=== PATIENT | female | born 1965 | race Caucasian/White ===

== ENCOUNTER → 2019-02-06 | Outpatient (CLI) | payer OTHER, SELFPAY | PROVIDERS: Family Provider Nurse Practitioner Family; Visit Provider Internal Medicine Medical Oncology | DX: Z51.11 Encounter for antineoplastic chemotherapy (principal); C57.02 Malignant neoplasm of left fallopian tube; C78.6 Secondary malignant neoplasm of retroperitoneum and peritoneum | CPT/HCPCS: J1642; J7050; J9035 ×2 ==

== ENCOUNTER 2019-02-27 12:46 | Outpatient (CLI) | payer OTHER, SELFPAY ==
[2019-02-27 13:45] LABS: Basophils % 0.5 %; Eosinophils # 0.5 10^3/uL (0.0-0.8); Hematocrit 39.2 % (37.0-47.0); Hemoglobin 12.6 g/dL (11.5-15.3); Lymphocytes % 30.2 %; Mean Corpuscular HGB Conc 32.1 g/dL (30.0-36.0); Mean Corpuscular Hemoglobin 32.6 pg (28.0-34.0); Mean Corpuscular Volume 101.6 fL (81-99); Monocytes # 0.5 10^3/uL (0.2-0.9); Monocytes % 7.9 %; Neutrophils # 3.5 10^3/uL (1.8-7.7); Neutrophils % 53.1 %; Nucleated Red Blood Cells % 0 %; Platelet Count 170 10^3/cmm (130-400); Red Blood Count 3.86 10^6/uL (4.1-5.3); Red Cell Distribution Width 13.5 % (12.1-15.1); White Blood Count 6.5 10^3/uL (4.0-10.0)
[2019-02-27 14:06] LABS: Add Urine Microscopic? YES; Bilirubin Urine Neg (NEGATIVE); Blood Urine Neg (Negative); Glucose Urine UA Norm (Normal); Ketones Urine Negative (Negative); Leukocyte Esterase Urine Negative (Negative); Nitrate Urine Negative (Negative); Protein Urine Trace (Negative); Specific Gravity, Urine 1.025 (1.005-1.030); Urine Appearance Clear (CLEAR); Urine Color Yellow (Yellow); Urobilinogen Urine Norm (Negative)
[2019-02-27 14:29] LABS: Alanine Aminotransferase 17 U/L (0-33); Albumin Level 3.9 g/dL (3.5-5.2); Alkaline Phosphatase 70 IU/L (35-105); Anion Gap 18.1 (5-19); Aspartate Amino Transferase 20 U/L (0-32); Blood Urea Nitrogen 18 mg/dL (6-20); Calcium 9.8 mg/Dl (8.6-10.0); Carbon Dioxide 23 mmol/L (22-29); Chloride 103 mmol/L (98-107); Globulin 2.7 g/dL (1.3-4.6); Glomerular Filtration Rate 103.8 mL/min (90-130); Glucose 91 mg/dL (74-109); Potassium 4.1 mmol/L (3.5-5.1); Sodium 140 mmol/L (136-145); Total Bilirubin 0.2 mg/dL (0.15-1.2); Total Protein 6.6 g/dL (6.6-8.7)
[2019-02-27 14:39] LABS: Bacteria Urine 1+
[2019-02-27 14:40] LABS: Add Urine Culture? No; Mucus Urine 3+
[2019-02-27] MEDS: sodium chloride 0.9% 250 ML IV (15:36)
[2019-03-03 13:58] LABS: CA 125 16.3 U/mL (0-35)
--- NOTE | 2019-03-03 21:09 | ONC FU_ITS ---
Dr. Grey Patient Follow-Up Note Patient: Jagruti Jay Unit #: [id number]: [id number] Dicatated By: John Grey M.D.Date of Visit:Feb 27, 2019 Onc Med Follow-up/Prog Note Chief Complaint: Fallopian tube cancer. 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 She had a recurrence in the form of a right diaphragmatic peritoneal implant confirmed by biopsy at a cholecystectomy procedure in April 2018. She had presented in August 2015 with abdominal pain, and she was found to have a large pelvic mass. This was initially thought to be arising from the right ovary. On 09/17/2015 she underwent surgery which included total abdominal hysterectomy, bilateral salpingo-oophorectomy, and radical debulking along with pelvic lymphadenectomy and limited periaortic lymphadenectomy. I do not have those actual reports available, but she apparently was thought to have a complete or near-complete resection. She was then given postoperative adjuvant chemotherapy with 6 cycles of carboplatin/paclitaxel. On 09/28/2018 she underwent cholecystectomy, and at the time of that procedure she was noted to have a peritoneal implant on the right diaphragm. Biopsy of the implant showed high-grade carcinoma consistent with the previous high-grade serous primary. With that finding she was then given further chemotherapy with 6 cycles of carboplatin/gemcitabine, which she completed in September 2018. Restaging CT scans of the chest, abdomen, and pelvis on 10/07/2018 showed resolution of a previously noted small anterior hepatic capsular or subcapsular nodule. There are new postsurgical changes in that region. 2 very closely associated hypodense foci were again noted in the right lobe posteriorly, maximum aggregate diameter of 3 mm. That finding. Stable. There was no evidence of a new focal hepatic abnormality. There were small mesenteric, retroperitoneal, and bilateral inguinal lymph nodes. There was no pathologic lymphadenopathy. A 5 x 3 mm sclerotic focus at the right posterior aspect of the manubrium appeared stable compared to a prior study from October 2015. There were no suspicious osseous lesions noted. With those findings, she was recommended to continue further systemic therapy with 16 cycles of bevacizumab administered at 3-week intervals. She was seen here because she would like to receive that treatment closer to home. INTERIM HISTORY: She received cycle 1 of bevacizumab on 11/10/2018. She tolerated it without acute toxicity, and she then continued treatment at a 3-week dosing interval. She is seen for a follow-up visit. She has been feeling good generally. Her main complaint is that her sinuses are horrible. She says they have been getting worse and worse. She also was having stomach burning. She was given a Z-Cale and her Protonix was increased to twice a day, and since then the stomach burning has improved. She says her energy is still good. She has normal activity. She has good appetite. She has not had fever or night sweats, but she does have hot flashes. She has had some sore throat with the sinus drainage. She does not complain of shortness of breath or cough. She has had some chest pain, but she thinks that may be acid reflux. She is having some constipation. She has no complaints. She has some joint pain, especially in her hands. She also has had some neck pain. She says she has been getting up with bad headaches. She has no focal neurologic symptoms. Medications: 1Artemisia 1 Capsule Oral daily PRN, Ashwagandha 1 Capsule (of 1300 mg) Oral daily PRN, Beta Glucan 2 Capsule (of 500 mg) daily, Cetirizine HCl 1 Tablet (of 10 mg) Oral daily, Cholecalciferol 2 Capsule (of 5000 Units) Oral daily, ip-6 inositol 1 Capsule daily, Lexapro 1 Tablet (of 10 mg) Oral daily, Milk Thistle 1 Capsule Oral daily, Pantoprazole Sodium 1 Tablet (of 40 mg) Tablet, enteric coated Oral b.i.d., proline and lysine 1 Tablet daily, Quercetin 1 Tablet (of 500 mg) Oral daily, Singulair 1 Tablet (of 10 mg) Oral at bedtime, tagament 1 Capsule daily, Turmeric 1 Capsule Oral daily, Vitamin C 2 Capsule (of 1400 mg) Oral daily, Vitamin E 1 Capsule (of 500 mg) Oral daily, Vitamin K2 1 Capsule (of 100 mcg) Oral daily Allergies: Sulfa Antibiotics Review of Systems: Constitutional - Her energy is good. She has normal activity. Her appetite is good and her weight is up a few pounds. No fever or chills. She has hot flashes and sweating. ECOG score is 0, ENMT - She has sinus congestion/drainage with sore throat. No mouth sores. No difficulty swallowing, Hematologic/Lymphatic - No abnormal bruising or bleeding, Respiratory - No shortness of breath. No cough. No pleuritic pain or hemoptysis, Cardiovascular - No angina pain. No palpitations, Gastrointestinal - No nausea or vomiting. No heartburn or acid reflux. She has constipation. No blood in the stool or black stools, Genitourinary (F) - No dysuria or hematuria. No urinary frequency. No urgency or incontinence, Musculoskeletal - She has pain in her neck and hands in the mornings, Integumentary - No skin complications, Neurologic - No headache or dizziness. No numbness/paresthesias or other focal neurologic symptoms, Psychiatric - She has some anxiety. No depression. No insomnia. Vital Signs: Performed on Feb 27, 2019 14:32 Height - 64.00 in Weight - 134.4 lbs (HIGH) BSA - 1.65 sq.m BMI - 23.07 Temperature - 97.4 F (LOW) Pulse - 80 /min Respiration - 18 /min BP - 109/58 mm(hg) O2 Sat - 99 % Pain - 0 Physical Examination: Constitutional - She looks good generally, Eyes - Sclerae nonicteric. Conjunctivae clear, ENMT - No lesions noted in the oral cavity, Hematologic/Lymphatic - No cervical, clavicular, or axillary adenopathy, Respiratory - Lungs are clear with good air movement bilaterally, Cardiovascular - Heart rhythm is regular. There is no murmur, gallop, or rub noted, Abdomen - Mildly distended but soft. Liver and spleen are not enlarged. There is no abdominal mass or ascites noted and there is no inguinal adenopathy, Extremities - No edema, Neurologic - No focal neurologic deficits noted. Lab/Imaging: Test performed on Feb 27, 2019 14:49 Glucose 91 mg/dL BUN 18 mg/dL Creatinine 0.9 mg/dL Cr Clearance (Est) 64.53 mL/min Sodium 140 mmol/L Potassium 4.1 mmol/L Chloride 103 mmol/L CO2 23 mmol/L Calcium 9.8 mg/dL Protein, Total 6.6 g/dL Albumin 3.9 g/dL Globulin 2.7 g/dL Bilirubin, Total 3.9 mg/dL Alkaline Phosphatase 70 IU/L AST (SGOT) 20 IU/L ALT (SGPT) 17 IU/L Test performed on Feb 27, 2019 14:17 Ua Color Yellow Ua Appearance Clear Ua Specific [place] 1.025 Ua pH 5.0 Ua Protein Trace Ua Glucose Normal Ua Ketones Negative Ua Blood Negative Ua Leuk Esterase Negative Ua Nitrites Negative Ua Bilirubin Negative Ua Urobilinogen Normal Test performed on Feb 27, 2019 13:57 WBC 6.5 10^9/L RBC 3.86 10^12/L HGB 12.6 g/dL HCT 39.2 % MCV 101.6 fl MCH 32.6 pg MCHC 32.1 g/dL RDW 13.5 % Platelet Count 170 10^9/L MPV 11 fL Neutrophils (Gran) 3.5 10^9/L Lymphocytes 2 10^9/L Monocytes 0.5 10^9/L Eosinophils 0.5 10^9/L Basophils 0 10^9/L Manual Segs 53.1 % Manual Lymphocytes 30.2 % Manual Monocytes 7.9 % Manual Eosinophils 8 % Manual Basophils 0.5 % NRBCs 0 /100 WBC Impression: 1. 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 She had complete or near-complete debulking with her initial surgery in September 2015. 2. She was given postoperative adjuvant chemotherapy with 6 cycles of carboplatin/paclitaxel. 3. She had biopsy proven recurrence in the form of a right diaphragmatic peritoneal implant, discovered at the cholecystectomy procedure in April 2018. 4. She then had further chemotherapy with 6 cycles of carboplatin/gemcitabine, completed in September 2018. She had no evidence of residual disease on restaging CT scans on 10/07/2018. Her other medical illnesses include: 5. GERD. 6. Allergic rhinitis. 7. Anxiety/depression. She was recommended to undergo maintenance therapy with single agent bevacizumab at a 3-week interval dosing schedule for 16 cycles. She began cycle 1 of bevacizumab on 11/10/2018. She tolerated it well, and she has been able to continue her treatment every 3 weeks with no apparent adverse effects. Recently she has had some worsening of sinusitis symptoms and she also has had GERD symptoms. At least some of that has improved with a Z-Cale and with an increase in her Protonix dosage to twice daily.. Plan: She will proceed with cycle 6 of bevacizumab. The dosage remains the same. She returns for treatment in 3 weeks and for a follow-up visit in 6 weeks. Signed By: John Grey M.D. <<Signature on File>>
== END 2019-02-27 12:47 | disposition home or self-care (01) ==
LOC: ONCMED 12:48
PROVIDERS: Family Provider Nurse Practitioner Family; PCP Nurse Practitioner Family; Visit Provider Internal Medicine Medical Oncology
DX: Z51.11 Encounter for antineoplastic chemotherapy (principal); C57.02 Malignant neoplasm of left fallopian tube; C78.6 Secondary malignant neoplasm of retroperitoneum and peritoneum; Z90.710 Acquired absence of both cervix and uterus; Z90.79 Acquired absence of other genital organ(s)
CPT/HCPCS: 80053; 81003; 85025; 86304; 96413; 99214; J7050; J9035

== ENCOUNTER 2019-03-20 09:43 | Outpatient (CLI) | payer OTHER, SELFPAY ==
[2019-03-20] MEDS: sodium chloride 0.9% 250 ML 75 ML IV (10:46)
== END 2019-03-20 09:44 | disposition home or self-care (01) ==
PROVIDERS: Family Provider Nurse Practitioner Family; PCP Nurse Practitioner Family; Visit Provider Internal Medicine Medical Oncology
DX: Z51.11 Encounter for antineoplastic chemotherapy (principal); C57.02 Malignant neoplasm of left fallopian tube
CPT/HCPCS: 96413; J7050; J9035

== ENCOUNTER 2019-04-10 09:28 | Outpatient (CLI) | payer OTHER, SELFPAY ==
[2019-04-10 09:56] LABS: Add Urine Microscopic? NO
[2019-04-10 10:00] LABS: Basophils % 0.4 %; Eosinophils # 0.1 10^3/uL (0.0-0.8); Eosinophils % 1.2 %; Hematocrit 40.9 % (37.0-47.0); Hemoglobin 13.1 g/dL (11.5-15.3); Lymphocytes # 1.4 10^3/uL (0.8-4.8); Lymphocytes % 27.2 %; Mean Corpuscular Volume 99.8 fL (81-99); Mean Platelet Volume 10.6 fL (7.4-10.4); Monocytes # 0.4 10^3/uL (0.2-0.9); Monocytes % 8.5 %; Neutrophils # 3.1 10^3/uL (1.8-7.7); Neutrophils % 62.5 %; Nucleated Red Blood Cells % 0 %; Platelet Count 180 10^3/cmm (130-400); Red Cell Distribution Width 12.4 % (12.1-15.1)
[2019-04-10 10:15] LABS: Alanine Aminotransferase 16 U/L (0-33); Albumin Level 4.4 g/dL (3.5-5.2); Alkaline Phosphatase 71 IU/L (35-105); Anion Gap 13.2 (5-19); Aspartate Amino Transferase 19 U/L (0-32); Blood Urea Nitrogen 18 mg/dL (6-20); Calcium 9.9 mg/dL (8.5-10.5); Carbon Dioxide 27 mmol/L (22-29); Chloride 104 mmol/L (98-107); Globulin 2.5 g/dL (1.3-4.6); Glomerular Filtration Rate 103.8 mL/min (90-130); Glucose 90 mg/dL (65-115); Potassium 4.2 mmol/L (3.5-5.1); Sodium 140 mmol/L (136-145); Total Bilirubin 0.3 mg/dL (0.15-1.2); Total Protein 6.9 g/dL (6.6-8.7)
[2019-04-10 10:28] LABS: Bilirubin Urine Neg (NEGATIVE); Blood Urine Neg (Negative); Glucose Urine UA Norm (Normal); Ketones Urine Negative (Negative); Leukocyte Esterase Urine Negative (Negative); Nitrate Urine Negative (Negative); Protein Urine Neg (Negative); Urine Appearance Clear (CLEAR); Urine Color Straw (Yellow); Urobilinogen Urine Norm (Negative)
[2019-04-10 11:14] LABS: CA 125 22.2 U/mL (0-35)
[2019-04-10] MEDS: sodium chloride 0.9% 250 ML 75 ML IV (12:00)
--- NOTE | 2019-04-15 17:03 | ONC FU_ITS ---
[facility] Patient Note Patient: Jagruti Jay Unit #: [id number]: [id number] Dictated By: Celio WarrenDate of Visit: Apr 10, 2019 Onc MED Follow-Up/Prog Note Chief Complaint: Fallopian tube cancer. 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 She had a recurrence in the form of a right diaphragmatic peritoneal implant confirmed by biopsy at a cholecystectomy procedure in April 2018. She had presented in August 2015 with abdominal pain, and she was found to have a large pelvic mass. This was initially thought to be arising from the right ovary. On 09/17/2015 she underwent surgery which included total abdominal hysterectomy, bilateral salpingo-oophorectomy, and radical debulking along with pelvic lymphadenectomy and limited periaortic lymphadenectomy. We do not have those actual reports available, but she apparently was thought to have a complete or near-complete resection. She was then given postoperative adjuvant chemotherapy with 6 cycles of carboplatin/paclitaxel. On 09/28/2018 she underwent cholecystectomy, and at the time of that procedure she was noted to have a peritoneal implant on the right diaphragm. Biopsy of the implant showed high-grade carcinoma consistent with the previous high-grade serous primary. With that finding she was then given further chemotherapy with 6 cycles of carboplatin/gemcitabine, which she completed in September 2018. Restaging CT scans of the chest, abdomen, and pelvis on 10/07/2018 showed resolution of a previously noted small anterior hepatic capsular or subcapsular nodule. There are new postsurgical changes in that region. 2 very closely associated hypodense foci were again noted in the right lobe posteriorly, maximum aggregate diameter of 3 mm. That finding. Stable. There was no evidence of a new focal hepatic abnormality. There were small mesenteric, retroperitoneal, and bilateral inguinal lymph nodes. There was no pathologic lymphadenopathy. A 5 x 3 mm sclerotic focus at the right posterior aspect of the manubrium appeared stable compared to a prior study from October 2015. There were no suspicious osseous lesions noted. With those findings, she was recommended to continue further systemic therapy with 16 cycles of bevacizumab administered at 3-week intervals. She was seen here because she would like to receive that treatment closer to home. INTERIM HISTORY: She received cycle 1 of bevacizumab on 11/10/2018. She tolerated it without acute toxicity, and she then continued treatment at a 3-week dosing interval. Ms. Jay is here today for follow-up. She is due for cycle 8 Avastin. She states overall she is doing well. She has had some stiffness in her hands and neck but states is chronic arthritis. She does not feel is any worse than her normal. She states she has had some headaches every morning but began doing CBD bears which are to ease at night. She states she has been doing this for 2 weeks and for that time she has had no morning headaches. She is very active around the house. She is able to do all her ADLs without any assistance. She states her appetite is good. She denies any fever or chills. She has had no elevation of her blood pressure that she is aware of. She denies any chest pain or palpitations. She states her breathing is normal for her. She does have occasional constipation but is controlled with Dulcolax and MiraLAX as needed. She denies diarrhea. She denies any lower extremity edema. She denies any nausea or vomiting. She states overall she feels good. Her ECOG is 1. Past Medical History: Allergic rhinitis Anxiety/depression Fallopian tube cancer Gastroesophageal reflux disease Past Surgical History: Cholecystectomy in 2019 Placement of PowerPort in 2016 MARIBELL/BSO, omentectomy, radical debulking with pelvic and periaortic lymphadenectomy in 2016 Allergies: Sulfa Antibiotics Medications: 1Artemisia 1 Capsule Oral daily PRN Ashwagandha 1 Capsule (of 1300 mg) Oral daily PRN Beta Glucan 2 Capsule (of 500 mg) daily Cetirizine HCl 1 Tablet (of 10 mg) Oral daily Cholecalciferol 2 Capsule (of 5000 Units) Oral daily ip-6 inositol 1 Capsule daily Kelp 1 Tablet (of 150 mcg) Oral daily Lexapro 1 Tablet (of 10 mg) Oral daily Milk Thistle 1 Capsule Oral daily Pantoprazole Sodium 1 Tablet (of 40 mg) Tablet, enteric coated Oral b.i.d. proline and lysine 1 Tablet daily Quercetin 1 Tablet (of 500 mg) Oral daily Singulair 1 Tablet (of 10 mg) Oral at bedtime tagament 1 Capsule daily Turmeric 1 Capsule Oral daily Vitamin C 2 Capsule (of 1400 mg) Oral daily Vitamin E 1 Capsule (of 500 mg) Oral daily Family History: Ms. Jay's mother at age 82: congestive heart failure, and coronary artery disease, and type II diabetes. Ms. Jay's father at age 82: lung cancer. Ms. Jay has 3 brothers: 3 alive. She has 2 sisters: 2 alive. Father of lung cancer at age 82. Mother of heart disease at age 82. She also had diabetes. A brother has leukemia, which I assume is chronic leukocytic leukemia. Four other siblings are in good health. A nephew of leukemia. 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 Ms. Jay quit smoking 20 years ago but had smoked 0.5 packs/day for 20 years. She has no history of drinking. Ms. Jay reports the following support systems: lives with spouse, significant other, family, or friends, lives in own house, supportive family/friends willing to assist with needs, and adequate transportation available for expected visits. Her diet consists of regular meals. She indicates her activity level as: regular exercise. She has a history of smoking 1/2 pack of cigarettes daily for 20 years, but she quit 20 years ago. She does not drink alcohol. Review Of Symptoms: Constitutional Denies fevers, chills, night sweats, excessive fatigue or weight loss. Allergic/Immunologic No reactions. Eyes Denies significant visual changes. No diplopia. No amaurosis. ENMT Denies changes in hearing, sore throat, mouth sores, difficulty or changes in swallowing ability, and/or sinus drainage. Endocrine No diabetes, thyroid disease or hormone replacement. Denies hot flashes or night sweats. Hematologic/Lymphatic Denies easy bruising or bleeding. The patient denies any tender or palpable lymph nodes. Respiratory Denies dyspnea on exertion, chest pain, cough or hemoptysis. Denies orthopnea. Cardiovascular Denies anginal chest pain, palpitations or orthopnea. Gastrointestinal Denies nausea, vomiting, diarrhea, GI bleeding. Denies change in bowel habits and/or stool color, no heartburn or early satiety. Chronic constipation-controlled with Dulcolax daily and Miralax prn. Genitourinary (F) No hematuria, hesitancy, incontinence, vaginal bleeding, discharge or other problems with urination. Musculoskeletal Denies joint pain, swelling or redness. No decreased range of motion. Hands are stiff of the am and I have to work at getting them loosened up. This started since Avastin. Integumentary Denies chronic rashes, inflammation, ulcerations or skin changes. Neurologic Denies headache, blurred vision, and no areas of focal weakness or numbness. Normal gait. No sensory problems. Psychiatric Denies insomnia, depression, karla or mood swings. Vital Signs: Performed on Apr 10, 2019 11:00 Height - 64.00 in Weight - 136 lbs (HIGH) BSA - 1.66 sq.m BMI - 23.34 Temperature - 97.7 F (LOW) Pulse - 96 /min Respiration - 18 /min BP - 128/67 mm(hg) O2 Sat - 97 % Pain - 0,1 - No physically strenuous activity, but ambulatory and able to carry out light or sedentary work (e.g. office work, light house work). (ECOG) Physical Examination: Constitutional Alert, oriented, no acute distress. Skin pink, warm and dry. Head Normocephalic; atraumatic. Eyes Conjunctivae and sclerae are clear and without icterus. Pupils are reactive and equal. ENMT Sinuses are nontender. No oral exudates, ulcers, masses, thrush or mucositis. Oropharynx clear. Tongue normal. Neck Supple without masses or thyromegaly. No jugular venous distension. Respiratory Lungs are clear to auscultation without rhonchi or wheezing. Cardiovascular Regular rate and rhythm of heart without murmurs,clicks, gallops or rubs. Abdomen Non-tender, non-distended, no masses, ascites. Back/Spine Non-tender to palpation. Extremities No visible deformities, no cyanosis, clubbing or edema. Musculoskeletal No tenderness or swelling, normal range of motion without obvious weakness. Integumentary No rashes or lesions. Neurologic No sensory or motor deficits, normal cerebellar function, normal gait. Psychiatric Alert and oriented times three. Coherent slow speech. Verbalizes understanding of our discussions today. Laboratory:Test performed on Apr 10, 2019 12:42 Ua Color straw Ua Appearance clear Ua Specific [place] 1.010 Ua pH 5.0 Ua Protein neg Ua Glucose norm Ua Ketones negative Ua Blood neg Ua Leuk Esterase negative Ua Nitrites neg Ua Bilirubin neg Ua Urobilinogen norm Test performed on Apr 10, 2019 09:40 Sodium 140 mmol/L Potassium 4.2 mmol/L Chloride 104 mmol/L CO2 27 mmol/L Anion Gap 13.2 BUN 18 mg/dL Creatinine 0.6 mg/dL Cr Clearance (Est) 96.8000 mL/min eGFR 103.8 mL/min Glucose 90 mg/dL Calcium 9.9 mg/dL Protein, Total 6.9 g/dL Albumin 4.4 g/dL Globulin 2.5 g/dL Bilirubin, Total 0.3 mg/dL ALT (SGPT) 16 U/L AST (SGOT) 19 U/L Alkaline Phosphatase 71 IU/L WBC 5.0 10 3/uL RBC 4.10 10 6/uL HGB 13.1 g/dL HCT 40.9 % MCV 99.8 fL MCH 32.0 pg MCHC 32.0 g/dL RDW 12.4 % Platelet Count 180 10 3/cmm MPV 10.6 fL Neutrophils 3.1 10 3/uL Lymphocytes 1.4 10 3/uL Monocytes 0.4 10 3/uL Eosinophils 0.1 10 3/uL Basophils 0.0 10 3/uL Neutrophil % 62.5 % Lymphocyte % 27.2 % Monocyte % 8.5 % Eosinophil % 1.2 % Basophils % 0.4 % CA-125 22.2 U/mL Test performed on Feb 27, 2019 13:57 Manual Segs 53.1 % Manual Lymphocytes 30.2 % Manual Monocytes 7.9 % Manual Eosinophils 8 % Manual Basophils 0.5 % NRBCs 0 /100 WBC Test performed on Jan 12, 2019 12:28 Cholesterol, Total 243 mg/dL TSH 2.91 uIU/mL Triglycerides 65 mg/dL LDL Cholesterol 144 mg/dL HDL Cholesterol 86 mg/dL Cholesterol/HDL Ratio 2.83 mg/dL LDL / HDL Ratio 1.67 RATIO Impression: 1. 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 She had complete or near-complete debulking with her initial surgery in September 2015. 2. She was given postoperative adjuvant chemotherapy with 6 cycles of carboplatin/paclitaxel. 3. She had biopsy proven recurrence in the form of a right diaphragmatic peritoneal implant, discovered at the cholecystectomy procedure in April 2018. 4. She then had further chemotherapy with 6 cycles of carboplatin/gemcitabine, completed in September 2018. She had no evidence of residual disease on restaging CT scans on 10/07/2018. Her other medical illnesses include: 5. GERD. 6. Allergic rhinitis. 7. Anxiety/depression. She was recommended to undergo maintenance therapy with single agent bevacizumab at a 3-week interval dosing schedule for 16 cycles. She began cycle 1 of bevacizumab on 11/10/2018. She tolerated it well, and she has been able to continue her treatment every 3 weeks with no apparent adverse effects. Recently she has had some worsening of sinusitis symptoms and she also has had GERD symptoms. At least some of that has improved with a Z-Cale and with an increase in her Protonix dosage to twice daily. She states she is feeling much better today. Plan: 1. Proceed with cycle 7 of bevacizumab. 2. Followup with Dr Valdes scheduled for 04/21/2019 per Ms Jay. 3. Labs from April 10, 2019 were reviewed in detail and discussed with Ms. Jay and a copy was given to her. WBC is 5.0, hemoglobin 13.1, platelets 180,000, ANC is 3100. Potassium 4.2 random glucose 90 creatinine 0.6 LFTs are normal her Ca1 25 is 22.5 which is elevated from February 27, 2019 at which time was 16.3. On January 12, 2019 it was 12.4. Her recent urine was negative for protein. 4. We will plan to have Ms. Jay return in 3 weeks for Avastin only and follow-up with her again in 6 weeks to include a CBC CMP CA-125 and UA for Avastin monitoring. 5. Mrs. Jay is instructed to contact us in interim should questions or problems arise. Signed By: Celio Warren-, AOZAK Grey MD <<Signature on File>>
== END 2019-04-10 09:29 | disposition home or self-care (01) ==
LOC: ONCMED 09:28
PROVIDERS: Family Provider Nurse Practitioner Family; PCP Nurse Practitioner Family; Visit Provider Nurse Practitioner
DX: Z51.11 Encounter for antineoplastic chemotherapy (principal); C57.02 Malignant neoplasm of left fallopian tube; C78.6 Secondary malignant neoplasm of retroperitoneum and peritoneum; M19.90 Unspecified osteoarthritis, unspecified site; F41.8 Other specified anxiety disorders; K21.9 Gastro-esophageal reflux disease without esophagitis; Z98.890 Other specified postprocedural states; Z79.899 Other long term (current) drug therapy; Z90.49 Acquired absence of other specified parts of digestive tract; Z87.891 Personal history of nicotine dependence
CPT/HCPCS: 80053; 81003; 85025; 86304; 96413; 99214; J7050; J9035

== ENCOUNTER 2019-05-01 09:23 | Outpatient (CLI) | payer OTHER, SELFPAY ==
[2019-05-01] MEDS: sodium chloride 0.9% 250 ML 75 ML IV (10:20)
[2019-05-01 10:21] LABS: Basophils % 0.4 %; Eosinophils % 0.6 %; Hematocrit 40.2 % (37.0-47.0); Hemoglobin 12.8 g/dL (11.5-15.3); Lymphocytes # 1.2 10^3/uL (0.8-4.8); Lymphocytes % 23.3 %; Mean Corpuscular HGB Conc 31.8 g/dL (30.0-36.0); Mean Corpuscular Hemoglobin 32.3 pg (28.0-34.0); Mean Corpuscular Volume 101.5 fL (81-99); Mean Platelet Volume 10.6 fL (7.4-10.4); Monocytes # 0.4 10^3/uL (0.2-0.9); Neutrophils # 3.6 10^3/uL (1.8-7.7); Neutrophils % 68.5 %; Nucleated Red Blood Cells % 0 %; Platelet Count 173 10^3/cmm (130-400); Red Blood Count 3.96 10^6/uL (4.1-5.3); Red Cell Distribution Width 12.3 % (12.1-15.1); White Blood Count 5.3 10^3/uL (4.0-10.0)
[2019-05-01 10:33] LABS: Alanine Aminotransferase 14 U/L (0-33); Albumin Level 4.2 g/dL (3.5-5.2); Alkaline Phosphatase 57 IU/L (35-105); Aspartate Amino Transferase 17 U/L (0-32); Blood Urea Nitrogen 13 mg/dL (6-20); Calcium 9.5 mg/dL (8.5-10.5); Carbon Dioxide 30 mmol/L (22-29); Chloride 104 mmol/L (98-107); Globulin 2.5 g/dL (1.3-4.6); Glomerular Filtration Rate 103.8 mL/min (90-130); Glucose 96 mg/dL (65-115); Osmolality Calculated 288 mOsm/kg (285-295); Sodium 141 mmol/L (136-145); Total Bilirubin 0.3 mg/dL (0.15-1.2); Total Protein 6.7 g/dL (6.6-8.7)
[2019-05-01 11:22] LABS: CA 125 22.7 U/mL (0-35)
== END 2019-05-01 09:24 | disposition home or self-care (01) ==
LOC: ONCMED 09:23
PROVIDERS: Family Provider Nurse Practitioner Family; PCP Nurse Practitioner Family; Visit Provider Nurse Practitioner
DX: Z51.11 Encounter for antineoplastic chemotherapy (principal); C57.02 Malignant neoplasm of left fallopian tube
CPT/HCPCS: 80053; 85025; 86304; 96413; J7050; J9035

== ENCOUNTER 2019-05-22 15:02 | Outpatient (CLI) | payer OTHER, SELFPAY ==
[2019-05-22] MEDS: sodium chloride 0.9% 250 ML 75 ML IV (15:45)
[2019-05-22 15:48] LABS: Basophils % 0.4 %; Eosinophils # 0.1 10^3/uL (0.0-0.8); Eosinophils % 1.3 %; Hematocrit 40.4 % (37.0-47.0); Hemoglobin 12.9 g/dL (11.5-15.3); Lymphocytes # 1.9 10^3/uL (0.8-4.8); Lymphocytes % 35.3 %; Mean Corpuscular HGB Conc 31.9 g/dL (30.0-36.0); Mean Corpuscular Hemoglobin 32.8 pg (28.0-34.0); Mean Corpuscular Volume 102.8 fL (81-99); Mean Platelet Volume 10.3 fL (7.4-10.4); Monocytes # 0.5 10^3/uL (0.2-0.9); Monocytes % 9.6 %; Neutrophils # 2.8 10^3/uL (1.8-7.7); Neutrophils % 53.2 %; Nucleated Red Blood Cells % 0 %; Platelet Count 193 10^3/cmm (130-400); Red Blood Count 3.93 10^6/uL (4.1-5.3); Red Cell Distribution Width 12.6 % (12.1-15.1); White Blood Count 5.3 10^3/uL (4.0-10.0)
[2019-05-22 15:48] LABS: Add Urine Microscopic? NO
[2019-05-22 15:58] LABS: Bilirubin Urine Neg (NEGATIVE); Blood Urine Neg (Negative); Glucose Urine UA Norm (Normal); Ketones Urine Negative (Negative); Leukocyte Esterase Urine Negative (Negative); Nitrate Urine Negative (Negative); Protein Urine Neg (Negative); Urine Appearance Clear (CLEAR); Urine Color Yellow (Yellow); Urobilinogen Urine Norm (Negative); pH Urine 5 (5-7)
[2019-05-22 16:10] LABS: Alanine Aminotransferase 17 U/L (0-33); Albumin Level 4.2 g/dL (3.5-5.2); Alkaline Phosphatase 64 IU/L (35-105); Anion Gap 15.1 (5-19); Aspartate Amino Transferase 18 U/L (0-32); Blood Urea Nitrogen 15 mg/dL (6-20); Calcium 9.7 mg/dL (8.5-10.5); Carbon Dioxide 28 mmol/L (22-29); Chloride 99 mmol/L (98-107); Globulin 2.5 g/dL (1.3-4.6); Glomerular Filtration Rate 103.8 mL/min (90-130); Glucose 88 mg/dL (65-115); Osmolality Calculated 282 mOsm/kg (285-295); Potassium 4.1 mmol/L (3.5-5.1); Sodium 138 mmol/L (136-145); Total Bilirubin 0.2 mg/dL (0.15-1.2); Total Protein 6.7 g/dL (6.6-8.7)
[2019-05-22 16:16] LABS: CA 125 21.8 U/mL (0-35)
== END 2019-05-22 15:03 | disposition home or self-care (01) ==
PROVIDERS: Family Provider Nurse Practitioner Family; PCP Nurse Practitioner Family; Visit Provider Internal Medicine Medical Oncology
DX: Z51.11 Encounter for antineoplastic chemotherapy (principal); C57.02 Malignant neoplasm of left fallopian tube; C78.6 Secondary malignant neoplasm of retroperitoneum and peritoneum
CPT/HCPCS: 80053; 81003; 85025; 86304; 96413; J7050; J9035

== ENCOUNTER 2019-06-12 15:14 | Outpatient (CLI) | payer OTHER, SELFPAY ==
[2019-06-12] MEDS: sodium chloride 0.9% 250 ML 75 ML IV (15:55)
== END 2019-06-12 15:15 | disposition home or self-care (01) ==
LOC: ONCMED 15:14
PROVIDERS: Family Provider Nurse Practitioner Family; PCP Nurse Practitioner Family; Visit Provider Internal Medicine Medical Oncology
DX: Z51.11 Encounter for antineoplastic chemotherapy (principal); C57.02 Malignant neoplasm of left fallopian tube; C78.6 Secondary malignant neoplasm of retroperitoneum and peritoneum
CPT/HCPCS: 96413; J7050; J9035

== ENCOUNTER 2019-07-04 09:04 | Outpatient (CLI) | payer OTHER, SELFPAY ==
[2019-07-04 09:39] LABS: Add Urine Microscopic? NO
[2019-07-04 09:42] LABS: Basophils % 0.7 %; Eosinophils # 0.1 10^3/uL (0.0-0.8); Eosinophils % 1.1 %; Hematocrit 39.8 % (37.0-47.0); Hemoglobin 12.6 g/dL (11.5-15.3); Lymphocytes # 1.4 10^3/uL (0.8-4.8); Lymphocytes % 30.5 %; Mean Corpuscular HGB Conc 31.7 g/dL (30.0-36.0); Mean Platelet Volume 10.5 fL (7.4-10.4); Monocytes # 0.4 10^3/uL (0.2-0.9); Monocytes % 8.8 %; Neutrophils # 2.6 10^3/uL (1.8-7.7); Neutrophils % 58.9 %; Nucleated Red Blood Cells % 0 %; Platelet Count 182 10^3/cmm (130-400); Red Blood Count 3.94 10^6/uL (4.1-5.3); Red Cell Distribution Width 12.8 % (12.1-15.1); White Blood Count 4.4 10^3/uL (4.0-10.0)
[2019-07-04 09:43] LABS: Bilirubin Urine Neg (NEGATIVE); Blood Urine Neg (Negative); Glucose Urine UA Norm (Normal); Ketones Urine Negative (Negative); Leukocyte Esterase Urine Negative (Negative); Nitrate Urine Negative (Negative); Protein Urine Neg (Negative); Urine Appearance Clear (CLEAR); Urine Color Straw (Yellow); Urobilinogen Urine Norm (Negative)
[2019-07-04 10:08] LABS: Alanine Aminotransferase 18 U/L (0-33); Albumin Level 4.2 g/dL (3.5-5.2); Alkaline Phosphatase 64 IU/L (35-105); Aspartate Amino Transferase 21 U/L (0-32); Blood Urea Nitrogen 18 mg/dL (6-20); Calcium 9.9 mg/dL (8.5-10.5); Carbon Dioxide 26 mmol/L (22-29); Chloride 101 mmol/L (98-107); Globulin 2.5 g/dL (1.3-4.6); Glomerular Filtration Rate 103.8 mL/min (90-130); Glucose 91 mg/dL (65-115); Osmolality Calculated 278 mOsm/kg (285-295); Sodium 136 mmol/L (136-145); Total Bilirubin 0.3 mg/dL (0.15-1.2); Total Protein 6.7 g/dL (6.6-8.7)
[2019-07-04 10:32] LABS: CA 125 27.9 U/mL (0-35)
--- NOTE | 2019-07-04 11:37 | ONC FU_ITS ---
[facility] Patient Note Patient: Jagruti Jay Unit #: [id number]: [id number] Dictated By: Celio WarrenDate of Visit: July 04, 2019 Onc MED Follow-Up/Prog Note Chief Complaint: Fallopian tube cancer. 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 She had a recurrence in the form of a right diaphragmatic peritoneal implant confirmed by biopsy at a cholecystectomy procedure in April 2018. She had presented in August 2015 with abdominal pain, and she was found to have a large pelvic mass. This was initially thought to be arising from the right ovary. On 09/17/2015 she underwent surgery which included total abdominal hysterectomy, bilateral salpingo-oophorectomy, and radical debulking along with pelvic lymphadenectomy and limited periaortic lymphadenectomy. We do not have those actual reports available, but she apparently was thought to have a complete or near-complete resection. She was then given postoperative adjuvant chemotherapy with 6 cycles of carboplatin/paclitaxel. On 09/28/2018 she underwent cholecystectomy, and at the time of that procedure she was noted to have a peritoneal implant on the right diaphragm. Biopsy of the implant showed high-grade carcinoma consistent with the previous high-grade serous primary. With that finding she was then given further chemotherapy with 6 cycles of carboplatin/gemcitabine, which she completed in September 2018. Restaging CT scans of the chest, abdomen, and pelvis on 10/07/2018 showed resolution of a previously noted small anterior hepatic capsular or subcapsular nodule. There are new postsurgical changes in that region. 2 very closely associated hypodense foci were again noted in the right lobe posteriorly, maximum aggregate diameter of 3 mm. That finding. Stable. There was no evidence of a new focal hepatic abnormality. There were small mesenteric, retroperitoneal, and bilateral inguinal lymph nodes. There was no pathologic lymphadenopathy. A 5 x 3 mm sclerotic focus at the right posterior aspect of the manubrium appeared stable compared to a prior study from October 2015. There were no suspicious osseous lesions noted. With those findings, she was recommended to continue further systemic therapy with 16 cycles of bevacizumab administered at 3-week intervals. She was seen here because she would like to receive that treatment closer to home. INTERIM HISTORY: She received cycle 1 of bevacizumab on 11/10/2018. She tolerated it without acute toxicity, and she then continued treatment at a 3-week dosing interval. Ms. Jay is here today for follow-up. She is due for cycle 12 Avastin. She states overall she is doing well. She states she is been having some tenderness in the back of her head which she thinks is her sinuses. She did try a Z-Cale recently and it did improve but not relieve the symptoms completely. She states she has had no nasal drainage that is been discolored. She denies fever or chills. She has had no mouth sores, sore throat or difficulty swallowing. She continues to have chronic constipation but states she can control it with her own bowel regimen. She states she does have soreness in her lower mid quadrant area but states is been there for some time. She states really has not changed a lot. She states that she is worried about the soreness with her CA 125 climbing. 27.9 today. She remains active around the home and can do all of her ADLs without assistance. She denies any shortness of breath orthopnea. She denies any lower extremity edema. She denies chest pain or palpitations. Her ECOG is 0. Past Medical History: Allergic rhinitis Anxiety/depression Fallopian tube cancer Gastroesophageal reflux disease Past Surgical History: Cholecystectomy in 2019 Placement of PowerPort in 2016 MARIBELL/BSO, omentectomy, radical debulking with pelvic and periaortic lymphadenectomy in 2016 Allergies: Sulfa Antibiotics Medications: 1Artemisia 1 Capsule Oral daily PRN Ashwagandha 1 Capsule (of 1300 mg) Oral daily PRN Beta Glucan 2 Capsule (of 500 mg) daily Cetirizine HCl 1 Tablet (of 10 mg) Oral daily Cholecalciferol 2 Capsule (of 5000 Units) Oral daily ip-6 inositol 1 Capsule daily Kelp 1 Tablet (of 150 mcg) Oral daily Lexapro 1 Tablet (of 10 mg) Oral daily Milk Thistle 1 Capsule Oral daily Pantoprazole Sodium 1 Tablet (of 40 mg) Tablet, enteric coated Oral b.i.d. proline and lysine 1 Tablet daily Quercetin 1 Tablet (of 500 mg) Oral daily Singulair 1 Tablet (of 10 mg) Oral at bedtime tagament 1 Capsule daily Turmeric 1 Capsule Oral daily Vitamin C 2 Capsule (of 1400 mg) Oral daily Vitamin E 1 Capsule (of 500 mg) Oral daily Family History: Ms. Jay's mother at age 82: congestive heart failure, and coronary artery disease, and type II diabetes. Ms. Jay's father at age 82: lung cancer. Ms. Jay has 3 brothers: 3 alive. She has 2 sisters: 2 alive. Father of lung cancer at age 82. Mother of heart disease at age 82. She also had diabetes. A brother has leukemia, which I assume is chronic leukocytic leukemia. Four other siblings are in good health. A nephew of leukemia. 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 Ms. Jay quit smoking 20 years ago but had smoked 0.5 packs/day for 20 years. She has no history of drinking. Ms. Jay reports the following support systems: lives with spouse, significant other, family, or friends, lives in own house, supportive family/friends willing to assist with needs, and adequate transportation available for expected visits. Her diet consists of regular meals. She indicates her activity level as: regular exercise. She has a history of smoking 1/2 pack of cigarettes daily for 20 years, but she quit 20 years ago. She does not drink alcohol. Review Of Symptoms: Constitutional Denies fevers, chills, night sweats, excessive fatigue or weight loss. Allergic/Immunologic No reactions. Eyes Denies significant visual changes. No diplopia. No amaurosis. ENMT Denies changes in hearing, sore throat, mouth sores, difficulty or changes in swallowing ability, and/or sinus drainage. Endocrine No diabetes, thyroid disease or hormone replacement. Denies hot flashes or night sweats. Hematologic/Lymphatic Denies easy bruising or bleeding. The patient denies any tender or palpable lymph nodes. Respiratory Denies dyspnea on exertion, chest pain, cough or hemoptysis. Denies orthopnea. Cardiovascular Denies anginal chest pain, palpitations or orthopnea. Gastrointestinal Denies nausea, vomiting, diarrhea, GI bleeding. Denies change in bowel habits and/or stool color, no heartburn or early satiety. Chronic constipation-controlled with Dulcolax daily and Miralax prn. Genitourinary (F) No hematuria, hesitancy, incontinence, vaginal bleeding, discharge or other problems with urination. Musculoskeletal Denies joint pain, swelling or redness. No decreased range of motion. Hands are stiff/sore. Joints sore. Integumentary Denies chronic rashes, inflammation, ulcerations or skin changes. Neurologic Denies headache, blurred vision, and no areas of focal weakness or numbness. Normal gait. No sensory problems. Psychiatric Denies insomnia, depression, karla or mood swings. Vital Signs: Performed on July 04, 2019 10:55 Height - 64.00 in Weight - 138.6 lbs (HIGH) BSA - 1.67 sq.m BMI - 23.79 Temperature - 97.8 F (LOW) Pulse - 86 /min Respiration - 18 /min BP - 123/71 mm(hg) O2 Sat - 98 % Pain - 2,0 - Fully active, able to carry on all predisease activities without restrictions. (ECOG) Physical Examination: Constitutional Alert, oriented, no acute distress. Skin pink, warm and dry. Head Normocephalic; atraumatic. Eyes Conjunctivae and sclerae are clear and without icterus. Pupils are reactive and equal. Neck Supple without masses or thyromegaly. No jugular venous distension. Hematologic/Lymphatic No petechiae or purpura. No tender or palpable lymph nodes in the cervical or supraclavicular areas. Respiratory Lungs are clear to auscultation without rhonchi or wheezing. Cardiovascular Regular rate and rhythm of heart without murmurs,clicks, gallops or rubs. Chest Left chest wall venous access device unremarkable. Abdomen Non-tender, non-distended, no masses, ascites. Back/Spine Non-tender to palpation. Extremities No visible deformities, no cyanosis, clubbing or edema. Musculoskeletal No tenderness or swelling, normal range of motion without obvious weakness. Integumentary No rashes or lesions. Neurologic No sensory or motor deficits, normal cerebellar function, normal gait. Psychiatric Alert and oriented times three. Coherent slow speech. Verbalizes understanding of our discussions today. Laboratory:Test performed on July 04, 2019 10:49 Ua Color Straw Ua Appearance Clear Ua Glucose Norm Ua Bilirubin Neg Ua Ketones Negative Ua Specific [place] 1.010 Ua Blood Neg Ua pH 5.0 Ua Protein Neg Ua Nitrites Negative Ua Leukocyte Esterase Negative Test performed on July 04, 2019 09:15 Sodium 136 mmol/L Potassium 4.0 mmol/L Chloride 101 mmol/L CO2 26 mmol/L Anion Gap 13.0 BUN 18 mg/dL Creatinine 0.6 mg/dL Cr Clearance (Est) 96.8000 mL/min eGFR 103.8 mL/min Glucose 91 mg/dL Calcium 9.9 mg/dL Protein, Total 6.7 g/dL Albumin 4.2 g/dL Globulin 2.5 g/dL Bilirubin, Total 0.3 mg/dL ALT (SGPT) 18 U/L AST (SGOT) 21 U/L Alkaline Phosphatase 64 IU/L WBC 4.4 10 3/uL RBC 3.94 10 6/uL HGB 12.6 g/dL HCT 39.8 % MCV 101.0 fL MCH 32.0 pg MCHC 31.7 g/dL RDW 12.8 % Platelet Count 182 10 3/cmm MPV 10.5 fL Neutrophils 2.6 10 3/uL Lymphocytes 1.4 10 3/uL Monocytes 0.4 10 3/uL Eosinophils 0.1 10 3/uL Basophils 0.0 10 3/uL Neutrophil % 58.9 % Lymphocyte % 30.5 % Monocyte % 8.8 % Eosinophil % 1.1 % Basophils % 0.7 % CA-125 27.9 U/mL Impression: 1. 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 She had complete or near-complete debulking with her initial surgery in September 2015. 2. She was given postoperative adjuvant chemotherapy with 6 cycles of carboplatin/paclitaxel. 3. She had biopsy proven recurrence in the form of a right diaphragmatic peritoneal implant, discovered at the cholecystectomy procedure in April 2018. 4. She then had further chemotherapy with 6 cycles of carboplatin/gemcitabine, completed in September 2018. She had no evidence of residual disease on restaging CT scans on 10/07/2018. Her other medical illnesses include: 5. GERD. 6. Allergic rhinitis. 7. Anxiety/depression. She was recommended to undergo maintenance therapy with single agent bevacizumab at a 3-week interval dosing schedule for 16 cycles. She began cycle 1 of bevacizumab on 11/10/2018. She tolerated it well, and she has been able to continue her treatment every 3 weeks with no apparent adverse effects. Recently she has had some worsening of sinusitis symptoms and she also has had GERD symptoms. At least some of that has improved with a Z-Cale and with an increase in her Protonix dosage to twice daily. Continue sinusitis symptoms despite recent Z pack. Continues with Avastin and is due for restaging imaging. She has put it off due to the COVID 19 pandemic. Plan: 1. Proceed with cycle 12 of [address] 2[address] request [address] scans for [facility] for her sinuses and followup Chest/Abd/Pelvis. 3. Labs from 2019 were reviewed in detail and discussed with Ms. Jay and a copy was given to her. WBC is 4.4, hemoglobin 12.6, platelets 182,000, ANC is 2600. Potassium 4.0 random glucose 91 creatinine 0.6 LFTs are normal her Ca1 25 is 27.9 which has gradually increased from February 27, 2019 at which time was 16.3. On January 12, 2019 it was 12.4. Her recent urine was negative for protein. 4. We will plan to have Ms. Jay return in 3 weeks for Avastin and follow-up restaging imaging with labs to include a CBC CMP CA-125 and UA for Avastin monitoring. 5. doxycycline 100 mg PO BID x 7 days for acute sinusitis. 6. Mrs. Jay was instructed to contact us in interim should questions or problems arise. Signed By: Celio Warren-, AOP John Grey MD <<Signature on File>>
[2019-07-04] MEDS: sodium chloride 0.9% (100 ml) 100 ML 75 ML (11:50)
== END 2019-07-04 09:05 | disposition home or self-care (01) ==
LOC: ONCMED 09:04
PROVIDERS: PCP Nurse Practitioner Family; Visit Provider Nurse Practitioner
DX: Z51.11 Encounter for antineoplastic chemotherapy (principal); C57.02 Malignant neoplasm of left fallopian tube; C78.6 Secondary malignant neoplasm of retroperitoneum and peritoneum; J01.90 Acute sinusitis, unspecified; K21.9 Gastro-esophageal reflux disease without esophagitis; J30.9 Allergic rhinitis, unspecified; F41.8 Other specified anxiety disorders; Z79.899 Other long term (current) drug therapy; Z90.710 Acquired absence of both cervix and uterus; Z90.722 Acquired absence of ovaries, bilateral; Z87.891 Personal history of nicotine dependence
CPT/HCPCS: 80053; 81003; 85025; 86304; 96413; 99214; J9035

== ENCOUNTER 2019-07-21 08:58 | Outpatient (CLI) | payer OTHER, SELFPAY ==
--- NOTE | 2019-07-21 09:31 | CT_ITS ---
WS: [id number] CT SINUSES TECHNIQUE: Noncontrast CT of the paranasal sinuses with coronal and sagittal reformatted images. CLINICAL INFORMATION: CHRONIC SINUSITIS COMPARISON: None. DLP: 361.[address] scans at [facility] use at least one of these dose optimization techniques: automat ed exposure control; mA and/or kV adjustment per patient size (includes targeted exams where dose is matched to clinical indication); or iterative reconstruction. FINDINGS: Mild left to right nasal septal deviation. Nasal septal deviation measures 5 mm. Bilateral lokesh bul losa. Moderate narrowing of the ostiomeatal units bilaterally with mild mucosal thickening. Right Nakul ler cell contributes to narrowing. Frontal sinuses and ethmoid air cells are well aerated. Maxillary sinuses are well aerated. Frontal e thmoidal recesses are patent. Sphenoid sinuses are patent. Sphenoid ostia are patent. Mastoid air cecilia ls are well aerated. Normal parapharyngeal fat. Normal posterior nasopharynx. Partially visualized intracranial contents are normal. Chiari I malformation appears unchanged since 2012. Normal fourth ventricle. CT/CT sinus wo con* [id number] IMPRESSION: 1. Mild left to right nasal septal deviation measuring 5 mm. 2. Mild to moderate narrowing of the ostiomeatal units bilaterally. Prominent right Kristian cell contributes to stenosis. 3. Paranasal sinuses are well aerated. 4. Mastoid air cells are well aerated. 5. Chiari 1 malformation unchanged since 2012
--- NOTE | 2019-07-21 09:31 | CT_ITS ---
WS: [id number] CT CHEST, ABDOMEN, AND PELVIS TECHNIQUE: Contrast-enhanced CT of the chest, abdomen, and pelvis with coronal and sagittal reformatt ed images. CLINICAL INFORMATION: FALLOPIAN TUBE CANCE COMPARISON: None. DLP: 2002.[address] scans at [facility] use at least one of these dose optimization techniques: automat ed exposure control; mA and/or kV adjustment per patient size (includes targeted exams where dose is matched to clinical indication); or iterative reconstruction. CT CHEST: Both lungs are well aerated. No acute pulmonary infiltrates. No suspicious pulmonary parenchymal opac ities. No evidence of metastatic disease in the chest. No mediastinal or hilar lymphadenopathy. No ax illary lymphadenopathy. Normal caliber thoracic aorta. CT ABDOMEN AND PELVIS: Diffuse fatty infiltration of the liver. Cholecystectomy clips. Normal spleen. Enlargement of hepatic lobe measuring 19.0 cm craniocaudal. Normal pancreas. Normal spleen. Adrenal glands are normal. Normal renal parenchymal enhancement. Smal l left renal cyst measuring 12 mm. Normal caliber abdominal aorta. No evidence of small or large bowel obstruction. No adenopathy in the abdomen or pelvis. Prior hyster ectomy. Normal bladder. CT/CT chest abd pel w con* IMPRESSION: 1. No evidence of metastatic disease in the chest abdomen or pelvis. 2. Lungs are well aerated. No acute pulmonary infiltrates. 3. No adenopathy in the chest abdomen or pelvis. 4. Prior cholecystectomy and hysterectomy. 5. Incidental left renal cyst. No hydronephrosis. 6. No inguinal lymphadenopathy. No adenopathy in the pelvis. 7. No other significant findings.
[2019-07-21] MEDS: iohexol 300 mg/mL 100 mL Btl IV (09:57)
== END 2019-07-21 08:59 | disposition home or self-care (01) ==
LOC: RADWPI 09:01
PROVIDERS: PCP Nurse Practitioner Family; Visit Provider Nurse Practitioner
DX: C57.02 Malignant neoplasm of left fallopian tube (principal); J32.8 Other chronic sinusitis; J34.2 Deviated nasal septum; Z90.49 Acquired absence of other specified parts of digestive tract; N28.1 Cyst of kidney, acquired
CPT/HCPCS: 70486; 71260; 74177; Q9967

== ENCOUNTER 2019-07-27 08:44 | Outpatient (CLI) | payer OTHER, SELFPAY ==
[2019-07-27 09:18] LABS: Add Urine Microscopic? NO
[2019-07-27 09:20] LABS: Basophils % 0.6 %; Eosinophils % 0.7 %; Hematocrit 39.3 % (37.0-47.0); Hemoglobin 12.7 g/dL (11.5-15.3); Lymphocytes # 1.5 10^3/uL (0.8-4.8); Lymphocytes % 28.4 %; Mean Corpuscular HGB Conc 32.3 g/dL (30.0-36.0); Mean Corpuscular Hemoglobin 32.2 pg (28.0-34.0); Mean Corpuscular Volume 99.7 fL (81-99); Mean Platelet Volume 10.5 fL (7.4-10.4); Monocytes # 0.5 10^3/uL (0.2-0.9); Monocytes % 8.4 %; Neutrophils # 3.3 10^3/uL (1.8-7.7); Neutrophils % 61.7 %; Nucleated Red Blood Cells % 0 %; Platelet Count 170 10^3/cmm (130-400); Red Blood Count 3.94 10^6/uL (4.1-5.3); Red Cell Distribution Width 12.9 % (12.1-15.1); White Blood Count 5.4 10^3/uL (4.0-10.0)
[2019-07-27 09:42] LABS: Alanine Aminotransferase 17 U/L (0-33); Albumin Level 4.2 g/dL (3.5-5.2); Alkaline Phosphatase 66 IU/L (35-105); Aspartate Amino Transferase 21 U/L (0-32); Bilirubin Urine Neg (NEGATIVE); Blood Urea Nitrogen 12 mg/dL (6-20); Blood Urine Neg (Negative); Calcium 9.1 mg/dL (8.5-10.5); Carbon Dioxide 27 mmol/L (22-29); Chloride 104 mmol/L (98-107); Globulin 2.5 g/dL (1.3-4.6); Glomerular Filtration Rate 128.1 mL/min (90-130); Glucose 96 mg/dL (65-115); Glucose Urine UA Norm (Normal); Ketones Urine Negative (Negative); Leukocyte Esterase Urine Negative (Negative); Nitrate Urine Negative (Negative); Osmolality Calculated 288 mOsm/kg (285-295); Protein Urine Neg (Negative); Sodium 141 mmol/L (136-145); Total Bilirubin 0.3 mg/dL (0.15-1.2); Total Protein 6.7 g/dL (6.6-8.7); Urine Appearance Clear (CLEAR); Urine Color Yellow (Yellow); Urobilinogen Urine Norm (Negative)
[2019-07-27] MEDS: sodium chloride 0.9% (100 ml) 100 ML 275 ML (10:40)
[2019-07-27 11:43] LABS: CA 125 28.6 U/mL (0-35)
--- NOTE | 2019-07-31 06:32 | ONC FU_ITS ---
Dr. Grey Patient Follow-Up Note Patient: Jagruti Jay Unit #: [id number]: [id number] Dicatated By: John Grey M.D.Date of Visit:Jul 27, 2019 Onc Med Follow-up/Prog Note Chief Complaint: Fallopian tube cancer. 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 She had a recurrence in the form of a right diaphragmatic peritoneal implant confirmed by biopsy at a cholecystectomy procedure in April 2018. She had presented in August 2015 with abdominal pain, and she was found to have a large pelvic mass. This was initially thought to be arising from the right ovary. On 09/17/2015 she underwent surgery which included total abdominal hysterectomy, bilateral salpingo-oophorectomy, and radical debulking along with pelvic lymphadenectomy and limited periaortic lymphadenectomy. I do not have those actual reports available, but she apparently was thought to have a complete or near-complete resection. She was then given postoperative adjuvant chemotherapy with 6 cycles of carboplatin/paclitaxel. On 09/28/2018 she underwent cholecystectomy, and at the time of that procedure she was noted to have a peritoneal implant on the right diaphragm. Biopsy of the implant showed high-grade carcinoma consistent with the previous high-grade serous primary. With that finding she was then given further chemotherapy with 6 cycles of carboplatin/gemcitabine, which she completed in September 2018. Restaging CT scans of the chest, abdomen, and pelvis on 10/07/2018 showed resolution of a previously noted small anterior hepatic capsular or subcapsular nodule. There are new postsurgical changes in that region. 2 very closely associated hypodense foci were again noted in the right lobe posteriorly, maximum aggregate diameter of 3 mm. That finding. Stable. There was no evidence of a new focal hepatic abnormality. There were small mesenteric, retroperitoneal, and bilateral inguinal lymph nodes. There was no pathologic lymphadenopathy. A 5 x 3 mm sclerotic focus at the right posterior aspect of the manubrium appeared stable compared to a prior study from October 2015. There were no suspicious osseous lesions noted. With those findings, she was recommended to continue further systemic therapy with 16 cycles of bevacizumab administered at 3-week intervals. She was seen here because she would like to receive that treatment closer to home. INTERIM HISTORY: She received cycle 1 of bevacizumab on 11/10/2018. She tolerated it without acute toxicity, and she then continued treatment at a 3-week dosing interval. As of 07/04/2019 she completed her 12th cycle. Restaging CT scans on 07/21/2019 showed no evidence of metastatic disease in the chest, abdomen, or pelvis. There was evidence of diffuse fatty infiltration of the liver with an enlarged hepatic lobe measuring 19 cm. A left renal cyst measured 12 mm. There were no other abnormal findings. She is seen for a follow-up visit. She has been feeling good generally. She has good energy and activity tolerance. ECOG score is 0. Her appetite is good. She has not had fever. She has hot flashes just a little bit. She does have some sinus drainage with sore throat. She has no shortness of breath, cough, or chest pain. She has had a little nausea. She has ongoing problems with constipation. Bladder function has been okay. She has some joint pain, mainly in the hands. She also has been having pain in the back of her head and in her neck. She says she wakes up with a headache at least 3 days a week. She has a little bit of dizziness. She has no focal neurologic symptoms. Medications: 1Artemisia 1 Capsule Oral daily PRN, Ashwagandha 1 Capsule (of 1300 mg) Oral daily PRN, Beta Glucan 2 Capsule (of 500 mg) daily, Cetirizine HCl 1 Tablet (of 10 mg) Oral daily, Cholecalciferol 2 Capsule (of 5000 Units) Oral daily, ip-6 inositol 1 Capsule daily, Kelp 1 Tablet (of 150 mcg) Oral daily, Lexapro 1 Tablet (of 10 mg) Oral daily, Milk Thistle 1 Capsule Oral daily, Pantoprazole Sodium 1 Tablet (of 40 mg) Tablet, enteric coated Oral b.i.d., proline and lysine 1 Tablet daily, Quercetin 1 Tablet (of 500 mg) Oral daily, Singulair 1 Tablet (of 10 mg) Oral at bedtime, tagament 1 Capsule daily, Turmeric 1 Capsule Oral daily, Vitamin C 2 Capsule (of 1400 mg) Oral daily, Vitamin E 1 Capsule (of 500 mg) Oral daily Allergies: Sulfa Antibiotics Review of Systems: Constitutional - Her energy is good and she is feeling good. She has normal activity. Her appetite is good and weight is stable. No fever, night sweats. She has hot flashes a little. ECOG score is 0, ENMT - She is having persistent sinus drainage. She is taking Zyrtec, Singulair and she occasionally uses Flonase. No mouth sores. She has a sore throat related to drainage. No difficulty swallowing, Hematologic/Lymphatic - She bruises easily, Respiratory - No shortness of breath. No cough. No pleuritic pain or hemoptysis, Cardiovascular - No angina pain. No palpitations, Gastrointestinal - She has some nausea but she believes it is related to sinus drainage. No vomiting. No heartburn or acid reflux. No diarrhea or constipation. No blood in the stool or black stools, Genitourinary (F) - No dysuria or hematuria. No urinary frequency. No urgency or incontinence, Musculoskeletal - She is having joint pain in her hands and in the back of her head into her neck, Integumentary - No skin complications, Neurologic - She is having headaches at least 3 times a week, this occurs mainly in the mornings. She believes they are sinus headaches. No dizziness. No numbness or tingling. No other focal neurologic symptoms, Psychiatric - She is anxious today. She sleeps OK with trazodone. Vital Signs: Performed on Jul 27, 2019 09:50 Height - 64.00 in Weight - 137.6 lbs (LOW) BSA - 1.67 sq.m BMI - 23.62 Temperature - 97.6 F (LOW) Pulse - 80 /min Respiration - 18 /min BP - 127/75 mm(hg) O2 Sat - 100 % Pain - 0 Physical Examination: Constitutional - She looks good generally, Eyes - Sclerae nonicteric. Conjunctivae clear, ENMT - No lesions noted in the oral cavity, Hematologic/Lymphatic - No cervical, clavicular, or axillary adenopathy, Respiratory - Lungs are clear with good air movement bilaterally, Cardiovascular - Heart rhythm is regular. There is no murmur, gallop, or rub noted, Abdomen - Soft. Liver and spleen are not enlarged. There is no abdominal mass or ascites noted and there is no inguinal adenopathy, Extremities - No edema, Neurologic - No focal neurologic deficits noted. Lab/Imaging: Test performed on Jul 27, 2019 09:00 Sodium 141 mmol/L Potassium 4.0 mmol/L Chloride 104 mmol/L CO2 27 mmol/L Anion Gap 14.0 BUN 12 mg/dL Creatinine 0.5 mg/dL Cr Clearance (Est) 116.1600 mL/min eGFR 128.1 mL/min Glucose 96 mg/dL Calcium 9.1 mg/dL Protein, Total 6.7 g/dL Albumin 4.2 g/dL Globulin 2.5 g/dL Bilirubin, Total 0.3 mg/dL ALT (SGPT) 17 U/L AST (SGOT) 21 U/L Alkaline Phosphatase 66 IU/L WBC 5.4 10 3/uL RBC 3.94 10 6/uL HGB 12.7 g/dL HCT 39.3 % MCV 99.7 fL MCH 32.2 pg MCHC 32.3 g/dL RDW 12.9 % Platelet Count 170 10 3/cmm MPV 10.5 fL Neutrophils 3.3 10 3/uL Lymphocytes 1.5 10 3/uL Monocytes 0.5 10 3/uL Eosinophils 0.0 10 3/uL Basophils 0.0 10 3/uL Neutrophil % 61.7 % Lymphocyte % 28.4 % Monocyte % 8.4 % Eosinophil % 0.7 % Basophils % 0.6 % NRBC % 0 % CA-125 28.6 U/mL Impression: 1. 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 She had complete or near-complete debulking with her initial surgery in September 2015. 2. She was given postoperative adjuvant chemotherapy with 6 cycles of carboplatin/paclitaxel. 3. She had biopsy proven recurrence in the form of a right diaphragmatic peritoneal implant, discovered at the cholecystectomy procedure in April 2018. 4. She then had further chemotherapy with 6 cycles of carboplatin/gemcitabine, completed in September 2018. She had no evidence of residual disease on restaging CT scans on 10/07/2018. Her other medical illnesses include: 5. GERD. 6. Allergic rhinitis. 7. Anxiety/depression. She was recommended to undergo maintenance therapy with single agent bevacizumab at a 3-week interval dosing schedule for 16 cycles. She began cycle 1 of bevacizumab on 11/10/2018. She tolerated it well, and she has been able to continue her treatment every 3 weeks with no apparent adverse effects. As of 07/04/2019 she had completed her 12th cycle. Her restaging CT scans on 07/21/2019 showed no evidence of metastatic disease in the chest, abdomen, or pelvis. She has been having some headaches and she reports having pain in the back of her head/neck. Her recent sinus CT scans were also unrevealing. Overall, she appears to be doing well clinically with no evidence of disease progression. Plan: She will proceed with cycle 13 of bevacizumab. The dosage remains the same. She returns for treatment in 3 weeks and for a follow-up visit in 6 weeks. Signed By: John Grey M.D. <<Signature on File>>
== END 2019-07-27 08:45 | disposition home or self-care (01) ==
LOC: ONCMED 08:46
PROVIDERS: PCP Nurse Practitioner Family; Visit Provider Internal Medicine Medical Oncology
DX: Z51.11 Encounter for antineoplastic chemotherapy (principal); C57.02 Malignant neoplasm of left fallopian tube; C78.6 Secondary malignant neoplasm of retroperitoneum and peritoneum; K21.9 Gastro-esophageal reflux disease without esophagitis; J30.9 Allergic rhinitis, unspecified; F41.8 Other specified anxiety disorders; Z79.899 Other long term (current) drug therapy
CPT/HCPCS: 80053; 81003; 85025; 86304; 96413; 99214; J9035

== ENCOUNTER 2019-08-17 09:13 | Outpatient (CLI) | payer OTHER, SELFPAY ==
[2019-08-17] MEDS: sodium chloride 0.9% 250 ML 75 ML IV (10:09)
== END 2019-08-17 09:14 | disposition home or self-care (01) ==
LOC: ONCMED 09:15
PROVIDERS: PCP Nurse Practitioner Family; Visit Provider Internal Medicine Medical Oncology
DX: Z51.11 Encounter for antineoplastic chemotherapy (principal); C57.02 Malignant neoplasm of left fallopian tube; C78.6 Secondary malignant neoplasm of retroperitoneum and peritoneum; J30.9 Allergic rhinitis, unspecified; F41.9 Anxiety disorder, unspecified; F32.9 Major depressive disorder, single episode, unspecified; K21.9 Gastro-esophageal reflux disease without esophagitis
CPT/HCPCS: 96413; J7050; J9035

== ENCOUNTER 2019-09-11 09:29 | Outpatient (CLI) | payer OTHER, SELFPAY ==
[2019-09-11 09:54] LABS: Basophils % 0.5 %; Eosinophils # 0.1 10^3/uL (0.0-0.8); Eosinophils % 1.3 %; Hematocrit 40.4 % (37.0-47.0); Hemoglobin 12.8 g/dL (11.5-15.3); Lymphocytes # 1.7 10^3/uL (0.8-4.8); Lymphocytes % 30.3 %; Mean Corpuscular HGB Conc 31.7 g/dL (30.0-36.0); Mean Corpuscular Hemoglobin 31.3 pg (28.0-34.0); Mean Corpuscular Volume 98.8 fL (81-99); Mean Platelet Volume 10.2 fL (7.4-10.4); Monocytes # 0.5 10^3/uL (0.2-0.9); Monocytes % 9.9 %; Neutrophils # 3.16 10^3/uL (1.8-7.7); Neutrophils % 57.8 %; Nucleated Red Blood Cells % 0 %; Platelet Count 184 10^3/cmm (130-400); Red Blood Count 4.09 10^6/uL (4.1-5.3); Red Cell Distribution Width 12.7 % (12.1-15.1); White Blood Count 5.5 10^3/uL (4.0-10.0)
[2019-09-11 12:04] LABS: Alanine Aminotransferase 15 U/L (0-33); Albumin Level 4.2 g/dL (3.5-5.2); Alkaline Phosphatase 67 IU/L (35-105); Anion Gap 14.2 (5-19); Aspartate Amino Transferase 20 U/L (0-32); Blood Urea Nitrogen 15 mg/dL (6-20); CA 125 31.6 U/mL (0-35); Carbon Dioxide 27 mmol/L (22-29); Chloride 105 mmol/L (98-107); Globulin 2.3 g/dL (1.3-4.6); Glomerular Filtration Rate 103.8 mL/min (90-130); Glucose 88 mg/dL (65-115); Osmolality Calculated 290 mOsm/kg (285-295); Potassium 4.2 mmol/L (3.5-5.1); Sodium 142 mmol/L (136-145); Total Bilirubin 0.3 mg/dL (0.15-1.2); Total Protein 6.5 g/dL (6.6-8.7)
[2019-09-11] MEDS: sodium chloride 0.9% 250 ML 75 ML IV (12:30)
--- NOTE | 2019-09-15 18:06 | ONC FU_ITS ---
[facility] Patient Note Patient: Jagruti Jay Unit #: [id number]: [id number] Dictated By: Celio WarrenDate of Visit: Sep 11, 2019 Onc MED Follow-Up/Prog Note Chief Complaint: Fallopian tube cancer. 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 She had a recurrence in the form of a right diaphragmatic peritoneal implant confirmed by biopsy at a cholecystectomy procedure in April 2018. She had presented in August 2015 with abdominal pain, and she was found to have a large pelvic mass. This was initially thought to be arising from the right ovary. On 09/17/2015 she underwent surgery which included total abdominal hysterectomy, bilateral salpingo-oophorectomy, and radical debulking along with pelvic lymphadenectomy and limited periaortic lymphadenectomy. We do not have those actual reports available, but she apparently was thought to have a complete or near-complete resection. She was then given postoperative adjuvant chemotherapy with 6 cycles of carboplatin/paclitaxel. On 09/28/2018 she underwent cholecystectomy, and at the time of that procedure she was noted to have a peritoneal implant on the right diaphragm. Biopsy of the implant showed high-grade carcinoma consistent with the previous high-grade serous primary. With that finding she was then given further chemotherapy with 6 cycles of carboplatin/gemcitabine, which she completed in September 2018. Restaging CT scans of the chest, abdomen, and pelvis on 10/07/2018 showed resolution of a previously noted small anterior hepatic capsular or subcapsular nodule. There are new postsurgical changes in that region. 2 very closely associated hypodense foci were again noted in the right lobe posteriorly, maximum aggregate diameter of 3 mm. That finding. Stable. There was no evidence of a new focal hepatic abnormality. There were small mesenteric, retroperitoneal, and bilateral inguinal lymph nodes. There was no pathologic lymphadenopathy. A 5 x 3 mm sclerotic focus at the right posterior aspect of the manubrium appeared stable compared to a prior study from October 2015. There were no suspicious osseous lesions noted. With those findings, she was recommended to continue further systemic therapy with 16 cycles of bevacizumab administered at 3-week intervals. She was seen here because she would like to receive that treatment closer to home. INTERIM HISTORY: She received cycle 1 of bevacizumab on 11/10/2018. She tolerated it without acute toxicity, and she then continued treatment at a 3-week dosing interval. As of 07/04/2019 she completed her 12th cycle. Restaging CT scans on 07/21/2019 showed no evidence of metastatic disease in the chest, abdomen, or pelvis. There was evidence of diffuse fatty infiltration of the liver with an enlarged hepatic lobe measuring 19 cm. A left renal cyst measured 12 mm. There were no other abnormal findings. Follow-up CT of the chest abdomen pelvis from July 2019 does not report any metastatic disease. There is no adenopathy in the chest, abdomen or pelvis, no inguinal lymphadenopathy no adenopathy in the pelvis. There were no other significant findings. She did have a CT of the sinuses for chronic sinusitis which did not have any acute findings. She continues with single agent Avastin. She is tolerating it well. She reports that she feels good. She has no new complaints. She continues to have chronic sinusitis symptoms. She states generally Sudafed will work well for them although she has not been able to refill her as her prescription ran out. We will call in a prescription for her today. We will also refill her Z-Cale and make sure that is available should she need it. She is having some thick sputum intermittently and has not tried Mucinex. We did encourage her to try 600 mg 1 or 2 caplets/tablets twice daily as needed. She continues to have joint pain and stiffness but states is no worse and no better than what it has been. She still able do all of her ADLs without assistance. She states her energy is good. Her appetite is good. She has no new pain. She denies any new shortness of breath orthopnea. She denies any headaches or vision changes. She has some chronic sinusitis headaches but states they are different than general headaches. She has no new concerns today. Her ECOG is 0. Past Medical History: Allergic rhinitis Anxiety/depression Fallopian tube cancer Gastroesophageal reflux disease Past Surgical History: Cholecystectomy in 2019 Placement of PowerPort in 2016 MARIBELL/BSO, omentectomy, radical debulking with pelvic and periaortic lymphadenectomy in 2016 Allergies: Sulfa Antibiotics Medications: 1Artemisia 1 Capsule Oral daily PRN Ashwagandha 1 Capsule (of 1300 mg) Oral daily PRN Beta Glucan 2 Capsule (of 500 mg) daily Cetirizine HCl 1 Tablet (of 10 mg) Oral daily Cholecalciferol 2 Capsule (of 5000 Units) Oral daily ip-6 inositol 1 Capsule daily Lexapro 1 Tablet (of 10 mg) Oral daily Milk Thistle 1 Capsule Oral daily Pantoprazole Sodium 1 Tablet (of 40 mg) Tablet, enteric coated Oral b.i.d. proline and lysine 1 Tablet daily Quercetin 1 Tablet (of 500 mg) Oral daily Singulair 1 Tablet (of 10 mg) Oral at bedtime tagament 1 Capsule daily Turmeric 1 Capsule Oral daily Vitamin C 2 Capsule (of 1400 mg) Oral daily Vitamin E 1 Capsule (of 500 mg) Oral daily Family History: Ms. Jay's mother at age 82: congestive heart failure, and coronary artery disease, and type II diabetes. Ms. Jay's father at age 82: lung cancer. Ms. Jay has 3 brothers: 3 alive. She has 2 sisters: 2 alive. Father of lung cancer at age 82. Mother of heart disease at age 82. She also had diabetes. A brother has leukemia, which I assume is chronic leukocytic leukemia. Four other siblings are in good health. A nephew of leukemia. 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 Ms. Jay quit smoking 20 years ago but had smoked 0.5 packs/day for 20 years. She has no history of drinking. Ms. Jay reports the following support systems: lives with spouse, significant other, family, or friends, lives in own house, supportive family/friends willing to assist with needs, and adequate transportation available for expected visits. Her diet consists of regular meals. She indicates her activity level as: regular exercise. She has a history of smoking 1/2 pack of cigarettes daily for 20 years, but she quit 20 years ago. She does not drink alcohol. Review Of Symptoms: Constitutional Denies fevers, chills, night sweats, excessive fatigue or weight loss. Allergic/Immunologic No reactions. Eyes Denies significant visual changes. No diplopia. No amaurosis. ENMT Denies changes in hearing, sore throat, mouth sores, difficulty or changes in swallowing ability. She states she has had a lot of sinus drainage. She typically has a lot of allergies this time of year. She states Sudafed is about the only thing that will give her relief. She also is using Mucinex once in a while to help thin the sputum/congestion. Endocrine No diabetes, thyroid disease or hormone replacement. Denies hot flashes or night sweats. Hematologic/Lymphatic Denies easy bruising or bleeding. The patient denies any tender or palpable lymph nodes. Respiratory Denies dyspnea on exertion, chest pain, or hemoptysis. Denies orthopnea. She states she has seasonal cough is related to seasonal allergy discussion above. Cardiovascular Denies anginal chest pain, palpitations or orthopnea. Gastrointestinal Denies nausea, vomiting, diarrhea, GI bleeding. Denies change in bowel habits and/or stool color, no heartburn or early satiety. Chronic constipation-controlled with Dulcolax daily and Miralax prn. Genitourinary (F) No hematuria, hesitancy, incontinence, vaginal bleeding, discharge or other problems with urination. Musculoskeletal Denies joint pain, swelling or redness. No decreased range of motion. Hands are stiff/sore. Joints sore-chronic and unchanged. Integumentary Denies chronic rashes, inflammation, ulcerations or skin changes. Neurologic Denies headache, blurred vision, and no areas of focal weakness or numbness. Normal gait. No sensory problems. Psychiatric Denies insomnia, depression, karla or mood swings. Vital Signs: Performed on Sep 11, 2019 11:12 Height - 64.00 in Weight - 139.6 lbs (HIGH) BSA - 1.68 sq.m BMI - 23.96 Temperature - 98.0 F (LOW) Pulse - 84 /min Respiration - 16 /min BP - 121/73 mm(hg) O2 Sat - 96 % Pain - 0,0 - Fully active, able to carry on all predisease activities without restrictions. (ECOG) Physical Examination: Constitutional Alert, oriented, no acute distress. Skin pink, warm and dry. Head Normocephalic; atraumatic. Eyes Conjunctivae and sclerae are clear and without icterus. Pupils are reactive and equal. ENMT Sinuses are nontender. No oral exudates, ulcers, masses, thrush or mucositis. Oropharynx clear. Tongue normal. Neck Supple without masses or thyromegaly. No jugular venous distension. Hematologic/Lymphatic No petechiae or purpura. No tender or palpable lymph nodes in the cervical or supraclavicular areas. Respiratory Lungs are clear to auscultation without rhonchi or wheezing. Cardiovascular Regular rate and rhythm of heart without murmurs,clicks, gallops or rubs. Chest Left chest wall venous access device unremarkable. Abdomen Non-tender, non-distended, no masses, ascites. Back/Spine Non-tender to palpation. Extremities No visible deformities, no cyanosis, clubbing or edema. Musculoskeletal No tenderness or swelling, normal range of motion without obvious weakness. Integumentary No rashes or lesions. Neurologic No sensory or motor deficits, normal cerebellar function, normal gait. Psychiatric Alert and oriented times three. Coherent slow speech. Verbalizes understanding of our discussions today. Laboratory:Test performed on Sep 11, 2019 09:40 Sodium 142 mmol/L Potassium 4.2 mmol/L Chloride 105 mmol/L CO2 27 mmol/L Anion Gap 14.2 BUN 15 mg/dL Creatinine 0.6 mg/dL Cr Clearance (Est) 96.8000 mL/min eGFR 103.8 mL/min Glucose 88 mg/dL Calcium 9.0 mg/dL Protein, Total 6.5 g/dL Albumin 4.2 g/dL Globulin 2.3 g/dL Bilirubin, Total 0.3 mg/dL ALT (SGPT) 15 U/L AST (SGOT) 20 U/L Alkaline Phosphatase 67 IU/L CA-125 31.6 U/mL Test performed on Sep 11, 2019 09:10 WBC 5.5 10 3/uL RBC 4.09 10 6/uL HGB 12.8 g/dL HCT 40.4 % MCV 98.8 fL MCH 31.3 pg MCHC 31.7 g/dL RDW 12.7 % Platelet Count 184 10 3/cmm MPV 10.2 fL Neutrophils 3.16 10 3/uL Lymphocytes 1.7 10 3/uL Monocytes 0.5 10 3/uL Eosinophils 0.1 10 3/uL Basophils 0.0 10 3/uL Neutrophil % 57.8 % Lymphocyte % 30.3 % Monocyte % 9.9 % Eosinophil % 1.3 % Basophils % 0.5 % NRBC % 0 % Test performed on July 04, 2019 10:49 Ua Color Straw Ua Appearance Clear Ua Glucose Norm Ua Bilirubin Neg Ua Ketones Negative Ua Specific [place] 1.010 Ua Blood Neg Ua pH 5.0 Ua Protein Neg Ua Nitrites Negative Ua Leukocyte Esterase Negative Test performed on Apr 10, 2019 12:42 Ua Urobilinogen norm Impression: 1. 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 She had complete or near-complete debulking with her initial surgery in September 2015. 2. She was given postoperative adjuvant chemotherapy with 6 cycles of carboplatin/paclitaxel. 3. She had biopsy proven recurrence in the form of a right diaphragmatic peritoneal implant, discovered at the cholecystectomy procedure in April 2018. 4. She then had further chemotherapy with 6 cycles of carboplatin/gemcitabine, completed in September 2018. She had no evidence of residual disease on restaging CT scans on 10/07/2018. Her other medical illnesses include: 5. GERD. 6. Allergic rhinitis. 7. Anxiety/depression. She was recommended to undergo maintenance therapy with single agent bevacizumab at a 3-week interval dosing schedule for 16 cycles. She began cycle 1 of bevacizumab on 11/10/2018. She tolerated it well, and she has been able to continue her treatment every 3 weeks with no apparent adverse effects. As of 07/04/2019 she had completed her 12th cycle. Her restaging CT scans on 07/21/2019 showed no evidence of metastatic disease in the chest, abdomen, or pelvis. She has been having some headaches and she reports having pain in the back of her head/neck. Her recent sinus CT scans were also unrevealing. Overall, she appears to be doing well clinically with no evidence of disease progression. She has now completed 14 full cycles of the Avastin. She is tolerating it well. She reports that she is having some right-sided sciatica and we discussed potential referral for this. She does not want to pursue this currently but is willing to try some basic exercises if we had that information available. Plan: 1. Proceed with cycle 15 of 16 bevacizumab. 2. Her follow-up CT scans from July 21, 2019 revealed no evidence of metastatic disease in the chest abdomen or pelvis. 3. Labs from 2019 were reviewed in detail and discussed with Ms. Jay and a copy was given to her. WBC is 5.5, hemoglobin 12.8, platelets 184,000, ANC is 3200. 4. We will plan to have Ms. Jay return in 3 weeks for Avastin with labs to include a CBC CMP CA-125 and UA for Avastin monitoring. 5. I did send in a prescription for Sudafed, refill her Zithromax and sent a prescription for Mucinex 600 mg 1 or 2 twice daily. These were sent to [facility] in there. 6. I did send her home with patient education on sciatica that did include some basic exercises for her to try. If she has further pain she can let us know and we can make any referral needed. 7. Mrs. Jay was instructed to contact us in interim should questions or problems arise. Signed By: Celio Warren-, CNP John Grey MD <<Signature on File>>
== END 2019-09-11 09:30 | disposition home or self-care (01) ==
LOC: ONCMED 09:31
PROVIDERS: PCP Nurse Practitioner Family; Visit Provider Nurse Practitioner
DX: Z51.12 Encounter for antineoplastic immunotherapy (principal); C57.02 Malignant neoplasm of left fallopian tube; C78.6 Secondary malignant neoplasm of retroperitoneum and peritoneum; M54.31 Sciatica, right side; K21.9 Gastro-esophageal reflux disease without esophagitis; J30.9 Allergic rhinitis, unspecified; F41.8 Other specified anxiety disorders; Z90.710 Acquired absence of both cervix and uterus; Z90.722 Acquired absence of ovaries, bilateral; Z87.891 Personal history of nicotine dependence; Z79.899 Other long term (current) drug therapy
CPT/HCPCS: 80053; 85025; 86304; 96413; 99214; J7050; J9035

== ENCOUNTER 2019-10-09 08:54 | Outpatient (CLI) | payer OTHER, SELFPAY ==
[2019-10-09] MEDS: sodium chloride 0.9% 250 ML 75 ML IV (09:37)
== END 2019-10-09 08:55 | disposition home or self-care (01) ==
LOC: ONCMED 08:56
PROVIDERS: PCP Nurse Practitioner Family; Visit Provider Nurse Practitioner
DX: Z51.11 Encounter for antineoplastic chemotherapy (principal); C57.02 Malignant neoplasm of left fallopian tube; C78.6 Secondary malignant neoplasm of retroperitoneum and peritoneum
CPT/HCPCS: 96413; J7050; J9035

== ENCOUNTER 2019-10-24 06:09 | Outpatient (CLI) | payer OTHER, SELFPAY ==
[2019-10-24 09:20] LABS: Add Urine Microscopic? NO
[2019-10-24 09:41] LABS: Basophils % 0.4 %; Eosinophils # 0.1 10^3/uL (0.0-0.8); Eosinophils % 2.3 %; Hematocrit 41.7 % (37.0-47.0); Hemoglobin 13.1 g/dL (11.5-15.3); Lymphocytes # 1.5 10^3/uL (0.8-4.8); Lymphocytes % 26.1 %; Mean Corpuscular HGB Conc 31.4 g/dL (30.0-36.0); Mean Corpuscular Hemoglobin 31.3 pg (28.0-34.0); Mean Corpuscular Volume 99.5 fL (81-99); Mean Platelet Volume 10.8 fL (7.4-10.4); Monocytes # 0.4 10^3/uL (0.2-0.9); Monocytes % 7.7 %; Neutrophils # 3.62 10^3/uL (1.8-7.7); Neutrophils % 63.3 %; Nucleated Red Blood Cells % 0 %; Platelet Count 189 10^3/cmm (130-400); Red Blood Count 4.19 10^6/uL (4.1-5.3); Red Cell Distribution Width 13.4 % (12.1-15.1); White Blood Count 5.7 10^3/uL (4.0-10.0)
[2019-10-24 09:59] LABS: Bilirubin Urine Neg (Negative); Blood Urine Neg (Negative); Glucose Urine UA Norm (Normal); Ketones Urine Negative (Negative); Leukocyte Esterase Urine Negative (Negative); Nitrate Urine Negative (Negative); Protein Urine Neg (Negative); Specific Gravity, Urine 1.005 (1.005-1.030); Urine Appearance Clear (CLEAR); Urine Color Yellow (Yellow); Urobilinogen Urine Norm (Negative)
[2019-10-24 10:06] LABS: Alanine Aminotransferase 19 U/L (0-33); Albumin Level 4.3 g/dL (3.5-5.2); Alkaline Phosphatase 66 IU/L (35-105); Anion Gap 14.5 (5-19); Aspartate Amino Transferase 21 U/L (0-32); Blood Urea Nitrogen 23 mg/dL (6-20); CA 125 33.4 U/mL (0-35); Calcium 8.8 mg/dL (8.5-10.5); Carbon Dioxide 26 mmol/L (22-29); Chloride 103 mmol/L (98-107); Globulin 2.7 g/dL (1.3-4.6); Glomerular Filtration Rate 128.1 mL/min (90-130); Glucose 91 mg/dL (65-115); Osmolality Calculated 284 mOsm/kg (285-295); Potassium 4.5 mmol/L (3.5-5.1); Sodium 139 mmol/L (136-145); Total Bilirubin 0.2 mg/dL (0.15-1.2)
--- NOTE | 2019-10-28 10:58 | ONC FU_ITS ---
Dr. Grey Patient Follow-Up Note Patient: Jagruti Jay Unit #: [id number]: 1965 Dicatated By: John Grey M.D.Date of Visit:Oct 24, 2019 Onc Med Follow-up/Prog Note Chief Complaint: Fallopian tube cancer. 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 She had a recurrence in the form of a right diaphragmatic peritoneal implant confirmed by biopsy at a cholecystectomy procedure in April 2018. She had presented in August 2015 with abdominal pain, and she was found to have a large pelvic mass. This was initially thought to be arising from the right ovary. On 09/17/2015 she underwent surgery which included total abdominal hysterectomy, bilateral salpingo-oophorectomy, and radical debulking along with pelvic lymphadenectomy and limited periaortic lymphadenectomy. I do not have those actual reports available, but she apparently was thought to have a complete or near-complete resection. She was then given postoperative adjuvant chemotherapy with 6 cycles of carboplatin/paclitaxel. On 09/28/2018 she underwent cholecystectomy, and at the time of that procedure she was noted to have a peritoneal implant on the right diaphragm. Biopsy of the implant showed high-grade carcinoma consistent with the previous high-grade serous primary. With that finding she was then given further chemotherapy with 6 cycles of carboplatin/gemcitabine, which she completed in September 2018. Restaging CT scans of the chest, abdomen, and pelvis on 10/07/2018 showed resolution of a previously noted small anterior hepatic capsular or subcapsular nodule. There are new postsurgical changes in that region. 2 very closely associated hypodense foci were again noted in the right lobe posteriorly, maximum aggregate diameter of 3 mm. That finding. Stable. There was no evidence of a new focal hepatic abnormality. There were small mesenteric, retroperitoneal, and bilateral inguinal lymph nodes. There was no pathologic lymphadenopathy. A 5 x 3 mm sclerotic focus at the right posterior aspect of the manubrium appeared stable compared to a prior study from October 2015. There were no suspicious osseous lesions noted. With those findings, she was recommended to continue further systemic therapy with 16 cycles of bevacizumab administered at 3-week intervals. She was seen here because she would like to receive that treatment closer to home. INTERIM HISTORY: She received cycle 1 of bevacizumab on 11/10/2018. She tolerated it without acute toxicity, and she then continued treatment at a 3-week dosing interval. As of 07/04/2019 she completed her 12th cycle. Restaging CT scans on 07/21/2019 showed no evidence of metastatic disease in the chest, abdomen, or pelvis. There was evidence of diffuse fatty infiltration of the liver with an enlarged hepatic lobe measuring 19 cm. A left renal cyst measured 12 mm. There were no other abnormal findings. She continued her maintenance bevacizumab. She completed her 16th and last planned cycle on 10/09/2019. She is seen for a follow-up visit. She has been feeling good generally. She has good energy and she has normal activity. ECOG score is 0. Her appetite is good. Her weight is up a little. She has not had fever or night sweats. She still has a few hot flashes. She is a little bit short of breath with activity. She does not have cough and she does not complain of chest pain. She still has a little nausea. Her constipation is adequately managed. She has no complaints. She has some joint pain in her hands and she also has some pain in the right sciatic area. She has headache about 3 times a week. She has no focal neurologic symptoms. Medications: 1Artemisia 1 Capsule Oral daily PRN, Ashwagandha 1 Capsule (of 1300 mg) Oral daily PRN, Beta Glucan 2 Capsule (of 500 mg) daily, Cetirizine HCl 1 Tablet (of 10 mg) Oral daily, Cholecalciferol 2 Capsule (of 5000 Units) Oral daily, ip-6 inositol 1 Capsule daily, Lexapro 1 Tablet (of 10 mg) Oral daily, Milk Thistle 1 Capsule Oral daily, Pantoprazole Sodium 1 Tablet (of 40 mg) Tablet, enteric coated Oral b.i.d., proline and lysine 1 Tablet daily, Quercetin 1 Tablet (of 500 mg) Oral daily, Selenimin 1 Tablet Oral daily, Singulair 1 Tablet (of 10 mg) Oral at bedtime, tagament 1 Capsule daily, Turmeric 1 Capsule Oral daily, Vitamin C 2 Capsule (of 1400 mg) Oral daily, Vitamin E 1 Capsule (of 500 mg) Oral daily, Zinc 1 Capsule Oral daily Allergies: Sulfa Antibiotics Review of Systems: Constitutional - She has good energy and activity tolerance. Her appetite is good and weight is stable. No fever or night sweats. She has just a few hot flashes. ECOG score is 0, ENMT - No sinus congestion/drainage. No mouth sores. No sore throat or difficulty swallowing, Hematologic/Lymphatic - No abnormal bruising or bleeding, Respiratory - She has a little short of breath with activity. No cough. No pleuritic pain or hemoptysis, Cardiovascular - No angina pain. No palpitations, Gastrointestinal - She has a little nausea.. No heartburn or acid reflux. Her constipation is adequately managed. No blood in the stool or black stools, Genitourinary (F) - No dysuria or hematuria. No urinary frequency. No urgency or incontinence, Musculoskeletal - She has some joint pain, mainly in the hands, and she also has some pain in the right sciatic area, Integumentary - No skin rash, Neurologic - She has had some headaches. No dizziness. No numbness or tingling. No other focal neurologic symptoms, Psychiatric - No anxiety or depression. No insomnia. Vital Signs: Performed on Oct 24, 2019 10:05 Height - 64.00 in Weight - 141.8 lbs (HIGH) BSA - 1.69 sq.m BMI - 24.34 Temperature - 97.9 F (LOW) Pulse - 81 /min Respiration - 20 /min BP - 127/67 mm(hg) O2 Sat - 98 % Pain - 0 Physical Examination: Constitutional - She looks good generally, Eyes - Sclerae nonicteric. Conjunctivae clear, ENMT - No lesions noted in the oral cavity, Hematologic/Lymphatic - No cervical, clavicular, or axillary adenopathy, Respiratory - Lungs are clear with good air movement bilaterally, Cardiovascular - Heart rhythm is regular. There is no murmur, gallop, or rub noted, Abdomen - Soft. Liver and spleen are not enlarged. There is no abdominal mass or ascites noted and there is no inguinal adenopathy, Extremities - No edema, Neurologic - No focal neurologic deficits noted. Lab/Imaging: Test performed on Oct 24, 2019 09:10 Sodium 139 mmol/L Potassium 4.5 mmol/L Chloride 103 mmol/L CO2 26 mmol/L Anion Gap 14.5 BUN 23 mg/dL Creatinine 0.5 mg/dL Cr Clearance (Est) 129.0900 mL/min eGFR 128.1 mL/min Glucose 91 mg/dL Calcium 8.8 mg/dL Osmolality - Calculated 284 mOsm/kg Protein, Total 7.0 g/dL Albumin 4.3 g/dL Globulin 2.7 g/dL Bilirubin, Total 0.2 mg/dL ALT (SGPT) 19 U/L AST (SGOT) 21 U/L Alkaline Phosphatase 66 IU/L WBC 5.7 10 3/uL RBC 4.19 10 6/uL HGB 13.1 g/dL HCT 41.7 % MCV 99.5 fL MCH 31.3 pg MCHC 31.4 g/dL RDW 13.4 % Platelet Count 189 10 3/cmm MPV 10.8 fL Neutrophils 3.62 10 3/uL Lymphocytes 1.5 10 3/uL Monocytes 0.4 10 3/uL Eosinophils 0.1 10 3/uL Basophils 0.0 10 3/uL Neutrophil % 63.3 % Lymphocyte % 26.1 % Monocyte % 7.7 % Eosinophil % 2.3 % Basophils % 0.4 % NRBC % 0 % CA-125 33.4 U/mL Impression: 1. 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 She had complete or near-complete debulking with her initial surgery in September 2015. 2. She was given postoperative adjuvant chemotherapy with 6 cycles of carboplatin/paclitaxel. 3. She had biopsy proven recurrence in the form of a right diaphragmatic peritoneal implant, discovered at the cholecystectomy procedure in April 2018. 4. She then had further chemotherapy with 6 cycles of carboplatin/gemcitabine, completed in September 2018. She had no evidence of residual disease on restaging CT scans on 10/07/2018. Her other medical illnesses include: 5. GERD. 6. Allergic rhinitis. 7. Anxiety/depression. She was recommended to undergo maintenance therapy with single agent bevacizumab at a 3-week interval dosing schedule for 16 cycles. She began cycle 1 of bevacizumab on 11/10/2018. She tolerated it well, and she has been able to continue her treatment every 3 weeks with no apparent adverse effects. As of 07/04/2019 she had completed her 12th cycle. Her restaging CT scans on 07/21/2019 showed no evidence of metastatic disease in the chest, abdomen, or pelvis. She continued her maintenance bevacizumab, and she completed her 16th and last planned cycle of treatment on 10/09/2019. She appears to be doing well clinically, though there has been a slight upward trend in her CA-125 level. The significance is uncertain. Plan: She will now be followed on observation/expectant management. She will be scheduled for a follow-up visit with surveillance CT scans in 3 months. Signed By: John Grey M.D. <<Signature on File>>
== END 2019-10-24 06:10 | disposition home or self-care (01) ==
PROVIDERS: PCP Nurse Practitioner Family; Visit Provider Internal Medicine Medical Oncology
DX: C57.02 Malignant neoplasm of left fallopian tube (principal); C78.6 Secondary malignant neoplasm of retroperitoneum and peritoneum; K21.9 Gastro-esophageal reflux disease without esophagitis; J30.9 Allergic rhinitis, unspecified; F41.9 Anxiety disorder, unspecified; F32.9 Major depressive disorder, single episode, unspecified
CPT/HCPCS: 36591; 80053; 81003; 85025; 86304; 99214

== ENCOUNTER 2019-11-21 09:03 | Outpatient (CLI) | payer OTHER, SELFPAY ==
[2019-11-21 10:03] LABS: Basophils % 0.3 %; Eosinophils % 0.6 %; Hematocrit 23.9 % (37.0-47.0); Hemoglobin 7.2 g/dL (11.5-15.3); Lymphocytes # 0.7 10^3/uL (0.8-4.8); Lymphocytes % 20.9 %; Mean Corpuscular HGB Conc 30.1 g/dL (30.0-36.0); Mean Corpuscular Hemoglobin 31.4 pg (28.0-34.0); Mean Corpuscular Volume 104.4 fL (81-99); Monocytes # 0.3 10^3/uL (0.2-0.9); Monocytes % 8.6 %; Neutrophils # 2.42 10^3/uL (1.8-7.7); Neutrophils % 69.3 %; Nucleated Red Blood Cells % 0 %; Platelet Count 109 10^3/cmm (130-400); Red Blood Count 2.29 10^6/uL (4.1-5.3); Red Cell Distribution Width 13.8 % (12.1-15.1); White Blood Count 3.5 10^3/uL (4.0-10.0)
== END 2019-11-21 09:04 | disposition home or self-care (01) ==
LOC: ONCMED 09:05
PROVIDERS: PCP Nurse Practitioner Family; Visit Provider Nurse Practitioner
DX: C57.02 Malignant neoplasm of left fallopian tube (principal); C78.6 Secondary malignant neoplasm of retroperitoneum and peritoneum; R51.9 Headache, unspecified; R09.81 Nasal congestion
CPT/HCPCS: 36591; 85025

== ENCOUNTER 2019-11-22 06:10 | Outpatient (CLI) | payer OTHER, SELFPAY ==
[2019-11-22 08:31] LABS: Basophils % 0.3 %; Eosinophils # 0.1 10^3/uL (0.0-0.8); Eosinophils % 0.8 %; Hemoglobin 12.5 g/dL (11.5-15.3); Lymphocytes # 1.6 10^3/uL (0.8-4.8); Lymphocytes % 26.1 %; Mean Corpuscular HGB Conc 31.6 g/dL (30.0-36.0); Mean Corpuscular Hemoglobin 31.3 pg (28.0-34.0); Mean Corpuscular Volume 99.2 fL (81-99); Mean Platelet Volume 10.1 fL (7.4-10.4); Monocytes # 0.5 10^3/uL (0.2-0.9); Monocytes % 8.8 %; Neutrophils # 3.78 10^3/uL (1.8-7.7); Neutrophils % 63.8 %; Nucleated Red Blood Cells % 0 %; Platelet Count 203 10^3/cmm (130-400); Red Blood Count 3.99 10^6/uL (4.1-5.3); White Blood Count 5.9 10^3/uL (4.0-10.0)
[2019-11-22 08:44] LABS: Hematocrit 39.6 % (37.0-47.0)
[2019-11-22 09:07] LABS: Alanine Aminotransferase 18 U/L (0-33); Albumin Level 4.3 g/dL (3.5-5.2); Alkaline Phosphatase 65 IU/L (35-105); Anion Gap 14.8 (5-19); Aspartate Amino Transferase 20 U/L (0-32); Blood Urea Nitrogen 16 mg/dL (6-20); CA 125 33.2 U/mL (0-35); Calcium 9.6 mg/dL (8.5-10.5); Carbon Dioxide 26 mmol/L (22-29); Chloride 107 mmol/L (98-107); Globulin 2.3 g/dL (1.3-4.6); Glomerular Filtration Rate 103.8 mL/min (90-130); Glucose 104 mg/dL (65-115); Osmolality Calculated 299 mOsm/kg (285-295); Potassium 3.8 mmol/L (3.5-5.1); Sodium 144 mmol/L (136-145); Total Bilirubin 0.2 mg/dL (0.15-1.2); Total Protein 6.6 g/dL (6.6-8.7)
== END 2019-11-22 06:11 | disposition home or self-care (01) ==
LOC: ONCMED 06:11
PROVIDERS: PCP Nurse Practitioner Family; Visit Provider Nurse Practitioner
DX: C57.02 Malignant neoplasm of left fallopian tube (principal); C78.6 Secondary malignant neoplasm of retroperitoneum and peritoneum; D64.9 Anemia, unspecified
CPT/HCPCS: 36591; 80053; 85025; 86304; 86850; 86900

== ENCOUNTER 2019-12-04 17:31 | Outpatient (CLI) | payer OTHER, SELFPAY | END 2019-12-04 17:32 | disposition home or self-care (01) | LOC: LAB 17:33 | PROVIDERS: PCP Nurse Practitioner Family; Visit Provider Nurse Practitioner | DX: C57.02 Malignant neoplasm of left fallopian tube (principal); D64.9 Anemia, unspecified | CPT/HCPCS: 82274 ==

== ENCOUNTER 2019-12-19 06:33 | Outpatient (CLI) | payer OTHER, SELFPAY | END 2019-12-19 06:34 | disposition home or self-care (01) | LOC: ONCMED 06:34 | PROVIDERS: PCP Nurse Practitioner Family; Visit Provider Nurse Practitioner | DX: Z45.2 Encounter for adjustment and management of vascular access device (principal) | CPT/HCPCS: 96523 ==

== ENCOUNTER 2020-01-24 09:57 | Outpatient (CLI) | payer OTHER, SELFPAY ==
--- NOTE | 2020-01-24 10:13 | CT_ITS ---
WS: [id number] CT scan of the chest With IV contrast, CT scan of the abdomen and pelvis with IV contrast and oral contrast. Additional two-dimensional coronal and sagittal reconstruction was performed. 01/24/2020 Clinical Data: MALIGNANT NEOPLASM OF LEFT FALLOPIAN TUBE, SECONDARY NEOPLASM Comparison: CT chest abdomen and pelvis, 07/21/2019. DLP: 1717.[address] scans at [facility] use at least one of these dose optimization techniques: automat ed exposure control; mA and/or kV adjustment per patient size (includes targeted exams where dose is matched to clinical indication); or iterative reconstruction. Findings: Chest: No nodules, masses or effusions are seen. The heart size is normal with no pericardial effusion. No pneumonia or pneumothorax is present. The pulmonary arterial system and thoracic aorta demonstrate no abnormalities or dilatations. There is no axillary or significant mediastinal adenopathy. The trachea bifurcates normally into the bronchi. Bones of the thorax show no metastatic lesions. Abdomen/pelvis: The liver, spleen, adrenal glands and pancreas are normal. There are clips in gallbladder fossa from cholecystectomy. The kidneys show equal bilateral contrast excretion with a small left renal cyst. No renal calculi, h ydronephrosis or masses are seen.. The abdominal aorta is normal in size. No appendicitis or diverticulitis is seen. Oral contrast is in the stomach and small bowel and there is no bowel dilatation. No abscess, adenopathy, ascites, mass, obstruction or free air is seen. The bladder is unremarkable. Uterus is absent. No inguinal hernia is seen. The bones of the lumbar spine, pelvis, and hips are normal. CT/CT chest abd pel w con* Impression: 1. Negative for metastatic disease. 2. Negative for acute cardiopulmonary disease. 3. Negative for acute intra-abdominal or pelvic abnormalities.
[2020-01-24] MEDS: iohexol 300 mg/mL 50 mL Btl PO (10:34)
[2020-01-24] MEDS: iohexol 300 mg/mL 100 mL Btl IV (12:09)
== END 2020-01-24 09:58 | disposition home or self-care (01) ==
LOC: RADWPI 10:02
PROVIDERS: PCP Nurse Practitioner Family; Visit Provider Internal Medicine Medical Oncology
DX: C57.02 Malignant neoplasm of left fallopian tube (principal); C78.6 Secondary malignant neoplasm of retroperitoneum and peritoneum
CPT/HCPCS: 71260; 74177; Q9967

== ENCOUNTER 2020-01-24 10:49 | Outpatient (CLI) | payer OTHER, SELFPAY ==
[2020-01-24 11:21] LABS: Basophils % 0.3 %; Eosinophils # 0.1 10^3/uL (0.0-0.8); Eosinophils % 1.5 %; Hematocrit 41.8 % (37.0-47.0); Hemoglobin 13.3 g/dL (11.5-15.3); Lymphocytes # 1.7 10^3/uL (0.8-4.8); Lymphocytes % 28.6 %; Mean Corpuscular HGB Conc 31.8 g/dL (30.0-36.0); Mean Corpuscular Volume 100.5 fL (81-99); Mean Platelet Volume 10.2 fL (7.4-10.4); Monocytes # 0.5 10^3/uL (0.2-0.9); Monocytes % 8.6 %; Neutrophils # 3.59 10^3/uL (1.8-7.7); Neutrophils % 60.8 %; Nucleated Red Blood Cells % 0 %; Platelet Count 198 10^3/cmm (130-400); Red Blood Count 4.16 10^6/uL (4.1-5.3); Red Cell Distribution Width 13.4 % (12.1-15.1); White Blood Count 5.9 10^3/uL (4.0-10.0)
[2020-01-24 12:42] LABS: Alanine Aminotransferase 24 U/L (0-33); Albumin Level 4.3 g/dL (3.5-5.2); Alkaline Phosphatase 66 IU/L (35-105); Anion Gap 12.9 (5-19); Aspartate Amino Transferase 24 U/L (0-32); Blood Urea Nitrogen 10 mg/dL (6-20); CA 125 48.3 U/mL (0-35); Calcium 9.6 mg/dL (8.5-10.5); Carbon Dioxide 29 mmol/L (22-29); Chloride 100 mmol/L (98-107); Globulin 2.4 g/dL (1.3-4.6); Glomerular Filtration Rate 127.6 mL/min (90-130); Glucose 83 mg/dL (65-115); Osmolality Calculated 284 mOsm/kg (285-295); Potassium 3.9 mmol/L (3.5-5.1); Sodium 138 mmol/L (136-145); Total Bilirubin 0.3 mg/dL (0.15-1.2); Total Protein 6.7 g/dL (6.6-8.7)
--- NOTE | 2020-01-25 07:55 | ONC FU_ITS ---
Dr. Grey Patient Follow-Up Note Patient: Jagruti Jay Unit #: [id number]: [id number] Dicatated By: John Grey M.D.Date of Visit:Jan 24, 2020 Onc Med Follow-up/Prog Note Chief Complaint: Fallopian tube cancer. 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 She had a recurrence in the form of a right diaphragmatic peritoneal implant confirmed by biopsy at a cholecystectomy procedure in April 2018. She had presented in August 2015 with abdominal pain, and she was found to have a large pelvic mass. This was initially thought to be arising from the right ovary. On 09/17/2015 she underwent surgery which included total abdominal hysterectomy, bilateral salpingo-oophorectomy, and radical debulking along with pelvic lymphadenectomy and limited periaortic lymphadenectomy. I do not have those actual reports available, but she apparently was thought to have a complete or near-complete resection. She was then given postoperative adjuvant chemotherapy with 6 cycles of carboplatin/paclitaxel. On 09/28/2018 she underwent cholecystectomy, and at the time of that procedure she was noted to have a peritoneal implant on the right diaphragm. Biopsy of the implant showed high-grade carcinoma consistent with the previous high-grade serous primary. With that finding she was then given further chemotherapy with 6 cycles of carboplatin/gemcitabine, which she completed in September 2018. Restaging CT scans of the chest, abdomen, and pelvis on 10/07/2018 showed resolution of a previously noted small anterior hepatic capsular or subcapsular nodule. There are new postsurgical changes in that region. 2 very closely associated hypodense foci were again noted in the right lobe posteriorly, maximum aggregate diameter of 3 mm. That finding. Stable. There was no evidence of a new focal hepatic abnormality. There were small mesenteric, retroperitoneal, and bilateral inguinal lymph nodes. There was no pathologic lymphadenopathy. A 5 x 3 mm sclerotic focus at the right posterior aspect of the manubrium appeared stable compared to a prior study from October 2015. There were no suspicious osseous lesions noted. With those findings, she was recommended to continue further systemic therapy with 16 cycles of bevacizumab administered at 3-week intervals. She received cycle 1 of bevacizumab on 11/10/2018. She tolerated it without acute toxicity, and she then continued treatment at a 3-week dosing interval. As of 07/04/2019 she completed her 12th cycle. Restaging CT scans on 07/21/2019 showed no evidence of metastatic disease in the chest, abdomen, or pelvis. There was evidence of diffuse fatty infiltration of the liver with an enlarged hepatic lobe measuring 19 cm. A left renal cyst measured 12 mm. There were no other abnormal findings. She continued her maintenance bevacizumab. She completed her 16th and last planned cycle on 10/09/2019. INTERIM HISTORY: As of her follow-up visit on October 24, 2019 her CA-125 level at that point had increased to 33.4 U/mL. Overall, it appeared to have been increasing very gradually since January 2019 when it was 12.4 U/mL. However, she appeared stable clinically and she continued observation/expectant management. Her restaging CT scans of the chest, abdomen, and pelvis on January 24, 2020 showed no evidence for metastatic disease. There were no other acute findings noted. She is seen for a follow-up visit. She indicates that she was diagnosed with COVID-19 infection somewhere near the end of October. She was feeling really bad with that illness, but she has had an uneventful recovery. Her energy now is getting better and her activity is pretty much back to normal. ECOG score is 0. She has good appetite. She does not have fever or night sweats. She has a little bit of hot flashes. She has ongoing problems with sinus congestion/drainage. She has no shortness of breath, cough, or chest pain. She has been having some heartburn and she has had ongoing problems with constipation. She has no other GI or complaints. She has some joint pain, mainly in her hands. She has no focal neurologic symptoms. Medications: 1Artemisia 1 Capsule Oral daily PRN, Ashwagandha 1 Capsule (of 1300 mg) Oral daily PRN, Beta Glucan 2 Capsule (of 500 mg) daily, Cetirizine HCl 1 Tablet (of 10 mg) Oral daily, Cholecalciferol 2 Capsule (of 5000 Units) Oral daily, ip-6 inositol 1 Capsule daily, Lexapro 1 Tablet (of 10 mg) Oral daily, Milk Thistle 1 Capsule Oral daily, Pantoprazole Sodium 1 Tablet (of 40 mg) Tablet, enteric coated Oral b.i.d., proline and lysine 1 Tablet daily, Quercetin 1 Tablet (of 500 mg) Oral daily, Selenimin 1 Tablet Oral daily, Singulair 1 Tablet (of 10 mg) Oral at bedtime, tagament 1 Capsule daily, Turmeric 1 Capsule Oral daily, Vitamin C 2 Capsule (of 1400 mg) Oral daily, Vitamin E 1 Capsule (of 500 mg) Oral daily, Zinc 1 Capsule Oral daily Allergies: Sulfa Antibiotics Review of Systems: Constitutional - She was diagnosed with COVID-19 virus infection near the end of October. She was feeling really bad with that illness, but she has pretty well recovered. Her energy is getting better. Her activity is back to normal. She has good appetite. She does not have fever or night sweats. She has a little bit of hot flashes. Her ECOG score is 0, ENMT - She has ongoing problems with sinus drainage and she has some associated sore throat. No difficulty swallowing, Hematologic/Lymphatic - No abnormal bruising or bleeding, Respiratory - No shortness of breath. No cough. No pleuritic pain or hemoptysis, Cardiovascular - No angina pain. No palpitations, Gastrointestinal - No nausea or vomiting. She does have some heartburn and she has ongoing problems with constipation. No blood in the stool or black stools, Genitourinary (F) - No dysuria or hematuria. No urinary frequency. No urgency or incontinence, Musculoskeletal - She has joint pain, mainly in the hands, Integumentary - No skin rash, Neurologic - No headache or dizziness. No numbness or tingling. No other focal neurologic symptoms, Psychiatric - She has anxiety. No insomnia. Vital Signs: Performed on Jan 24, 2020 12:31 Height - 64.00 in Weight - 142.0 lbs (HIGH) BSA - 1.69 sq.m BMI - 24.37 Temperature - 97.6 F (LOW) Pulse - 92 /min Respiration - 18 /min BP - 127/62 mm(hg) O2 Sat - 99 % Pain - 0 Physical Examination: Constitutional - She looks good generally, Eyes - Sclerae nonicteric. Conjunctivae clear, ENMT - No lesions noted in the oral cavity, Hematologic/Lymphatic - No cervical, clavicular, or axillary adenopathy, Respiratory - Lungs are clear with good air movement bilaterally, Cardiovascular - Heart rhythm is regular. There is no murmur, gallop, or rub noted, Abdomen - Soft. There is a small incisional hernia in the upper abdomen. Liver and spleen are not enlarged. There is no abdominal mass or ascites noted and there is no inguinal adenopathy, Extremities - No edema, Neurologic - No focal neurologic deficits noted. Lab/Imaging: Test performed on Jan 24, 2020 11:12 Sodium 138 mmol/L Potassium 3.9 mmol/L Chloride 100 mmol/L CO2 29 mmol/L Anion Gap 12.9 BUN 10 mg/dL Creatinine 0.5 mg/dL Cr Clearance (Est) 127.7500 mL/min eGFR 127.6 mL/min Glucose 83 mg/dL Osmolality - Calculated 284 mOsm/kg Calcium 9.6 mg/dL Protein, Total 6.7 g/dL Albumin 4.3 g/dL Globulin 2.4 g/dL Bilirubin, Total 0.3 mg/dL ALT (SGPT) 24 U/L AST (SGOT) 24 U/L Alkaline Phosphatase 66 IU/L WBC 5.9 10 3/uL RBC 4.16 10 6/uL HGB 13.3 g/dL HCT 41.8 % MCV 100.5 fL MCH 32.0 pg MCHC 31.8 g/dL RDW 13.4 % Platelet Count 198 10 3/cmm MPV 10.2 fL Neutrophils 3.59 10 3/uL Lymphocytes 1.7 10 3/uL Monocytes 0.5 10 3/uL Eosinophils 0.1 10 3/uL Basophils 0.0 10 3/uL Neutrophil % 60.8 % Lymphocyte % 28.6 % Monocyte % 8.6 % Eosinophil % 1.5 % Basophils % 0.3 % NRBC % 0 % CA-125 48.3 U/mL Impression: 1. 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 She had complete or near-complete debulking with her initial surgery in September 2015. 2. She was given postoperative adjuvant chemotherapy with 6 cycles of carboplatin/paclitaxel. 3. She had biopsy proven recurrence in the form of a right diaphragmatic peritoneal implant, discovered at the cholecystectomy procedure in April 2018. 4. She then had further chemotherapy with 6 cycles of carboplatin/gemcitabine, completed in September 2018. She had no evidence of residual disease on restaging CT scans on 10/07/2018. Her other medical illnesses include: 5. GERD. 6. Allergic rhinitis. 7. Anxiety/depression. She was recommended to undergo maintenance therapy with single agent bevacizumab at a 3-week interval dosing schedule for 16 cycles. She began cycle 1 of bevacizumab on 11/10/2018. She tolerated it well, and she has been able to continue her treatment every 3 weeks with no apparent adverse effects. As of 07/04/2019 she had completed her 12th cycle. Her restaging CT scans on 07/21/2019 showed no evidence of metastatic disease in the chest, abdomen, or pelvis. She continued her maintenance bevacizumab, and she completed her 16th and last planned cycle of treatment on 10/09/2019. In the latter part of October she developed COVID-19 virus infection. She appears to have had an uneventful recovery. There has been a significant increase in her CA-125 level, now to 48 U/mL. In reviewing her records, it actually has been showing a very gradual increase over the past year, from 12.4 U/mL in January 2019. However, she has not been symptomatic with it and her current restaging CT scans show no evidence of metastatic disease. Plan: I will forward her lab CT results to Dr. Landon and transfer to I will plan further evaluation/follow-up per his recommendations. Signed By: John Grey M.D. <<Signature on File>>
== END 2020-01-24 10:50 | disposition home or self-care (01) ==
LOC: ONCMED 10:51
PROVIDERS: PCP Nurse Practitioner Family; Visit Provider Internal Medicine Medical Oncology
DX: C57.02 Malignant neoplasm of left fallopian tube (principal); C78.6 Secondary malignant neoplasm of retroperitoneum and peritoneum; K21.9 Gastro-esophageal reflux disease without esophagitis; J30.9 Allergic rhinitis, unspecified; F41.9 Anxiety disorder, unspecified; F32.9 Major depressive disorder, single episode, unspecified; Z79.899 Other long term (current) drug therapy
CPT/HCPCS: 36591; 80053; 85025; 86304; 99214

== ENCOUNTER 2020-02-23 09:30 | Outpatient (CLI) | payer OTHER, SELFPAY ==
[2020-02-23 10:50] LABS: CA 125 45.3 U/mL (0-35)
== END 2020-02-23 09:31 | disposition home or self-care (01) ==
LOC: ONCMED 09:32
PROVIDERS: PCP Nurse Practitioner Family; Visit Provider Internal Medicine Medical Oncology
DX: C57.02 Malignant neoplasm of left fallopian tube (principal); C78.6 Secondary malignant neoplasm of retroperitoneum and peritoneum; Z45.2 Encounter for adjustment and management of vascular access device
CPT/HCPCS: 36591; 86304

== ENCOUNTER 2020-03-29 10:11 | Outpatient (CLI) | payer OTHER, SELFPAY ==
[2020-03-29 11:13] LABS: Basophils % 0.4 %; Eosinophils % 0.6 %; Hematocrit 39.4 % (37.0-47.0); Hemoglobin 12.4 g/dL (11.5-15.3); Lymphocytes # 1.5 10^3/uL (0.8-4.8); Lymphocytes % 28.8 %; Mean Corpuscular HGB Conc 31.5 g/dL (30.0-36.0); Mean Corpuscular Hemoglobin 31.3 pg (28.0-34.0); Mean Corpuscular Volume 99.5 fL (81-99); Monocytes # 0.5 10^3/uL (0.2-0.9); Monocytes % 9.5 %; Neutrophils # 3.03 10^3/uL (1.8-7.7); Neutrophils % 60.3 %; Nucleated Red Blood Cells % 0 %; Platelet Count 157 10^3/cmm (130-400); Red Blood Count 3.96 10^6/uL (4.1-5.3); Red Cell Distribution Width 13.2 % (12.1-15.1)
[2020-03-29 11:31] LABS: Alanine Aminotransferase 13 U/L (0-33); Albumin Level 4.2 g/dL (3.5-5.2); Alkaline Phosphatase 83 IU/L (35-105); Anion Gap 12.9 (5-19); Aspartate Amino Transferase 16 U/L (0-32); Blood Urea Nitrogen 11 mg/dL (6-20); Calcium 9.4 mg/dL (8.5-10.5); Carbon Dioxide 28 mmol/L (22-29); Chloride 102 mmol/L (98-107); Globulin 2.6 g/dL (1.3-4.6); Glomerular Filtration Rate 127.6 mL/min (90-130); Glucose 87 mg/dL (65-115); Osmolality Calculated 287 mOsm/kg (285-295); Potassium 3.9 mmol/L (3.5-5.1); Sodium 139 mmol/L (136-145); Total Bilirubin 0.5 mg/dL (0.15-1.2); Total Protein 6.8 g/dL (6.6-8.7)
[2020-03-29 12:03] LABS: CA 125 75.8 U/mL (0-35)
--- NOTE | 2020-03-29 17:19 | ONC FU_ITS ---
Dr. Grey Patient Follow-Up Note Patient: Jagruti Jay Unit #: [id number]: [id number] Dicatated By: John Grey M.D.Date of Visit:Mar 29, 2020 Onc Med Follow-up/Prog Note Chief Complaint: Fallopian tube cancer. 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 She had a recurrence in the form of a right diaphragmatic peritoneal implant confirmed by biopsy at a cholecystectomy procedure in April 2018. She had presented in August 2015 with abdominal pain, and she was found to have a large pelvic mass. This was initially thought to be arising from the right ovary. On 09/17/2015 she underwent surgery which included total abdominal hysterectomy, bilateral salpingo-oophorectomy, and radical debulking along with pelvic lymphadenectomy and limited periaortic lymphadenectomy. I do not have those actual reports available, but she apparently was thought to have a complete or near-complete resection. She was then given postoperative adjuvant chemotherapy with 6 cycles of carboplatin/paclitaxel. On 09/28/2018 she underwent cholecystectomy, and at the time of that procedure she was noted to have a peritoneal implant on the right diaphragm. Biopsy of the implant showed high-grade carcinoma consistent with the previous high-grade serous primary. With that finding she was then given further chemotherapy with 6 cycles of carboplatin/gemcitabine, which she completed in September 2018. Restaging CT scans of the chest, abdomen, and pelvis on 10/07/2018 showed resolution of a previously noted small anterior hepatic capsular or subcapsular nodule. There are new postsurgical changes in that region. 2 very closely associated hypodense foci were again noted in the right lobe posteriorly, maximum aggregate diameter of 3 mm. That finding. Stable. There was no evidence of a new focal hepatic abnormality. There were small mesenteric, retroperitoneal, and bilateral inguinal lymph nodes. There was no pathologic lymphadenopathy. A 5 x 3 mm sclerotic focus at the right posterior aspect of the manubrium appeared stable compared to a prior study from October 2015. There were no suspicious osseous lesions noted. With those findings, she was recommended to continue further systemic therapy with 16 cycles of bevacizumab administered at 3-week intervals. She received cycle 1 of bevacizumab on 11/10/2018. She tolerated it without acute toxicity, and she then continued treatment at a 3-week dosing interval. As of 07/04/2019 she completed her 12th cycle. Restaging CT scans on 07/21/2019 showed no evidence of metastatic disease in the chest, abdomen, or pelvis. There was evidence of diffuse fatty infiltration of the liver with an enlarged hepatic lobe measuring 19 cm. A left renal cyst measured 12 mm. There were no other abnormal findings. She continued her maintenance bevacizumab. She completed her 16th and last planned cycle on 10/09/2019. INTERIM HISTORY: As of her follow-up visit on October 24, 2019 her CA-125 level had increased to 33.4 U/mL. Overall, it appeared to have been increasing very gradually since January 2019 when it was 12.4 U/mL. However, at that point she appeared stable clinically and she continued observation/expectant management. As of 01/24/2020 there was further increase in the CA-125 to 48.3 U/mL. Her restaging CT scans of the chest, abdomen, and pelvis showed no evidence for metastatic disease. There were no other acute findings noted. Despite the negative CT findings, with the continued increase in the CA-125 level she was recommended to follow-up with Dr. Landon for further evaluation and treatment recommendations. She is seen now for an unplanned visit. She has been in contact with Dr. Landon's office, and she is actually scheduled to be seen there on Wednesday. In the meantime, she comes in now with complaints of stomach and back pain. This started within the past few weeks. She was seen by Jojo Mason and she was given antibiotic therapy with amoxicillin and clindamycin along with her Protonix, which she takes twice daily. She did not tolerate the clindamycin, but with the other medications the burning pain in her stomach has improved. She continues to complain, though, a pretty severe pain in the lower back, enough that she is having difficulty sleeping at night. She also is having pain in the posterior and lateral right hip area. She has not had numbness/paresthesia or other focal neurologic symptoms. She has not been having nausea. She has had chronic constipation, but her bowel function has recently improved so that she has not been having to take laxatives. She has had no problems with bladder function. She has been having a lot of issues with anxiety. Medications: 1Artemisia 1 Capsule Oral daily PRN, Ashwagandha 1 Capsule (of 1300 mg) Oral daily PRN, Beta Glucan 2 Capsule (of 500 mg) daily, Cetirizine HCl 1 Tablet (of 10 mg) Oral daily, Cholecalciferol 2 Capsule (of 5000 Units) Oral daily, Glucosamine (500 mg) Capsule Oral daily, ip-6 inositol 1 Capsule daily, Lexapro 1 Tablet (of 10 mg) Oral daily, Milk Thistle 1 Capsule Oral daily, Pantoprazole Sodium 1 Tablet (of 40 mg) Tablet, enteric coated Oral b.i.d., proline and lysine 1 Tablet daily, Quercetin 1 Tablet (of 500 mg) Oral daily, Selenimin 1 Tablet Oral daily, Singulair 1 Tablet (of 10 mg) Oral at bedtime, tagament 1 Capsule daily, Turmeric 1 Capsule Oral daily, Vitamin C 2 Capsule (of 1400 mg) Oral daily, Vitamin E 1 Capsule (of 500 mg) Oral daily, Zinc 1 Capsule Oral daily Allergies: Sulfa Antibiotics Vital Signs: Performed on Mar 29, 2020 12:01 Height - 64.00 in Weight - 143.8 lbs (HIGH) BSA - 1.70 sq.m BMI - 24.68 Temperature - 97.2 F (LOW) Pulse - 75 /min Respiration - 18 /min BP - 126/49 mm(hg) O2 Sat - 99 % Pain - 0 Fatigue - 5 Physical Examination: Constitutional - She appears very anxious. She otherwise looks good generally, Eyes - Sclerae nonicteric. Conjunctivae clear, ENMT - No lesions noted in the oral cavity, Hematologic/Lymphatic - No cervical, clavicular, or axillary adenopathy, Respiratory - Lungs are clear with good air movement bilaterally, Cardiovascular - Heart rhythm is regular. There is no murmur, gallop, or rub noted, Abdomen - Soft. Liver and spleen are not enlarged. There is no abdominal mass or ascites noted and there is no inguinal adenopathy, Back/Spine - There is no spine or CVA tenderness noted, Extremities - No edema, Neurologic - No focal neurologic deficits noted. Lab/Imaging: Test performed on Mar 29, 2020 10:48 Sodium 139 mmol/L Potassium 3.9 mmol/L Chloride 102 mmol/L CO2 28 mmol/L Anion Gap 12.9 BUN 11 mg/dL Creatinine 0.5 mg/dL Cr Clearance (Est) 129.37 mL/min eGFR 127.6 mL/min Glucose 87 mg/dL Osmolality - Calculated 287 mOsm/kg Calcium 9.4 mg/dL Protein, Total 6.8 g/dL Albumin 4.2 g/dL Globulin 2.6 g/dL Bilirubin, Total 0.5 mg/dL ALT (SGPT) 13 U/L AST (SGOT) 16 U/L Alkaline Phosphatase 83 IU/L WBC 5.0 10 3/uL RBC 3.96 10 6/uL HGB 12.4 g/dL HCT 39.4 % MCV 99.5 fL MCH 31.3 pg MCHC 31.5 g/dL RDW 13.2 % Platelet Count 157 10 3/cmm MPV 11.0 fL Neutrophils 3.03 10 3/uL Lymphocytes 1.5 10 3/uL Monocytes 0.5 10 3/uL Eosinophils 0.0 10 3/uL Basophils 0.0 10 3/uL Neutrophil % 60.3 % Lymphocyte % 28.8 % Monocyte % 9.5 % Eosinophil % 0.6 % Basophils % 0.4 % NRBC % 0 % CA-125 75.8 U/mL Problem List: 1. 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 2. GERD. 3. Allergic rhinitis. 4. Anxiety/depression. 5. She developed COVID-19 virus infection in October 2019. She had an uneventful recovery. Problems Addressed with this Encounter and Plan: 1. 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 She had complete or near-complete debulking with her initial surgery in September 2015. She was given postoperative adjuvant chemotherapy with 6 cycles of carboplatin/paclitaxel. She had biopsy proven recurrence in the form of a right diaphragmatic peritoneal implant, discovered at the cholecystectomy procedure in April 2018. She then had further chemotherapy with 6 cycles of carboplatin/gemcitabine, completed in September 2018. She had no evidence of residual disease on restaging CT scans on 10/07/2018. She then continued maintenance therapy with single agent bevacizumab at a 3-week interval dosing schedule for 16 cycles. She began cycle 1 of bevacizumab on 11/10/2018. She tolerated it well, and she was able to continue her treatment every 3 weeks with no apparent adverse effects. As of 10/09/2019 she completed her 16th and last planned cycle of bevacizumab. As of January 2020 there was a significant increase in her CA-125 level, up to 48 U/mL. In reviewing her records, it actually has been showing a very gradual increase over the preceding year, from 12.4 U/mL in January 2019. However, she was not overtly symptomatic with it and her restaging CT scans on 01/24/2020 showed no evidence of metastatic disease. At that point she was advised to follow-up with Dr. Landon. She is scheduled to be seen there on Wednesday. She has now developed pain in the abdominal area and more significantly in the lower back. A specific cause for the pain has not been determined, but I suspect that it is related to the underlying malignancy, as there has been further increase in the CA-125 level. The current lab results will be forwarded to Dr. Emeka hines, and I am going to check with their office to see whether or not she can be scheduled for repeat CT scans with her visit. In the meantime, she will be given a prescription for hydrocodone 5/APAP 325 which I have encouraged her to at least take at bedtime. 2. She has significant anxiety. She has been taking Lexapro 10 mg daily and she will now increase the dosage to 20 mg daily. Signed By: John Grey M.D. <<Signature on File>>
== END 2020-03-29 10:12 | disposition home or self-care (01) ==
PROVIDERS: PCP Nurse Practitioner Family; Visit Provider Internal Medicine Medical Oncology
DX: C57.02 Malignant neoplasm of left fallopian tube (principal); C78.6 Secondary malignant neoplasm of retroperitoneum and peritoneum; R10.9 Unspecified abdominal pain; M54.5 Low back pain; R97.0 Elevated carcinoembryonic antigen [CEA]; F41.9 Anxiety disorder, unspecified; Z79.891 Long term (current) use of opiate analgesic; Z79.899 Other long term (current) drug therapy
CPT/HCPCS: 36591; 80053; 85025; 86304; 99214

== ENCOUNTER 2020-04-02 10:14 | Outpatient (CLI) | payer OTHER, SELFPAY ==
--- NOTE | 2020-04-02 10:29 | CT_ITS ---
WS: [id number] CT CHEST, ABDOMEN AND PELVIS WITH CONTRAST HISTORY: FALLOPIAN TUBE CANCER TECHNIQUE: Contiguous 5 mm axial imaging performed through the chest, abdomen and pelvis with IV cont rast, oral contrast has been provided. Coronal and sagittal reformats chest. Coronal and sagittal ref ormats through the abdomen and pelvis. All CT scans at [facility] use at least one of the se dose optimization techniques: automated exposure control; mA and/or kV adjustment per patient size (includes targeted exams where dose is matched to clinical indication); or iterative reconstruction. CONTRAST: Omnipaque 300; 95 mL IV. DLP: 1731.94 mGycm COMPARISON: 01/24/2020 and 07/21/2019. Chest CT: No suspicious mass or calcifications. No pneumonia. There are a few micronodules some of wh ich are calcified and benign. LEFT subclavian Port-A-Cath is present. No mediastinal or hilar adenopa thy. Heart size is normal. There is a new small circumferential pericardial effusion. Greatest diamet er of the effusion is 10 mm along the posterior heart. Normal aorta and pulmonary artery. Small hiata l hernia. Abdomen CT: Mild central bile duct dilatation may be physiologic. This was also present on the prior examination. There are cholecystectomy. Normal spleen. Pancreas is normal. No interval change in appe arance of pancreas with pancreatic duct. No adrenal mass. Bilateral too small to characterize hypoden sities. No renal obstruction. Mild atherosclerosis aorta. There are new findings within the peritoneal cavity better concerning for metastatic involvement. The re is increased soft tissue surrounding the mid SMA. Increased soft tissue in the periaortic distribu tion beginning near the level of the renal arteries and extending inferiorly. Very small shoddy lymph nodes and increased soft tissue. Additional soft tissue in the paravertebral distribution at the bif urcation of aorta. RIGHT iliac chain lymph node measures 8 mm. Distal LEFT iliac chain lymph node at 9 mm. No ascites in the pelvis. Pelvic CT: No free fluid. Prior hysterectomy. Mild diffuse constipation. No osteoblastic or osteolytic bone disease. CT/CT chest abd pel w con* IMPRESSION: 1. New, small circumferential pericardial effusion. 2. New small mesenteric, periaortic and iliac chain lymph nodes. Although thes e lymph nodes are small they are concerning and consistent with metastatic fall opian tube cancer. New since the prior study. 3. No ascites. 4. Prior cholecystectomy and hysterectomy. Notified John Grey MD at 04/02/2020 12:37 PM.
[2020-04-02] MEDS: iohexol 300 mg/mL 50 mL Btl PO (10:34)
== END 2020-04-02 10:15 | disposition home or self-care (01) ==
LOC: RADWPI 10:16
PROVIDERS: PCP Nurse Practitioner Family; Visit Provider Internal Medicine Medical Oncology
DX: C57.02 Malignant neoplasm of left fallopian tube (principal); Z90.49 Acquired absence of other specified parts of digestive tract; Z90.710 Acquired absence of both cervix and uterus; I31.3 Pericardial effusion (noninflammatory)
CPT/HCPCS: 71260; 74177; Q9967

== ENCOUNTER 2020-04-15 07:50 | Outpatient (CLI) | payer OTHER, SELFPAY | END 2020-04-15 07:51 | disposition home or self-care (01) | LOC: ONCMED 07:52 | PROVIDERS: PCP Nurse Practitioner Family; Visit Provider Internal Medicine Medical Oncology | DX: C57.02 Malignant neoplasm of left fallopian tube (principal); C78.6 Secondary malignant neoplasm of retroperitoneum and peritoneum | CPT/HCPCS: 36591 ==

== ENCOUNTER 2020-04-30 06:05 | Outpatient (CLI) | payer OTHER, SELFPAY ==
[2020-04-30 14:53] LABS: Basophils % 0.3 %; Eosinophils # 0.1 10^3/uL (0.0-0.8); Hematocrit 40.2 % (37.0-47.0); Hemoglobin 12.9 g/dL (11.5-15.3); Lymphocytes # 1.7 10^3/uL (0.8-4.8); Lymphocytes % 27.4 %; Mean Corpuscular HGB Conc 32.1 g/dL (30.0-36.0); Mean Corpuscular Hemoglobin 32.2 pg (28.0-34.0); Mean Corpuscular Volume 100.2 fL (81-99); Mean Platelet Volume 10.6 fL (7.4-10.4); Monocytes # 0.7 10^3/uL (0.2-0.9); Monocytes % 11.2 %; Neutrophils # 3.68 10^3/uL (1.8-7.7); Neutrophils % 59.9 %; Nucleated Red Blood Cells % 0 %; Platelet Count 177 10^3/cmm (130-400); Red Blood Count 4.01 10^6/uL (4.1-5.3); White Blood Count 6.1 10^3/uL (4.0-10.0)
[2020-04-30 15:34] LABS: Alanine Aminotransferase 11 U/L (0-33); Alkaline Phosphatase 67 IU/L (35-105); Aspartate Amino Transferase 16 U/L (0-32); Blood Urea Nitrogen 13 mg/dL (6-20); Calcium 9.2 mg/dL (8.5-10.5); Carbon Dioxide 27 mmol/L (22-29); Chloride 101 mmol/L (98-107); Globulin 2.6 g/dL (1.3-4.6); Glomerular Filtration Rate 103.4 mL/min (90-130); Glucose 83 mg/dL (65-115); Osmolality Calculated 283 mOsm/kg (285-295); Sodium 137 mmol/L (136-145); Total Bilirubin 0.2 mg/dL (0.15-1.2); Total Protein 6.6 g/dL (6.6-8.7)
--- NOTE | 2020-05-03 17:15 | ONC FU_ITS ---
Dr. Grey Patient Follow-Up Note Patient: Jagruti Jay Unit #: [id number]: [id number] Dicatated By: John Grey M.D.Date of Visit:Apr 30, 2020 Onc Med Follow-up/Prog Note Chief Complaint: Fallopian tube cancer. 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 She had a recurrence in the form of a right diaphragmatic peritoneal implant confirmed by biopsy at a cholecystectomy procedure in April 2018. She had presented in August 2015 with abdominal pain, and she was found to have a large pelvic mass. This was initially thought to be arising from the right ovary. On 09/17/2015 she underwent surgery which included total abdominal hysterectomy, bilateral salpingo-oophorectomy, and radical debulking along with pelvic lymphadenectomy and limited periaortic lymphadenectomy. I do not have those actual reports available, but she apparently was thought to have a complete or near-complete resection. She was then given postoperative adjuvant chemotherapy with 6 cycles of carboplatin/paclitaxel. On 09/28/2018 she underwent cholecystectomy, and at the time of that procedure she was noted to have a peritoneal implant on the right diaphragm. Biopsy of the implant showed high-grade carcinoma consistent with the previous high-grade serous primary. With that finding she was then given further chemotherapy with 6 cycles of carboplatin/gemcitabine, which she completed in September 2018. Restaging CT scans of the chest, abdomen, and pelvis on 10/07/2018 showed resolution of a previously noted small anterior hepatic capsular or subcapsular nodule. There are new postsurgical changes in that region. 2 very closely associated hypodense foci were again noted in the right lobe posteriorly, maximum aggregate diameter of 3 mm. That finding. Stable. There was no evidence of a new focal hepatic abnormality. There were small mesenteric, retroperitoneal, and bilateral inguinal lymph nodes. There was no pathologic lymphadenopathy. A 5 x 3 mm sclerotic focus at the right posterior aspect of the manubrium appeared stable compared to a prior study from October 2015. There were no suspicious osseous lesions noted. With those findings, she was recommended to continue further systemic therapy with 16 cycles of bevacizumab administered at 3-week intervals. She received cycle 1 of bevacizumab on 11/10/2018. She tolerated it without acute toxicity, and she then continued treatment at a 3-week dosing interval. As of 07/04/2019 she completed her 12th cycle. Restaging CT scans on 07/21/2019 showed no evidence of metastatic disease in the chest, abdomen, or pelvis. There was evidence of diffuse fatty infiltration of the liver with an enlarged hepatic lobe measuring 19 cm. A left renal cyst measured 12 mm. There were no other abnormal findings. She continued her maintenance bevacizumab. She completed her 16th and last planned cycle on 10/09/2019. INTERIM HISTORY: As of her follow-up visit on October 24, 2019 her CA-125 level had increased to 33.4 U/mL. Overall, it appeared to have been increasing very gradually since January 2019 when it was 12.4 U/mL. However, at that point she appeared stable clinically and she continued observation/expectant management. As of 01/24/2020 there was further increase in the CA-125 to 48.3 U/mL. Her restaging CT scans of the chest, abdomen, and pelvis showed no evidence for metastatic disease. There were no other acute findings noted. Despite the negative CT findings, with the continued increase in the CA-125 level she was scheduled to have follow-up with Dr. Landon. She had repeat CT scans on 04/02/2020. It showed new small circumferential pericardial effusion and new findings within the peritoneal cavity which were concerning for metastatic involvement. This included increased soft tissue surrounding the mid SMA and increased soft tissue in the periaortic distribution. There were new small mesenteric, periaortic, and iliac chain lymph nodes. There was no ascites. In the meantime, she had further evaluation with 99tests genetic screening. There were 2 heterozygous variants of uncertain significance. She was negative for BRCA mutation. She is seen for a follow-up visit. She is continued to have pain in her abdomen and back. It typically starts about 30 minutes after she eats. She is really not getting much benefit with her pain medication. She says that ibuprofen does seem to help somewhat. She has difficulty sleeping. Her energy is low now and she has limited activity. ECOG score is 2. Her appetite is poor. She is not having fever, night sweats, or hot flashes. She has no shortness of breath, cough, or chest pain. She sometimes has nausea, she says she has lots of gurgling. She has ongoing problems with constipation. Bladder function remains adequate. She does not complain of headache. She occasionally has lightheadedness. She has no numbness/paresthesia or other focal neurologic symptoms. Medications: 1Artemisia 1 Capsule Oral daily PRN, Ashwagandha 1 Capsule (of 1300 mg) Oral daily PRN, Beta Glucan 2 Capsule (of 500 mg) daily, Cetirizine HCl 1 Tablet (of 10 mg) Oral daily, Cholecalciferol 2 Capsule (of 5000 Units) Oral daily, Glucosamine (500 mg) Capsule Oral daily, ip-6 inositol 1 Capsule daily, Lexapro 1 Tablet (of 10 mg) Oral daily, Milk Thistle 1 Capsule Oral daily, Pantoprazole Sodium 1 Tablet (of 40 mg) Tablet, enteric coated Oral b.i.d., proline and lysine 1 Tablet daily, Quercetin 1 Tablet (of 500 mg) Oral daily, Selenimin 1 Tablet Oral daily, Singulair 1 Tablet (of 10 mg) Oral at bedtime, tagament 1 Capsule daily, Turmeric 1 Capsule Oral daily, Vitamin C 2 Capsule (of 1400 mg) Oral daily, Vitamin E 1 Capsule (of 500 mg) Oral daily, Zinc 1 Capsule Oral daily Allergies: Sulfa Antibiotics Vital Signs: Performed on Apr 30, 2020 15:45 Height - 64.00 in Weight - 138.2 lbs (LOW) BSA - 1.67 sq.m BMI - 23.72 Temperature - 97.9 F (LOW) Pulse - 95 /min Respiration - 18 /min BP - 96/60 mm(hg) O2 Sat - 98 % Pain - 3 Fatigue - 5 Physical Examination: Constitutional - She appears anxious, and she does appear to be in some discomfort, Eyes - Sclerae nonicteric. Conjunctivae clear, ENMT - No lesions noted in the oral cavity, Hematologic/Lymphatic - There is a palpable nodule in the medial aspect of the right supraclavicular fossa. It measures in the range of 2 to 3 cm. I do not feel any other adenopathy in the neck or axilla, Respiratory - Lungs are clear with good air movement bilaterally, Cardiovascular - Heart rhythm is regular. There is no murmur, gallop, or rub noted, Abdomen - Soft. Liver and spleen are not enlarged. There is no abdominal mass or ascites noted and there is no inguinal adenopathy, Extremities - No edema, Neurologic - No focal neurologic deficits noted. Lab/Imaging: Test performed on Apr 30, 2020 14:38 Sodium 137 mmol/L Potassium 4.0 mmol/L Chloride 101 mmol/L CO2 27 mmol/L Anion Gap 13.0 BUN 13 mg/dL Creatinine 0.6 mg/dL Cr Clearance (Est) 103.61 mL/min eGFR 103.4 mL/min Glucose 83 mg/dL Osmolality - Calculated 283 mOsm/kg Calcium 9.2 mg/dL Protein, Total 6.6 g/dL Albumin 4.0 g/dL Globulin 2.6 g/dL Bilirubin, Total 0.2 mg/dL ALT (SGPT) 11 U/L AST (SGOT) 16 U/L Alkaline Phosphatase 67 IU/L WBC 6.1 10 3/uL RBC 4.01 10 6/uL HGB 12.9 g/dL HCT 40.2 % MCV 100.2 fL MCH 32.2 pg MCHC 32.1 g/dL RDW 13.0 % Platelet Count 177 10 3/cmm MPV 10.6 fL Neutrophils 3.68 10 3/uL Lymphocytes 1.7 10 3/uL Monocytes 0.7 10 3/uL Eosinophils 0.1 10 3/uL Basophils 0.0 10 3/uL Neutrophil % 59.9 % Lymphocyte % 27.4 % Monocyte % 11.2 % Eosinophil % 1.0 % Basophils % 0.3 % NRBC % 0 % CA-125 177.0 U/mL Problem List: 1. 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 2. GERD. 3. Allergic rhinitis. 4. Anxiety/depression. 5. She developed COVID-19 virus infection in October 2019. She had an uneventful recovery. Problems Addressed with this Encounter and Plan: 1. 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 She had complete or near-complete debulking with her initial surgery in September 2015. She was given postoperative adjuvant chemotherapy with 6 cycles of carboplatin/paclitaxel. She had biopsy proven recurrence in the form of a right diaphragmatic peritoneal implant, discovered at the cholecystectomy procedure in April 2018. She then had further chemotherapy with 6 cycles of carboplatin/gemcitabine, completed in September 2018. She had no evidence of residual disease on restaging CT scans on 10/07/2018. She then continued maintenance therapy with single agent bevacizumab at a 3-week interval dosing schedule for 16 cycles. She began cycle 1 of bevacizumab on 11/10/2018. She tolerated it well, and she was able to continue her treatment every 3 weeks with no apparent adverse effects. As of 10/09/2019 she completed her 16th and last planned cycle of bevacizumab. As of January 2020 there was a significant increase in her CA-125 level, up to 48 U/mL. In reviewing her records, it actually has been showing a very gradual increase over the preceding year, from 12.4 U/mL in January 2019. However, she was not overtly symptomatic with it and her restaging CT scans on 01/24/2020 showed no evidence of metastatic disease. At that point she was advised to follow-up with Dr. Landon. She is scheduled to be seen there on Wednesday. She has now developed pain in the abdominal area and more significantly in the lower back. A specific cause for the pain was not evident, but with the increasing CA-125 level, I had assumed that it was related to the underlying malignancy. Her repeat CT scans on 04/02/2020 showed findings within the peritoneal cavity which were concerning for metastatic involvement, including increased soft tissue surrounding the mid SMA and increased soft tissue in the periaortic distribution. There were new small mesenteric, periaortic, and iliac chain lymph nodes. Also noted was a new small circumferential pericardial effusion. At this point she continues to have significant pain in her abdomen and back, and she is having ongoing problems with constipation. She has had follow-up with Dr. Landon, and she was found to be BRCA negative on genetic screening. I reviewed the CT findings and we discussed the fact that her symptoms are undoubtedly due to progression of her cancer, as her CA-[address] Emeka hines had recommended restarting chemotherapy with either carboplatin in combination with Doxil or with Doxil monotherapy. She is somewhat reluctant about that. As such, since she now has a palpable right supraclavicular lymph node, I will schedule an ultrasound directed core needle biopsy for additional pathologic studies. 2. She has significant anxiety. She has been taking Lexapro 10 mg daily and she recently had increased the dosage to 20 mg daily. Signed By: John Grey M.D. <<Signature on File>>
== END 2020-04-30 06:06 | disposition home or self-care (01) ==
LOC: ONCMED 06:06
PROVIDERS: PCP Nurse Practitioner Family; Visit Provider Internal Medicine Medical Oncology
DX: C57.02 Malignant neoplasm of left fallopian tube (principal); C78.6 Secondary malignant neoplasm of retroperitoneum and peritoneum; F41.9 Anxiety disorder, unspecified; R97.0 Elevated carcinoembryonic antigen [CEA]; R59.0 Localized enlarged lymph nodes; I31.3 Pericardial effusion (noninflammatory); M54.9 Dorsalgia, unspecified; R10.9 Unspecified abdominal pain; Z92.21 Personal history of antineoplastic chemotherapy
CPT/HCPCS: 36591; 80053; 85025; 86304; 99214

== ENCOUNTER 2020-05-20 12:15 | Day surgery (SDC) | payer OTHER, SELFPAY ==
[2020-05-17 12:17] VITALS: BMI 22.8
--- NOTE | 2020-05-20 12:25 | US_ITS ---
WS: [id number] ULTRASOUND GUIDED BIOPSY RIGHT SUPRACLAVICULAR PALPABLE MASS. HISTORY: RIGHT SUPRACLAVICULAR MASS Procedure, risks, and complications are explained to the patient. Consent was obtained. Skin is clean sed with ChloraPrep and anesthetized with 1% buffered lidocaine. Solid mass is identified within the RIGHT supraclavicular region. There are numerous masses within th e RIGHT supraclavicular region. The largest measures 2.1 x 2.5 x 1.5 cm. This will be targeted for bi opsy. Under sterile conditions mass is biopsied with a 22-gauge needles, 18 and 20-gauge core needles. Mult iple specimens are obtained. Pathology is on-site for collection of material. No complications were e ncountered. US/US biopsy lymph node [id number] IMPRESSION: 1. Uncomplicated FNA and core biopsy of the RIGHT supraclavicular mass. 2. Final pathology results are pending.
== END 2020-05-20 13:50 | disposition home or self-care (01) ==
PROVIDERS: Radiology Diagnostic Radiology; PCP Nurse Practitioner Family; Visit Provider Internal Medicine Medical Oncology
DX: R22.2 Localized swelling, mass and lump, trunk (principal)
CPT/HCPCS: 10005; 38505; 76942; 88173; 88305

== ENCOUNTER 2020-06-03 13:23 | Emergency (ER) | payer OTHER, SELFPAY ==
[2020-06-03 13:33] VITALS: BP 115/72; PULSE 97; RESP 16; TEMP 36.8; O2SAT 98; BMI 20.7
--- NOTE | 2020-06-03 15:09 | XR_ITS ---
WS: [id number] Exam: XR acute abdomen series [id number] Date/Time of Exam: 06/03/2020 3:09 PM Reason For Exam: abd pain PA chest radiograph. The lungs are clear and fully inflated. Normal cardiomediastinal structures and bony elements. A left subclavian port ends in the lower one third of the SVC. No bowel obstruction or free air. There is gas in both large and small bowel loops that may represent mild ileus. Signs of p rior cholecystectomy. Surgical clips also noted in the left pelvic region Moderate amount of stool in the left colon. XR/XR acute abdomen series [id number] IMPRESSION: 1. No acute cardiopulmonary finding. 2. There is gas in both large and small bowel loops suggesting adynamic ileus. 3. Surgical clips in the right upper quadrant of the abdomen and also the left lower quadrant.
--- NOTE | 2020-06-03 15:15 | ED_ITS ---
HPI - General Adult General: Chief complaint: General Medical Stated complaint: PAINFUL LYMPH NODE, N/V Time Seen by Provider: 06/03/20 14:56 History of Present Illness: HPI narrative: 54-year-old female with a history of ovarian CA who recently had a biopsy of a right supraclavicular lymph node. She had a CT of the abdomen in March that showed several lymph nodes her CA- 125 was increasing reading through Dr. Grey's notes it was decided to go ahead and start her back on chemotherapy they were quite certain that this represented a recurrence of her cancer. She has not been able to have regular bowel movements she is taking Dilaudid 4 mg up to 4 times a day she also is taking lorazepam. Her appetite has been decreased and she is not eating as much lately. She denies any hematochezia or melena she has intermittently had some vomiting along with the constipation. No fever sweats or chills no shortness of breath. On the last scan there is also a small pericardial effusion. Onset (ago): day(s) Location: abdomen Radiation: non-radiation Severity: moderate Quality: aching Pain Consistency: intermittent Relieving factors: rest Associated symptoms: Reports decreased appetite, malaise, nausea and vomiting; Deny chest pain, confusion, cough, diaphoresis, dyspnea, fevers/chills, headache(s), rash, palpitations, seizures, short of breath, syncope or weakness Review of Systems Const: Reports: malaise; Denies: diaphoresis ENMT: Denies: throat pain, ear or mastoid pain, nasal discharge or nasal congestion Card: Denies: chest pain, palpitations or syncope Resp: Denies: dyspnea GI: Reports: abdominal pain, nausea, vomiting and constipation : Denies: flank pain, difficulty voiding, dysuria, urinary frequency or urinary urgency Skin/Breast: Denies: rash Neuro: Denies: headache(s) or confusion PFSH ED PFSH: Social History Smoking and tobacco status: former smoker Quit status (tobacco): has quit using tobacco Year quit tobacco: 1998 Former quit date comment: 0.5 PPD X 20 YEARS Physical Exam Const: COMMON NORMALS: no acute distress GENERAL APPEARANCE: cooperative and comfortable ORIENTATION/CONSCIOUSNESS: Yes awake, Yes oriented to person, Yes oriented to place and Yes oriented to time HENMT: COMMON NORMALS: normocephalic, atraumatic, hearing grossly normal bilaterally and external ears normal HEAD & SCALP: normocephalic and atraumatic EXTERNAL EAR: Yes external ears normal Neck/C-Spine: COMMON NORMALS: no JVD Lymph: OTHER: Prominent right supraclavicular node at the base of the neck it is easily palpable and visualized as well. It is moderately tender there is a puncture site from the needle biopsy there is no evidence of erythema fluctuance or inflammation at this time. Resp: COMMON NORMALS: normal respiratory effort, No retractions, No use of accessory muscles and clear to auscultation bilaterally AUSCULTATION: clear to auscultation bilaterally Cardio: COMMON NORMALS: no JVD, regular rate, regular rhythm and No murmurs present (Cardio) RATE: regular rate RHYTHM: regular rhythm GI: COMMON NORMALS: Soft to palpation and No hepatosplenomegaly present AUSCULTATION: Yes normoactive bowel sounds PALPATION: Yes Soft to palpation, No Tenderness to palpation present (GI), No Guarding due to palpation present (GI) and Yes No hepatosplenomegaly present Extremity: COMMON NORMALS: normal to inspection, capillary refill normal, no clubbing, cyanosis or edema, no calf tenderness and no pedal edema Neuro: SENSORIUM/ORIENTATION: Yes oriented to person, Yes oriented to place and Yes oriented to time Skin: COMMON NORMALS: no rashes or lesions noted GENERAL SKIN EXAM: no rashes or lesions noted Course Vital Signs: Vital signs: Vital Signs Temperature 98.2 F 06/03/20 13:33 Pulse Rate 88 06/03/20 18:46 Respiratory Rate 16 06/03/20 13:33 Blood Pressure 105/67 06/03/20 18:46 Pulse Oximetry 98 06/03/20 18:46 MDM - General Adult MDM Narrative: Medical decision making narrative: Reviewed CT and laboratory findings the patient she has a lot of constipation there are concerning signs for mass which is already known. There is some ascites there is no evidence of obstruction either on physical exam or imaging. Recommend that she use mag citrate for a for constipation and then MiraLAX on a regular basis for prevention. Encourage her to increase the dose as needed to maintain regular bowel movements. Between her medications and the extension of her disease I think it is causing most of her abdominal discomfort. Patient was concerned about infection at the site of the biopsy site in the right supraclavicular area there is no sign of infection at this time. Lab Data: Labs: Lab Results 06/03/20 06/03/20 06/03/20 Range/Units 15:43 15:43 15:43 WBC 5.8 (4.0-10.0) 10^3/ uL RBC 3.88 L (4.1-5.3) 10^6/u L Hgb 12.1 (11.5-15.3) g/dL Hct 38.4 (37.0-47.0) % MCV 99.0 (81-99) fL MCH 31.2 (28.0-34.0) pg MCHC 31.5 (30.0-36.0) g/dL RDW 13.2 (12.1-15.1) % Plt Count 121 L (130-400) 10^3/c mm MPV 11.0 H (7.4-10.4) fL Neut % (Auto) 65.4 % Lymph % (Auto) 24.1 % Isabella % (Auto) 9.1 % Eos % (Auto) 0.9 % Baso % (Auto) 0.3 % Neut # (Auto) 3.81 (1.8-7.7) 10^3/u L Lymph # (Auto) 1.4 (0.8-4.8) 10^3/u L Isabella # (Auto) 0.5 (0.2-0.9) 10^3/u L Eos # (Auto) 0.1 (0.0-0.8) 10^3/u L Baso # (Auto) 0.0 (0.0-0.1) 10^3/u L Nucleated RBC % (a uto) 0 % Nucleated RBCs # 0.0 /100WBC Sodium 139 (136-145) mmol/L Potassium 3.6 (3.5-5.1) mmol/L Chloride 101 (98-107) mmol/L Carbon Dioxide 27 (22-29) mmol/L Anion Gap 14.6 (5-19) BUN 13 (6-20) mg/dL Creatinine 0.5 (0.5-0.9) mg/dL GFR Calculation 127.6 (90-130) mL/min Glucose 83 (65-115) mg/dL Calculated Osmolal ity 287 (285-295) mOsm/k g Lactic Acid 1.0 (0.5-2.2) mmol/L Calcium 8.9 (8.5-10.5) mg/dL Total Bilirubin 0.3 (0.15-1.2) mg/dL AST 17 (0-32) U/L ALT 7 (0-33) U/L Alkaline Phosphata se 64 (35-105) IU/L Total Protein 6.3 L (6.6-8.7) g/dL Albumin 4.2 (3.5-5.2) g/dL Globulin 2.1 (1.3-4.6) g/dL Lipase 32 (13-60) U/L Urine Color (Yellow) Urine Appearance (CLEAR) Urine pH (5-7) Ur Specific Gravit y (1.005-1.030) Urine Protein (Negative) Urine Glucose (UA) (Normal) Urine Ketones (Negative) Urine Blood (Negative) Urine Nitrate (Negative) Urine Bilirubin (Negative) Urine Urobilinogen (Negative) mg/dL Ur Leukocyte Roya ase (Negative) 06/03/20 Range/Units 16:04 WBC (4.0-10.0) 10^3/ uL RBC (4.1-5.3) 10^6/u L Hgb (11.5-15.3) g/dL Hct (37.0-47.0) % MCV (81-99) fL MCH (28.0-34.0) pg MCHC (30.0-36.0) g/dL RDW (12.1-15.1) % Plt Count (130-400) 10^3/c mm MPV (7.4-10.4) fL Neut % (Auto) % Lymph % (Auto) % Isabella % (Auto) % Eos % (Auto) % Baso % (Auto) % Neut # (Auto) (1.8-7.7) 10^3/u L Lymph # (Auto) (0.8-4.8) 10^3/u L Isabella # (Auto) (0.2-0.9) 10^3/u L Eos # (Auto) (0.0-0.8) 10^3/u L Baso # (Auto) (0.0-0.1) 10^3/u L Nucleated RBC % (a uto) % Nucleated RBCs # /100WBC Sodium (136-145) mmol/L Potassium (3.5-5.1) mmol/L Chloride (98-107) mmol/L Carbon Dioxide (22-29) mmol/L Anion Gap (5-19) BUN (6-20) mg/dL Creatinine (0.5-0.9) mg/dL GFR Calculation (90-130) mL/min Glucose (65-115) mg/dL Calculated Osmolal ity (285-295) mOsm/k g Lactic Acid (0.5-2.2) mmol/L Calcium (8.5-10.5) mg/dL Total Bilirubin (0.15-1.2) mg/dL AST (0-32) U/L ALT (0-33) U/L Alkaline Phosphata se (35-105) IU/L Total Protein (6.6-8.7) g/dL Albumin (3.5-5.2) g/dL Globulin (1.3-4.6) g/dL Lipase (13-60) U/L Urine Color Straw (Yellow) Urine Appearance Clear (CLEAR) Urine pH 5 (5-7) Ur Specific Gravit y 1.015 (1.005-1.030) Urine Protein Neg (Negative) Urine Glucose (UA) Norm (Normal) Urine Ketones 1+ H (Negative) Urine Blood Neg (Negative) Urine Nitrate Negative (Negative) Urine Bilirubin Neg (Negative) Urine Urobilinogen Norm (Negative) mg/dL Ur Leukocyte Roya ase Negative (Negative) Discharge Plan Discharge Patient Disposition: Home Clinical Impression: Ovarian metastasis, Anxiety Condition: Stable Prescriptions: New Ativan 2 mg tablet 2 mg PO Q6H PRN (Reason: anxiety) Qty: 30 RF: 0 No Action lorazepam 2 mg tablet 2 - 4 mg PO Q4H PRN (Reason: Anxiety) RF: 0 pantoprazole [Protonix] [address] for susp in packet 40 mg PO DAILY@0900 RF: 0 Zyrtec 10 mg capsule 10 mg PO DAILY PRN (Reason: Allergy Symptoms) RF: 0 vitamin B complex Tablet 1 tab PO DAILY@0900 RF: 0 montelukast 10 mg tablet 10 mg PO BEDTIME@2100 RF: 0 escitalopram oxalate 20 mg tablet 20 mg PO DAILY@0900 RF: 0 Linzess 145 mcg capsule 145 mcg PO DAILY@0900 RF: 0 Vitamin C 1 tab PO DAILY@0900 RF: 0 Vitamin D3 1 tab PO DAILY@0900 RF: 0 vitamin A 1 tab PO DAILY@0900 RF: 0 vitamin E 1 tab PO DAILY@0900 RF: 0 hydromorphone 8 mg tablet 8 mg PO Q6H PRN (Reason: Pain) RF: 0 Discharge Orders: Discharge ED (Routine); Ordered 06/03/20 Ordered By: Aneudy Choe Referrals: Mason,Jaylin, SUPPLY CHAIN SPECIALIST [Primary Care Provider] - Discharge Diet: Usual diet Discharge Activity: Resume usual activity Patient Instructions: Opioid Safety Coding Level of Care Code ED Infant Childcare Provider for Albino Mondragon
[2020-06-03 15:56] LABS: Basophils % 0.3 %; Eosinophils # 0.1 10^3/uL (0.0-0.8); Eosinophils % 0.9 %; Hematocrit 38.4 % (37.0-47.0); Hemoglobin 12.1 g/dL (11.5-15.3); Lymphocytes # 1.4 10^3/uL (0.8-4.8); Lymphocytes % 24.1 %; Mean Corpuscular HGB Conc 31.5 g/dL (30.0-36.0); Mean Corpuscular Hemoglobin 31.2 pg (28.0-34.0); Monocytes # 0.5 10^3/uL (0.2-0.9); Monocytes % 9.1 %; Neutrophils # 3.81 10^3/uL (1.8-7.7); Neutrophils % 65.4 %; Nucleated Red Blood Cells % 0 %; Platelet Count 121 10^3/cmm (130-400); Red Blood Count 3.88 10^6/uL (4.1-5.3); Red Cell Distribution Width 13.2 % (12.1-15.1); White Blood Count 5.8 10^3/uL (4.0-10.0)
[2020-06-03] MEDS: ondansetron 2 mg/ML SDV 2 mL 4 MG IVP (16:06)
--- NOTE | 2020-06-03 16:06 | CTR_ITS ---
PROCEDURE INFORMATION: Exam: CT Abdomen And Pelvis With Contrast Exam date and time: 06/03/2020 4:20 PM Age: 54 years old Clinical indication: Nausea and vomiting; Abdominal pain; Generalized; Prior surgery; Surgery type: Hyst, gb; Patient HX: Ovarian cancer with mets, painful lymphnodes, recent lymph node biopsy; Additional info: Abd pain TECHNIQUE: Imaging protocol: Computed tomography of the abdomen and pelvis with contrast. Radiation optimization: All CT scans at this facility use at least one of these dose optimization techniques: automated exposure control; mA and/or kV adjustment per patient size (includes targeted exams where dose is matched to clinical indication); or iterative reconstruction. Contrast material: OMNI 300; Contrast volume: 75 ml; Contrast route: INTRAVENOUS (IV); COMPARISON: CT chest abd pel w con* 04/02/2020 12:01 PM RADIATION DOSE METRICS: Total DLP (mGy-cm): 895.38 FINDINGS: Heart: Grossly stable mild to moderate pericardial fluid and/or thickening. Liver: Normal. No mass. Gallbladder and bile ducts: Stable cholecystectomy. Mild increased dilatation of the intra-and extrahepatic biliary tree which can be normal following cholecystectomy. Pancreas: Central mesenteric fat edema with extensive differential diagnosis including but not limited to pancreatitis, portal hypertension, infectious process, autoimmune/allergic process or neoplastic process. Spleen: Normal. No splenomegaly. Adrenal glands: Normal. No mass. Kidneys and ureters: Normal. No hydronephrosis. Stomach and bowel: Unremarkable. No obstruction. No mucosal thickening. Appendix: No evidence of appendicitis. Intraperitoneal space: Interval appearance of mild nonspecific free fluid in the dependent portion of pelvis which could represent malignant ascites versus other etiology. Vasculature: One or more calcified pelvic phleboliths. Lymph nodes: Unremarkable. No enlarged lymph nodes. Urinary bladder: Unremarkable as visualized. Reproductive: Stable hysterectomy. Bones/joints: Unremarkable. No acute fracture. Soft tissues: Unremarkable. CT/CT abdomen pelvis w con* [id number] IMPRESSION: 1. Grossly stable mild to moderate pericardial fluid and/or thickening. 2. Interval appearance of mild nonspecific free fluid in the dependent portion of pelvis which could represent malignant ascites versus other etiology. 3. Central mesenteric fat edema with extensive differential diagnosis including but not limited to pancreatitis, portal hypertension, infectious process, autoimmune/allergic process or neoplastic process. Radiation Dose CTDIVOL = (mGy): DLP = 895.38 (mGy-cm)
[2020-06-03] MEDS: morphine 4 mg/mL SDV 1 mL IVP (16:07)
[2020-06-03] MEDS: LORazepam 2 mg/mL INJ 1 mL 1 MG IVP (16:07)
[2020-06-03] MEDS: sodium chloride 0.9% 1,000 ML 999 ML IV (16:13)
[2020-06-03 16:14] VITALS: BP 110/81; PULSE 93; O2SAT 97
[2020-06-03 16:15] LABS: Add Urine Microscopic? NO; Charge for UA Resulting for Rev
[2020-06-03 16:18] LABS: Bilirubin Urine Neg (Negative); Blood Urine Neg (Negative); Glucose Urine UA Norm (Normal); Ketones Urine 1+ (Negative); Leukocyte Esterase Urine Negative (Negative); Nitrate Urine Negative (Negative); Protein Urine Neg (Negative); Specific Gravity, Urine 1.015 (1.005-1.030); Urine Appearance Clear (CLEAR); Urine Color Straw (Yellow); Urobilinogen Urine Norm (Negative); pH Urine 5 (5-7)
[2020-06-03 16:23] LABS: Alanine Aminotransferase 7 U/L (0-33); Albumin Level 4.2 g/dL (3.5-5.2); Alkaline Phosphatase 64 IU/L (35-105); Anion Gap 14.6 (5-19); Aspartate Amino Transferase 17 U/L (0-32); Blood Urea Nitrogen 13 mg/dL (6-20); Calcium 8.9 mg/dL (8.5-10.5); Carbon Dioxide 27 mmol/L (22-29); Chloride 101 mmol/L (98-107); Globulin 2.1 g/dL (1.3-4.6); Glomerular Filtration Rate 127.6 mL/min (90-130); Glucose 83 mg/dL (65-115); Lipase 32 U/L (13-60); Osmolality Calculated 287 mOsm/kg (285-295); Potassium 3.6 mmol/L (3.5-5.1); Sodium 139 mmol/L (136-145); Total Bilirubin 0.3 mg/dL (0.15-1.2); Total Protein 6.3 g/dL (6.6-8.7)
[2020-06-03] MEDS: iohexol 300 mg/mL 100 mL Btl IV (17:02)
[2020-06-03 18:46] VITALS: BP 105/67; PULSE 88; O2SAT 98
== END 2020-06-03 18:50 | disposition home or self-care (01) ==
PROVIDERS: Physician Assistant; Emergency Provider Family Medicine; PCP Nurse Practitioner Family
DX: F41.9 Anxiety disorder, unspecified (principal); C79.60 Secondary malignant neoplasm of unspecified ovary; Z87.891 Personal history of nicotine dependence
CPT/HCPCS: 74022; 74177; 80053; 81003; 83605; 83690; 85025; 96361; 96374; 96375; 99284; J2060; J2270; J2405; J7030; Q9967

== ENCOUNTER 2020-06-05 12:03 | Observation (INO) | payer OTHER, SELFPAY ==
[2020-06-05] VITALS (12 sets, daily range): BP systolic 103–123; BP diastolic 54–80; PULSE 86–113; RESP 16–23; TEMP 37.2–37.5; O2SAT 94–100; BMI 22.4
--- NOTE | 2020-06-05 12:15 | XR_ITS ---
WS: [id number] Exam: XR chest 1V portable [id number] Date/Time of Exam: 06/05/2020 12:18 PM Reason For Exam: weakness Comparison 06/03/2018. The lungs are clear and fully expanded. Normal cardiomediastinal structures. A left subclavian port e nds at the cavoatrial junction in good position. Monitoring leads superimpose the chest. XR/XR chest 1V portable [id number] IMPRESSION: 1. No acute cardiopulmonary finding. Left subclavian port remaining in satisfac tory position.
--- NOTE | 2020-06-05 12:16 | ECG_ITS ---
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 Measurements Intervals [place] Rate: 90 P: 77 SC: 153 QRS: 60 QRSD: 93 T: 52 QT: 373 QTc: 458 Interpretive Statements SINUS RHYTHM NONSPECIFIC T-WAVE ABNORMALITY Compared to ECG 06/05/2020 12:12:11 No significant changes Electronically Signed On 06-05-2020 18:24:45 CDT by Dayo Saxena M.D. [email or web address]
--- NOTE | 2020-06-05 12:20 | ED_ITS ---
HPI - Nausea/Vomiting/Diarrhea General: Chief complaint: Nausea/Vomiting/Diarrhea Stated complaint: n/v x 2 days Time Seen by Provider: 06/05/20 12:07 History of Present Illness: HPI Narrative: The patient is a 54-year-old female with recurrence of her ovarian cancer who comes to the ER complaining of nausea, vomiting, and diarrhea, generalized weakness, and low back pain. She said the n/v/d and weakness began yesterday. The day before she was seen here for nausea and constipation. She was taking Dilaudid 4 mg tablets up to 4 times a day for pain as well as Ativan. She was told to use mag citrate and then MiraLAX for prevention of constipation. She cold turkey quit using the Dilaudid after she returned home and yesterday her symptoms began to develop nausea, vomiting, diarrhea, and general weakness. She arrived by EMS who gave her Phenergan, 500 cc fluid bolus, and fentanyl for her symptoms. She is drowsy on arrival and complains of generalized weakness. Denies chest pain and shortness of breath. MD elicited complaint: nausea, vomiting, diarrhea and abdominal pain Onset (ago): day(s) (1) Description of vomiting: food contents and watery Associated nausea: Yes Associated abdominal pain: Yes Location of pain: Diffuse Radiation: diffuse Pain consistency: constant Severity: severe Quality: cramping Exacerbating factors: eating Relieving factors: none Associated symtoms: Reports fatigue, nausea and weakness; Denies anxiety, change in vision, chest pain, dizziness, headache(s) or palpitations Review of Systems General: Reports: 10 or more systems reviewed and unremarkable except in HPI and below Narrative: General weakness. No focal weakness Const: Reports: fatigue Eyes: Denies: change in vision, blurry vision or eye redness ENMT: Denies: throat pain, swelling of lips/tongue, ear or mastoid pain or nasal congestion Card: Denies: chest pain, palpitations, irregular heart rhythm, edema, dyspnea on exertion or orthopnea Resp: Denies: dyspnea, productive cough or non-productive cough GI: Reports: abdominal pain, nausea, vomiting and diarrhea : Denies: flank pain, difficulty voiding, urinary frequency or urinary urgency Musc: Denies: neck pain, back pain, extremity pain, joint pain, joint redness, limited range of motion or muscle weakness Skin/Breast: Denies: rash, pruritus, erythema, skin pain or skin tenderness Neuro: Denies: headache(s), numbness in extremities, weakness in extremities, sensory changes, difficulty walking, dizziness, confusion or Slurred speech present Psych: Denies: anxiety or depression Endo: Denies: polyuria All/Imm: Denies: urticaria, throat swelling or tongue swelling PFSH ED PFSH: Social History Smoking and tobacco status: former smoker Quit status (tobacco): has quit using tobacco Year quit tobacco: 1998 Former quit date comment: 0.5 PPD X 20 YEARS Physical Exam Narrative: EXAM NARRATIVE: She is somnolent on arrival nauseous, and vomiting yellow liquid. She received Phenergan, and fentanyl prior to arrival by EMS. Const: COMMON NORMALS: patient oriented x3 and alert GENERAL APPEARANCE: ill appearing ORIENTATION/CONSCIOUSNESS: Yes oriented to person, Yes oriented to place and Yes oriented to time HENMT: COMMON NORMALS: normocephalic, external ears normal and Normal external nose present HEAD & SCALP: normal to inspection and normocephalic NOSE: Normal external nose present EXTERNAL EAR: Yes external ears normal MOUTH: Normal oral and palatal mucosa present THROAT: posterior oropharynx normal Eye: COMMON NORMALS: Equal, round and reactive pupils present and EOMs intact bilaterally GENERAL EYE: appearance normal, both eyes and all related structures PUPIL: Yes Equal, round and reactive pupils present Neck/C-Spine: COMMON NORMALS: full ROM, no lymphadenopathy, no meningeal signs and no JVD GENERAL: Yes normal visual inspection Lymph: LYMPHATIC: no lymphadenopathy noted Chest: COMMONS NORMALS: normal inspection of the chest and normal palpation of entire chest wall Resp: COMMON NORMALS: normal respiratory effort, No retractions, No use of accessory muscles, clear to auscultation bilaterally and percussion normal EFFORT & INSPECTION: Yes able to speak in complete sentences AUSCULTATION: clear to auscultation bilaterally PERCUSSION: percussion normal Cardio: COMMON NORMALS: no JVD, regular rate, regular rhythm, S1 normal heart sound present, S2 normal heart sound present and Peripheral pulses 2+ throughout RATE: regular rate RHYTHM: regular rhythm HEART SOUNDS: S1 normal heart sound present and S2 normal heart sound present PERIPHERAL PULSES: Peripheral pulses 2+ throughout GI: COMMON NORMALS: Normal to inspection, nondistended, normoactive bowel sounds present, Soft to palpation and no masses INSPECTION: Yes normal to inspection PALPATION: Yes Soft to palpation OTHER: Mild diffuse abdominal tenderness : COMMON NORMALS: Yes no CVA tenderness BLADDER/KIDNEY EXAM: Yes no CVA tenderness Back/Pelvis: COMMON NORMALS: no CVA tenderness, thoracic and lumbar spine normal to inspection, no thoracic nor lumbar tenderness and thoraco-lumbar ROM normal Extremity: COMMON NORMALS: normal to inspection, full ROM, capillary refill normal, no joint enlargement and no pedal edema GENERAL: Yes normal exam except as noted Neuro: COMMON NORMALS: patient oriented x3, CN's II-XII intact bilaterally, moves all extremities, no focal motor deficits, no sensory deficits noted and g ait normal SENSORIUM/ORIENTATION: Yes alert, Yes oriented to person, Yes oriented to place and Yes oriented to time MENINGEAL SIGNS: Yes no meningeal signs Skin: COMMON NORMALS: no rashes or lesions noted GENERAL SKIN EXAM: no rashes or lesions noted Course Vital Signs: Vital signs: Vital Signs Temperature 99.5 F 06/05/20 18:30 Pulse Rate 87 06/05/20 21:28 Respiratory Rate 16 06/05/20 21:28 Blood Pressure 123/65 06/05/20 21:28 Pulse Oximetry 94 06/05/20 21:28 MDM - Nausea/Vomiting/Diarrhea MDM Narrative: Medical decision making narrative: The patient has a history of metastatic ovarian cancer. She came in with significant nausea and vomiting likely related to abrupt stop of her Dilaudid 2 days ago related to an event of constipation. She was given multiple antiemetics and a few liters of IV fluids and she was still pale and weak. The patient requested to go home and I offered her admission. I recommended we take her for a walk. She was unable to walk steadily on her feet and preferred to stay the night in the hospital. Discussed with Dr. Mariscal who accepts for observation. Lab Data: Labs: Lab Results 06/05/20 06/05/20 06/05/20 Range/Units 12:21 12:21 12:21 WBC 6.3 (4.0-10.0) 10^3/ uL RBC 3.64 L (4.1-5.3) 10^6/u L Hgb 11.6 (11.5-15.3) g/dL Hct 35.5 L (37.0-47.0) % MCV 97.5 (81-99) fL MCH 31.9 (28.0-34.0) pg MCHC 32.7 (30.0-36.0) g/dL RDW 13.2 (12.1-15.1) % Plt Count 123 L (130-400) 10^3/c mm MPV 11.0 H (7.4-10.4) fL Neut % (Auto) 87.1 % Lymph % (Auto) 7.6 % [place] % (Auto) 4.3 % Eos % (Auto) 0.2 % Baso % (Auto) 0.3 % Neut # (Auto) 5.51 (1.8-7.7) 10^3/u L Lymph # (Auto) 0.5 L (0.8-4.8) 10^3/u L [place] # (Auto) 0.3 (0.2-0.9) 10^3/u L Eos # (Auto) 0.0 (0.0-0.8) 10^3/u L Baso # (Auto) 0.0 (0.0-0.1) 10^3/u L Nucleated RBC % (a uto) 0 % Nucleated RBCs # 0.0 /100WBC Sodium 136 (136-145) mmol/L Potassium 3.8 (3.5-5.1) mmol/L Chloride 100 (98-107) mmol/L Carbon Dioxide 24 (22-29) mmol/L Anion Gap 15.8 (5-19) BUN 9 (6-20) mg/dL Creatinine 0.4 L (0.5-0.9) mg/dL GFR Calculation 165.1 H (90-130) mL/min Glucose 97 (65-115) mg/dL Calculated Osmolal ity 281 L (285-295) mOsm/k g Calcium 8.4 L (8.5-10.5) mg/dL Total Bilirubin 0.5 (0.15-1.2) mg/dL AST 19 (0-32) U/L ALT 10 (0-33) U/L Alkaline Phosphata se 64 (35-105) IU/L Troponin T Baselin e 6 (0-10) ng/L Troponin T [address] [place] (0-10) ng/L Delta Troponin T (0-10) ABS# Total Protein 5.9 L (6.6-8.7) g/dL Albumin 3.9 (3.5-5.2) g/dL Globulin 2.0 (1.3-4.6) g/dL Lipase 27 (13-60) U/L Urine Color (Yellow) Urine Appearance (CLEAR) Urine pH (5-7) Ur Specific Gravit y (1.005-1.030) Urine Protein (Negative) Urine Glucose (UA) (Normal) Urine Ketones (Negative) Urine Blood (Negative) Urine Nitrate (Negative) Urine Bilirubin (Negative) Urine Urobilinogen (Negative) mg/dL Ur Leukocyte Roya ase (Negative) 06/05/20 06/05/20 Range/Units 13:50 14:40 WBC (4.0-10.0) 10^3/ uL RBC (4.1-5.3) 10^6/u L Hgb (11.5-15.3) g/dL Hct (37.0-47.0) % MCV (81-99) fL MCH (28.0-34.0) pg MCHC (30.0-36.0) g/dL RDW (12.1-15.1) % Plt Count (130-400) 10^3/c mm MPV (7.4-10.4) fL Neut % (Auto) % Lymph % (Auto) % [place] % (Auto) % Eos % (Auto) % Baso % (Auto) % Neut # (Auto) (1.8-7.7) 10^3/u L Lymph # (Auto) (0.8-4.8) 10^3/u L [place] # (Auto) (0.2-0.9) 10^3/u L Eos # (Auto) (0.0-0.8) 10^3/u L Baso # (Auto) (0.0-0.1) 10^3/u L Nucleated RBC % (a uto) % Nucleated RBCs # /100WBC Sodium (136-145) mmol/L Potassium (3.5-5.1) mmol/L Chloride (98-107) mmol/L Carbon Dioxide (22-29) mmol/L Anion Gap (5-19) BUN (6-20) mg/dL Creatinine (0.5-0.9) mg/dL GFR Calculation (90-130) mL/min Glucose (65-115) mg/dL Calculated Osmolal ity (285-295) mOsm/k g Calcium (8.5-10.5) mg/dL Total Bilirubin (0.15-1.2) mg/dL AST (0-32) U/L ALT (0-33) U/L Alkaline Phosphata se (35-105) IU/L Troponin T Baselin e (0-10) ng/L Troponin T [address] [place] 6.00 (0-10) ng/L Delta Troponin T 0 (0-10) ABS# Total Protein (6.6-8.7) g/dL Albumin (3.5-5.2) g/dL Globulin (1.3-4.6) g/dL Lipase (13-60) U/L Urine Color Straw (Yellow) Urine Appearance Clear (CLEAR) Urine pH 5 (5-7) Ur Specific Gravit y 1.010 (1.005-1.030) Urine Protein Neg (Negative) Urine Glucose (UA) Norm (Normal) Urine Ketones 2+ H (Negative) Urine Blood Neg (Negative) Urine Nitrate Negative (Negative) Urine Bilirubin Neg (Negative) Urine Urobilinogen Norm (Negative) mg/dL Ur Leukocyte Roya ase Negative (Negative) Discharge Plan Discharge Patient Disposition: Admitted As Inpatient Admit Provider: Shahzad Mariscal Clinical Impression: Generalized weakness, Acute dehydration Condition: Stable Coding Level of Care Code ED Rotating Equipment Specialist for Chg Fwd 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
[2020-06-05 12:30] LABS: Basophils % 0.3 %; Eosinophils % 0.2 %; Hematocrit 35.5 % (37.0-47.0); Hemoglobin 11.6 g/dL (11.5-15.3); Lymphocytes # 0.5 10^3/uL (0.8-4.8); Lymphocytes % 7.6 %; Mean Corpuscular HGB Conc 32.7 g/dL (30.0-36.0); Mean Corpuscular Hemoglobin 31.9 pg (28.0-34.0); Mean Corpuscular Volume 97.5 fL (81-99); Monocytes # 0.3 10^3/uL (0.2-0.9); Monocytes % 4.3 %; Neutrophils # 5.51 10^3/uL (1.8-7.7); Neutrophils % 87.1 %; Nucleated Red Blood Cells % 0 %; Platelet Count 123 10^3/cmm (130-400); Red Blood Count 3.64 10^6/uL (4.1-5.3); Red Cell Distribution Width 13.2 % (12.1-15.1); White Blood Count 6.3 10^3/uL (4.0-10.0)
[2020-06-05] MEDS: ondansetron 2 mg/ML SDV 2 mL 4 MG IVP ×2 (12:44→20:18)
[2020-06-05] MEDS: sodium chloride 0.9% 500 ML IV (12:44)
--- NOTE | 2020-06-05 12:48 | CT_ITS ---
WS: [id number] Exam: CT abdomen pelvis w con* [id number] Date/Time of Exam: 06/05/2020 12:55 PM Reason For Exam: diffuse abd pain. h/o recurrent ovarian cancer. DLP: 927.[address] scans at [facility] use at least one of these dose optimization techniques: automat ed exposure control; mA and/or kV adjustment per patient size (includes targeted exams where dose is matched to clinical indication); or iterative reconstruction. Comparison 06/03/2020. Small pericardial effusion unchanged. The liver is unremarkable. Mild prominence of the intra and ext rahepatic bile ducts most likely from prior cholecystectomy. The stomach and pancreas are unremarkab le. No adrenal masses. The portal vein and IVC are patent. The abdominal aorta is normal in caliber. A new low-attenuation area is noted in the anterior aspect of the spleen suggesting probable recent s mall infarct. Lower lung zones are clear. 1 cm left renal cyst noted. Normal right kidney. No free ai r. Small bowel loops are not dilated. No sign of acute appendix. A mildly prominent lymph node is i dentified in the upper pelvis just anterior to the IVC. This measures about 11 mm at greatest short a xis dimension. A second lymph node is seen in the far left pelvis and also measures about 11 mm at gr eatest short axis dimension. No other sign of the mesenteric lymphadenopathy. Previously noted free f luid collection in the pelvis has resolved. There are several surgical clips seen in the retroperiton eal area. Intact urinary bladder. No destructive bone lesions are seen. No significant abdominal wal l defect. CT/CT abdomen pelvis w con* [id number] IMPRESSION: 1. New small low-attenuation defect in the anterior aspect the spleen suggestin g a small recent infarct. 2. 2 mildly enlarged mesenteric lymph nodes in the pelvis. These both measure a bout 11 mm at greatest short axis dimension. One is just anterior to the IVC. T he second node is in the far left pelvis. 3. Previously noted pelvic free fluid collection has has resolved since the cari or CT scan.
[2020-06-05 12:56] LABS: Alanine Aminotransferase 10 U/L (0-33); Albumin Level 3.9 g/dL (3.5-5.2); Alkaline Phosphatase 64 IU/L (35-105); Anion Gap 15.8 (5-19); Aspartate Amino Transferase 19 U/L (0-32); Blood Urea Nitrogen 9 mg/dL (6-20); Calcium 8.4 mg/dL (8.5-10.5); Carbon Dioxide 24 mmol/L (22-29); Chloride 100 mmol/L (98-107); Creatinine Clr Calc Pharmacy 145.5122; Glomerular Filtration Rate 165.1 mL/min (90-130); Glucose 97 mg/dL (65-115); Lipase 27 U/L (13-60); Osmolality Calculated 281 mOsm/kg (285-295); Potassium 3.8 mmol/L (3.5-5.1); Sodium 136 mmol/L (136-145); Total Bilirubin 0.5 mg/dL (0.15-1.2); Total Protein 5.9 g/dL (6.6-8.7)
[2020-06-05] MEDS: iohexol 300 mg/mL 100 mL Btl IV (13:10)
[2020-06-05] MEDS: HYDROmorphone 1 mg/mL INJ 1 mL 0.5 MG IVP (13:40)
[2020-06-05 13:43] LABS: Troponin(5th) Baseline 6 ng/L (0-10)
--- NOTE | 2020-06-05 14:16 | ECG_ITS ---
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 Measurements Intervals [place] Rate: 93 P: 82 DE: 146 QRS: 79 QRSD: 75 T: 74 QT: 355 QTc: 443 Interpretive Statements SINUS RHYTHM NONSPECIFIC T-WAVE ABNORMALITY No previous ECG available for comparison Electronically Signed On 06-05-2020 18:29:14 CDT by Dayo Saxena M.D. [id number]
[2020-06-05 14:41] LABS: Add Urine Microscopic? NO; Bilirubin Urine Neg (Negative); Blood Urine Neg (Negative); Glucose Urine UA Norm (Normal); Ketones Urine 2+ (Negative); Leukocyte Esterase Urine Negative (Negative); Nitrate Urine Negative (Negative); Protein Urine Neg (Negative); Urine Appearance Clear (CLEAR); Urine Color Straw (Yellow); Urobilinogen Urine Norm (Negative); pH Urine 5 (5-7)
[2020-06-05 14:42] LABS: Charge for UA Resulting for Rev
[2020-06-05 15:16] LABS: Troponin 5 2HR Delta 0 ABS# (0-10)
[2020-06-05] MEDS: prochlorperazine 25 mg Supp PR (15:35)
[2020-06-05] MEDS: LORazepam 2 mg/mL INJ 1 mL 0.5 MG IVP (15:35)
[2020-06-05] MEDS: sodium chloride 0.9% 1,000 ML 999 ML IV (16:58)
--- NOTE | 2020-06-05 17:44 | PC.NURSE ---
Pt was ambulated with assist from room to bathroom, then, bathroom to room. Pt was noted to have a unsteady gait. Physician was notified.
--- NOTE | 2020-06-05 18:29 | P.HP_ITS ---
Providers/Chief Complaint Primary Care Provider: Jaylin Mason APN Chief Complaint: n/v x 2 days History of Present Illness Jagruti Jay is a 54 year old female with past medical history of CA ovary with mets, was admitted with chief complaint of generalized weakness, nausea, vomiting, diarrhea, generalized abdominal pain, started 3 days back. Upon arrival in the ER she was worked up for above-mentioned. Imaging study: CT abdomen and pelvis: No acute change, CBC , BMP is unremarkable. ECA medications: IV fluids, pain medications, antiemetics. Review of Systems Const: Denies: fever(s), chills, body aches, change in appetite or diaphoresis Card: Denies: palpitations, edema, swelling of feet/ankles, dyspnea on exertion, orthopnea or leg pain with exertion Resp: Denies: dyspnea, productive cough, wheezing or pain on inspiration : Denies: flank pain Musc: Denies: extremity pain or extremity swelling Neuro: Denies: headache(s), difficulty walking or confusion Medications/Allergies Home Medications Medication Instructions Recorded Confirmed Last Taken Type cetirizine 10 mg capsule 10 mg PO DAILY PRN 05/10/20 06/05/20 06/02/20 History pantoprazole 40 mg granules 40 mg PO DAILY@0900 05/10/20 06/05/20 06/04/20 History delayed-release for susp in packet Vitamin C 1 tab PO DAILY@0900 06/03/20 06/05/20 06/04/20 History Vitamin D3 1 tab PO DAILY@0900 06/03/20 06/05/20 06/04/20 History escitalopram oxalate 20 mg PO DAILY@0906/03/20 06/05/20 06/04/20 History hydromorphone 8 mg PO Q6H PRN 06/03/20 06/05/20 06/03/20 History linaclotide [Linzess] 145 mcg PO DAILY@0900 06/03/20 06/05/20 06/04/20 History lorazepam [Ativan] 2 mg PO Q6H PRN #30 tab 06/03/20 06/05/20 06/04/20 Rx montelukast 10 mg PO BEDTIME@2100 06/03/20 06/05/20 06/04/20 History vitamin A 1 tab PO DAILY@0900 06/03/20 06/05/20 06/04/20 History vitamin B complex 1 tab PO DAILY@0900 06/03/20 06/05/20 06/04/20 History vitamin E 1 tab PO DAILY@0900 06/03/20 06/05/20 06/04/20 History lorazepam 0.5 mg PO Q4H PRN 06/05/20 06/05/20 Unknown History Allergies Allergy/AdvReac Type Severity Reaction Status Date / Time Sulfa (Sulfonamide Allergy Unknown RASH Verified 06/03/20 13:37 Antibiotics) PFSH Acute 2 PFSH: Social History Smoking and tobacco status: former smoker Quit status (tobacco): has quit using tobacco Year quit tobacco: 1998 Former quit date comment: 0.5 PPD X 20 YEARS Vitals/I&O/Wt Last Vital Signs Temp 98.9 F 06/05/20 12:06 Pulse 98 06/05/20 17:45 Resp 20 H 06/05/20 17:45 BP 118/59 06/05/20 17:45 Pulse Ox 98 06/05/20 17:45 06/05/20 06/05/20 06/05/20 06:59 14:59 22:59 Intake Total 500 / 500 Balance 500 / 500 Weight last 48 hrs Weight 61.235 kg Physical Exam Const: COMMON NORMALS: patient oriented x3 HENMT: COMMON NORMALS: normocephalic and atraumatic HEAD & SCALP: normocephalic and atraumatic Chest: CHEST: Yes Symmetrical chest wall rise Resp: COMMON NORMALS: clear to auscultation bilaterally AUSCULTATION: clear to auscultation bilaterally Cardio: COMMON NORMALS: regular rate, regular rhythm, S1 normal heart sound present, S2 normal heart sound present, No gallops present (Cardio), No murmurs present (Cardio), No rub (Cardio) and Peripheral pulses 2+ throughout RATE: regular rate RHYTHM: regular rhythm HEART SOUNDS: S1 normal heart sound present and S2 normal heart sound present PERIPHERAL PULSES: Peripheral pulses 2+ throughout GI: COMMON NORMALS: no masses AUSCULTATION: Yes normoactive bowel sounds PALPATION: Yes Soft to palpation and Yes No hepatosplenomegaly present RECTAL EXAM: deferred Extremity: COMMON NORMALS: no clubbing, cyanosis or edema and no pedal edema Neuro: COMMON NORMALS: patient oriented x3 Data : 06/05/20 12:21 06/05/20 12:21 A&P Assessment and plan (1) Generalized weakness: Generalized weakness likely secondary to ongoing nausea vomiting and abdominal pain. Current plan is to, continue IV hydration, pain management, Zofran for intractable vomiting. Status: Acute (2) Acute dehydration: Status: Acute (3) Ovarian metastasis: Status: Acute Additional A&P Information Code Status :Full code DVT PPX:Lovenox 40 mg sc daily Attestations Medical Necessity Statement*: Patient needs to be in hospital for management of generalized weakness acute dehydration, need for IV fluids.Anticipated length of stay less than 2 midnights. Coding Level of Care Code Acute Administration Manager for Albino Mondragon Diagnoses Generalized weakness R53.1 Acute dehydration E86.0 Ovarian metastasis C79.60
[2020-06-05] MEDS: sodium chloride 0.9% 1,000 ML 75 ML IV (20:20)
[2020-06-05] MEDS: diphenhydrAMINE 50 mg/mL SDV 1mL 25 MG IVP (21:08)
[2020-06-05] MEDS: LORazepam 0.5 mg Tablet PO (22:23)
[2020-06-05] MEDS: montelukast sodium 10 mg Tablet PO (22:23)
[2020-06-05] MEDS: enoxaparin 40 mg/0.4 mL Syringe SUBCUT (22:23)
[2020-06-06] VITALS (9 sets, daily range): BP systolic 117–128; BP diastolic 68–79; PULSE 85–109; RESP 17–19; TEMP 37.3–37.9; O2SAT 96–98
[2020-06-06] MEDS: acetaminophen 325 mg Tablet 650 MG PO ×2 (01:01→21:51)
[2020-06-06 05:38] LABS: Basophils % 0.2 %; Hemoglobin 10.9 g/dL (11.5-15.3); Lymphocytes # 0.7 10^3/uL (0.8-4.8); Lymphocytes % 10.9 %; Mean Corpuscular HGB Conc 32.1 g/dL (30.0-36.0); Mean Corpuscular Volume 96.6 fL (81-99); Mean Platelet Volume 11.4 fL (7.4-10.4); Monocytes # 0.5 10^3/uL (0.2-0.9); Monocytes % 8.1 %; Neutrophils # 4.87 10^3/uL (1.8-7.7); Neutrophils % 80.3 %; Nucleated Red Blood Cells % 0 %; Platelet Count 113 10^3/cmm (130-400); Red Blood Count 3.52 10^6/uL (4.1-5.3); Red Cell Distribution Width 13.4 % (12.1-15.1); White Blood Count 6.1 10^3/uL (4.0-10.0)
[2020-06-06 05:58] LABS: Blood Urea Nitrogen 8 mg/dL (6-20); Calcium 8.3 mg/dL (8.5-10.5); Carbon Dioxide 22 mmol/L (22-29); Chloride 101 mmol/L (98-107); Glomerular Filtration Rate 127.6 mL/min (90-130); Glucose 105 mg/dL (65-115); Osmolality Calculated 281 mOsm/kg (285-295); Sodium 136 mmol/L (136-145)
[2020-06-06] MEDS: pantoprazole DR 40 mg Tablet PO (09:19)
[2020-06-06] MEDS: escitalopram 10 mg Tablet 20 MG PO (09:19)
[2020-06-06] MEDS: b-complex-vitamin c Tablet 1 EACH PO (09:19)
[2020-06-06] MEDS: ondansetron 2 mg/ML SDV 2 mL 4 MG IVP ×2 (09:20→17:48)
--- NOTE | 2020-06-06 10:31 | PC.CHAP ---
Pastoral Care Encounter/Spiritual Assessment Type of Contact [] Declined water resources business segment leader visit [] Patient/Family/Request visit [] Outpatient visit [] Follow-up visit [] Physician referral [] Code/Alert [x] Routine visit [] Staff referral [] Actively dying [] Patient sleeping [] Family support [] [] Out of room [] Palliative care [] [x] Receiving care in room [] Pre-surgical visit [] Trauma [x] Long length of stay [] ICU visit [] Other: Relational/Emotional Strength [x] Patient feels connected with others/family/visitors/staff [] Distress [] Loneliness/isolation [] Abandonment Spirituality of Patient [x] Person of Sandi [] Attends Religious of their Sandi [x] Believes in Prayer [] Reads Bible or Yazidism materials [] There are Spiritual issues to be addressed Medical Research Scientist Interventions [x] Prayer [x] Active listening [x] Non-anxious presence [x] Spiritual/emotional support [] Crisis/trauma care [x] Spiritual counseling [] Bereavement support [] Provided bereavement packet [] Provided Bible/devotional materials [] Provided toy/stuffed animal, coloring book to patient or family member [] Provided Communion [] Anointing/[place] [] Salvation [x] Completed spiritual assessment [] Other: Impact on Illness or Injury [] Angry [x] Fearful [] Anxious [] Often cries [] Exhaustion [x] Unable to work [] Unable to attend buddhism [] Unable to walk/stand [] Unable to read [] Unable to drive [] Unable to eat/drink [] Unable to sleep [] Unable to be with family [] Patient intubated [] Other: Summary Has cancer and will start chemo next week ,negative not sure about recovery + 1, Time spent with patient 10 mins
[2020-06-06] MEDS: Fleet Enema 133 mL Enema PR (10:32)
[2020-06-06] MEDS: sodium chloride 0.9% 1,000 ML 75 ML IV ×2 (10:32→21:11)
[2020-06-06] MEDS: lactulose oral liq 20 gm/30 mL UDC 30 GM PO ×2 (10:32→13:32)
--- NOTE | 2020-06-06 11:37 | PM.PN ---
Subjective Subjective: Interval history: Patient Continues to complain of nausea,generalized weakness, poor oral intake,mild abdominal pain. no Other complaints. Vitals/I&O/Wt Last Vital Signs Temp 99.5 F 06/06/20 11:07 Pulse 89 06/06/20 11:07 Resp 17 06/06/20 11:07 BP 121/71 06/06/20 11:07 Pulse Ox 98 06/06/20 11:07 06/05/20 06/06/20 06/06/20 22:59 06:59 14:59 Intake Total 1000 / 1500 180 / 1680 1000 / 1000 Output Total 100 / 100 400 / 500 Balance 900 / 1400 -220 / 1180 1000 / 1000 Weight last 48 hrs Weight 61.235 kg Physical Exam Const: COMMON NORMALS: patient oriented x3 HENMT: COMMON NORMALS: normocephalic and atraumatic HEAD & SCALP: normocephalic and atraumatic Chest: CHEST: Yes Symmetrical chest wall rise Resp: COMMON NORMALS: clear to auscultation bilaterally AUSCULTATION: clear to auscultation bilaterally Cardio: COMMON NORMALS: regular rate, regular rhythm, S1 normal heart sound present, S2 normal heart sound present, No gallops present (Cardio), No murmurs present (Cardio), No rub (Cardio) and Peripheral pulses 2+ throughout RATE: regular rate RHYTHM: regular rhythm HEART SOUNDS: S1 normal heart sound present and S2 normal heart sound present PERIPHERAL PULSES: Peripheral pulses 2+ throughout GI: COMMON NORMALS: no masses AUSCULTATION: Yes normoactive bowel sounds RECTAL EXAM: deferred Extremity: COMMON NORMALS: no clubbing, cyanosis or edema and no pedal edema Neuro: COMMON NORMALS: patient oriented x3 Data : 06/06/20 04:35 06/06/20 04:35 A&P Assessment and plan (1) Generalized weakness: Generalized weakness likely secondary to ongoing nausea vomiting and abdominal pain. Current plan is to, continue IV hydration, pain management, Zofran for intractable vomiting. Status: Acute (2) Acute dehydration: Status: Acute (3) Ovarian metastasis: Status: Acute Additional A&P Information Code Status :Full code DVT PPX:Lovenox 40 mg sc daily Attestations Medical Necessity Statement*: Patient needs to be in hospital for management of above defined problems. Coding Level of Care Code Acute Chief Of Service for Chg Fwd Diagnoses Generalized weakness R53.1 Acute dehydration E86.0 Ovarian metastasis C79.60
[2020-06-06] MEDS: enoxaparin 40 mg/0.4 mL Syringe SUBCUT (17:35)
[2020-06-06] MEDS: LORazepam 0.5 mg Tablet PO ×2 (17:39→21:51)
[2020-06-06] MEDS: montelukast sodium 10 mg Tablet PO (19:59)
[2020-06-07] VITALS (8 sets, daily range): BP systolic 115–128; BP diastolic 71–81; PULSE 70–93; RESP 16–19; TEMP 36.7–37.1; O2SAT 95–98
[2020-06-07] MEDS: acetaminophen 325 mg Tablet 650 MG PO ×2 (04:18→12:54)
[2020-06-07] MEDS: ondansetron 2 mg/ML SDV 2 mL 4 MG IVP (04:24)
[2020-06-07 05:22] LABS: Basophils % 0.3 %; Eosinophils % 0.1 %; Hematocrit 34.9 % (37.0-47.0); Hemoglobin 11.6 g/dL (11.5-15.3); Lymphocytes # 0.9 10^3/uL (0.8-4.8); Lymphocytes % 12.9 %; Mean Corpuscular HGB Conc 33.2 g/dL (30.0-36.0); Mean Corpuscular Hemoglobin 31.4 pg (28.0-34.0); Mean Corpuscular Volume 94.6 fL (81-99); Mean Platelet Volume 10.9 fL (7.4-10.4); Monocytes # 0.7 10^3/uL (0.2-0.9); Monocytes % 9.9 %; Neutrophils # 5.46 10^3/uL (1.8-7.7); Neutrophils % 76.4 %; Nucleated Red Blood Cells % 0 %; Platelet Count 124 10^3/cmm (130-400); Red Blood Count 3.69 10^6/uL (4.1-5.3); Red Cell Distribution Width 13.1 % (12.1-15.1); White Blood Count 7.2 10^3/uL (4.0-10.0)
[2020-06-07 05:40] LABS: Anion Gap 11.8 (5-19); Blood Urea Nitrogen 5 mg/dL (6-20); Calcium 8.6 mg/dL (8.5-10.5); Carbon Dioxide 28 mmol/L (22-29); Chloride 98 mmol/L (98-107); Glomerular Filtration Rate 127.6 mL/min (90-130); Glucose 104 mg/dL (65-115); Osmolality Calculated 278 mOsm/kg (285-295); Sodium 135 mmol/L (136-145)
[2020-06-07 05:53] LABS: Potassium 2.8 mmol/L (3.5-5.1)
[2020-06-07] MEDS: pantoprazole DR 40 mg Tablet PO (08:26)
[2020-06-07] MEDS: escitalopram 10 mg Tablet 20 MG PO (08:26)
[2020-06-07] MEDS: LORazepam 0.5 mg Tablet PO ×2 (08:38→12:17)
[2020-06-07] MEDS: lidocaine 1% 5 ML in potassium chloride premix 100 ML 25 ML IV (09:23)
[2020-06-07] MEDS: sodium chloride 0.9% 1,000 ML 75 ML IV (09:25)
--- NOTE | 2020-06-07 14:06 | PM.DCS ---
Discharge Providers Date of Admission: 06/05/20 21:20 Date of Discharge: June 07, 2020 Attending Provider at Admission: Shahzad Mariscal MD Attending Provider at Discharge: Shahzad Mariscal MD Primary Care Provider: Jaylin Mason APN Diagnoses at Discharge Discharge Diagnosis (1) Generalized weakness: Status: Resolved (2) Acute dehydration: Status: Resolved (3) Ovarian metastasis: Status: Acute Reason for Visit Reason for Visit: n/v x 2 days Hospital Course Hospital Course Jagruti Jay is a 54 year old female with past medical history of CA ovary with mets, was admitted with chief complaint of generalized weakness, nausea, vomiting, diarrhea, generalized abdominal pain, started 3 days back. Upon arrival in the ER she was worked up for above-mentioned. Imaging study: CT abdomen and pelvis: No acute change, CBC , BMP is unremarkable. ECA medications: IV fluids, pain medications, antiemetics. She was admitted for the management of generalized weakness and dehydration likely secondary to ongoing nausea, vomiting. Patient was continued on IV hydration, pain management, Zofran.Patient responded well to the above medical management and was discharged in stable condition. She will continue to follow Dr. Grey as an outpatient. Physical Exam Const: COMMON NORMALS: patient oriented x3 HENMT: COMMON NORMALS: normocephalic and atraumatic HEAD & SCALP: normocephalic and atraumatic Chest: CHEST: Yes Symmetrical chest wall rise Resp: COMMON NORMALS: clear to auscultation bilaterally AUSCULTATION: clear to auscultation bilaterally Cardio: COMMON NORMALS: regular rate, regular rhythm, S1 normal heart sound present, S2 normal heart sound present, No gallops present (Cardio), No murmurs present (Cardio), No rub (Cardio) and Peripheral pulses 2+ throughout RATE: regular rate RHYTHM: regular rhythm HEART SOUNDS: S1 normal heart sound present and S2 normal heart sound present PERIPHERAL PULSES: Peripheral pulses 2+ throughout GI: COMMON NORMALS: no masses AUSCULTATION: Yes normoactive bowel sounds RECTAL EXAM: deferred Extremity: COMMON NORMALS: no clubbing, cyanosis or edema and no pedal edema Neuro: COMMON NORMALS: patient oriented x3 Discharge Data Data Completed and Pending: Completed Studies During Hospitalization Category Date Time Status CT abdomen pelvis w con* [id number] Stat Cat Scan 06/05/20 12:48 Completed XR chest 1V michael ble [id number] Urgent Exams 04/28/21 12:15 Completed Pending at discharge Category Date Time Status Basic Metabolic P berta AM LABS Lab 06/08/20 04:00 Ordered Complete Blood Co unt w/Auto AM LABS Lab 06/08/20 04:00 Ordered Labs from last 24 hours 06/07/20 06/07/20 04:50 04:50 WBC 7.2 RBC 3.69 L Hgb 11.6 Hct 34.9 L MCV 94.6 MCH 31.4 MCHC 33.2 RDW 13.1 Plt Count 124 L MPV 10.9 H Neut % (Auto) 76.4 Lymph % (Auto) 12.9 Kershaw % (Auto) 9.9 Eos % (Auto) 0.1 Baso % (Auto) 0.3 Neut # (Auto) 5.46 Lymph # (Auto) 0.9 Kershaw # (Auto) 0.7 Eos # (Auto) 0.0 Baso # (Auto) 0.0 Nucleated RBC % (a uto) 0 Nucleated RBCs # 0.0 Sodium 135 L Potassium 2.8 L* Chloride 98 Carbon Dioxide 28 Anion Gap 11.8 BUN 5 L Creatinine 0.5 GFR Calculation 127.6 Glucose 104 Calculated Osmolal ity 278 L Calcium 8.6 Vitals: Last Vital Signs Temp 98.7 F 06/07/20 11:56 Pulse 72 06/07/20 11:56 Resp 16 06/07/20 11:56 BP 128/81 06/07/20 11:56 Pulse Ox 98 06/07/20 11:56 Discharge Plan Discharge Patient Disposition: Home Condition: Stable Prescriptions: New lactulose 20 gram/30 mL solution 10 g PO DAILY PRN (Reason: constipation) Qty: 1200 RF: 0 Continued pantoprazole [Protonix] [address] for susp in packet 40 mg PO DAILY@0900 RF: 0 Zyrtec 10 mg capsule 10 mg PO DAILY PRN (Reason: Allergy Symptoms) RF: 0 vitamin B complex Tablet 1 tab PO DAILY@0900 RF: 0 montelukast 10 mg tablet 10 mg PO BEDTIME@2100 RF: 0 escitalopram oxalate 20 mg tablet 20 mg PO DAILY@0900 RF: 0 Linzess 145 mcg capsule 145 mcg PO DAILY@0900 RF: 0 Vitamin C 1 tab PO DAILY@0900 RF: 0 Vitamin D3 1 tab PO DAILY@0900 RF: 0 vitamin A 1 tab PO DAILY@0900 RF: 0 vitamin E 1 tab PO DAILY@0900 RF: 0 hydromorphone 8 mg tablet 8 mg PO Q6H PRN (Reason: Pain) RF: 0 lorazepam [Ativan] 2 mg tablet 2 mg PO Q6H PRN (Reason: anxiety) Qty: 30 RF: 0 lorazepam 0.5 mg tablet 0.5 mg PO Q4H PRN (Reason: NAUSEA/VOMITING) RF: 0 Discharge Orders: Discharge Order (Routine); Ordered 06/07/20 Ordered By: Shahzad Mariscal Referrals: Mason,JAYDE Mosqueda [Primary Care Provider] - 06/14/20 10:30 am Discharge Diet: Usual diet Discharge Activity: Resume usual activity Patient Instructions: Dehydration - Adult, Lactulose (By mouth), Acute Nausea and Vomiting (DC), Opioid Safety, Weakness (Generalized) Discharge Attestations Time Spent in Discharge Care*: less than 30 min Specific Discharge Activities: educating patient, educating and/or supporting family/caregiver, discussing with pillowcase turner/social workers/dc planners, documenting/other paperwork and evaluating patient/reviewing data Status at Discharge: Cognitive status at discharge: cognitively intact, Behavioral status at discharge: cooperative, Functional status at discharge: independent ambulation Overall status at discharge: patient is back to baseline Quality Metrics Clinical Quality Measures During this hospital stay, did patient experience: None Coding Level of Care Code Acute Chg FW DC note Exam Detailed Diagnoses Generalized weakness R53.1 Acute dehydration E86.0 Ovarian metastasis C79.60
--- NOTE | 2020-06-07 14:59 | PC.NURSE ---
Reviewed discharge with patient and at this time. Patient and verbalized understanding of medication at pharmacy and follow up appointment. IV removed intact. Patient is A&Ox3. Respirations even and non-labored on room air. Patient wheel chaired to private car.
== END 2020-06-07 14:45 | disposition home or self-care (01) ==
LOC: ER 13:49 → MEDSURG 21:28
PROVIDERS: Admitting Provider Internal Medicine; Emergency Provider Family Medicine; PCP Nurse Practitioner Family; Visit Provider Internal Medicine
DX: R53.1 Weakness (principal); E86.0 Dehydration; C79.60 Secondary malignant neoplasm of unspecified ovary; Z87.891 Personal history of nicotine dependence
CPT/HCPCS: 36415; 71045; 74177; 80048; 80053; 81003; 83690; 84484; 85025; 93005; 96361; 96374; 96375; 99285; G0378; J1170; J1200; J1650; J2060; J2405; J3480; J7030; J7040; J8498; Q9967

== ENCOUNTER 2020-06-12 13:02 | Outpatient (CLI) | payer OTHER, SELFPAY ==
--- NOTE | 2020-06-12 13:06 | USCV_ITS ---
Jagruti Jay Age: 54 Gender: F : 1965 Exam Date: 06/12/2020 13:17 Ordering Phys: John Grey MD Technologist: Flores Amato Exam Location: [facility] – [place] Indication: PRE CHEMO SCREENING BP: 116 / 80 HR: 79 Rhythm: Sinus Technical Quality: Adequate MEASUREMENTS (Male / Female) Normal Values 2D ECHO LV Diastolic Diameter PLAX 3.9 cm 4.2 - 5.9 / 3.9 - 5.3 cm LV Systolic Diameter PLAX 3.3 cm LV Chamber Size 2.8 cm IVS Diastolic Thickness 0.9 cm 0.6 - 1.0 / 0.6 - 0.9 cm IVS Systolic Thickness 1.2 cm LVPW Diastolic Thickness 0.9 cm 0.6 - 1.0 / 0.6 - 0.9 cm LVPW Systolic Thickness 1.1 cm RV Chamber Size 2.6 cm LVOT Diameter 2.0 cm LV Ejection Fraction 2D Teich 31.5 % LV Ejection Fraction MOD 2C 60.9 % LV Ejection Fraction 2C AL 59.3 % LA Diameter 1.6 cm LA Width 2.6 cm LA Height 3.6 cm RA Width 2.7 cm RA Height 3.6 cm Aorta at Sinotubular Diameter 2.5 cm M-MODE LV Diastolic Diameter MM 4.4 cm 4.2 - 5.9 / 3.9 - 5.3 cm LV Systolic Diameter MM 2.9 cm LV Ejection Fraction MM Teich 62.2 % IVS Diastolic Thickness MM 1.1 cm 0.6 - 1.0 / 0.6 - 0.9 cm IVS Systolic Thickness MM 0.9 cm LVPW Diastolic Thickness MM 0.9 cm 0.6 - 1.0 / 0.6 - 0.9 cm LVPW Systolic Thickness MM 1.8 cm RV Diastolic Diameter MM 2.7 cm Aortic Annulus Diameter 3.1 cm LA Ao Ratio MM 0.5 MV E Point Septal Separation 0.4 cm DOPPLER AV Peak Velocity 151.3 cm/s LVOT Peak Velocity 103.0 cm/s AV Area Cont Eq vti 2.0 cm squared AV Area Cont Eq pk 2.2 cm squared MV Area PHT 5.0 cm squared Mitral E to A Ratio 1.3 MV E' Velocity 43.0 cm/s Mitral E to MV E' Ratio 7.5 Mitral E to LV E' Lateral Ratio 8.3 Mitral E to LV E' Septal Ratio 6.8 TR Peak Velocity 153.0 cm/s TR Peak Gradient 9.4 mmHg TR Mean Velocity 96.2 cm/s TR Mean Gradient 4.5 mmHg TR Velocity Time Integral 27.1 cm TV Peak E Velocity 49.0 cm/s Right Atrial Pressure 3.0 mmHg Pulmonary Artery Systolic Pressu 12.4 mmHg PV Peak Velocity 71.0 cm/s RV Acceleration Time 0.1 s RV Ejection Time 0.3 s RV AcT/ET 0.4 FINDINGS Left Ventricle Normal left ventricular size and systolic function, EF 62 %. No regional wall motion abnormalities. Right Ventricle The right ventricle is normal in size and function. Right Atrium The right atrium is normal in size. Left Atrium The left atrium is normal in size. Mitral Valve Structurally normal mitral valve without significant stenosis or prolapse. There is no mitral regurgitation. Aortic Valve No gross abnormalities noted . Tricuspid Valve Mild tricuspid valve regurgitation. Pulmonic Valve Mild pulmonary valve regurgitation. Pericardium Normal pericardium without effusion. Aorta Normal ascending aorta dimension. CONCLUSIONS Normal left ventricular size and systolic function, EF 62 %. No regional wall motion abnormalities. Normal cardiac chamber sizes. Mild tricuspid and pulmonic regurgitation. There is no pericardial effusion. There are no intracardiac masses. No previous study is available for comparison. Dr Sai Quinones MD FACC (Electronically Signed) Final Date: 12 Jun 2020 17:39 S
== END 2020-06-12 13:03 | disposition home or self-care (01) ==
LOC: RAD 13:02
PROVIDERS: PCP Nurse Practitioner Family; Visit Provider Internal Medicine Medical Oncology
DX: Z01.810 Encounter for preprocedural cardiovascular examination (principal); I07.1 Rheumatic tricuspid insufficiency; I37.1 Nonrheumatic pulmonary valve insufficiency
CPT/HCPCS: 93306

== ENCOUNTER 2020-06-20 09:31 | Outpatient (CLI) | payer OTHER, SELFPAY ==
[2020-06-20 10:01] LABS: Basophils % 0.3 %; Eosinophils # 0.1 10^3/uL (0.0-0.8); Eosinophils % 1.4 %; Hematocrit 36.8 % (37.0-47.0); Hemoglobin 11.7 g/dL (11.5-15.3); Lymphocytes # 1.1 10^3/uL (0.8-4.8); Lymphocytes % 16.7 %; Mean Corpuscular HGB Conc 31.8 g/dL (30.0-36.0); Mean Corpuscular Hemoglobin 31.8 pg (28.0-34.0); Mean Platelet Volume 10.5 fL (7.4-10.4); Monocytes # 0.6 10^3/uL (0.2-0.9); Monocytes % 9.8 %; Neutrophils # 4.67 10^3/uL (1.8-7.7); Neutrophils % 71.5 %; Nucleated Red Blood Cells % 0 %; Platelet Count 167 10^3/cmm (130-400); Red Blood Count 3.68 10^6/uL (4.1-5.3); Red Cell Distribution Width 13.7 % (12.1-15.1); White Blood Count 6.5 10^3/uL (4.0-10.0)
[2020-06-20 10:20] LABS: Alanine Aminotransferase 12 U/L (0-33); Albumin Level 3.9 g/dL (3.5-5.2); Alkaline Phosphatase 66 IU/L (35-105); Anion Gap 10.8 (5-19); Aspartate Amino Transferase 23 U/L (0-32); Blood Urea Nitrogen 8 mg/dL (6-20); Calcium 8.9 mg/dL (8.5-10.5); Carbon Dioxide 28 mmol/L (22-29); Chloride 101 mmol/L (98-107); Globulin 2.5 g/dL (1.3-4.6); Glomerular Filtration Rate 103.4 mL/min (90-130); Glucose 93 mg/dL (65-115); Osmolality Calculated 280 mOsm/kg (285-295); Potassium 3.8 mmol/L (3.5-5.1); Sodium 136 mmol/L (136-145); Total Bilirubin 0.4 mg/dL (0.15-1.2); Total Protein 6.4 g/dL (6.6-8.7)
[2020-06-20] MEDS: famotidine 20 mg/2 mL INJ IVP (12:02)
[2020-06-20] MEDS: LORazepam 2 mg/mL INJ 1 mL IV (12:04)
[2020-06-20] MEDS: dextrose 5% 250 ML 75 ML IV (12:09)
[2020-06-20] MEDS: palonosetron 0.25 mg/5 mL SDV IV (12:09)
[2020-06-20] MEDS: fosaprepitant 150 MG in sodium chloride 0.9% 150 ML 300 MG IV (12:31)
[2020-06-20 12:36] LABS: Thyroid Stimulating Hormone 2.38 uIU/mL (0.27-4.20)
--- NOTE | 2020-07-02 12:37 | ONC FU_ITS ---
[facility] Patient Note Patient: Jagruti Jay Unit #: [id number]: [id number] Dictated By: Celio WarrenDate of Visit: June 20, 2020 Onc MED Follow-Up/Prog Note Chief Complaint: Fallopian tube cancer. 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 She had a recurrence in the form of a right diaphragmatic peritoneal implant confirmed by biopsy at a cholecystectomy procedure in April 2018. She had presented in August 2015 with abdominal pain, and she was found to have a large pelvic mass. This was initially thought to be arising from the right ovary. On 09/17/2015 she underwent surgery which included total abdominal hysterectomy, bilateral salpingo-oophorectomy, and radical debulking along with pelvic lymphadenectomy and limited periaortic lymphadenectomy. I do not have those actual reports available, but she apparently was thought to have a complete or near-complete resection. She was then given postoperative adjuvant chemotherapy with 6 cycles of carboplatin/paclitaxel. On 09/28/2018 she underwent cholecystectomy, and at the time of that procedure she was noted to have a peritoneal implant on the right diaphragm. Biopsy of the implant showed high-grade carcinoma consistent with the previous high-grade serous primary. With that finding she was then given further chemotherapy with 6 cycles of carboplatin/gemcitabine, which she completed in September 2018. Restaging CT scans of the chest, abdomen, and pelvis on 10/07/2018 showed resolution of a previously noted small anterior hepatic capsular or subcapsular nodule. There are new postsurgical changes in that region. 2 very closely associated hypodense foci were again noted in the right lobe posteriorly, maximum aggregate diameter of 3 mm. That finding. Stable. There was no evidence of a new focal hepatic abnormality. There were small mesenteric, retroperitoneal, and bilateral inguinal lymph nodes. There was no pathologic lymphadenopathy. A 5 x 3 mm sclerotic focus at the right posterior aspect of the manubrium appeared stable compared to a prior study from October 2015. There were no suspicious osseous lesions noted. With those findings, she was recommended to continue further systemic therapy with 16 cycles of bevacizumab administered at 3-week intervals. She received cycle 1 of bevacizumab on 11/10/2018. She tolerated it without acute toxicity, and she then continued treatment at a 3-week dosing interval. As of 07/04/2019 she completed her 12th cycle. Restaging CT scans on 07/21/2019 showed no evidence of metastatic disease in the chest, abdomen, or pelvis. There was evidence of diffuse fatty infiltration of the liver with an enlarged hepatic lobe measuring 19 cm. A left renal cyst measured 12 mm. There were no other abnormal findings. She continued her maintenance bevacizumab. She completed her 16th and last planned cycle on 10/09/2019. INTERIM HISTORY: As of her follow-up visit on October 24, 2019 her CA-125 level had increased to 33.4 U/mL. Overall, it appeared to have been increasing very gradually since January 2019 when it was 12.4 U/mL. However, at that point she appeared stable clinically and she continued observation/expectant management. As of 01/24/2020 there was further increase in the CA-125 to 48.3 U/mL. Her restaging CT scans of the chest, abdomen, and pelvis showed no evidence for metastatic disease. There were no other acute findings noted. Despite the negative CT findings, with the continued increase in the CA-125 level she was scheduled to have follow-up with Dr. Landon. She had repeat CT scans on 04/02/2020. It showed new small circumferential pericardial effusion and new findings within the peritoneal cavity which were concerning for metastatic involvement. This included increased soft tissue surrounding the mid SMA and increased soft tissue in the periaortic distribution. There were new small mesenteric, periaortic, and iliac chain lymph nodes. There was no ascites. In the meantime, she had further evaluation with [employer] genetic screening. There were 2 heterozygous variants of uncertain significance. She was negative for BRCA mutation. Dr Grey reviewed the CT findings and discussed the fact that her symptoms are undoubtedly due to progression of her cancer, as her CA-125 level continues to increase. Dr. Valdes had recommended restarting chemotherapy with either carboplatin in combination with Doxil or with Doxil monotherapy. She has been somewhat reluctant about that. As such, since she developed a palpable right supraclavicular lymph node and she was scheduled for an ultrasound directed core needle biopsy for additional pathologic studies. She had fine-needle aspiration of the right supraclavicular node on May 20, 2020 which reported groups of malignant cells favors adenocarcinoma. She did have Caris testing on that specimen and was reported to have BRCA 1 pathogenic variant exon 10 [id number] with reported benefit with PARP inhibitors and possibly carboplatin, cisplatin and oxaliplatin. Also noted was genomic ZANE DNA???tumor reported as high benefit with PARP inhibitors Level 3A. She had PD-L1 (22 C3) by IHC positive, CPS: 5 with benefit from pembrolizumab???level 3A; AL by IHC protein was reported at positive 24, 60% benefit from endocrine therapy???level 3A. Mrs. Jay has agreed to a trial of Doxil. She is here today began her first cycle. She continues to have problems with constipation. She is using stool softeners and Linzess as needed. She is also using milk of magnesia which she states has been working better than anything right now. She continues to have persistent nausea which in part is related to the constipation. She states she has been taking a fourth to half a tablet of Ativan and this seems to be helping. She states she also has significant fatigue and just cannot get much done because she is so tired. She denies any fever or chills. She is had no mouth sores, sore throat or difficulty swallowing. She continues to have abdominal pain but states is about the same as it has been is no better and no worse. She denies any worsening of shortness of breath. She is had no hemoptysis. She denies any orthopnea. She denies any lower extremity edema. She states she is just tired and the abdominal pain is wearing her out. Her ECOG is 2. Past Medical History: Allergic rhinitis Anxiety/depression Fallopian tube cancer Gastroesophageal reflux disease Past Surgical History: Cholecystectomy in 2019 Placement of PowerPort in 2016 MARIBELL/BSO, omentectomy, radical debulking with pelvic and periaortic lymphadenectomy in 2016 Allergies: Sulfa Antibiotics Medications: Ativan 1 - 2 Tablet (of 0.5 mg) Oral q 4 to 6 hours PRN Beta Glucan 2 Capsule (of 500 mg) daily Cetirizine HCl 1 Tablet (of 10 mg) Oral daily Cholecalciferol 2 Capsule (of 5000 Units) Oral daily Dilaudid 1 - 2 Tablet (of 4 mg) Oral q 4 to 6 hours PRN ip-6 inositol 1 Capsule daily Lexapro 1 Tablet (of 10 mg) Oral daily Milk Thistle 1 Capsule Oral daily Pantoprazole Sodium 1 Tablet (of 40 mg) Tablet, enteric coated Oral daily Singulair 1 Tablet (of 10 mg) Oral at bedtime tagament 1 Capsule daily Turmeric 1 Capsule Oral daily Vitamin C 2 Capsule (of 1400 mg) Oral daily Vitamin E 1 Capsule (of 500 mg) Oral daily Family History: Ms. Jay's mother at age 82: congestive heart failure, and coronary artery disease, and type II diabetes. Ms. Jay's father at age 82: lung cancer. Ms. Jay has 3 brothers: 3 alive. She has 2 sisters: 2 alive. Father of lung cancer at age 82. Mother of heart disease at age 82. She also had diabetes. A brother has leukemia, which I assume is chronic leukocytic leukemia. Four other siblings are in good health. A nephew of leukemia. 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 Ms. Jay quit smoking 21 years ago but had smoked 0.5 packs/day for 20 years. She has no history of drinking. Ms. Jay reports the following support systems: lives with spouse, significant other, family, or friends, lives in own house, supportive family/friends willing to assist with needs, and adequate transportation available for expected visits. Her diet consists of regular meals. She indicates her activity level as: regular exercise. She has a history of smoking 1/2 pack of cigarettes daily for 20 years, but she quit 20 years ago. She does not drink alcohol. Review Of Symptoms: <See Above> Vital Signs: Performed on June 20, 2020 14:06 Height - 64.00 in Temperature - 99.1 F (HIGH) Pulse - 79 /min Respiration - 16 /min BP - 94/62 mm(hg) O2 Sat - 99 % Performed on June 20, 2020 10:50 Height - 64.00 in Weight - 129.2 lbs (LOW) BSA - 1.62 sq.m BMI - 22.18 Temperature - 98.1 F (LOW) Pulse - 111 /min (HIGH) Respiration - 18 /min BP - 103/67 mm(hg) O2 Sat - 97 % Pain - 0,2 - Ambulatory/capable of all self-care, unable to perform any work activities. Up and about more than 50% of waking hours. (ECOG) Physical Examination: Constitutional Alert, oriented, no acute distress. Skin pink, warm and dry. Head Normocephalic; atraumatic. Eyes Conjunctivae and sclerae are clear and without icterus. Pupils are reactive and equal. ENMT Sinuses are nontender. No oral exudates, ulcers, masses, thrush or mucositis. Oropharynx clear. Tongue normal. Neck Right neck mass in the lower anterior supraclavicular area is noted to be approximately walnut size without any skin irritation or exudate. It is not warm to touch. Respiratory Lungs are clear to auscultation without rhonchi or wheezing. Cardiovascular Regular rate and rhythm of heart without murmurs,clicks, gallops or rubs. Chest Left chest wall venous access device unremarkable. Abdomen Non-tender, non-distended, no masses, ascites. Back/Spine Non-tender to palpation. Extremities No visible deformities, no cyanosis, clubbing or edema. Musculoskeletal No tenderness or swelling, normal range of motion without obvious weakness. Integumentary No rashes or lesions. Neurologic No sensory or motor deficits, normal cerebellar function, normal gait. Psychiatric Alert and oriented times three. Coherent slow speech. Verbalizes understanding of our discussions today. Laboratory: Test performed on June 20, 2020 09:50 TSH 2.38 uIU/mL Impression: 1. 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 2. GERD. 3. Allergic rhinitis. 4. Anxiety/depression. 5. She developed COVID-19 virus infection in October 2019. She had an uneventful recovery. Plan/Problems Addressed at this Visit: 1. 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 She had complete or near-complete debulking with her initial surgery in September 2015. She was given postoperative adjuvant chemotherapy with 6 cycles of carboplatin/paclitaxel. She had biopsy proven recurrence in the form of a right diaphragmatic peritoneal implant, discovered at the cholecystectomy procedure in April 2018. She then had further chemotherapy with 6 cycles of carboplatin/gemcitabine, completed in September 2018. She had no evidence of residual disease on restaging CT scans on 10/07/2018. She then continued maintenance therapy with single agent bevacizumab at a 3-week interval dosing schedule for 16 cycles. She began cycle 1 of bevacizumab on 11/10/2018. She tolerated it well, and she was able to continue her treatment every 3 weeks with no apparent adverse effects. As of 10/09/2019 she completed her 16th and last planned cycle of bevacizumab. As of January 2020 there was a significant increase in her CA-125 level, up to 48 U/mL. In reviewing her records, it actually has been showing a very gradual increase over the preceding year, from 12.4 U/mL in January 2019. However, she was not overtly symptomatic with it and her restaging CT scans on 01/24/2020 showed no evidence of metastatic disease. At that point she was advised to follow-up with Dr. Landon. She had developed pain in the abdominal area and more significantly in the lower back. A specific cause for the pain was not evident, but with the increasing CA-125 level, Dr Grey had assumed that it was related to the underlying malignancy. Her repeat CT scans on 04/02/2020 showed findings within the peritoneal cavity which were concerning for metastatic involvement, including increased soft tissue surrounding the mid SMA and increased soft tissue in the periaortic distribution. There were new small mesenteric, periaortic, and iliac chain lymph nodes. Also noted was a new small circumferential pericardial effusion. At this point she continues to have significant pain in her abdomen and back, and she is having ongoing problems with constipation. She has had follow-up with Dr. Landon, and she was found to be BRCA negative on genetic screening. Dr Grey reviewed the CT findings and discussed the fact that her symptoms are undoubtedly due to progression of her cancer, as her CA-125 level continues to increase. Dr. Valdes had recommended restarting chemotherapy with either carboplatin in combination with Doxil or with Doxil monotherapy. She has been somewhat reluctant about that. As such, since she developed a palpable right supraclavicular lymph node and she was scheduled for an ultrasound directed core needle biopsy for additional pathologic studies. She had fine-needle aspiration of the right supraclavicular node on May 20, 2020 which reported groups of malignant cells favors adenocarcinoma. She did have Caris testing on that specimen and was reported to have BRCA 1 pathogenic variant exon 10 [id number] with reported benefit with PARP inhibitors and possibly carboplatin, cisplatin and oxaliplatin. Also noted was genomic ZANE DNA???tumor reported as high benefit with PARP inhibitors Level 3A. She had PD-L1 (22 C3) by IHC positive, CPS: 5 with benefit from pembrolizumab???level 3A; AL by IHC protein was reported at positive 24, 60% benefit from endocrine therapy???level 3A. Mrs. Jay has agreed to a trial of Doxil. A. Proceed with cycle 1 day 1 Doxil. B. We will pursue aggressive antiemetics given that she is already having pre-existing nausea and will be high risk. C. Echocardiogram from June 12, 2020 reported an left ventricular systolic function at 62% with no regional wall motion abnormalities. There was no pericardial effusions and no intracardiac masses. D. We will go ahead and have her try Transderm scopolamine patch 1 patch behind the ear every 72 hours for nausea. F. Today's labs were reviewed in detail and discussed with . Mrs. Jay and a copy was given to her. WBC 6.5, hemoglobin 11.7, platelets 167,000, ANC is 4700. Potassium 3.8 random glucose is 93 creatinine 0.6 and LFTs are normal. Her last Ca1 25 was April 30, 2020 which time it was 177. I have asked for a repeat baseline today. G. I have also asked for a TSH to be added to the blood in the lab for evaluation of her significant fatigue. 2. She has significant anxiety. A. She has been taking Lexapro 20 mg daily and feels this is working ok. B. She is aware that she can use Ativan 1/2 to 1 tablet up to 3 times daily as needed for the anxiety as well. 3. Follow-up plan A. She will have weekly interim counts. B. We will plan to see her back for day 8 for chemotherapy monitoring. C. She may have supportive care with hydration and antiemetics as needed in the interim. D. She is advised to let us know if her current bowel regimen is not keeping her bowels moving. She is aware that she is high risk for bowel obstruction given her disease. 4. Patient treatment plan education A. The patient and family were informed of chemotherapy plan and specific drugs were discussed. We also discussed how chemotherapy works and identified common side effects including alopecia; myelosuppression-including neutropenia, anemia, thrombocytopenia; peripheral neuropathy; fatigue; nausea; diarrhea; constipation; bleeding or bruising; skin changes; mouth sores; drug hypersensitivity/allergic reactions or anaphylaxis and extravasation. They have also been informed how to contact the clinic with side effects or symptoms, including but not limited to fever greater than 100.4???, chills, sore throat, bleeding or bruising that is not explained or mouth sores, cough, nasal discharge, diarrhea, constipation, nausea and/or vomiting not relieved with medications on hand at home, as well as any other concern or question they may have. Our hours are 8:00 a.m. to 4:30 p.m. on Wednesday through and 8-12:00 on Wednesday. However, someone is occupational therapy instructor 24 hours per day and they have been advised to contact the [facility] at if it is after hours. We have also discussed potential long-term side effects of chemotherapy including secondary cancers, infertility, pulmonary complications, cardiac complications, and again peripheral neuropathy. We have discussed that they certainly need to let us know before taking any antioxidants or herbal or further dietary supplements, as we are unsure of how these agents react with chemotherapy and we request that they avoid these products for now. They were informed that it is okay to take multivitamins at normal doses. They verbally state that they understand to take all medications as directed by their healthcare provider unless otherwise indicated. They also verbalized understanding to leave the pressure dressing on the intravenous administration site for at least two hours after treatment. Instructions for oral care with baking soda and salt water rinses as well as a guide for use of [id number] medication were provided with the treatment plan. Total time spent on Mrs. Jay care today included record review prior to her visit; discussion of recent Caris testing, today's labs, current plan of care and side effect identification and management and post visit documentation was 60 minutes. Signed By: Celio Warren-LEANDER, AOZAK Grey MD <<Signature on File>>
== END 2020-06-20 09:32 | disposition home or self-care (01) ==
PROVIDERS: PCP Nurse Practitioner Family; Visit Provider Nurse Practitioner
DX: Z51.11 Encounter for antineoplastic chemotherapy (principal); C56.2 Malignant neoplasm of left ovary; K21.9 Gastro-esophageal reflux disease without esophagitis; J30.9 Allergic rhinitis, unspecified; F41.9 Anxiety disorder, unspecified; F32.9 Major depressive disorder, single episode, unspecified; Z86.16 Personal history of COVID-19; Z79.899 Other long term (current) drug therapy
CPT/HCPCS: 80053; 84443; 85025; 96367; 96375; 96413; 99215; J1100; J1453; J2060; J2469; J3490; Q2050

== ENCOUNTER 2020-06-27 06:02 | Outpatient (CLI) | payer OTHER, SELFPAY ==
[2020-06-27 14:19] LABS: Basophils % 0.3 %; Eosinophils % 0.6 %; Hematocrit 35.7 % (37.0-47.0); Hemoglobin 11.3 g/dL (11.5-15.3); Lymphocytes # 0.7 10^3/uL (0.8-4.8); Lymphocytes % 11.1 %; Mean Corpuscular HGB Conc 31.7 g/dL (30.0-36.0); Mean Corpuscular Hemoglobin 30.9 pg (28.0-34.0); Mean Corpuscular Volume 97.5 fL (81-99); Mean Platelet Volume 11.1 fL (7.4-10.4); Monocytes # 0.3 10^3/uL (0.2-0.9); Monocytes % 5.3 %; Neutrophils # 5.13 10^3/uL (1.8-7.7); Neutrophils % 82.4 %; Nucleated Red Blood Cells % 0 %; Platelet Count 132 10^3/cmm (130-400); Red Blood Count 3.66 10^6/uL (4.1-5.3); Red Cell Distribution Width 13.8 % (12.1-15.1); White Blood Count 6.2 10^3/uL (4.0-10.0)
[2020-06-27 14:32] LABS: Alanine Aminotransferase 9 U/L (0-33); Albumin Level 3.8 g/dL (3.5-5.2); Alkaline Phosphatase 66 IU/L (35-105); Anion Gap 14.8 (5-19); Aspartate Amino Transferase 23 U/L (0-32); Blood Urea Nitrogen 10 mg/dL (6-20); CA 125 407.8 U/mL (0-35); Calcium 8.7 mg/dL (8.5-10.5); Carbon Dioxide 29 mmol/L (22-29); Chloride 100 mmol/L (98-107); Globulin 2.6 g/dL (1.3-4.6); Glomerular Filtration Rate 127.6 mL/min (90-130); Glucose 99 mg/dL (65-115); Osmolality Calculated 289 mOsm/kg (285-295); Potassium 3.8 mmol/L (3.5-5.1); Sodium 140 mmol/L (136-145); Total Bilirubin 0.3 mg/dL (0.15-1.2); Total Protein 6.4 g/dL (6.6-8.7)
[2020-06-27] MEDS: sodium chloride 0.9% 1,000 ML 999 ML IV (15:30)
[2020-06-27] MEDS: pantoprazole 40 mg SDV IV (15:33)
[2020-06-27] MEDS: ondansetron 2 mg/ML SDV 2 mL 8 MG IV (15:35)
--- NOTE | 2020-07-02 12:53 | ONC FU_ITS ---
[facility] Patient Note Patient: Jagruti Jay Unit #: [id number]: 1965 Dictated By: Celio WarrenDate of Visit: June 27, 2020 Onc MED Follow-Up/Prog Note Chief Complaint: Fallopian tube cancer. 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 She had a recurrence in the form of a right diaphragmatic peritoneal implant confirmed by biopsy at a cholecystectomy procedure in April 2018. She had presented in August 2015 with abdominal pain, and she was found to have a large pelvic mass. This was initially thought to be arising from the right ovary. On 09/17/2015 she underwent surgery which included total abdominal hysterectomy, bilateral salpingo-oophorectomy, and radical debulking along with pelvic lymphadenectomy and limited periaortic lymphadenectomy. I do not have those actual reports available, but she apparently was thought to have a complete or near-complete resection. She was then given postoperative adjuvant chemotherapy with 6 cycles of carboplatin/paclitaxel. On 09/28/2018 she underwent cholecystectomy, and at the time of that procedure she was noted to have a peritoneal implant on the right diaphragm. Biopsy of the implant showed high-grade carcinoma consistent with the previous high-grade serous primary. With that finding she was then given further chemotherapy with 6 cycles of carboplatin/gemcitabine, which she completed in September 2018. Restaging CT scans of the chest, abdomen, and pelvis on 10/07/2018 showed resolution of a previously noted small anterior hepatic capsular or subcapsular nodule. There are new postsurgical changes in that region. 2 very closely associated hypodense foci were again noted in the right lobe posteriorly, maximum aggregate diameter of 3 mm. That finding. Stable. There was no evidence of a new focal hepatic abnormality. There were small mesenteric, retroperitoneal, and bilateral inguinal lymph nodes. There was no pathologic lymphadenopathy. A 5 x 3 mm sclerotic focus at the right posterior aspect of the manubrium appeared stable compared to a prior study from October 2015. There were no suspicious osseous lesions noted. With those findings, she was recommended to continue further systemic therapy with 16 cycles of bevacizumab administered at 3-week intervals. She received cycle 1 of bevacizumab on 11/10/2018. She tolerated it without acute toxicity, and she then continued treatment at a 3-week dosing interval. As of 07/04/2019 she completed her 12th cycle. Restaging CT scans on 07/21/2019 showed no evidence of metastatic disease in the chest, abdomen, or pelvis. There was evidence of diffuse fatty infiltration of the liver with an enlarged hepatic lobe measuring 19 cm. A left renal cyst measured 12 mm. There were no other abnormal findings. She continued her maintenance bevacizumab. She completed her 16th and last planned cycle on 10/09/2019. INTERIM HISTORY: As of her follow-up visit on October 24, 2019 her CA-125 level had increased to 33.4 U/mL. Overall, it appeared to have been increasing very gradually since January 2019 when it was 12.4 U/mL. However, at that point she appeared stable clinically and she continued observation/expectant management. As of 01/24/2020 there was further increase in the CA-125 to 48.3 U/mL. Her restaging CT scans of the chest, abdomen, and pelvis showed no evidence for metastatic disease. There were no other acute findings noted. Despite the negative CT findings, with the continued increase in the CA-125 level she was scheduled to have follow-up with Dr. Landon. She had repeat CT scans on 04/02/2020. It showed new small circumferential pericardial effusion and new findings within the peritoneal cavity which were concerning for metastatic involvement. This included increased soft tissue surrounding the mid SMA and increased soft tissue in the periaortic distribution. There were new small mesenteric, periaortic, and iliac chain lymph nodes. There was no ascites. In the meantime, she had further evaluation with [facility] genetic screening. There were 2 heterozygous variants of uncertain significance. She was negative for BRCA mutation. Dr Grey reviewed the CT findings and discussed the fact that her symptoms are undoubtedly due to progression of her cancer, as her CA-125 level continues to increase. Dr. Valdes had recommended restarting chemotherapy with either carboplatin in combination with Doxil or with Doxil monotherapy. She has been somewhat reluctant about that. As such, since she developed a palpable right supraclavicular lymph node and she was scheduled for an ultrasound directed core needle biopsy for additional pathologic studies. She had fine-needle aspiration of the right supraclavicular node on May 20, 2020 which reported groups of malignant cells favors adenocarcinoma. She did have Caris testing on that specimen and was reported to have BRCA 1 pathogenic variant exon 10 [id number] with reported benefit with PARP inhibitors and possibly carboplatin, cisplatin and oxaliplatin. Also noted was genomic ZANE DNA???tumor reported as high benefit with PARP inhibitors Level 3A. She had PD-L1 (22 C3) by IHC positive, CPS: 5 with benefit from pembrolizumab???level 3A; KS by IHC protein was reported at positive 24, 60% benefit from endocrine therapy???level 3A. Mrs. Jay has agreed to a trial of Doxil. She began her first cycle on June 20, 2020. She states she has felt terrible mostly complaining of abdominal pain and nausea and vomiting. She denies any fever or chills. She states her appetite has been poor due to the nausea and she just cannot hardly eat without feeling full. She states she is trying to eat but finds it very difficult. She denies any new pain other than her abdominal pain which she states is about the same. She states it certainly no better. She also states that the mass on the right side of her neck has gotten larger. She states it almost feels like it is bothering me swallowing sometimes . She states she feels washed out, weak and just cannot go. She states the abdominal pain really makes her feel bad overall. It does relieve some with pain medication but then her constipation gets worse. She states that her bowels have not moved in the last several days. She states she is use stool softeners, she has used Linzess. She states she is used other laxatives including milk of magnesia and MiraLAX with no results. We did discuss the need that she could be developing a bowel obstruction and she needs abdominal ultrasound today. We will plan to give her hydration today here in the clinic. She denies any urinary problems. Her ECOG is 2. Past Medical History: Allergic rhinitis Anxiety/depression Fallopian tube cancer Gastroesophageal reflux disease Past Surgical History: Cholecystectomy in 2019 Placement of PowerPort in 2016 MARIBELL/BSO, omentectomy, radical debulking with pelvic and periaortic lymphadenectomy in 2016 Allergies: Sulfa Antibiotics Medications: Ativan 1 - 2 Tablet (of 0.5 mg) Oral q 4 to 6 hours PRN Beta Glucan 2 Capsule (of 500 mg) daily Cetirizine HCl 1 Tablet (of 10 mg) Oral daily Cholecalciferol 2 Capsule (of 5000 Units) Oral daily Dilaudid 1 - 2 Tablet (of 4 mg) Oral q 4 to 6 hours PRN ip-6 inositol 1 Capsule daily Lexapro 1 Tablet (of 10 mg) Oral daily Milk Thistle 1 Capsule Oral daily Pantoprazole Sodium 1 Tablet (of 40 mg) Tablet, enteric coated Oral daily Singulair 1 Tablet (of 10 mg) Oral at bedtime tagament 1 Capsule daily Turmeric 1 Capsule Oral daily Vitamin C 2 Capsule (of 1400 mg) Oral daily Vitamin E 1 Capsule (of 500 mg) Oral daily Family History: Ms. Jay's mother at age 82: congestive heart failure, and coronary artery disease, and type II diabetes. Ms. Jay's father at age 82: lung cancer. Ms. Jay has 3 brothers: 3 alive. She has 2 sisters: 2 alive. Father of lung cancer at age 82. Mother of heart disease at age 82. She also had diabetes. A brother has leukemia, which I assume is chronic leukocytic leukemia. Four other siblings are in good health. A nephew of leukemia. 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 Ms. Jay quit smoking 21 years ago but had smoked 0.5 packs/day for 20 years. She has no history of drinking. Ms. Jay reports the following support systems: lives with spouse, significant other, family, or friends, lives in own house, supportive family/friends willing to assist with needs, and adequate transportation available for expected visits. Her diet consists of regular meals. She indicates her activity level as: regular exercise. She has a history of smoking 1/2 pack of cigarettes daily for 20 years, but she quit 20 years ago. She does not drink alcohol. Review Of Symptoms: <See Above> Vital Signs: Performed on June 27, 2020 14:12 Height - 64.00 in Weight - 128.8 lbs (LOW) BSA - 1.62 sq.m BMI - 22.11 Temperature - 97.6 F (LOW) Pulse - 104 /min (HIGH) Respiration - 16 /min BP - 93/57 mm(hg) O2 Sat - 94 % (LOW) Pain - 0 Fatigue - 9,2 - Ambulatory/capable of all self-care, unable to perform any work activities. Up and about more than 50% of waking hours. (ECOG) Physical Examination: Constitutional Alert, oriented, no acute distress. Skin pink, warm and dry. Head Normocephalic; atraumatic. Eyes Conjunctivae and sclerae are clear and without icterus. Pupils are reactive and equal. ENMT Sinuses are nontender. No oral exudates, ulcers, masses, thrush or mucositis. Oropharynx clear. Tongue normal. Neck Right neck mass in the lower anterior supraclavicular area is noted to be approximately avocado size without any skin irritation or exudate. It is not warm to touch. It has increased in length and slightly in width since last week. Respiratory Lungs are clear to auscultation without rhonchi or wheezing. Cardiovascular Regular rate and rhythm of heart without murmurs,clicks, gallops or rubs. Chest Left chest wall venous access device unremarkable. Abdomen Non-tender, non-distended, no masses, ascites. Back/Spine Non-tender to palpation. Extremities No visible deformities, no cyanosis, clubbing or edema. Musculoskeletal No tenderness or swelling, normal range of motion without obvious weakness. Integumentary No rashes or lesions. Neurologic No sensory or motor deficits, normal cerebellar function, normal gait. Psychiatric Alert and oriented times three. Coherent slow speech. Verbalizes understanding of our discussions today. Laboratory:Test performed on June 27, 2020 13:33 Sodium 140 mmol/L Potassium 3.8 mmol/L Chloride 100 mmol/L CO2 29 mmol/L Anion Gap 14.8 BUN 10 mg/dL Creatinine 0.5 mg/dL Cr Clearance (Est) 124.3300 mL/min eGFR 127.6 mL/min Glucose 99 mg/dL Osmolality - Calculated 289 mOsm/kg Calcium 8.7 mg/dL Protein, Total 6.4 g/dL Albumin 3.8 g/dL Globulin 2.6 g/dL Bilirubin, Total 0.3 mg/dL ALT (SGPT) 9 U/L AST (SGOT) 23 U/L Alkaline Phosphatase 66 IU/L WBC 6.2 10 3/uL RBC 3.66 10 6/uL HGB 11.3 g/dL HCT 35.7 % MCV 97.5 fL MCH 30.9 pg MCHC 31.7 g/dL RDW 13.8 % Platelet Count 132 10 3/cmm MPV 11.1 fL Neutrophils 5.13 10 3/uL Lymphocytes 0.7 10 3/uL Monocytes 0.3 10 3/uL Eosinophils 0.0 10 3/uL Basophils 0.0 10 3/uL Neutrophil % 82.4 % Lymphocyte % 11.1 % Monocyte % 5.3 % Eosinophil % 0.6 % Basophils % 0.3 % NRBC % 0 % CA-125 407.8 U/mL Test performed on June 20, 2020 09:50 TSH 2.38 uIU/mL Test performed on Jan 24, 2020 10:12 Manual Diff PATIENT DISCHARGED Impression: 1. 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 2. GERD. 3. Allergic rhinitis. 4. Anxiety/depression. 5. She developed COVID-19 virus infection in October 2019. She had an uneventful recovery. Plan/Problems Addressed at this Visit: 1. 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 She had complete or near-complete debulking with her initial surgery in September 2015. She was given postoperative adjuvant chemotherapy with 6 cycles of carboplatin/paclitaxel. She had biopsy proven recurrence in the form of a right diaphragmatic peritoneal implant, discovered at the cholecystectomy procedure in April 2018. She then had further chemotherapy with 6 cycles of carboplatin/gemcitabine, completed in September 2018. She had no evidence of residual disease on restaging CT scans on 10/07/2018. She then continued maintenance therapy with single agent bevacizumab at a 3-week interval dosing schedule for 16 cycles. She began cycle 1 of bevacizumab on 11/10/2018. She tolerated it well, and she was able to continue her treatment every 3 weeks with no apparent adverse effects. As of 10/09/2019 she completed her 16th and last planned cycle of bevacizumab. As of January 2020 there was a significant increase in her CA-125 level, up to 48 U/mL. In reviewing her records, it actually has been showing a very gradual increase over the preceding year, from 12.4 U/mL in January 2019. However, she was not overtly symptomatic with it and her restaging CT scans on 01/24/2020 showed no evidence of metastatic disease. At that point she was advised to follow-up with Dr. Landon. She had developed pain in the abdominal area and more significantly in the lower back. A specific cause for the pain was not evident, but with the increasing CA-125 level, Dr Grey had assumed that it was related to the underlying malignancy. Her repeat CT scans on 04/02/2020 showed findings within the peritoneal cavity which were concerning for metastatic involvement, including increased soft tissue surrounding the mid SMA and increased soft tissue in the periaortic distribution. There were new small mesenteric, periaortic, and iliac chain lymph nodes. Also noted was a new small circumferential pericardial effusion. At this point she continues to have significant pain in her abdomen and back, and she is having ongoing problems with constipation. She has had follow-up with Dr. Landon, and she was found to be BRCA negative on genetic screening. Dr Grey reviewed the CT findings and discussed the fact that her symptoms are undoubtedly due to progression of her cancer, as her CA-125 level continues to increase. Dr. Valdes had recommended restarting chemotherapy with either carboplatin in combination with Doxil or with Doxil monotherapy. She has been somewhat reluctant about that. As such, since she developed a palpable right supraclavicular lymph node and she was scheduled for an ultrasound directed core needle biopsy for additional pathologic studies. She had fine-needle aspiration of the right supraclavicular node on May 20, 2020 which reported groups of malignant cells favors adenocarcinoma. She did have Caris testing on that specimen and was reported to have BRCA 1 pathogenic variant exon 10 [id number] with reported benefit with PARP inhibitors and possibly carboplatin, cisplatin and oxaliplatin. Also noted was genomic ZANE DNA???tumor reported as high benefit with PARP inhibitors Level 3A. She had PD-L1 (22 C3) by IHC positive, CPS: 5 with benefit from pembrolizumab???level 3A; KS by IHC protein was reported at positive 24, 60% benefit from endocrine therapy???level 3A. Mrs. Jay has agreed to a trial of Doxil. A. She had cycle 1 day 1 Doxil on June 20, 2020. B. She is having persistent nausea although she states the scopolamine patch has made a big difference. She states that she feels the nausea is more related to the constipation. C. Echocardiogram from June 12, 2020 reported an left ventricular systolic function at 62% with no regional wall motion abnormalities. There was no pericardial effusions and no intracardiac masses. D. Today's labs were reviewed in detail and discussed with . Mrs. Jay and a copy was given to her. WBC 6.2, hemoglobin 11.3, platelets 132,000, ANC is 5130. Potassium 3.8 creatinine 0.5 random glucose is 99 LFTs are normal. Her CA-125 today is 407.8 and her TSH from 06/20/2020 was 2.38. 2. Severe constipation A. I have requested a KUB today to rule out bowel obstruction. B. She received IV hydration and antiemetics today. C. I requested that she receive hydration again tomorrow and the antiemetics if needed is so we can follow-up on her x-ray from today. 3. Follow-up plan A. She will continue weekly interim counts. B. We will plan to see her back for 2 weeks for chemotherapy monitoring and consideration of cycle 2. C. She may have supportive care with hydration and antiemetics as needed in the interim. D. She was advised to let us know if her current bowel regimen is not keeping her bowels moving. She is aware that she is high risk for bowel obstruction given her disease. E. Dr. Grey did come into the room and talk with and Mrs. Jay regarding her current status as well as the progression of the right neck mass. His recommendation is that we add carboplatin or cisplatin to her next cycle of chemotherapy. If we cannot achieve a response with the chemotherapy radiation may need to be a consideration. Mrs. Jay at this point states that she does not want to do radiation. F. Total time spent with Mrs. Jay today in regards to answering questions regarding symptom identification and management as well as plan of care including possibly adding a shaktoolik agent to her next cycle as well as symptom management and post visit documentation was 45 minutes. Signed By: Celio Warren-LEANDER, AODEVP John Grey MD <<Signature on File>>
== END 2020-06-27 06:03 | disposition home or self-care (01) ==
LOC: ONCMED 06:05
PROVIDERS: PCP Nurse Practitioner Family; Visit Provider Nurse Practitioner
DX: C57.02 Malignant neoplasm of left fallopian tube (principal); K21.9 Gastro-esophageal reflux disease without esophagitis; J30.9 Allergic rhinitis, unspecified; F41.9 Anxiety disorder, unspecified; F32.9 Major depressive disorder, single episode, unspecified; Z86.16 Personal history of COVID-19; Z79.899 Other long term (current) drug therapy
CPT/HCPCS: 80053; 85025; 86304; 96361; 96365; 96375; 99215; C9113; J1100; J2405; J7030

== ENCOUNTER 2020-06-28 09:01 | Outpatient (CLI) | payer OTHER, SELFPAY ==
--- NOTE | 2020-06-28 09:06 | XR_ITS ---
WS: [id number] Abdomen series, Flat and upright 06/28/2020 Clinical Data: CONSTIPATION Comparison: Abdomen series, 06/03/2020. Findings: No free air is seen beneath the diaphragms. No abnormal intra-abdominal masses or calcifica tions are seen. There is air in the small bowel and the colon with scattered air-fluid levels. No bow el obstruction is noted. There are clips in the right upper quadrant from a cholecystectomy. There ar e clips in the left side of the true pelvis. XR/XR abdomen min 2V [id number] Impression: Moderate generalized ileus.
[2020-06-28] MEDS: sodium chloride 0.9% 1,000 mL Bolus 999 ML IV (10:24)
[2020-06-28] MEDS: ondansetron 2 mg/ML SDV 2 mL 8 MG IVP (10:24)
[2020-06-28] MEDS: pantoprazole 40 mg SDV IV (10:26)
[2020-06-28] MEDS: dexamethasone 10 mg/mL INJ 12 MG IVP (10:32)
[2020-06-28] MEDS: sodium chloride 0.9% (100 ml) 100 ML 300 ML (10:32)
== END 2020-06-28 09:02 | disposition home or self-care (01) ==
LOC: ONCMED 09:02
PROVIDERS: PCP Nurse Practitioner Family; Visit Provider Nurse Practitioner
DX: C57.02 Malignant neoplasm of left fallopian tube (principal); C78.6 Secondary malignant neoplasm of retroperitoneum and peritoneum; K56.7 Ileus, unspecified; Z79.899 Other long term (current) drug therapy
CPT/HCPCS: 74019; 96361; 96365; 96375; C9113; J1100; J2405; J7030

== ENCOUNTER 2020-07-05 05:35 | Outpatient (RCR) | payer OTHER, SELFPAY ==
--- NOTE | 2020-07-02 | CT_ITS ---
Radiation Therapy Planning CT images; total exam DLP: 328.31 mGy-cm MTDD
[2020-07-02] MEDS: pantoprazole 40 mg SDV IVP (13:04)
[2020-07-02] MEDS: ondansetron 2 mg/ML SDV 2 mL 8 MG IV (13:06)
[2020-07-02] MEDS: sodium chloride 0.9% 1,000 ML 999 ML IV (13:21)
[2020-07-02] MEDS: HYDROmorphone 1 mg/mL INJ 1 mL 4 MG SUBCUT (15:55)
[2020-07-02] MEDS: methylnaltrexone 12 /0.6 mL INJ 12 MG SUBCUT (16:00)
--- NOTE | 2020-07-02 17:12 | N.ONRAD NP_ITS ---
Radiation Oncology New Patient Visit Patient: Jagruti Jay MR#: [id number] : 1965> Age: 54> Sex: Female> Dictated by: Dr. Ceferino Jason Date of Service: 07/02/2020 Referring Physician(s) : Dr. 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 Radiotherapy to date: Summary > No prior radiation therapy. Chief Complaint / History of Present Illness: Recurrent serous carcinoma of fallopian tube with symptomatic progression in right supraclavicular chan region. FNA bx confirmation 05/20/2020. Since bx mass has continued to grow with ongoing pain 7 on 10 scale. She also noted smaller asymptomatic mass in left suprclav region. She has ongoing fatigue and weight loss. She lives independently at home with he . He is her main residential caregiver. She is now inactive at home . She has ongoing back and abdominal pain and constipation. She has a history of biopsy proven peritoneal relapse noted at the time of cholecystectomy in 09/2018. Current Medications: Acetaminophen-Codeine #3, allergy Relief/Indoor/Outdoor, aloxi, ambien, ativan, beta Glucan, cetirizine HCl, cholecalciferol, dexamethasone Sodium Phosphate, dilaudid, dOXOrubicin HCl Liposomal, doxycycline Hyclate, emend, flonase, guaiFENesin ER, hYDROcodone-Acetaminophen, ip-6 inositol, lexapro, lexapro, linaCLOtide, milk Thistle, naproxen, ondansetron HCl, palonosetron HCl, pantoprazole Sodium, pantoprazole Sodium, pantoprazole Sodium, prochlorperazine Maleate, promethazine HCl, promethazine HCl, pseudoephedrine HCl, relistor, singulair, singulair, sodium Chloride, tagament, transderm Scop (1.5 MG), turmeric, vitamin C, vitamin E, zithromax Z-Cale. Allergies: Sulfa Antibiotics. Medical History: - Allergic rhinitis, - anxiety/depression, - fallopian tube cancer, - gastroesophageal reflux disease. No history of collagen vascular disease. No previous radiation therapy. Surgical History: Cholecystectomy on 04/28/2018, placement of PowerPort on 11/12/2015 and Trice/BSO, omentectomy, radical debulking with pelvic and periaortic lymphadenectomy on 09/17/2015. Family History: Father is at age 82 having experienced lung cancer. Mother is at age 82 having experienced congestive heart failure, and coronary artery disease, and type II diabetes. Brother is alive. Brother is alive. Brother is alive. Sister is alive. Sister is alive. Father of lung cancer at age 82. Mother of heart disease at age 82. She also had diabetes. A brother has leukemia, which I assume is chronic leukocytic leukemia. Four other siblings are in good health. A nephew of leukemia. Social History: Last screened on 06/27/2020 - Yes - but has quit for 21 years. Smoked 0.5 packs/day for 20 years (10 pack years). Last screened on 06/27/2020 - Never drank. Patient indicated access to the following support systems: lives with spouse, significant other, family, or friends, lives in own house, supportive family/friends willing to assist with needs, and adequate transportation available for expected visits. Patient indicated the following nutritional habits: regular meals. Patient indicated participation in the following forms of activity: regular exercise. 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 One adult daughter living in [place]. Current Complaints / Review of Systems: . Vital Signs: Physical Exam: Chronically ill appearing woman. Alert and conversant. 3 to 4 cm fixed tender right supraclav mass. No overlying erythema. Smaller 1 cm left suprclav node hard nontender.Abd soft with no tenderness or distention. No pedal edema. 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 Lab: Test performed on 06/27/2020 1:33 PM RBC - 3.66 10 6/ul (low), HGB - 11.3 g/dl (low), HCT - 35.7 % (low), MPV - 11.1 fl (high), Lymphocytes - 0.7 10 3/ul (low), Protein, Total - 6.4 g/dl (low) and CA-125 - 407.8 u/ml (high). Imaging: See HPI Impression: Progressive adenocarcinoma of fallopian tube now with symptomatic progression in right supraclav region. Recommend a short 5 day course of treatment to this site to reduce pain and debulk size. Discussed with patient, spouse and Dr. Grey. Also discussed the need to address advanced directives sometime in the near future. Plan: Signed by: 07/02/2020 5:11:16 PM <<Signature on File>> Time spent with patient: CPT Code: CPT Code:
[2020-07-04] MEDS: pantoprazole 40 mg SDV IVP (11:53)
[2020-07-04] MEDS: ondansetron 2 mg/ML SDV 2 mL 8 MG IV (11:56)
[2020-07-04] MEDS: sodium chloride 0.9% 1,000 ML 999 ML IV (12:13)
[2020-07-04 12:34] LABS: Basophils % 0.5 %; Eosinophils % 0.7 %; Hematocrit 33.8 % (37.0-47.0); Lymphocytes # 0.9 10^3/uL (0.8-4.8); Mean Corpuscular HGB Conc 32.5 g/dL (30.0-36.0); Mean Corpuscular Hemoglobin 31.4 pg (28.0-34.0); Mean Corpuscular Volume 96.6 fL (81-99); Mean Platelet Volume 10.9 fL (7.4-10.4); Monocytes # 0.3 10^3/uL (0.2-0.9); Monocytes % 6.9 %; Neutrophils % 69.4 %; Nucleated Red Blood Cells % 0 %; Platelet Count 149 10^3/cmm (130-400); Red Cell Distribution Width 13.9 % (12.1-15.1); White Blood Count 4.2 10^3/uL (4.0-10.0)
[2020-07-04 12:53] LABS: Alanine Aminotransferase 27 U/L (0-33); Albumin Level 4.2 g/dL (3.5-5.2); Alkaline Phosphatase 67 IU/L (35-105); Anion Gap 17.5 (5-19); Aspartate Amino Transferase 17 U/L (0-32); Blood Urea Nitrogen 15 mg/dL (6-20); Calcium 8.8 mg/dL (8.5-10.5); Carbon Dioxide 24 mmol/L (22-29); Chloride 101 mmol/L (98-107); Glomerular Filtration Rate 165.1 mL/min (90-130); Glucose 83 mg/dL (65-115); Osmolality Calculated 288 mOsm/kg (285-295); Potassium 3.5 mmol/L (3.5-5.1); Sodium 139 mmol/L (136-145); Total Bilirubin 0.4 mg/dL (0.15-1.2); Total Protein 6.2 g/dL (6.6-8.7)
[2020-07-05] MEDS: sodium chloride 0.9% 1,000 ML 999 ML IV (11:13)
[2020-07-05] MEDS: ondansetron 2 mg/ML SDV 2 mL 8 MG IV (11:13)
[2020-07-05] MEDS: methylnaltrexone 12 /0.6 mL INJ 12 MG SUBCUT (12:18)
== END 2020-07-08 23:59 | disposition home or self-care (01) ==
LOC: ONCMED 05:35
PROVIDERS: Internal Medicine Medical Oncology; Absent Provider Radiology Radiation Oncology; PCP Nurse Practitioner Family; Visit Provider Nurse Practitioner
DX: Z51.0 Encounter for antineoplastic radiation therapy (principal); C57.02 Malignant neoplasm of left fallopian tube; C78.6 Secondary malignant neoplasm of retroperitoneum and peritoneum; J30.9 Allergic rhinitis, unspecified; F41.9 Anxiety disorder, unspecified; F32.9 Major depressive disorder, single episode, unspecified; K21.9 Gastro-esophageal reflux disease without esophagitis; Z79.899 Other long term (current) drug therapy
CPT/HCPCS: 77263; 77290; 77295; 77300; 77334; 77387; 77412; 80053; 85025; 96361; 96365; 96368; 96372; 96375; C9113; J1100; J1170; J2212; J2405; J7030

== ENCOUNTER 2020-08-07 05:44 | Outpatient (RCR) | payer OTHER, SELFPAY ==
--- NOTE | 2020-07-09 14:25 | ONCRAD TMN_ITS ---
Radiation Oncology Treatment Management Note Patient Name: Jagruti Jay Date of : 1965 Date of Service: 07/09/2020 Attending Physician: Filemon Littlejohn M.D. Jagruti Jay is a 54 year-old white female diagnosed with serous carcinoma of the fallopian tube in 2019 and recently identified to have a painful left supraclavicular mass. The patient has received 12 Gy of a prescribed 20 Nur to the left supraclavicular mass with a 3-dimensional conformal radiotherapy plan utilizing AP, PA, ROMANSH, and ARMENTA ports. Upon review of systems, she described improvement in the pain (310). On physical examination, the patient weighed 120 lbs. His temperature was 97.7 ???F with a blood pressure of 107/62 mmHg. His pulse was 97 bpm and his respiratory rate was 18. Continue palliative radiotherapy as prescribed. I will refill the Phenergan suppositories prescription at her request. Signed by: Dr. Filemon Littlejohn 07/09/2020 2:24:00 PM
[2020-07-11] MEDS: ondansetron 2 mg/ML SDV 2 mL 8 MG IVP (13:37)
[2020-07-11] MEDS: sodium chloride 0.9% 1,000 ML 999 ML IV (13:38)
[2020-07-11 15:51] LABS: CA 125 175.4 U/mL (0-35)
[2020-07-12] MEDS: ondansetron 2 mg/ML SDV 2 mL 8 MG IVP (11:06)
[2020-07-12] MEDS: sodium chloride 0.9% 1,000 ML 999 ML IV (11:08)
[2020-07-18 08:56] LABS: Basophils % 0.8 %; Eosinophils % 0.3 %; Hematocrit 35.3 % (37.0-47.0); Hemoglobin 11.5 g/dL (11.5-15.3); Mean Corpuscular HGB Conc 32.6 g/dL (30.0-36.0); Mean Corpuscular Hemoglobin 32.3 pg (28.0-34.0); Mean Corpuscular Volume 99.2 fL (81-99); Mean Platelet Volume 10.5 fL (7.4-10.4); Monocytes # 0.6 10^3/uL (0.2-0.9); Monocytes % 14.3 %; Neutrophils # 2.34 10^3/uL (1.8-7.7); Neutrophils % 58.3 %; Nucleated Red Blood Cells % 0 %; Platelet Count 159 10^3/cmm (130-400); Red Blood Count 3.56 10^6/uL (4.1-5.3); Red Cell Distribution Width 15.4 % (12.1-15.1)
[2020-07-18 09:22] LABS: Alanine Aminotransferase 7 U/L (0-33); Alkaline Phosphatase 59 IU/L (35-105); Anion Gap 13.1 (5-19); Aspartate Amino Transferase 13 U/L (0-32); Blood Urea Nitrogen 15 mg/dL (6-20); Calcium 8.9 mg/dL (8.5-10.5); Carbon Dioxide 25 mmol/L (22-29); Chloride 105 mmol/L (98-107); Globulin 2.1 g/dL (1.3-4.6); Glomerular Filtration Rate 127.6 mL/min (90-130); Glucose 87 mg/dL (65-115); Osmolality Calculated 288 mOsm/kg (285-295); Potassium 4.1 mmol/L (3.5-5.1); Sodium 139 mmol/L (136-145); Total Bilirubin 0.3 mg/dL (0.15-1.2); Total Protein 6.1 g/dL (6.6-8.7)
--- NOTE | 2020-07-19 11:47 | ONC FU_ITS ---
Dr. Gery Patient Follow-Up Note Patient: Jagruti Jay Unit #: [id number]: [id number] Dicatated By: John Grey M.D.Date of Visit:Jul 18, 2020 Onc Med Follow-up/Prog Note Chief Complaint: Fallopian tube cancer. 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 She had a recurrence in the form of a right diaphragmatic peritoneal implant confirmed by biopsy at a cholecystectomy procedure in April 2018. She had presented in August 2015 with abdominal pain, and she was found to have a large pelvic mass. This was initially thought to be arising from the right ovary. On 09/17/2015 she underwent surgery which included total abdominal hysterectomy, bilateral salpingo-oophorectomy, and radical debulking along with pelvic lymphadenectomy and limited periaortic lymphadenectomy. I do not have those actual reports available, but she apparently was thought to have a complete or near-complete resection. She was then given postoperative adjuvant chemotherapy with 6 cycles of carboplatin/paclitaxel. On 09/28/2018 she underwent cholecystectomy, and at the time of that procedure she was noted to have a peritoneal implant on the right diaphragm. Biopsy of the implant showed high-grade carcinoma consistent with the previous high-grade serous primary. With that finding she was then given further chemotherapy with 6 cycles of carboplatin/gemcitabine, which she completed in September 2018. Restaging CT scans of the chest, abdomen, and pelvis on 10/07/2018 showed resolution of a previously noted small anterior hepatic capsular or subcapsular nodule. There are new postsurgical changes in that region. 2 very closely associated hypodense foci were again noted in the right lobe posteriorly, maximum aggregate diameter of 3 mm. That finding. Stable. There was no evidence of a new focal hepatic abnormality. There were small mesenteric, retroperitoneal, and bilateral inguinal lymph nodes. There was no pathologic lymphadenopathy. A 5 x 3 mm sclerotic focus at the right posterior aspect of the manubrium appeared stable compared to a prior study from October 2015. There were no suspicious osseous lesions noted. With those findings, she was recommended to continue further systemic therapy with 16 cycles of bevacizumab administered at 3-week intervals. She received cycle 1 of bevacizumab on 11/10/2018. She tolerated it without acute toxicity, and she then continued treatment at a 3-week dosing interval. As of 07/04/2019 she completed her 12th cycle. Restaging CT scans on 07/21/2019 showed no evidence of metastatic disease in the chest, abdomen, or pelvis. There was evidence of diffuse fatty infiltration of the liver with an enlarged hepatic lobe measuring 19 cm. A left renal cyst measured 12 mm. There were no other abnormal findings. She continued her maintenance bevacizumab. She completed her 16th and last planned cycle on 10/09/2019. INTERIM HISTORY: As of her follow-up visit on October 24, 2019 her CA-125 level had increased to 33.4 U/mL. Overall, it appeared to have been increasing very gradually since January 2019 when it was 12.4 U/mL. However, at that point she appeared stable clinically and she continued observation/expectant management. As of 01/24/2020 there was further increase in the CA-125 to 48.3 U/mL. Her restaging CT scans of the chest, abdomen, and pelvis showed no evidence for metastatic disease. There were no other acute findings noted. Despite the negative CT findings, with the continued increase in the CA-125 level she was scheduled to have follow-up with Dr. Landon. She had repeat CT scans on 04/02/2020. It showed new small circumferential pericardial effusion and new findings within the peritoneal cavity which were concerning for metastatic involvement. This included increased soft tissue surrounding the mid SMA and increased soft tissue in the periaortic distribution. There were new small mesenteric, periaortic, and iliac chain lymph nodes. There was no ascites. Her further evaluation included genetic screening which showed 2 heterozygous variants of uncertain significance. She was negative for BRCA mutation. During this time her CA-125 level continued to increase. As of 04/30/2020 it was up to 177.0 U/mL. 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 It also showed genomic ZANE, and it was positive for PD-L1 expression with a CPS of 5. It was noted to be MSI stable. On 06/20/2020 she began salvage chemotherapy with cycle 1 of Doxil. Her baseline CA-125 level was 407.8 U/mL. The treatment was complicated by nausea/vomiting, severe constipation, and abdominal pain. She required IV hydration and IV antiemetics on multiple occasions. She did not have any evidence of bowel obstruction. In the meantime, she also had progressive enlargement of the right supraclavicular lymph node. As it had become increasingly symptomatic, she was referred to Dr. Littlejohn, and she underwent palliative radiation to the right supraclavicular area. Treatment was completed on 07/11/2020 to a total dose of 2000 cGy administered in 5 fractions. She is seen for a follow-up visit. She has been feeling a little better this past week, so that she now has at least a little bit of energy and she can walk across the floor. Her ECOG score is 2. Her appetite is getting better, but her weight is down almost 20 pounds. She does not have fever or night sweats. She has been having a lot of sinus drainage and she also has had sore throat. She has not been having cough, and she does not complain of shortness of breath or chest pain. She says her nausea is a lot better, but not completely gone. Her acid reflux is being managed adequately with Pepcid. She continues to have constipation, but her bowels are moving with a combination of Dulcolax tablets and magnesium citrate. She is still having some pain in the lower abdominal area. Bladder function remains adequate. She is not having any significant joint or bone pain. She does not complain of headache. She has had some lightheadedness and she has some tingling in her hands. Medications: Acid Control Maximum Strength (20 mg) Tablet Oral daily, Allergy Relief Loratadine (10 mg) Tablet Oral daily, Ativan 1 Tablet (of 2 mg) Oral q 4 to 6 hours PRN, Cholecalciferol 2 Capsule (of 5000 Units) Oral daily, Lexapro 1 Tablet (of 10 mg) Oral daily, Promethazine HCl (25 mg) Suppository Rectal t.i.d. PRN, Singulair 1 Tablet (of 10 mg) Oral at bedtime, Vitamin E 1 Capsule (of 500 mg) Oral daily Allergies: Sulfa Antibiotics Vital Signs: Performed on Jul 18, 2020 10:02 Height - 64.00 in Weight - 119.4 lbs (LOW) BSA - 1.57 sq.m BMI - 20.50 Temperature - 98.3 F (LOW) Pulse - 103 /min (HIGH) Respiration - 18 /min BP - 100/68 mm(hg) O2 Sat - 99 % Pain - 0 Fatigue - 8 Physical Examination: Constitutional - She appears somewhat weak generally, Eyes - Sclerae nonicteric. Conjunctivae clear, ENMT - No lesions noted in the oral cavity, Hematologic/Lymphatic - There is residual right supraclavicular fossa mass measuring in the range of 3 to 4 cm. I do not feel any other adenopathy in the neck or axilla, Respiratory - Lungs are clear with good air movement bilaterally, Cardiovascular - Heart rhythm is regular. There is no murmur, gallop, or rub noted, Abdomen - Mildly distended but soft. There is a ventral hernia. Liver and spleen are not enlarged. There is no abdominal mass or ascites noted and there is no inguinal adenopathy, Extremities - No edema, Integumentary - There is hyperpigmentation in the left axillary area, Neurologic - No focal neurologic deficits noted. Lab/Imaging: Test performed on Jul 18, 2020 08:30 Sodium 139 mmol/L Potassium 4.1 mmol/L Chloride 105 mmol/L CO2 25 mmol/L Anion Gap 13.1 BUN 15 mg/dL Creatinine 0.5 mg/dL Cr Clearance (Est) 107.42 mL/min eGFR 127.6 mL/min Glucose 87 mg/dL Osmolality - Calculated 288 mOsm/kg Calcium 8.9 mg/dL Protein, Total 6.1 g/dL Albumin 4.0 g/dL Globulin 2.1 g/dL Bilirubin, Total 0.3 mg/dL ALT (SGPT) 7 U/L AST (SGOT) 13 U/L Alkaline Phosphatase 59 IU/L WBC 4.0 10 3/uL RBC 3.56 10 6/uL HGB 11.5 g/dL HCT 35.3 % MCV 99.2 fL MCH 32.3 pg MCHC 32.6 g/dL RDW 15.4 % Platelet Count 159 10 3/cmm MPV 10.5 fL Neutrophils 2.34 10 3/uL Lymphocytes 1.0 10 3/uL Monocytes 0.6 10 3/uL Eosinophils 0.0 10 3/uL Basophils 0.0 10 3/uL Neutrophil % 58.3 % Lymphocyte % 26.0 % Monocyte % 14.3 % Eosinophil % 0.3 % Basophils % 0.8 % NRBC % 0 % Test performed on Jul 11, 2020 15:00 CA-125 175.4 U/mL Problem List: 1. 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 The tumor has been found on next generation sequencing to harbor a BRCA1 mutation, presumed to be somatic. 2. GERD. 3. Allergic rhinitis. 4. Anxiety/depression. 5. She developed COVID-19 virus infection in October 2019. She had an uneventful recovery. Problems Addressed with this Encounter and Plan: 1. 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 She had complete or near-complete debulking with her initial surgery in September 2015. She was given postoperative adjuvant chemotherapy with 6 cycles of carboplatin/paclitaxel. She had biopsy proven recurrence in the form of a right diaphragmatic peritoneal implant, discovered at the cholecystectomy procedure in April 2018. She then had further chemotherapy with 6 cycles of carboplatin/gemcitabine, completed in September 2018. She had no evidence of residual disease on restaging CT scans on 10/07/2018. She then continued maintenance therapy with single agent bevacizumab at a 3-week interval dosing schedule for 16 cycles. She began cycle 1 of bevacizumab on 11/10/2018. She tolerated it well, and she was able to continue her treatment every 3 weeks with no apparent adverse effects. As of 10/09/2019 she completed her 16th and last planned cycle of bevacizumab. As of January 2020 there was a significant increase in her CA-125 level, up to 48 U/mL. In reviewing her records, it actually has been showing a very gradual increase over the preceding year, from 12.4 U/mL in January 2019. However, she was not overtly symptomatic with it and her restaging CT scans on 01/24/2020 showed no evidence of metastatic disease. Her repeat CT scans on 04/02/2020 showed findings within the peritoneal cavity which were concerning for metastatic involvement, including increased soft tissue surrounding the mid SMA and increased soft tissue in the periaortic distribution. There were new small mesenteric, periaortic, and iliac chain lymph nodes. Also noted was a new small circumferential pericardial effusion. At this point she was having significant pain in her abdomen and back, and she also was having ongoing problems with constipation. She has had follow-up with Dr. Landon, and she was recommended to restart chemotherapy with either carboplatin in combination with Doxil or with Doxil monotherapy. In the meantime, she was found to be BRCA negative on genetic screening. At her follow-up visit on 04/30/2020 she was noted to have enlarging right supraclavicular lymphadenopathy. 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 It also showed genomic ZANE, and it was positive for PD-L1 expression with a CPS of 5. It was noted to be MSI stable. She then began cycle 1 of Doxil monotherapy on 06/20/2020. The treatment was complicated by pretty severe nausea/vomiting, requiring IV hydration on multiple occasions. She also had ongoing, severe constipation but with no evidence of bowel obstruction by abdominal x-ray or CT. She has started feeling a little better just within the past week or so. At this point she is still generally weak and she has very limited activity tolerance. There has been a significant decline in her CA-125 level suggesting some response to the chemotherapy. However, given the toxicity that she experienced, I am inclined to change her treatment. With that in mind, she will be scheduled to return next week and restart chemotherapy with carboplatin/gemcitabine. If she has a significant response to chemotherapy, she can then be transitioned to a PARP inhibitor. In the meantime, I will have her start dronabinol 5 mg together with Compazine 10 mg twice daily for the nausea/anorexia. She will continue lorazepam as needed. She also will continue Dulcolax tablets for the constipation, I will have her try combining that with lactulose. Signed By: John Grey M.D. <<Signature on File>>
[2020-07-25 09:50] LABS: Basophils % 0.4 %; Eosinophils # 0.1 10^3/uL (0.0-0.8); Eosinophils % 1.3 %; Hematocrit 35.6 % (37.0-47.0); Hemoglobin 11.3 g/dL (11.5-15.3); Lymphocytes # 1.1 10^3/uL (0.8-4.8); Lymphocytes % 25.1 %; Mean Corpuscular HGB Conc 31.7 g/dL (30.0-36.0); Mean Corpuscular Hemoglobin 31.9 pg (28.0-34.0); Mean Corpuscular Volume 100.6 fL (81-99); Mean Platelet Volume 10.8 fL (7.4-10.4); Monocytes # 0.5 10^3/uL (0.2-0.9); Monocytes % 12.1 %; Neutrophils # 2.71 10^3/uL (1.8-7.7); Neutrophils % 60.9 %; Nucleated Red Blood Cells % 0 %; Platelet Count 136 10^3/cmm (130-400); Red Blood Count 3.54 10^6/uL (4.1-5.3); Red Cell Distribution Width 15.7 % (12.1-15.1); White Blood Count 4.5 10^3/uL (4.0-10.0)
[2020-07-25 10:29] LABS: Alanine Aminotransferase 9 U/L (0-33); Alkaline Phosphatase 59 IU/L (35-105); Anion Gap 13.9 (5-19); Aspartate Amino Transferase 14 U/L (0-32); Blood Urea Nitrogen 9 mg/dL (6-20); CA 125 98.5 U/mL (0-35); Calcium 8.5 mg/dL (8.5-10.5); Carbon Dioxide 24 mmol/L (22-29); Chloride 106 mmol/L (98-107); Glomerular Filtration Rate 127.6 mL/min (90-130); Glucose 88 mg/dL (65-115); Osmolality Calculated 288 mOsm/kg (285-295); Potassium 3.9 mmol/L (3.5-5.1); Sodium 140 mmol/L (136-145); Total Bilirubin 0.4 mg/dL (0.15-1.2)
[2020-07-25] MEDS: sodium chloride 0.9% 250 ML 75 ML IV (11:18)
[2020-08-07 09:04] LABS: Basophils % 0.3 %; Eosinophils % 0.9 %; Hematocrit 32.6 % (37.0-47.0); Hemoglobin 10.4 g/dL (11.5-15.3); Lymphocytes # 0.9 10^3/uL (0.8-4.8); Lymphocytes % 25.1 %; Mean Corpuscular HGB Conc 31.9 g/dL (30.0-36.0); Mean Corpuscular Hemoglobin 32.3 pg (28.0-34.0); Mean Corpuscular Volume 101.2 fL (81-99); Monocytes # 0.4 10^3/uL (0.2-0.9); Monocytes % 12.7 %; Neutrophils # 2.12 10^3/uL (1.8-7.7); Nucleated Red Blood Cells % 0 %; Platelet Count 81 10^3/cmm (130-400); Red Blood Count 3.22 10^6/uL (4.1-5.3); Red Cell Distribution Width 16.6 % (12.1-15.1); White Blood Count 3.5 10^3/uL (4.0-10.0)
[2020-08-07 09:41] LABS: Alanine Aminotransferase 9 U/L (0-33); Albumin Level 3.9 g/dL (3.5-5.2); Alkaline Phosphatase 61 IU/L (35-105); Anion Gap 10.8 (5-19); Aspartate Amino Transferase 13 U/L (0-32); Blood Urea Nitrogen 12 mg/dL (6-20); Calcium 8.6 mg/dL (8.5-10.5); Carbon Dioxide 26 mmol/L (22-29); Chloride 104 mmol/L (98-107); Glomerular Filtration Rate 127.6 mL/min (90-130); Glucose 90 mg/dL (65-115); Osmolality Calculated 283 mOsm/kg (285-295); Potassium 3.8 mmol/L (3.5-5.1); Sodium 137 mmol/L (136-145); Total Bilirubin 0.3 mg/dL (0.15-1.2); Total Protein 5.9 g/dL (6.6-8.7)
[2020-08-07] MEDS: OLANZapine 5 mg TABLET PO (11:49)
[2020-08-07] MEDS: sodium chloride 0.9% 250 ML 75 ML IV (11:49)
[2020-08-07] MEDS: palonosetron 0.25 mg/5 mL SDV IV (11:49)
[2020-08-07] MEDS: fosaprepitant 150 MG in sodium chloride 0.9% 150 ML 300 MG IV (12:10)
--- NOTE | 2020-08-14 04:50 | ONC FU_ITS ---
[facility] Patient Note Patient: Jagruti Jay Unit #: [id number]: [id number] Dictated By: Celio WarrenDate of Visit: Aug 07, 2020 Onc MED Follow-Up/Prog Note Chief Complaint: Fallopian tube cancer. 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 She had a recurrence in the form of a right diaphragmatic peritoneal implant confirmed by biopsy at a cholecystectomy procedure in April 2018. She had presented in August 2015 with abdominal pain, and she was found to have a large pelvic mass. This was initially thought to be arising from the right ovary. On 09/17/2015 she underwent surgery which included total abdominal hysterectomy, bilateral salpingo-oophorectomy, and radical debulking along with pelvic lymphadenectomy and limited periaortic lymphadenectomy. We do not have those actual reports available, but she apparently was thought to have a complete or near-complete resection. She was then given postoperative adjuvant chemotherapy with 6 cycles of carboplatin/paclitaxel. On 09/28/2018 she underwent cholecystectomy, and at the time of that procedure she was noted to have a peritoneal implant on the right diaphragm. Biopsy of the implant showed high-grade carcinoma consistent with the previous high-grade serous primary. With that finding she was then given further chemotherapy with 6 cycles of carboplatin/gemcitabine, which she completed in September 2018. Restaging CT scans of the chest, abdomen, and pelvis on 10/07/2018 showed resolution of a previously noted small anterior hepatic capsular or subcapsular nodule. There are new postsurgical changes in that region. 2 very closely associated hypodense foci were again noted in the right lobe posteriorly, maximum aggregate diameter of 3 mm. That finding. Stable. There was no evidence of a new focal hepatic abnormality. There were small mesenteric, retroperitoneal, and bilateral inguinal lymph nodes. There was no pathologic lymphadenopathy. A 5 x 3 mm sclerotic focus at the right posterior aspect of the manubrium appeared stable compared to a prior study from October 2015. There were no suspicious osseous lesions noted. With those findings, she was recommended to continue further systemic therapy with 16 cycles of bevacizumab administered at 3-week intervals. She received cycle 1 of bevacizumab on 11/10/2018. She tolerated it without acute toxicity, and she then continued treatment at a 3-week dosing interval. As of 07/04/2019 she completed her 12th cycle. Restaging CT scans on 07/21/2019 showed no evidence of metastatic disease in the chest, abdomen, or pelvis. There was evidence of diffuse fatty infiltration of the liver with an enlarged hepatic lobe measuring 19 cm. A left renal cyst measured 12 mm. There were no other abnormal findings. She continued her maintenance bevacizumab. She completed her 16th and last planned cycle on 10/09/2019. INTERIM HISTORY: As of her follow-up visit on October 24, 2019 her CA-125 level had increased to 33.4 U/mL. Overall, it appeared to have been increasing very gradually since January 2019 when it was 12.4 U/mL. However, at that point she appeared stable clinically and she continued observation/expectant management. As of 01/24/2020 there was further increase in the CA-125 to 48.3 U/mL. Her restaging CT scans of the chest, abdomen, and pelvis showed no evidence for metastatic disease. There were no other acute findings noted. Despite the negative CT findings, with the continued increase in the CA-125 level she was scheduled to have follow-up with Dr. Landon. She had repeat CT scans on 04/02/2020. It showed new small circumferential pericardial effusion and new findings within the peritoneal cavity which were concerning for metastatic involvement. This included increased soft tissue surrounding the mid SMA and increased soft tissue in the periaortic distribution. There were new small mesenteric, periaortic, and iliac chain lymph nodes. There was no ascites. Her further evaluation included genetic screening which showed 2 heterozygous variants of uncertain significance. She was negative for BRCA mutation. During this time her CA-125 level continued to increase. As of 04/30/2020 it was up to 177.0 U/mL. 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 It also showed genomic ZANE, and it was positive for PD-L1 expression with a CPS of 5. It was noted to be MSI stable. On 06/20/2020 she began salvage chemotherapy with cycle 1 of Doxil. Her baseline CA-125 level was 407.8 U/mL. The treatment was complicated by nausea/vomiting, severe constipation, and abdominal pain. She required IV hydration and IV antiemetics on multiple occasions. She did not have any evidence of bowel obstruction. In the meantime, she also had progressive enlargement of the right supraclavicular lymph node. As it had become increasingly symptomatic, she was referred to Dr. Littlejohn, and she underwent palliative radiation to the right supraclavicular area. Treatment was completed on 07/11/2020 to a total dose of 2000 cGy administered in 5 fractions. Mrs. Jay resumed chemotherapy with carboplatin gemcitabine on July 25, 2020. She is here today for follow-up on day 8 chemotherapy. She states overall she is doing about the same. She states she may feel little bit better in general. She has been taking Pepcid twice a day for heartburn and that is much better. She states that she did have nausea but was worse after diet 3 of chemotherapy. She states she not had any emesis just nausea. She states the nausea is been pretty significant though and it does affect her eating and activities of daily living. She denies any pain. She denies any new pain. She states that her fatigue has just been dramatic and it seems to be some better but still bad . She denies any fever or chills. She had no mouth sores, sore throat or difficulty swallowing. She denies any bruising or bleeding. She denies any shortness of breath orthopnea. She denies any hemoptysis. She denies any hematochezia. She is had no urinary symptoms or hematuria. Her ECOG is 2. Past Medical History: Allergic rhinitis Anxiety/depression Fallopian tube cancer Gastroesophageal reflux disease Past Surgical History: Cholecystectomy in 2019 Placement of PowerPort in 2016 MARIBELL/BSO, omentectomy, radical debulking with pelvic and periaortic lymphadenectomy in 2016 Allergies: Sulfa Antibiotics Medications: Acid Control Maximum Strength (20 mg) Tablet Oral daily Allergy Relief Loratadine (10 mg) Tablet Oral daily Ativan 1 Tablet (of 2 mg) Oral q 4 to 6 hours PRN Cholecalciferol 2 Capsule (of 5000 Units) Oral daily Lexapro 1 Tablet (of 10 mg) Oral daily Promethazine HCl (25 mg) Suppository Rectal t.i.d. PRN Singulair 1 Tablet (of 10 mg) Oral at bedtime Vitamin E 1 Capsule (of 500 mg) Oral daily Family History: Ms. Jay's mother at age 82: congestive heart failure, and coronary artery disease, and type II diabetes. Ms. Jay's father at age 82: lung cancer. Ms. Jay has 3 brothers: 3 alive. She has 2 sisters: 2 alive. Father of lung cancer at age 82. Mother of heart disease at age 82. She also had diabetes. A brother has leukemia, which I assume is chronic leukocytic leukemia. Four other siblings are in good health. A nephew of leukemia. 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 Ms. aJy quit smoking 21 years ago but had smoked 0.5 packs/day for 20 years. She has no history of drinking. Ms. Jay reports the following support systems: lives with spouse, significant other, family, or friends, lives in own house, supportive family/friends willing to assist with needs, and adequate transportation available for expected visits. Her diet consists of regular meals. She indicates her activity level as: regular exercise. She has a history of smoking 1/2 pack of cigarettes daily for 20 years, but she quit 20 years ago. She does not drink alcohol. Review Of Symptoms: <See Above> Vital Signs: Performed on Aug 07, 2020 10:10 Height - 64.00 in Weight - 122.4 lbs (HIGH) BSA - 1.59 sq.m BMI - 21.01 Temperature - 97.2 F (LOW) Pulse - 82 /min Respiration - 18 /min BP - 90/60 mm(hg) O2 Sat - 99 % Pain - 0 Fatigue - 5,2 - Ambulatory/capable of all self-care, unable to perform any work activities. Up and about more than 50% of waking hours. (ECOG) Physical Examination: Constitutional Alert, oriented, no acute distress. Skin pink, warm and dry. Head Normocephalic; atraumatic. Eyes Conjunctivae and sclerae are clear and without icterus. Pupils are reactive and equal. Respiratory Lungs are clear to auscultation without rhonchi or wheezing. Cardiovascular Regular rate and rhythm of heart without murmurs,clicks, gallops or rubs. Chest Left chest wall venous access device unremarkable. Abdomen Non-tender, non-distended, no masses, ascites. Back/Spine Non-tender to palpation. Extremities No visible deformities, no cyanosis, clubbing or edema. Musculoskeletal No tenderness or swelling, normal range of motion without obvious weakness. Integumentary No rashes or lesions. Neurologic No sensory or motor deficits, normal cerebellar function, normal gait. Psychiatric Alert and oriented times three. Coherent slow speech. Verbalizes understanding of our discussions today. Laboratory:Test performed on Aug 07, 2020 10:38 Creatinine 0.5 mg/dL Cr Clearance (Est) 107.42 mL/min Test performed on Aug 07, 2020 08:48 Sodium 137 mmol/L Potassium 3.8 mmol/L Chloride 104 mmol/L CO2 26 mmol/L Anion Gap 10.8 BUN 12 mg/dL eGFR 127.6 mL/min Glucose 90 mg/dL Osmolality - Calculated 283 mOsm/kg Calcium 8.6 mg/dL Protein, Total 5.9 g/dL Albumin 3.9 g/dL Globulin 2.0 g/dL Bilirubin, Total 0.3 mg/dL ALT (SGPT) 9 U/L AST (SGOT) 13 U/L Alkaline Phosphatase 61 IU/L WBC 3.5 10 3/uL RBC 3.22 10 6/uL HGB 10.4 g/dL HCT 32.6 % MCV 101.2 fL MCH 32.3 pg MCHC 31.9 g/dL RDW 16.6 % Platelet Count 81 10 3/cmm MPV 11.0 fL Neutrophils 2.12 10 3/uL Lymphocytes 0.9 10 3/uL Monocytes 0.4 10 3/uL Eosinophils 0.0 10 3/uL Basophils 0.0 10 3/uL Neutrophil % 61.0 % Lymphocyte % 25.1 % Monocyte % 12.7 % Eosinophil % 0.9 % Basophils % 0.3 % NRBC % 0 % Test performed on Jul 25, 2020 09:05 CA-125 98.5 U/mL Test performed on June 20, 2020 09:50 TSH 2.38 uIU/mL Impression: 1. 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 The tumor has been found on next generation sequencing to harbor a BRCA1 mutation, presumed to be somatic. 2. GERD. 3. Allergic rhinitis. 4. Anxiety/depression. 5. She developed COVID-19 virus infection in October 2019. She had an uneventful recovery. Plan/Problems Addressed at this Visit: 1. 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 She had complete or near-complete debulking with her initial surgery in September 2015. She was given postoperative adjuvant chemotherapy with 6 cycles of carboplatin/paclitaxel. She had biopsy proven recurrence in the form of a right diaphragmatic peritoneal implant, discovered at the cholecystectomy procedure in April 2018. She then had further chemotherapy with 6 cycles of carboplatin/gemcitabine, completed in September 2018. She had no evidence of residual disease on restaging CT scans on 10/07/2018. She then continued maintenance therapy with single agent bevacizumab at a 3-week interval dosing schedule for 16 cycles. She began cycle 1 of bevacizumab on 11/10/2018. She tolerated it well, and she was able to continue her treatment every 3 weeks with no apparent adverse effects. As of 10/09/2019 she completed her 16th and last planned cycle of bevacizumab. As of January 2020 there was a significant increase in her CA-125 level, up to 48 U/mL. In reviewing her records, it actually has been showing a very gradual increase over the preceding year, from 12.4 U/mL in January 2019. However, she was not overtly symptomatic with it and her restaging CT scans on 01/24/2020 showed no evidence of metastatic disease. Her repeat CT scans on 04/02/2020 showed findings within the peritoneal cavity which were concerning for metastatic involvement, including increased soft tissue surrounding the mid SMA and increased soft tissue in the periaortic distribution. There were new small mesenteric, periaortic, and iliac chain lymph nodes. Also noted was a new small circumferential pericardial effusion. At this point she was having significant pain in her abdomen and back, and she also was having ongoing problems with constipation. She has had follow-up with Dr. Landon, and she was recommended to restart chemotherapy with either carboplatin in combination with Doxil or with Doxil monotherapy. In the meantime, she was found to be BRCA negative on genetic screening. At her follow-up visit on 04/30/2020 she was noted to have enlarging right supraclavicular lymphadenopathy. 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 It also showed genomic ZANE, and it was positive for PD-L1 expression with a CPS of 5. It was noted to be MSI stable. She then began cycle 1 of Doxil monotherapy on 06/20/2020. The treatment was complicated by pretty severe nausea/vomiting, requiring IV hydration on multiple occasions. She also had ongoing, severe constipation but with no evidence of bowel obstruction by abdominal x-ray or CT. She has started feeling a little better just within the past week or so. At this point she is still generally weak and she has very limited activity tolerance. There has been a significant decline in her CA-125 level suggesting some response to the chemotherapy. However, given the toxicity that she experienced, Dr Grey rcommended to change her treatment. She began carboplatin/gemcitabine on July 25, 2020. If she has a significant response to chemotherapy, she can then be transitioned to a PARP inhibitor. In the meantime, Dr Grey did have her start dronabinol 5 mg together with Compazine 10 mg twice daily for the nausea/anorexia. A. Proceed with cycle 2 day 1 carboplatin gemcitabine. Addendum: her chemotherapy doses were reduced by 25%. B. We will add Zyprexa to her premeds and also post meds. She can take 5 to 10 mg daily for 3 to 4 days post chemotherapy. As she has pre-existing nausea she will need to be treated as a highly aggressive emetogenic regimen. C. Today's labs reviewed in detail and discussed with Mrs. Jay and a copy was given to her. WBC 3.5, hemoglobin 10.4, platelets 81,000, ANC is 2120. Potassium 3.8 glucose 90 and creatinine is 0.5. We discussed her platelet count of 81,000 at length. Has she does have disease progression is opted to pursue aggressive treatment with her at this time. She is aware that she may need supportive care such as platelet pheresis with treatment today. Pursuing treatment with the carboplatin gemcitabine may result in her blood counts dropping even more. She and her are aware of this. D. We will plan to see her back in 1 week with CBC CMP and type and screen for possible blood products. She will be due for day 8 of cycle 2 at that time. E. Mrs. Jay is instructed to contact us in interim should questions or problems arise. Signed By: Celio Warren-, [facility] John Grey MD <<Signature on File>>
== END 2020-08-07 23:59 | disposition home or self-care (01) ==
LOC: ONCMED 05:44
PROVIDERS: Internal Medicine Medical Oncology; Absent Provider Radiology Radiation Oncology; PCP Nurse Practitioner Family; Visit Provider Nurse Practitioner
DX: Z51.0 Encounter for antineoplastic radiation therapy (principal); Z51.11 Encounter for antineoplastic chemotherapy; C57.02 Malignant neoplasm of left fallopian tube; K21.9 Gastro-esophageal reflux disease without esophagitis; J30.9 Allergic rhinitis, unspecified; F41.9 Anxiety disorder, unspecified; F32.9 Major depressive disorder, single episode, unspecified; Z86.16 Personal history of COVID-19; Z79.899 Other long term (current) drug therapy
CPT/HCPCS: 36591; 77336; 77387; 77412; 80053; 85025; 86304; 96361; 96367; 96374; 96413; 96417; 99214; 99215; J1100; J1453; J2405; J2469; J7030; J7050; J9045; J9201

== ENCOUNTER 2020-09-04 05:43 | Outpatient (RCR) | payer OTHER, SELFPAY ==
[2020-08-14 08:47] LABS: Basophils % 0.4 %; Eosinophils % 0.4 %; Hematocrit 32.9 % (37.0-47.0); Hemoglobin 10.5 g/dL (11.5-15.3); Lymphocytes # 1.3 10^3/uL (0.8-4.8); Lymphocytes % 44.5 %; Mean Corpuscular HGB Conc 31.9 g/dL (30.0-36.0); Mean Corpuscular Hemoglobin 32.7 pg (28.0-34.0); Mean Corpuscular Volume 102.5 fL (81-99); Mean Platelet Volume 10.3 fL (7.4-10.4); Monocytes # 0.1 10^3/uL (0.2-0.9); Neutrophils # 1.39 10^3/uL (1.8-7.7); Neutrophils % 49.3 %; Nucleated Red Blood Cells % 0 %; Platelet Count 103 10^3/cmm (130-400); Red Blood Count 3.21 10^6/uL (4.1-5.3); Red Cell Distribution Width 16.6 % (12.1-15.1); White Blood Count 2.8 10^3/uL (4.0-10.0)
[2020-08-14 09:15] LABS: Alanine Aminotransferase 20 U/L (0-33); Albumin Level 4.1 g/dL (3.5-5.2); Alkaline Phosphatase 67 IU/L (35-105); Anion Gap 13.9 (5-19); Aspartate Amino Transferase 23 U/L (0-32); Blood Urea Nitrogen 11 mg/dL (6-20); Calcium 8.8 mg/dL (8.5-10.5); Carbon Dioxide 24 mmol/L (22-29); Chloride 106 mmol/L (98-107); Globulin 2.1 g/dL (1.3-4.6); Glomerular Filtration Rate 165.1 mL/min (90-130); Glucose 85 mg/dL (65-115); Osmolality Calculated 289 mOsm/kg (285-295); Potassium 3.9 mmol/L (3.5-5.1); Sodium 140 mmol/L (136-145); Total Bilirubin 0.2 mg/dL (0.15-1.2); Total Protein 6.2 g/dL (6.6-8.7)
[2020-08-21 12:22] LABS: Basophils % 0.2 %; Eosinophils % 0.2 %; Hemoglobin 9.9 g/dL (11.5-15.3); Lymphocytes # 0.8 10^3/uL (0.8-4.8); Lymphocytes % 17.4 %; Mean Corpuscular HGB Conc 31.9 g/dL (30.0-36.0); Mean Corpuscular Hemoglobin 33.3 pg (28.0-34.0); Mean Corpuscular Volume 104.4 fL (81-99); Mean Platelet Volume 10.9 fL (7.4-10.4); Monocytes # 0.6 10^3/uL (0.2-0.9); Monocytes % 12.5 %; Neutrophils # 3.12 10^3/uL (1.8-7.7); Neutrophils % 69.5 %; Nucleated Red Blood Cells % 0 %; Platelet Count 108 10^3/cmm (130-400); Red Blood Count 2.97 10^6/uL (4.1-5.3); White Blood Count 4.5 10^3/uL (4.0-10.0)
[2020-08-21 13:36] LABS: Alanine Aminotransferase 14 U/L (0-33); Alkaline Phosphatase 75 IU/L (35-105); Anion Gap 10.6 (5-19); Aspartate Amino Transferase 15 U/L (0-32); Blood Urea Nitrogen 13 mg/dL (6-20); Calcium 8.5 mg/dL (8.5-10.5); Carbon Dioxide 26 mmol/L (22-29); Chloride 102 mmol/L (98-107); Globulin 1.7 g/dL (1.3-4.6); Glomerular Filtration Rate 127.6 mL/min (90-130); Glucose 82 mg/dL (65-115); Osmolality Calculated 279 mOsm/kg (285-295); Potassium 3.6 mmol/L (3.5-5.1); Sodium 135 mmol/L (136-145); Total Bilirubin 0.3 mg/dL (0.15-1.2); Total Protein 5.7 g/dL (6.6-8.7)
[2020-08-21] MEDS: palonosetron 0.25 mg/5 mL SDV IVP (14:20)
[2020-08-21] MEDS: sodium chloride 0.9% 250 ML 75 ML IV (14:20)
[2020-08-21] MEDS: OLANZapine 5 mg TABLET PO (14:42)
[2020-08-21] MEDS: fosaprepitant 150 MG in sodium chloride 0.9% 150 ML 300 MG IV (14:42)
[2020-08-21 15:26] LABS: CA 125 39.1 U/mL (0-35)
--- NOTE | 2020-08-21 17:30 | ONC FU_ITS ---
Dr. Grey Patient Follow-Up Note Patient: Jagruti Jay Unit #: [id number]: 1965 Dicatated By: John Grey M.D.Date of Visit:Aug 21, 2020 Onc Med Follow-up/Prog Note Chief Complaint: Fallopian tube cancer. 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 She had a recurrence in the form of a right diaphragmatic peritoneal implant confirmed by biopsy at a cholecystectomy procedure in April 2018. She had presented in August 2015 with abdominal pain, and she was found to have a large pelvic mass. This was initially thought to be arising from the right ovary. On 09/17/2015 she underwent surgery which included total abdominal hysterectomy, bilateral salpingo-oophorectomy, and radical debulking along with pelvic lymphadenectomy and limited periaortic lymphadenectomy. I do not have those actual reports available, but she apparently was thought to have a complete or near-complete resection. She was then given postoperative adjuvant chemotherapy with 6 cycles of carboplatin/paclitaxel. On 09/28/2018 she underwent cholecystectomy, and at the time of that procedure she was noted to have a peritoneal implant on the right diaphragm. Biopsy of the implant showed high-grade carcinoma consistent with the previous high-grade serous primary. With that finding she was then given further chemotherapy with 6 cycles of carboplatin/gemcitabine, which she completed in September 2018. Restaging CT scans of the chest, abdomen, and pelvis on 10/07/2018 showed resolution of a previously noted small anterior hepatic capsular or subcapsular nodule. There are new postsurgical changes in that region. 2 very closely associated hypodense foci were again noted in the right lobe posteriorly, maximum aggregate diameter of 3 mm. That finding. Stable. There was no evidence of a new focal hepatic abnormality. There were small mesenteric, retroperitoneal, and bilateral inguinal lymph nodes. There was no pathologic lymphadenopathy. A 5 x 3 mm sclerotic focus at the right posterior aspect of the manubrium appeared stable compared to a prior study from October 2015. There were no suspicious osseous lesions noted. With those findings, she was recommended to continue further systemic therapy with 16 cycles of bevacizumab administered at 3-week intervals. She received cycle 1 of bevacizumab on 11/10/2018. She tolerated it without acute toxicity, and she then continued treatment at a 3-week dosing interval. As of 07/04/2019 she completed her 12th cycle. Restaging CT scans on 07/21/2019 showed no evidence of metastatic disease in the chest, abdomen, or pelvis. There was evidence of diffuse fatty infiltration of the liver with an enlarged hepatic lobe measuring 19 cm. A left renal cyst measured 12 mm. There were no other abnormal findings. She continued her maintenance bevacizumab. She completed her 16th and last planned cycle on 10/09/2019. INTERIM HISTORY: As of her follow-up visit on October 24, 2019 her CA-125 level had increased to 33.4 U/mL. Overall, it appeared to have been increasing very gradually since January 2019 when it was 12.4 U/mL. However, at that point she appeared stable clinically and she continued observation/expectant management. As of 01/24/2020 there was further increase in the CA-125 to 48.3 U/mL. Her restaging CT scans of the chest, abdomen, and pelvis showed no evidence for metastatic disease. There were no other acute findings noted. Despite the negative CT findings, with the continued increase in the CA-125 level she was scheduled to have follow-up with Dr. Landon. She had repeat CT scans on 04/02/2020. It showed new small circumferential pericardial effusion and new findings within the peritoneal cavity which were concerning for metastatic involvement. This included increased soft tissue surrounding the mid SMA and increased soft tissue in the periaortic distribution. There were new small mesenteric, periaortic, and iliac chain lymph nodes. There was no ascites. Her further evaluation included genetic screening which showed 2 heterozygous variants of uncertain significance. She was negative for BRCA mutation. During this time her CA-125 level continued to increase. As of 04/30/2020 it was up to 177.0 U/mL. 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 It also showed genomic ZANE, and it was positive for PD-L1 expression with a CPS of 5. It was noted to be MSI stable. On 06/20/2020 she began salvage chemotherapy with cycle 1 of Doxil. Her baseline CA-125 level was 407.8 U/mL. The treatment was complicated by nausea/vomiting, severe constipation, and abdominal pain. She required IV hydration and IV antiemetics on multiple occasions. She did not have any evidence of bowel obstruction. In the meantime, she also had progressive enlargement of the right supraclavicular lymph node. As it had become increasingly symptomatic, she was referred to Dr. Littlejohn, and she underwent palliative radiation to the right supraclavicular area. Treatment was completed on 07/11/2020 to a total dose of 2000 cGy administered in 5 fractions. As of her follow-up visit on 07/18/2020 she was beginning to feel better generally. Her CA-125 level had declined to 175.4 U/mL. At that point I recommended restarting chemotherapy with carboplatin/gemcitabine with ultimate goal to transition her to maintenance therapy with a PARP inhibitor. On 07/25/2020 she began cycle 1 of carboplatin/gemcitabine, administered on a day 1/day 8 schedule. She tolerated both treatments without acute toxicity, but her cycle 2 was delayed due to neutropenia and thrombocytopenia. She is seen for a follow-up visit. She has been feeling better generally. She says she still gets tired, but she is able to do some light work now. Her ECOG score is 1. She has good appetite and she has been eating better. She has not had fever. She occasionally has sweating at night. She reports having a lot of sinus drainage and she also has sore throat. She has just a little bit of cough. She does not complain of shortness of breath or chest pain. She has not been having nausea. She has a little bit of heartburn. Bowel function has remained adequate with regular use of Dulcolax. She is not having abdominal pain now. She has no complaints. She has no significant joint or bone pain. She has had some sinus headaches. She is having some numbness in her toes. Medications: Acid Control Maximum Strength (20 mg) Tablet Oral daily, Allergy Relief Loratadine (10 mg) Tablet Oral daily, Ativan 1 Tablet (of 2 mg) Oral q 4 to 6 hours PRN, Cholecalciferol 2 Capsule (of 5000 Units) Oral daily, Lexapro 1 Tablet (of 10 mg) Oral daily, Promethazine HCl (25 mg) Suppository Rectal t.i.d. PRN, Singulair 1 Tablet (of 10 mg) Oral at bedtime, Vitamin E 1 Capsule (of 500 mg) Oral daily Allergies: Sulfa Antibiotics Vital Signs: Performed on Aug 21, 2020 13:35 Height - 64.00 in Weight - 121.8 lbs (LOW) BSA - 1.58 sq.m BMI - 20.91 Temperature - 97.9 F (LOW) Pulse - 97 /min Respiration - 18 /min BP - 100/65 mm(hg) O2 Sat - 98 % Pain - 0 Fatigue - 7 Physical Examination: Constitutional - She looks better generally, though she still appears somewhat weak, Eyes - Sclerae nonicteric. Conjunctivae clear, ENMT - No lesions noted in the oral cavity, Hematologic/Lymphatic - There is only a small residual nodule in the right supraclavicular fossa mass. There is no other adenopathy in the neck or axillae, Respiratory - Lungs are clear with good air movement bilaterally, Cardiovascular - Heart rhythm is regular. There is no murmur, gallop, or rub noted, Abdomen - Soft. Liver and spleen are not enlarged. There is no abdominal mass noted and there is no obvious ascites. There is no inguinal adenopathy, Extremities - No edema, Neurologic - No focal neurologic deficits noted. Lab/Imaging: Test performed on Aug 21, 2020 11:50 Sodium 135 mmol/L Potassium 3.6 mmol/L Chloride 102 mmol/L CO2 26 mmol/L Anion Gap 10.6 BUN 13 mg/dL Creatinine 0.5 mg/dL Cr Clearance (Est) 107.4200 mL/min eGFR 127.6 mL/min Glucose 82 mg/dL Osmolality - Calculated 279 mOsm/kg Calcium 8.5 mg/dL Protein, Total 5.7 g/dL Albumin 4.0 g/dL Globulin 1.7 g/dL Bilirubin, Total 0.3 mg/dL ALT (SGPT) 14 U/L AST (SGOT) 15 U/L Alkaline Phosphatase 75 IU/L WBC 4.5 10 3/uL RBC 2.97 10 6/uL HGB 9.9 g/dL HCT 31.0 % MCV 104.4 fL MCH 33.3 pg MCHC 31.9 g/dL RDW 18.0 % Platelet Count 108 10 3/cmm MPV 10.9 fL Neutrophils 3.12 10 3/uL Lymphocytes 0.8 10 3/uL Monocytes 0.6 10 3/uL Eosinophils 0.0 10 3/uL Basophils 0.0 10 3/uL Neutrophil % 69.5 % Lymphocyte % 17.4 % Monocyte % 12.5 % Eosinophil % 0.2 % Basophils % 0.2 % NRBC % 0 % CA-125 39.1 U/mL Problem List: 1. 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 The tumor has been found on next generation sequencing to harbor a BRCA1 mutation, presumed to be somatic. 2. GERD. 3. Allergic rhinitis. 4. Anxiety/depression. 5. She developed COVID-19 virus infection in October 2019. She had an uneventful recovery. 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 She had complete or near-complete debulking with her initial surgery in September 2015. She was given postoperative adjuvant chemotherapy with 6 cycles of carboplatin/paclitaxel. She had biopsy proven recurrence in the form of a right diaphragmatic peritoneal implant, discovered at the cholecystectomy procedure in April 2018. She then had further chemotherapy with 6 cycles of carboplatin/gemcitabine, completed in September 2018. She had no evidence of residual disease on restaging CT scans on 10/07/2018. She then continued maintenance therapy with single agent bevacizumab at a 3-week interval dosing schedule for 16 cycles. She began cycle 1 of bevacizumab on 11/10/2018. She tolerated it well, and she was able to continue her treatment every 3 weeks with no apparent adverse effects. As of 10/09/2019 she completed her 16th and last planned cycle of bevacizumab. As of January 2020 there was a significant increase in her CA-125 level, up to 48 U/mL. In reviewing her records, it actually has been showing a very gradual increase over the preceding year, from 12.4 U/mL in January 2019. However, she was not overtly symptomatic with it and her restaging CT scans on 01/24/2020 showed no evidence of metastatic disease. Her repeat CT scans on 04/02/2020 showed findings within the peritoneal cavity which were concerning for metastatic involvement, including increased soft tissue surrounding the mid SMA and increased soft tissue in the periaortic distribution. There were new small mesenteric, periaortic, and iliac chain lymph nodes. Also noted was a new small circumferential pericardial effusion. At this point she was having significant pain in her abdomen and back, and she also was having ongoing problems with constipation. She has had follow-up with Dr. Landon, and she was recommended to restart chemotherapy with either carboplatin in combination with Doxil or with Doxil monotherapy. In the meantime, she was found to be BRCA negative on genetic screening. At her follow-up visit on 04/30/2020 she was noted to have enlarging right supraclavicular lymphadenopathy. 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 It also showed genomic ZANE, and it was positive for PD-L1 expression with a CPS of 5. It was noted to be MSI stable. She began cycle 1 of Doxil monotherapy on 06/20/2020. The treatment was complicated by pretty severe nausea/vomiting, requiring IV hydration on multiple occasions. She also had ongoing, severe constipation but with no evidence of bowel obstruction by abdominal x-ray or CT. As of her follow-up visit on 07/18/2020 she was beginning to feel better. There had been a significant decline in her CA-125 level, suggesting some response to the Doxil. However, given the severe toxicity that she experienced with it, I opted to change her chemotherapy back to the carboplatin/gemcitabine regimen. She began cycle 1 on 07/25/2020, administered on a day 1/day 8 schedule. She tolerated the treatment well other than her cycle 2 had to be delayed due to neutropenia and thrombocytopenia. She has had adequate recovery of her blood counts. There has been a very significant further decline in her CA-125 level, now to 39.1 U/mL. She will proceed now with cycle 2 of carboplatin/gemcitabine. It will be administered with a 25% reduction in the gemcitabine dosage and it will now be administered on a day 1/day 15 schedule. If she tolerates this well and continues to show good response, I will consider transitioning her to a maintenance PARP inhibitor after 3 cycles. Signed By: John Grey M.D. <<Signature on File>>
[2020-09-04 09:41] LABS: Basophils % 0.2 %; Eosinophils % 0.5 %; Hematocrit 32.7 % (37.0-47.0); Hemoglobin 10.6 g/dL (11.5-15.3); Lymphocytes # 1.1 10^3/uL (0.8-4.8); Lymphocytes % 24.1 %; Mean Corpuscular HGB Conc 32.4 g/dL (30.0-36.0); Mean Corpuscular Hemoglobin 34.5 pg (28.0-34.0); Mean Corpuscular Volume 106.5 fL (81-99); Mean Platelet Volume 11.4 fL (7.4-10.4); Monocytes # 0.6 10^3/uL (0.2-0.9); Monocytes % 14.1 %; Neutrophils # 2.67 10^3/uL (1.8-7.7); Neutrophils % 60.9 %; Nucleated Red Blood Cells % 0 %; Platelet Count 104 10^3/cmm (130-400); Red Blood Count 3.07 10^6/uL (4.1-5.3); Red Cell Distribution Width 18.6 % (12.1-15.1); White Blood Count 4.4 10^3/uL (4.0-10.0)
[2020-09-04 10:30] LABS: Alanine Aminotransferase 17 U/L (0-33); Albumin Level 4.1 g/dL (3.5-5.2); Alkaline Phosphatase 73 IU/L (35-105); Anion Gap 13.9 (5-19); Aspartate Amino Transferase 19 U/L (0-32); Blood Urea Nitrogen 13 mg/dL (6-20); Calcium 8.7 mg/dL (8.5-10.5); Carbon Dioxide 25 mmol/L (22-29); Chloride 102 mmol/L (98-107); Globulin 2.3 g/dL (1.3-4.6); Glomerular Filtration Rate 165.1 mL/min (90-130); Glucose 88 mg/dL (65-115); Osmolality Calculated 284 mOsm/kg (285-295); Potassium 3.9 mmol/L (3.5-5.1); Sodium 137 mmol/L (136-145); Total Bilirubin 0.3 mg/dL (0.15-1.2); Total Protein 6.4 g/dL (6.6-8.7)
[2020-09-04] MEDS: palonosetron 0.25 mg/5 mL SDV IV (11:05)
[2020-09-04] MEDS: sodium chloride 0.9% 250 ML 75 ML IV (11:05)
[2020-09-04] MEDS: OLANZapine 5 mg TABLET PO (11:07)
[2020-09-04] MEDS: fosaprepitant 150 MG in sodium chloride 0.9% 150 ML 300 MG IV (11:20)
== END 2020-09-07 23:59 | disposition home or self-care (01) ==
LOC: ONCMED 05:43
PROVIDERS: Absent Provider Radiology Radiation Oncology; PCP Nurse Practitioner Family; Visit Provider Internal Medicine Medical Oncology
DX: Z51.11 Encounter for antineoplastic chemotherapy (principal); C57.02 Malignant neoplasm of left fallopian tube; C78.6 Secondary malignant neoplasm of retroperitoneum and peritoneum; K21.9 Gastro-esophageal reflux disease without esophagitis; J30.9 Allergic rhinitis, unspecified; F41.9 Anxiety disorder, unspecified; F32.9 Major depressive disorder, single episode, unspecified; Z86.16 Personal history of COVID-19; Z79.899 Other long term (current) drug therapy
CPT/HCPCS: 36415; 36591; 80053; 85025; 86304; 96367; 96413; 96417; 99214; J1100; J1453; J2469; J7050; J9045; J9201

== ENCOUNTER 2020-10-02 05:43 | Outpatient (RCR) | payer OTHER, SELFPAY ==
[2020-09-18 08:45] LABS: Basophils % 0.3 %; Eosinophils % 0.8 %; Hemoglobin 10.3 g/dL (11.5-15.3); Lymphocytes % 27.8 %; Mean Corpuscular HGB Conc 32.2 g/dL (30.0-36.0); Mean Corpuscular Hemoglobin 35.3 pg (28.0-34.0); Mean Corpuscular Volume 109.6 fL (81-99); Mean Platelet Volume 11.5 fL (7.4-10.4); Monocytes # 0.5 10^3/uL (0.2-0.9); Monocytes % 12.9 %; Neutrophils # 2.07 10^3/uL (1.8-7.7); Neutrophils % 58.2 %; Nucleated Red Blood Cells % 0 %; Platelet Count 77 10^3/cmm (130-400); Red Blood Count 2.92 10^6/uL (4.1-5.3); Red Cell Distribution Width 18.5 % (12.1-15.1); White Blood Count 3.6 10^3/uL (4.0-10.0)
[2020-09-18 09:26] LABS: Alanine Aminotransferase 12 U/L (0-33); Alkaline Phosphatase 74 IU/L (35-105); Aspartate Amino Transferase 17 U/L (0-32); Blood Urea Nitrogen 10 mg/dL (6-20); CA 125 27.4 U/mL (0-35); Calcium 8.7 mg/dL (8.5-10.5); Carbon Dioxide 27 mmol/L (22-29); Chloride 106 mmol/L (98-107); Globulin 2.2 g/dL (1.3-4.6); Glomerular Filtration Rate 165.1 mL/min (90-130); Glucose 87 mg/dL (65-115); Osmolality Calculated 286 mOsm/kg (285-295); Sodium 139 mmol/L (136-145); Total Bilirubin 0.3 mg/dL (0.15-1.2); Total Protein 6.2 g/dL (6.6-8.7)
--- NOTE | 2020-09-18 12:44 | ONC FU_ITS ---
Dr. Grey Patient Follow-Up Note Patient: Jagruti Jay Unit #: [id number]: [id number] Dicatated By: John Grey M.D.Date of Visit:Sep 18, 2020 Onc Med Follow-up/Prog Note Chief Complaint: Fallopian tube cancer. 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 She had a recurrence in the form of a right diaphragmatic peritoneal implant confirmed by biopsy at a cholecystectomy procedure in April 2018. She had presented in August 2015 with abdominal pain, and she was found to have a large pelvic mass. This was initially thought to be arising from the right ovary. On 09/17/2015 she underwent surgery which included total abdominal hysterectomy, bilateral salpingo-oophorectomy, and radical debulking along with pelvic lymphadenectomy and limited periaortic lymphadenectomy. I do not have those actual reports available, but she apparently was thought to have a complete or near-complete resection. She was then given postoperative adjuvant chemotherapy with 6 cycles of carboplatin/paclitaxel. On 09/28/2018 she underwent cholecystectomy, and at the time of that procedure she was noted to have a peritoneal implant on the right diaphragm. Biopsy of the implant showed high-grade carcinoma consistent with the previous high-grade serous primary. With that finding she was then given further chemotherapy with 6 cycles of carboplatin/gemcitabine, which she completed in September 2018. Restaging CT scans of the chest, abdomen, and pelvis on 10/07/2018 showed resolution of a previously noted small anterior hepatic capsular or subcapsular nodule. There are new postsurgical changes in that region. 2 very closely associated hypodense foci were again noted in the right lobe posteriorly, maximum aggregate diameter of 3 mm. That finding. Stable. There was no evidence of a new focal hepatic abnormality. There were small mesenteric, retroperitoneal, and bilateral inguinal lymph nodes. There was no pathologic lymphadenopathy. A 5 x 3 mm sclerotic focus at the right posterior aspect of the manubrium appeared stable compared to a prior study from October 2015. There were no suspicious osseous lesions noted. With those findings, she was recommended to continue further systemic therapy with 16 cycles of bevacizumab administered at 3-week intervals. She received cycle 1 of bevacizumab on 11/10/2018. She tolerated it without acute toxicity, and she then continued treatment at a 3-week dosing interval. As of 07/04/2019 she completed her 12th cycle. Restaging CT scans on 07/21/2019 showed no evidence of metastatic disease in the chest, abdomen, or pelvis. There was evidence of diffuse fatty infiltration of the liver with an enlarged hepatic lobe measuring 19 cm. A left renal cyst measured 12 mm. There were no other abnormal findings. She continued her maintenance bevacizumab. She completed her 16th and last planned cycle on 10/09/2019. INTERIM HISTORY: As of her follow-up visit on October 24, 2019 her CA-125 level had increased to 33.4 U/mL. Overall, it appeared to have been increasing very gradually since January 2019 when it was 12.4 U/mL. However, at that point she appeared stable clinically and she continued observation/expectant management. As of 01/24/2020 there was further increase in the CA-125 to 48.3 U/mL. Her restaging CT scans of the chest, abdomen, and pelvis showed no evidence for metastatic disease. There were no other acute findings noted. Despite the negative CT findings, with the continued increase in the CA-125 level she was scheduled to have follow-up with Dr. Landon. She had repeat CT scans on 04/02/2020. It showed new small circumferential pericardial effusion and new findings within the peritoneal cavity which were concerning for metastatic involvement. This included increased soft tissue surrounding the mid SMA and increased soft tissue in the periaortic distribution. There were new small mesenteric, periaortic, and iliac chain lymph nodes. There was no ascites. Her further evaluation included genetic screening which showed 2 heterozygous variants of uncertain significance. She was negative for BRCA mutation. During this time her CA-125 level continued to increase. As of 04/30/2020 it was up to 177.0 U/mL. 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 It also showed genomic ZANE, and it was positive for PD-L1 expression with a CPS of 5. It was noted to be MSI stable. On 06/20/2020 she began salvage chemotherapy with cycle 1 of Doxil. Her baseline CA-125 level was 407.8 U/mL. The treatment was complicated by nausea/vomiting, severe constipation, and abdominal pain. She required IV hydration and IV antiemetics on multiple occasions. She did not have any evidence of bowel obstruction. In the meantime, she also had progressive enlargement of the right supraclavicular lymph node. As it had become increasingly symptomatic, she was referred to Dr. Littlejohn, and she underwent palliative radiation to the right supraclavicular area. Treatment was completed on 07/11/2020 to a total dose of 2000 cGy administered in 5 fractions. As of her follow-up visit on 07/18/2020 she was beginning to feel better generally. Her CA-125 level had declined to 175.4 U/mL. At that point I recommended restarting chemotherapy with carboplatin/gemcitabine with ultimate goal to transition her to maintenance therapy with a PARP inhibitor. On 07/25/2020 she began cycle 1 of carboplatin/gemcitabine, administered on a day 1/day 8 schedule. She tolerated both treatments without acute toxicity. She continued with cycle 2 on 08/21/2020. At that point she was feeling much better, and there was a significant decline in her CA-125 level. Her treatment was delayed due to neutropenia and thrombocytopenia, and it was administered at a reduced dosage of gemcitabine and on a day 1/day 15 schedule. She is seen for a follow-up visit. She has been feeling okay, though she still has significant fatigue. She is doing light work at home. ECOG score is 1. She has good appetite. She has no fever or night sweats. She has had a lot of sinus drainage and recently she has had sore throat. She also recently had a fever blister. She has a little bit of cough and a little bit of chest pain. She does not complain of shortness of breath. She has had some nausea, mainly attributable to the sinus drainage, though she also does get some nausea with the chemotherapy. Bowel function remains adequate with a laxative. She has no complaints. She has no significant joint or bone pain. She has had a little bit of headache. She has just a little residual numbness/tingling in her toes. Medications: Acid Control Maximum Strength (20 mg) Tablet Oral daily, Allergy Relief Loratadine (10 mg) Tablet Oral daily, Ativan 1 Tablet (of 2 mg) Oral q 4 to 6 hours PRN, Cholecalciferol 2 Capsule (of 5000 Units) Oral daily, Lexapro 1 Tablet (of 10 mg) Oral daily, Promethazine HCl (25 mg) Suppository Rectal t.i.d. PRN, Singulair 1 Tablet (of 10 mg) Oral at bedtime, Vitamin E 1 Capsule (of 500 mg) Oral daily Allergies: Sulfa Antibiotics Vital Signs: Performed on Sep 18, 2020 09:00 Height - 64.00 in Weight - 125.6 lbs (HIGH) BSA - 1.61 sq.m BMI - 21.56 Temperature - 96.5 F (LOW) Pulse - 84 /min Respiration - 18 /min BP - 107/67 mm(hg) O2 Sat - 98 % Pain - 0 Fatigue - 7 Physical Examination: Constitutional - She looks pretty good generally, Eyes - Sclerae nonicteric. Conjunctivae clear, ENMT - No lesions noted in the oral cavity, Hematologic/Lymphatic - There is no cervical, clavicular, or axillary adenopathy noted, Respiratory - Lungs are clear with good air movement bilaterally, Cardiovascular - Heart rhythm is regular. There is no murmur, gallop, or rub noted, Abdomen - Soft. Liver and spleen are not enlarged. There is no abdominal mass noted and there is no obvious ascites. There is no inguinal adenopathy, Extremities - No edema, Neurologic - No focal neurologic deficits noted. Lab/Imaging: Test performed on Sep 18, 2020 08:19 Sodium 139 mmol/L Potassium 4.0 mmol/L Chloride 106 mmol/L CO2 27 mmol/L Anion Gap 10.0 BUN 10 mg/dL Creatinine 0.4 mg/dL Cr Clearance (Est) 134.2700 mL/min eGFR 165.1 mL/min Glucose 87 mg/dL Osmolality - Calculated 286 mOsm/kg Calcium 8.7 mg/dL Protein, Total 6.2 g/dL Albumin 4.0 g/dL Globulin 2.2 g/dL Bilirubin, Total 0.3 mg/dL ALT (SGPT) 12 U/L AST (SGOT) 17 U/L Alkaline Phosphatase 74 IU/L WBC 3.6 10 3/uL RBC 2.92 10 6/uL HGB 10.3 g/dL HCT 32.0 % MCV 109.6 fL MCH 35.3 pg MCHC 32.2 g/dL RDW 18.5 % Platelet Count 77 10 3/cmm MPV 11.5 fL Neutrophils 2.07 10 3/uL Lymphocytes 1.0 10 3/uL Monocytes 0.5 10 3/uL Eosinophils 0.0 10 3/uL Basophils 0.0 10 3/uL Neutrophil % 58.2 % Lymphocyte % 27.8 % Monocyte % 12.9 % Eosinophil % 0.8 % Basophils % 0.3 % NRBC % 0 % CA-125 27.4 U/mL Problem List: 1. 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 The tumor has been found on next generation sequencing to harbor a BRCA1 mutation, presumed to be somatic. 2. GERD. 3. Allergic rhinitis. 4. Anxiety/depression. 5. She developed COVID-19 virus infection in October 2019. She had an uneventful recovery. 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 She had complete or near-complete debulking with her initial surgery in September 2015. She was given postoperative adjuvant chemotherapy with 6 cycles of carboplatin/paclitaxel. She had biopsy proven recurrence in the form of a right diaphragmatic peritoneal implant, discovered at the cholecystectomy procedure in April 2018. She then had further chemotherapy with 6 cycles of carboplatin/gemcitabine, completed in September 2018. She had no evidence of residual disease on restaging CT scans on 10/07/2018. She then continued maintenance therapy with single agent bevacizumab at a 3-week interval dosing schedule for 16 cycles. She began cycle 1 of bevacizumab on 11/10/2018. She tolerated it well, and she was able to continue her treatment every 3 weeks with no apparent adverse effects. As of 10/09/2019 she completed her 16th and last planned cycle of bevacizumab. As of January 2020 there was a significant increase in her CA-125 level, up to 48 U/mL. In reviewing her records, it actually has been showing a very gradual increase over the preceding year, from 12.4 U/mL in January 2019. However, she was not overtly symptomatic with it and her restaging CT scans on 01/24/2020 showed no evidence of metastatic disease. Her repeat CT scans on 04/02/2020 showed findings within the peritoneal cavity which were concerning for metastatic involvement, including increased soft tissue surrounding the mid SMA and increased soft tissue in the periaortic distribution. There were new small mesenteric, periaortic, and iliac chain lymph nodes. Also noted was a new small circumferential pericardial effusion. At this point she was having significant pain in her abdomen and back, and she also was having ongoing problems with constipation. She has had follow-up with Dr. Landon, and she was recommended to restart chemotherapy with either carboplatin in combination with Doxil or with Doxil monotherapy. In the meantime, she was found to be BRCA negative on genetic screening. At her follow-up visit on 04/30/2020 she was noted to have enlarging right supraclavicular lymphadenopathy. 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 It also showed genomic ZANE, and it was positive for PD-L1 expression with a CPS of 5. It was noted to be MSI stable. She began cycle 1 of Doxil monotherapy on 06/20/2020. The treatment was complicated by severe nausea/vomiting, requiring IV hydration on multiple occasions. She also had ongoing, severe constipation but with no evidence of bowel obstruction by abdominal x-ray or CT. As of her follow-up visit on 07/18/2020 she was beginning to feel better. There had been a significant decline in her CA-125 level, suggesting some response to the Doxil. However, given the severe toxicity that she experienced with it, I opted to change her chemotherapy back to the carboplatin/gemcitabine regimen. She began cycle 1 on 07/25/2020, administered on a day 1/day 8 schedule. She tolerated the treatment well other than her cycle 2 had to be delayed due to neutropenia and thrombocytopenia. However, there was a significant further decline in her CA-125 level, to 39.1 U/mL and at that point she also was feeling much better. She continued with cycle 2 of carboplatin/gemcitabine on 08/21/2020, administered with a 25% reduction in the gemcitabine dosage and on a day 1/day 15 schedule. She continues now to have some fatigue, but overall she is doing much better and there has been further decline in her CA-125 level, to 27.4 U/mL, so that she does appear to be showing a very good response to the chemotherapy. She has mild to moderately severe neutropenia and thrombocytopenia. As such, her cycle 3 carboplatin/gemcitabine will be delayed 1 week, but I will plan to administer it at the same dosages and with the same schedule. She will have restaging CT scans prior to her next visit, at which point I may consider transitioning her to a maintenance PARP inhibitor. Signed By: John Grey M.D. <<Signature on File>>
[2020-09-25 08:45] LABS: Basophils % 0.4 %; Eosinophils % 0.7 %; Hematocrit 32.5 % (37.0-47.0); Hemoglobin 10.4 g/dL (11.5-15.3); Lymphocytes # 0.7 10^3/uL (0.8-4.8); Lymphocytes % 26.3 %; Mean Corpuscular Hemoglobin 35.4 pg (28.0-34.0); Mean Corpuscular Volume 110.5 fl (81-99); Mean Platelet Volume 10.2 fL (7.4-10.4); Monocytes # 0.4 10^3/uL (0.2-0.9); Monocytes % 14.4 %; Neutrophils # 1.55 10^3/uL (1.8-7.7); Neutrophils % 57.5 %; Nucleated Red Blood Cells % 0 %; Platelet Count 141 10^3/cmm (130-400); Red Blood Count 2.94 10^6/uL (4.1-5.3); Red Cell Distribution Width 17.8 % (12.1-15.1); White Blood Count 2.7 10^3/uL (4.0-10.0)
[2020-09-25 09:29] LABS: Alanine Aminotransferase 10 U/L (0-33); Albumin Level 3.9 g/dL (3.5-5.2); Alkaline Phosphatase 69 IU/L (35-105); Anion Gap 11.7 (5-19); Aspartate Amino Transferase 18 U/L (0-32); Blood Urea Nitrogen 12 mg/dL (6-20); Calcium 8.7 mg/dL (8.5-10.5); Carbon Dioxide 25 mmol/L (22-29); Chloride 105 mmol/L (98-107); Globulin 2.2 g/dL (1.3-4.6); Glomerular Filtration Rate 165.1 mL/min (90-130); Glucose 89 mg/dL (65-115); Osmolality Calculated 285 mOsm/kg (285-295); Potassium 3.7 mmol/L (3.5-5.1); Sodium 138 mmol/L (136-145); Total Bilirubin 0.2 mg/dL (0.15-1.2); Total Protein 6.1 g/dL (6.6-8.7)
[2020-10-02 09:02] LABS: Basophils % 0.3 %; Eosinophils % 0.8 %; Hematocrit 34.6 % (37.0-47.0); Lymphocytes # 0.8 10^3/uL (0.8-4.8); Lymphocytes % 21.5 %; Mean Corpuscular HGB Conc 31.8 g/dL (30.0-36.0); Mean Corpuscular Hemoglobin 35.3 pg (28.0-34.0); Mean Corpuscular Volume 110.9 fl (81-99); Mean Platelet Volume 10.6 fL (7.4-10.4); Monocytes # 0.5 10^3/uL (0.2-0.9); Monocytes % 12.3 %; Neutrophils # 2.48 10^3/uL (1.8-7.7); Neutrophils % 64.8 %; Nucleated Red Blood Cells % 0 %; Platelet Count 128 10^3/cmm (130-400); Red Blood Count 3.12 10^6/uL (4.1-5.3); Red Cell Distribution Width 16.2 % (12.1-15.1); White Blood Count 3.8 10^3/uL (4.0-10.0)
[2020-10-02 09:21] LABS: Alanine Aminotransferase 11 U/L (0-33); Albumin Level 4.2 g/dL (3.5-5.2); Alkaline Phosphatase 78 IU/L (35-105); Anion Gap 12.8 (5-19); Aspartate Amino Transferase 16 U/L (0-32); Blood Urea Nitrogen 11 mg/dL (6-20); Calcium 9.2 mg/dL (8.5-10.5); Carbon Dioxide 27 mmol/L (22-29); Chloride 101 mmol/L (98-107); Globulin 2.1 g/dL (1.3-4.6); Glomerular Filtration Rate 165.1 mL/min (90-130); Glucose 87 mg/dL (65-115); Osmolality Calculated 283 mOsm/kg (285-295); Potassium 3.8 mmol/L (3.5-5.1); Sodium 137 mmol/L (136-145); Total Bilirubin 0.4 mg/dL (0.15-1.2); Total Protein 6.3 g/dL (6.6-8.7)
[2020-10-02] MEDS: palonosetron 0.25 mg/5 mL SDV IV (10:05)
[2020-10-02] MEDS: sodium chloride 0.9% 250 ML 75 ML IV (10:05)
[2020-10-02] MEDS: OLANZapine 5 mg TABLET PO (10:10)
[2020-10-02] MEDS: fosaprepitant 150 MG in sodium chloride 0.9% 150 ML 300 MG IV (10:30)
[2020-10-02] MEDS: pegfilgrastim 6 mg/0.6 mL Kit (onpro) SUBCUT (12:45)
== END 2020-10-08 23:59 | disposition home or self-care (01) ==
LOC: ONCMED 05:43
PROVIDERS: Internal Medicine Medical Oncology; PCP Nurse Practitioner Family; Visit Provider Nurse Practitioner
DX: Z51.11 Encounter for antineoplastic chemotherapy (principal); C57.02 Malignant neoplasm of left fallopian tube; K21.9 Gastro-esophageal reflux disease without esophagitis; J30.9 Allergic rhinitis, unspecified; F41.9 Anxiety disorder, unspecified; F32.9 Major depressive disorder, single episode, unspecified; Z86.16 Personal history of COVID-19; Z79.899 Other long term (current) drug therapy
CPT/HCPCS: 36591; 80053; 85025; 86304; 96367; 96372; 96375; 96377; 96413; 96417; 99214; J1100; J1453; J2469; J2505; J7050; J9045; J9201

== ENCOUNTER 2020-10-31 06:30 | Outpatient (RCR) | payer OTHER, SELFPAY ==
[2020-10-16 10:21] LABS: Basophils % 0.3 %; Eosinophils % 0.3 %; Hematocrit 32.2 % (37.0-47.0); Hemoglobin 10.4 g/dL (11.5-15.3); Lymphocytes # 1.1 10^3/uL (0.8-4.8); Lymphocytes % 16.4 %; Mean Corpuscular HGB Conc 32.3 g/dL (30.0-36.0); Mean Corpuscular Hemoglobin 36.4 pg (28.0-34.0); Mean Corpuscular Volume 112.6 fl (81-99); Monocytes # 0.8 10^3/uL (0.2-0.9); Monocytes % 12.4 %; Neutrophils # 4.52 10^3/uL (1.8-7.7); Nucleated Red Blood Cells % 0 %; Platelet Count 94 10^3/cmm (130-400); Red Blood Count 2.86 10^6/uL (4.1-5.3); Red Cell Distribution Width 15.6 % (12.1-15.1); White Blood Count 6.5 10^3/uL (4.0-10.0)
[2020-10-16 10:43] LABS: Alanine Aminotransferase 29 U/L (0-33); Albumin Level 3.9 g/dL (3.5-5.2); Alkaline Phosphatase 95 IU/L (35-105); Anion Gap 11.8 (5-19); Aspartate Amino Transferase 21 U/L (0-32); Blood Urea Nitrogen 11 mg/dL (6-20); Calcium 8.5 mg/dL (8.5-10.5); Carbon Dioxide 27 mmol/L (22-29); Chloride 104 mmol/L (98-107); Globulin 2.3 g/dL (1.3-4.6); Glomerular Filtration Rate 165.1 mL/min (90-130); Glucose 79 mg/dL (65-115); Osmolality Calculated 286 mOsm/kg (285-295); Potassium 3.8 mmol/L (3.5-5.1); Sodium 139 mmol/L (136-145); Total Bilirubin 0.2 mg/dL (0.15-1.2); Total Protein 6.2 g/dL (6.6-8.7)
[2020-10-16] MEDS: sodium chloride 0.9% 250 ML 75 ML IV (11:35)
[2020-10-16] MEDS: palonosetron 0.25 mg/5 mL SDV IVP (11:35)
[2020-10-16] MEDS: OLANZapine 5 mg TABLET PO (13:09)
[2020-10-16] MEDS: diphenhydrAMINE 50 mg/mL SDV 1mL 25 MG IVP (13:10)
[2020-10-16] MEDS: fosaprepitant 150 MG in sodium chloride 0.9% 150 ML 300 MG IV (13:13)
--- NOTE | 2020-10-16 18:33 | ONC FU_ITS ---
Dr. Grey Patient Follow-Up Note Patient: Jagruti Jay Unit #: [id number]: 1965 Dicatated By: John Grey M.D.Date of Visit:Oct 16, 2020 Onc Med Follow-up/Prog Note Chief Complaint: Fallopian tube cancer. 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 She had a recurrence in the form of a right diaphragmatic peritoneal implant confirmed by biopsy at a cholecystectomy procedure in April 2018. She had presented in August 2015 with abdominal pain, and she was found to have a large pelvic mass. This was initially thought to be arising from the right ovary. On 09/17/2015 she underwent surgery which included total abdominal hysterectomy, bilateral salpingo-oophorectomy, and radical debulking along with pelvic lymphadenectomy and limited periaortic lymphadenectomy. I do not have those actual reports available, but she apparently was thought to have a complete or near-complete resection. She was then given postoperative adjuvant chemotherapy with 6 cycles of carboplatin/paclitaxel. On 09/28/2018 she underwent cholecystectomy, and at the time of that procedure she was noted to have a peritoneal implant on the right diaphragm. Biopsy of the implant showed high-grade carcinoma consistent with the previous high-grade serous primary. With that finding she was then given further chemotherapy with 6 cycles of carboplatin/gemcitabine, which she completed in September 2018. Restaging CT scans of the chest, abdomen, and pelvis on 10/07/2018 showed resolution of a previously noted small anterior hepatic capsular or subcapsular nodule. There are new postsurgical changes in that region. 2 very closely associated hypodense foci were again noted in the right lobe posteriorly, maximum aggregate diameter of 3 mm. That finding. Stable. There was no evidence of a new focal hepatic abnormality. There were small mesenteric, retroperitoneal, and bilateral inguinal lymph nodes. There was no pathologic lymphadenopathy. A 5 x 3 mm sclerotic focus at the right posterior aspect of the manubrium appeared stable compared to a prior study from October 2015. There were no suspicious osseous lesions noted. With those findings, she was recommended to continue further systemic therapy with 16 cycles of bevacizumab administered at 3-week intervals. She received cycle 1 of bevacizumab on 11/10/2018. She tolerated it without acute toxicity, and she then continued treatment at a 3-week dosing interval. As of 07/04/2019 she completed her 12th cycle. Restaging CT scans on 07/21/2019 showed no evidence of metastatic disease in the chest, abdomen, or pelvis. There was evidence of diffuse fatty infiltration of the liver with an enlarged hepatic lobe measuring 19 cm. A left renal cyst measured 12 mm. There were no other abnormal findings. She continued her maintenance bevacizumab. She completed her 16th and last planned cycle on 10/09/2019. INTERIM HISTORY: As of her follow-up visit on October 24, 2019 her CA-125 level had increased to 33.4 U/mL. Overall, it appeared to have been increasing very gradually since January 2019 when it was 12.4 U/mL. However, at that point she appeared stable clinically and she continued observation/expectant management. As of 01/24/2020 there was further increase in the CA-125 to 48.3 U/mL. Her restaging CT scans of the chest, abdomen, and pelvis showed no evidence for metastatic disease. There were no other acute findings noted. Despite the negative CT findings, with the continued increase in the CA-125 level she was scheduled to have follow-up with Dr. Landon. She had repeat CT scans on 04/02/2020. It showed new small circumferential pericardial effusion and new findings within the peritoneal cavity which were concerning for metastatic involvement. This included increased soft tissue surrounding the mid SMA and increased soft tissue in the periaortic distribution. There were new small mesenteric, periaortic, and iliac chain lymph nodes. There was no ascites. Her further evaluation included genetic screening which showed 2 heterozygous variants of uncertain significance. She was negative for BRCA mutation. During this time her CA-125 level continued to increase. As of 04/30/2020 it was up to 177.0 U/mL. 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 It also showed genomic ZANE, and it was positive for PD-L1 expression with a CPS of 5. It was noted to be MSI stable. On 06/20/2020 she began salvage chemotherapy with cycle 1 of Doxil. Her baseline CA-125 level was 407.8 U/mL. The treatment was complicated by nausea/vomiting, severe constipation, and abdominal pain. She required IV hydration and IV antiemetics on multiple occasions. She did not have any evidence of bowel obstruction. In the meantime, she also had progressive enlargement of the right supraclavicular lymph node. As it had become increasingly symptomatic, she was referred to Dr. Littlejohn, and she underwent palliative radiation to the right supraclavicular area. Treatment was completed on 07/11/2020 to a total dose of 2000 cGy administered in 5 fractions. As of her follow-up visit on 07/18/2020 she was beginning to feel better generally. Her CA-125 level had declined to 175.4 U/mL. At that point I recommended restarting chemotherapy with carboplatin/gemcitabine with ultimate goal to transition her to maintenance therapy with a PARP inhibitor. On 07/25/2020 she began cycle 1 of carboplatin/gemcitabine, administered on a day 1/day 8 schedule. She tolerated both treatments without acute toxicity. She continued with cycle 2 on 08/21/2020. At that point she was feeling much better, and there was a significant decline in her CA-125 level. Her treatment was delayed due to neutropenia and thrombocytopenia, and it was administered at a reduced dosage of gemcitabine and on a day 1/day 15 schedule. She tolerated that treatment much better, and she continued with cycle 3 on 10/02/2020. As of 09/18/1020 her CA-125 level was down to 27.4 U/mL. She is seen now for a scheduled visit. She has had day 15 of cycle 3. She was significantly fatigued after day 1 treatment, though she says her energy is better now. Her ECOG score is 1. She complains of having sore gums and she had a headache all last week. The headache did not go away until Wednesday. Her appetite has been okay. She has not had fever or night sweats. She complains that she feels cold all the time. She has been having sinus drainage. She complains that her gums still feels swollen and she complains that her tongue tingles. She has had some sore throat and a little bit of cough. She gets short of breath pretty easily. She does not complain of chest pain. She has had some nausea, no vomiting. Her bowel function remains adequate as long she takes Dulcolax. She has no complaints. She has no significant joint or bone pain. She sometimes has dizziness. She has a little bit of numbness/tingling in her toes. Medications: Acid Control Maximum Strength (20 mg) Tablet Oral daily, Allergy Relief Loratadine (10 mg) Tablet Oral daily, Ativan 1 Tablet (of 2 mg) Oral q 4 to 6 hours PRN, Cholecalciferol 2 Capsule (of 5000 Units) Oral daily, Lexapro 1 Tablet (of 10 mg) Oral daily, Promethazine HCl (25 mg) Suppository Rectal t.i.d. PRN, Singulair 1 Tablet (of 10 mg) Oral at bedtime, Vitamin E 1 Capsule (of 500 mg) Oral daily Allergies: Sulfa Antibiotics Vital Signs: Performed on Oct 16, 2020 11:32 Height - 64.00 in Weight - 126.6 lbs (HIGH) BSA - 1.61 sq.m BMI - 21.73 Temperature - 97.7 F (LOW) Pulse - 85 /min Respiration - 18 /min BP - 97/61 mm(hg) O2 Sat - 96 % Pain - 0 Fatigue - 5 Physical Examination: Constitutional - She looks pretty good generally, Eyes - Sclerae nonicteric. Conjunctivae clear, ENMT - No lesions noted in the oral cavity, Hematologic/Lymphatic - There is no cervical, clavicular, or axillary adenopathy noted, Respiratory - Lungs are clear with good air movement bilaterally, Cardiovascular - Heart rhythm is regular. There is no murmur, gallop, or rub noted, Abdomen - Soft. Liver and spleen are not enlarged. There is no abdominal mass noted and there is no obvious ascites. There is no inguinal adenopathy, Extremities - No edema, Neurologic - No focal neurologic deficits noted. Lab/Imaging: Test performed on Oct 16, 2020 11:00 Creatinine 0.4 mg/dL Cr Clearance (Est) 141.24 mL/min Test performed on Oct 16, 2020 09:40 Sodium 139 mmol/L Potassium 3.8 mmol/L Chloride 104 mmol/L CO2 27 mmol/L Anion Gap 11.8 BUN 11 mg/dL eGFR 165.1 mL/min Glucose 79 mg/dL Osmolality - Calculated 286 mOsm/kg Calcium 8.5 mg/dL Protein, Total 6.2 g/dL Albumin 3.9 g/dL Globulin 2.3 g/dL Bilirubin, Total 0.2 mg/dL ALT (SGPT) 29 U/L AST (SGOT) 21 U/L Alkaline Phosphatase 95 IU/L WBC 6.5 10 3/uL RBC 2.86 10 6/uL HGB 10.4 g/dL HCT 32.2 % MCV 112.6 fl MCH 36.4 pg MCHC 32.3 g/dL RDW 15.6 % Platelet Count 94 10 3/cmm MPV 11.0 fL Neutrophils 4.52 10 3/uL Lymphocytes 1.1 10 3/uL Monocytes 0.8 10 3/uL Eosinophils 0.0 10 3/uL Basophils 0.0 10 3/uL Neutrophil % 70.0 % Lymphocyte % 16.4 % Monocyte % 12.4 % Eosinophil % 0.3 % Basophils % 0.3 % NRBC % 0 % Test performed on Sep 18, 2020 08:19 CA-125 27.4 U/mL Problem List: 1. 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 The tumor has been found on next generation sequencing to harbor a BRCA1 mutation, presumed to be somatic. 2. GERD. 3. Allergic rhinitis. 4. Anxiety/depression. 5. She developed COVID-19 virus infection in October 2019. She had an uneventful recovery. 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 She had complete or near-complete debulking with her initial surgery in September 2015. She was given postoperative adjuvant chemotherapy with 6 cycles of carboplatin/paclitaxel. She had biopsy proven recurrence in the form of a right diaphragmatic peritoneal implant, discovered at the cholecystectomy procedure in April 2018. She then had further chemotherapy with 6 cycles of carboplatin/gemcitabine, completed in September 2018. She had no evidence of residual disease on restaging CT scans on 10/07/2018. She then continued maintenance therapy with single agent bevacizumab at a 3-week interval dosing schedule for 16 cycles. She began cycle 1 of bevacizumab on 11/10/2018. She tolerated it well, and she was able to continue her treatment every 3 weeks with no apparent adverse effects. As of 10/09/2019 she completed her 16th and last planned cycle of bevacizumab. As of January 2020 there was a significant increase in her CA-125 level, up to 48 U/mL. In reviewing her records, it actually has been showing a very gradual increase over the preceding year, from 12.4 U/mL in January 2019. However, she was not overtly symptomatic with it and her restaging CT scans on 01/24/2020 showed no evidence of metastatic disease. Her repeat CT scans on 04/02/2020 showed findings within the peritoneal cavity which were concerning for metastatic involvement, including increased soft tissue surrounding the mid SMA and increased soft tissue in the periaortic distribution. There were new small mesenteric, periaortic, and iliac chain lymph nodes. Also noted was a new small circumferential pericardial effusion. At this point she was having significant pain in her abdomen and back, and she also was having ongoing problems with constipation. She has had follow-up with Dr. Landon, and she was recommended to restart chemotherapy with either carboplatin in combination with Doxil or with Doxil monotherapy. In the meantime, she was found to be BRCA negative on genetic screening. At her follow-up visit on 04/30/2020 she was noted to have enlarging right supraclavicular lymphadenopathy. 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 It also showed genomic ZANE, and it was positive for PD-L1 expression with a CPS of 5. It was noted to be MSI stable. She began cycle 1 of Doxil monotherapy on 06/20/2020. The treatment was complicated by severe nausea/vomiting, requiring IV hydration on multiple occasions. She also had ongoing, severe constipation but with no evidence of bowel obstruction by abdominal x-ray or CT. As of her follow-up visit on 07/18/2020 she was beginning to feel better. There had been a significant decline in her CA-125 level, suggesting some response to the Doxil. However, given the severe toxicity that she experienced with it, I opted to change her chemotherapy back to the carboplatin/gemcitabine regimen. She began cycle 1 on 07/25/2020, administered on a day 1/day 8 schedule. She tolerated the treatment well other than her cycle 2 had to be delayed due to neutropenia and thrombocytopenia. However, there was a significant further decline in her CA-125 level, to 39.1 U/mL and at that point she also was feeling much better. She continued with cycle 2 of carboplatin/gemcitabine on 08/21/2020, administered with a 25% reduction in the gemcitabine dosage and on a day 1/day 15 schedule. She tolerated that treatment much better, and she continue with her cycle 3-day 1 carboplatin/gemcitabine on 10/02/2020. She was again significantly fatigued following the chemotherapy. She also reports having nausea and headache. Her blood counts, though, remain adequate, and overall she appears to be having acceptable toxicity. She will proceed now with her cycle 3-day 15 carboplatin/gemcitabine. The dosages will remain the same. It will be administered without Neulasta. I will see her again in 1 month, and at that point I will plan to transition her to maintenance therapy with a PARP inhibitor. Signed By: John Grey M.D. <<Signature on File>>
[2020-10-23 13:46] LABS: Basophils % 0.2 %; Eosinophils % 0.2 %; Hematocrit 28.8 % (37.0-47.0); Hemoglobin 9.4 g/dL (11.5-15.3); Lymphocytes # 1.2 10^3/uL (0.8-4.8); Lymphocytes % 27.1 %; Mean Corpuscular HGB Conc 32.6 g/dL (30.0-36.0); Mean Corpuscular Hemoglobin 36.7 pg (28.0-34.0); Mean Corpuscular Volume 112.5 fl (81-99); Mean Platelet Volume 10.4 fL (7.4-10.4); Monocytes # 0.3 10^3/uL (0.2-0.9); Monocytes % 5.7 %; Neutrophils # 3.02 10^3/uL (1.8-7.7); Neutrophils % 66.1 %; Nucleated Red Blood Cells % 0 %; Platelet Count 107 10^3/cmm (130-400); Red Blood Count 2.56 10^6/uL (4.1-5.3); Red Cell Distribution Width 14.5 % (12.1-15.1); White Blood Count 4.6 10^3/uL (4.0-10.0)
[2020-10-23 14:21] LABS: Alanine Aminotransferase 20 U/L (0-33); Alkaline Phosphatase 82 IU/L (35-105); Anion Gap 11.8 (5-19); Aspartate Amino Transferase 17 U/L (0-32); Blood Urea Nitrogen 12 mg/dL (6-20); Calcium 8.4 mg/dL (8.5-10.5); Carbon Dioxide 28 mmol/L (22-29); Chloride 103 mmol/L (98-107); Globulin 1.9 g/dL (1.3-4.6); Glomerular Filtration Rate 127.6 mL/min (90-130); Glucose 83 mg/dL (65-115); Osmolality Calculated 287 mOsm/kg (285-295); Potassium 3.8 mmol/L (3.5-5.1); Sodium 139 mmol/L (136-145); Total Bilirubin 0.3 mg/dL (0.15-1.2); Total Protein 5.9 g/dL (6.6-8.7)
[2020-10-31 14:27] LABS: Basophils % 0.2 %; Eosinophils % 0.4 %; Hematocrit 29.8 % (37.0-47.0); Hemoglobin 9.8 g/dL (11.5-15.3); Lymphocytes % 19.8 %; Mean Corpuscular HGB Conc 32.9 g/dL (30.0-36.0); Mean Corpuscular Hemoglobin 37.4 pg (28.0-34.0); Mean Corpuscular Volume 113.7 fl (81-99); Monocytes # 0.7 10^3/uL (0.2-0.9); Monocytes % 13.3 %; Neutrophils # 3.23 10^3/uL (1.8-7.7); Neutrophils % 66.1 %; Nucleated Red Blood Cells % 0 %; Platelet Count 87 10^3/cmm (130-400); Red Blood Count 2.62 10^6/uL (4.1-5.3); Red Cell Distribution Width 15.2 % (12.1-15.1); White Blood Count 4.9 10^3/uL (4.0-10.0)
[2020-10-31 14:56] LABS: Alanine Aminotransferase 13 U/L (0-33); Albumin Level 3.9 g/dL (3.5-5.2); Alkaline Phosphatase 75 IU/L (35-105); Anion Gap 11.8 (5-19); Aspartate Amino Transferase 17 U/L (0-32); Blood Urea Nitrogen 14 mg/dL (6-20); Calcium 8.9 mg/dL (8.5-10.5); Carbon Dioxide 26 mmol/L (22-29); Chloride 105 mmol/L (98-107); Globulin 2.1 g/dL (1.3-4.6); Glomerular Filtration Rate 165.1 mL/min (90-130); Glucose 77 mg/dL (65-115); Osmolality Calculated 287 mOsm/kg (285-295); Potassium 3.8 mmol/L (3.5-5.1); Sodium 139 mmol/L (136-145); Total Bilirubin 0.2 mg/dL (0.15-1.2)
== END 2020-11-07 23:59 | disposition home or self-care (01) ==
LOC: ONCMED 06:30
PROVIDERS: PCP Nurse Practitioner Family; Visit Provider Internal Medicine Medical Oncology
DX: Z51.11 Encounter for antineoplastic chemotherapy (principal); C57.02 Malignant neoplasm of left fallopian tube; K21.9 Gastro-esophageal reflux disease without esophagitis; J30.9 Allergic rhinitis, unspecified; F41.9 Anxiety disorder, unspecified; F32.9 Major depressive disorder, single episode, unspecified; Z86.16 Personal history of COVID-19; Z79.899 Other long term (current) drug therapy
CPT/HCPCS: 36415; 36591; 80053; 85025; 96367; 96375; 96413; 96417; 99211; 99215; J1100; J1200; J1453; J2469; J7050; J9045; J9201

== ENCOUNTER 2020-11-26 06:22 | Outpatient (RCR) | payer MEDICARE, SELFPAY ==
--- NOTE | 2020-11-13 09:04 | CT_ITS ---
WS: [id number] CT CHEST, ABDOMEN AND PELVIS WITH CONTRAST HISTORY: FALLOPIAN TUBE CANCER TECHNIQUE: Contiguous 5 mm axial imaging performed through the chest, abdomen and pelvis with IV cont rast, oral contrast has been provided. Coronal and sagittal reformats chest. Coronal and sagittal ref ormats through the abdomen and pelvis. All CT scans at [facility] use at least one of these d ose optimization techniques: automated exposure control; mA and/or kV adjustment per patient size (in cludes targeted exams where dose is matched to clinical indication); or iterative reconstruction. CONTRAST: Omnipaque 300; 95 mL IV. DLP: 982.52 mGy.cm COMPARISON: 06/05/2020 and 04/02/[address]: Lungs are well-aerated. There are a few tiny stable micronodules which are near 2 mm. No en larging mass or nodule or new nodule. No pericardial or pleural effusions. LEFT subclavian Mediport w ith tip in the distal SVC. Heart size is normal. No pericardial or pleural effusions. No mediastinal adenopathy. There is a sclerotic focus in the posterior manubrium which has been present on prior praful dies. This is probably a benign bone island. Abdomen CT: Liver is normal. Mild central bile duct dilatation may be physiologic. Prior cholecystect [place]. Normal size spleen. Normal pancreas and adrenal glands. Small bilateral extrarenal pelves. No re nal obstruction. 1.1 cm cyst posterior upper pole LEFT kidney. Surgical clip is noted anterior to the RIGHT kidney. Mild atherosclerosis aorta. Mild diffuse fecal retention. Prior appendectomy. No GI tract obstruction. Since the prior examination there has been considerable improvement in the shoddy lymph nodes and sof t tissue in the retroperitoneum surrounding the aorta and aortocaval. Mild residual soft tissue measu ring 8 mm in the LEFT periaortic region. The aortocaval lymph node has resolved. No pelvic lymph node s. Pelvic CT: No free fluid or adenopathy within the pelvis. Prior hysterectomy. Urinary bladder is norm al. No osteoblastic or osteolytic disease identified. CT/CT chest abd pel w con* IMPRESSION: 1. Significant interval improvement in the retroperitoneal shoddy lymphadenopa thy described on 06/05/2020. Minimal residual disease measuring 8 mm LEFT periao rtic region. 2. No ascites. 3. No metastatic disease to the liver or adrenal glands. 4. Prior cholecystectomy and hysterectomy. 5. No new or increasing pulmonary nodules.
[2020-11-13 09:26] LABS: Basophils % 0.5 %; Eosinophils % 0.7 %; Hematocrit 33.6 % (37.0-47.0); Hemoglobin 10.9 g/dL (11.5-15.3); Lymphocytes # 0.9 10^3/uL (0.8-4.8); Lymphocytes % 21.2 %; Mean Corpuscular HGB Conc 32.4 g/dL (30.0-36.0); Mean Corpuscular Hemoglobin 36.9 pg (28.0-34.0); Mean Corpuscular Volume 113.9 fl (81-99); Mean Platelet Volume 10.8 fL (7.4-10.4); Monocytes # 0.4 10^3/uL (0.2-0.9); Neutrophils # 2.77 10^3/uL (1.8-7.7); Neutrophils % 67.4 %; Nucleated Red Blood Cells % 0 %; Platelet Count 119 10^3/cmm (130-400); Red Blood Count 2.95 10^6/uL (4.1-5.3); Red Cell Distribution Width 14.6 % (12.1-15.1); White Blood Count 4.1 10^3/uL (4.0-10.0)
[2020-11-13 09:53] LABS: Alanine Aminotransferase 10 U/L (0-33); Albumin Level 4.1 g/dL (3.5-5.2); Alkaline Phosphatase 83 IU/L (35-105); Anion Gap 12.9 (5-19); Aspartate Amino Transferase 14 U/L (0-32); Blood Urea Nitrogen 12 mg/dL (6-20); CA 125 20.4 U/mL (0-35); Calcium 9.2 mg/dL (8.5-10.5); Carbon Dioxide 26 mmol/L (22-29); Chloride 104 mmol/L (98-107); Globulin 2.5 g/dL (1.3-4.6); Glomerular Filtration Rate 103.4 mL/min (90-130); Glucose 83 mg/dL (65-115); Osmolality Calculated 287 mOsm/kg (285-295); Potassium 3.9 mmol/L (3.5-5.1); Sodium 139 mmol/L (136-145); Total Bilirubin 0.4 mg/dL (0.15-1.2); Total Protein 6.6 g/dL (6.6-8.7)
[2020-11-13] MEDS: iohexol 300 mg/mL 50 mL Btl PO (10:16)
[2020-11-13] MEDS: iohexol 300 mg/mL 100 mL Btl IV (10:35)
--- NOTE | 2020-11-30 11:06 | ONC FU_ITS ---
Dr. Grey Patient Follow-Up Note Patient: Jagruti Jay Unit #: [id number]: 1965 Dicatated By: John Grey M.D.Date of Visit:Nov 26, 2020 Onc Med Follow-up/Prog Note Chief Complaint: Fallopian tube cancer. 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 She had a recurrence in the form of a right diaphragmatic peritoneal implant confirmed by biopsy at a cholecystectomy procedure in April 2018. She had presented in August 2015 with abdominal pain, and she was found to have a large pelvic mass. This was initially thought to be arising from the right ovary. On 09/17/2015 she underwent surgery which included total abdominal hysterectomy, bilateral salpingo-oophorectomy, and radical debulking along with pelvic lymphadenectomy and limited periaortic lymphadenectomy. I do not have those actual reports available, but she apparently was thought to have a complete or near-complete resection. She was then given postoperative adjuvant chemotherapy with 6 cycles of carboplatin/paclitaxel. On 09/28/2018 she underwent cholecystectomy, and at the time of that procedure she was noted to have a peritoneal implant on the right diaphragm. Biopsy of the implant showed high-grade carcinoma consistent with the previous high-grade serous primary. With that finding she was then given further chemotherapy with 6 cycles of carboplatin/gemcitabine, which she completed in September 2018. Restaging CT scans of the chest, abdomen, and pelvis on 10/07/2018 showed resolution of a previously noted small anterior hepatic capsular or subcapsular nodule. There are new postsurgical changes in that region. 2 very closely associated hypodense foci were again noted in the right lobe posteriorly, maximum aggregate diameter of 3 mm. That finding. Stable. There was no evidence of a new focal hepatic abnormality. There were small mesenteric, retroperitoneal, and bilateral inguinal lymph nodes. There was no pathologic lymphadenopathy. A 5 x 3 mm sclerotic focus at the right posterior aspect of the manubrium appeared stable compared to a prior study from October 2015. There were no suspicious osseous lesions noted. With those findings, she was recommended to continue further systemic therapy with 16 cycles of bevacizumab administered at 3-week intervals. She received cycle 1 of bevacizumab on 11/10/2018. She tolerated it without acute toxicity, and she then continued treatment at a 3-week dosing interval. As of 07/04/2019 she completed her 12th cycle. Restaging CT scans on 07/21/2019 showed no evidence of metastatic disease in the chest, abdomen, or pelvis. There was evidence of diffuse fatty infiltration of the liver with an enlarged hepatic lobe measuring 19 cm. A left renal cyst measured 12 mm. There were no other abnormal findings. She continued her maintenance bevacizumab. She completed her 16th and last planned cycle on 10/09/2019. INTERIM HISTORY: As of her follow-up visit on October 24, 2019 her CA-125 level had increased to 33.4 U/mL. Overall, it appeared to have been increasing very gradually since January 2019 when it was 12.4 U/mL. However, at that point she appeared stable clinically and she continued observation/expectant management. As of 01/24/2020 there was further increase in the CA-125 to 48.3 U/mL. Her restaging CT scans of the chest, abdomen, and pelvis showed no evidence for metastatic disease. There were no other acute findings noted. Despite the negative CT findings, with the continued increase in the CA-125 level she was scheduled to have follow-up with Dr. Landon. She had repeat CT scans on 04/02/2020. It showed new small circumferential pericardial effusion and new findings within the peritoneal cavity which were concerning for metastatic involvement. This included increased soft tissue surrounding the mid SMA and increased soft tissue in the periaortic distribution. There were new small mesenteric, periaortic, and iliac chain lymph nodes. There was no ascites. Her further evaluation included genetic screening which showed 2 heterozygous variants of uncertain significance. She was negative for BRCA mutation. During this time her CA-125 level continued to increase. As of 04/30/2020 it was up to 177.0 U/mL. 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 It also showed genomic ZANE, and it was positive for PD-L1 expression with a CPS of 5. It was noted to be MSI stable. On 06/20/2020 she began salvage chemotherapy with cycle 1 of Doxil. Her baseline CA-125 level was 407.8 U/mL. The treatment was complicated by nausea/vomiting, severe constipation, and abdominal pain. She required IV hydration and IV antiemetics on multiple occasions. She did not have any evidence of bowel obstruction. In the meantime, she also had progressive enlargement of the right supraclavicular lymph node. As it had become increasingly symptomatic, she was referred to Dr. Littlejohn, and she underwent palliative radiation to the right supraclavicular area. Treatment was completed on 07/11/2020 to a total dose of 2000 cGy administered in 5 fractions. As of her follow-up visit on 07/18/2020 she was beginning to feel better generally. Her CA-125 level had declined to 175.4 U/mL. At that point I recommended restarting chemotherapy with carboplatin/gemcitabine with ultimate goal to transition her to maintenance therapy with a PARP inhibitor. On 07/25/2020 she began cycle 1 of carboplatin/gemcitabine, administered on a day 1/day 8 schedule. She tolerated both treatments without acute toxicity. She continued with cycle 2 on 08/21/2020. At that point she was feeling much better, and there was a significant decline in her CA-125 level. Her treatment was delayed due to neutropenia and thrombocytopenia, and it was administered at a reduced dosage of gemcitabine and on a day 1/day 15 schedule. She tolerated that treatment much better. As of 09/18/1020 her CA-125 level was down to 27.4 U/mL. She continued with cycle 3 on 10/02/2020. As she did appear to have had a good clinical response to the chemotherapy, she was then transitioned to maintenance olaparib at 300 mg twice daily beginning 11/01/2020. As of 11/13/2000 there was further decline in the CA-125 level to 20.4 U/mL. Restaging CT scans of the chest, abdomen, and pelvis showed significant improvement in the retroperitoneal lymphadenopathy compared to the May 2020 study. There was minimal residual disease in the form of a left periaortic region node measuring 8 mm. There were a few tiny pulmonary micronodules measuring the range of 2 mm. There were no enlarging or new pulmonary nodules noted. She is seen for a follow-up visit. She has been feeling good generally. She says her energy is continue to get better since she stopped chemotherapy. She has pretty much back to normal activity now. ECOG score is 0. She has good appetite. She has not had fever. She is having only few hot flashes. She has had some sinus drainage and sore throat she also has had some cough. She does not complain of shortness of breath or chest pain. She has some nausea, but not bad. Her acid reflux is adequately managed with Pepcid. She has constipation, and she still has to take Dulcolax to keep her bowels moving. She has no complaints. She has no significant joint or bone pain. She does not complain of headache or dizziness. She she has some tingling in 2 of her little toes. Medications: Acid Control Maximum Strength (20 mg) Tablet Oral daily, Allergy Relief Loratadine (10 mg) Tablet Oral daily, Ativan 1 Tablet (of 2 mg) Oral q 4 to 6 hours PRN, Cholecalciferol 2 Capsule (of 5000 Units) Oral daily, Lexapro 1 Tablet (of 10 mg) Oral daily, Promethazine HCl (25 mg) Suppository Rectal t.i.d. PRN, Singulair 1 Tablet (of 10 mg) Oral at bedtime, Vitamin E 1 Capsule (of 500 mg) Oral daily Allergies: Sulfa Antibiotics Vital Signs: Performed on Nov 26, 2020 13:42 Height - 64.00 in Weight - 130 lbs (HIGH) BSA - 1.63 sq.m BMI - 22.31 Temperature - 97 F (LOW) Pulse - 103 /min (HIGH) Respiration - 18 /min BP - 109/71 mm(hg) O2 Sat - 99 % Pain - 0 Fatigue - 7 Physical Examination: Constitutional - She looks pretty good generally, Eyes - Sclerae nonicteric. Conjunctivae clear, ENMT - No lesions noted in the oral cavity, Hematologic/Lymphatic - There is no cervical, clavicular, or axillary adenopathy noted, Respiratory - Lungs are clear with good air movement bilaterally, Cardiovascular - Heart rhythm is regular. There is no murmur, gallop, or rub noted, Abdomen - Soft. Liver and spleen are not enlarged. There is no abdominal mass noted and there is no obvious ascites. There is no inguinal adenopathy, Extremities - No edema, Neurologic - No focal neurologic deficits noted. Lab/Imaging: Test performed on Nov 13, 2020 08:20 Sodium 139 mmol/L Potassium 3.9 mmol/L Chloride 104 mmol/L CO2 26 mmol/L Anion Gap 12.9 BUN 12 mg/dL Creatinine 0.6 mg/dL Cr Clearance (Est) 94.1600 mL/min eGFR 103.4 mL/min Glucose 83 mg/dL Osmolality - Calculated 287 mOsm/kg Calcium 9.2 mg/dL Protein, Total 6.6 g/dL Albumin 4.1 g/dL Globulin 2.5 g/dL Bilirubin, Total 0.4 mg/dL ALT (SGPT) 10 U/L AST (SGOT) 14 U/L Alkaline Phosphatase 83 IU/L WBC 4.1 10 3/uL RBC 2.95 10 6/uL HGB 10.9 g/dL HCT 33.6 % MCV 113.9 fl MCH 36.9 pg MCHC 32.4 g/dL RDW 14.6 % Platelet Count 119 10 3/cmm MPV 10.8 fL Neutrophils 2.77 10 3/uL Lymphocytes 0.9 10 3/uL Monocytes 0.4 10 3/uL Eosinophils 0.0 10 3/uL Basophils 0.0 10 3/uL Neutrophil % 67.4 % Lymphocyte % 21.2 % Monocyte % 10.0 % Eosinophil % 0.7 % Basophils % 0.5 % NRBC % 0 % CA-125 20.4 U/mL Problem List: 1. 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 The tumor has been found on next generation sequencing to harbor a BRCA1 mutation, presumed to be somatic. 2. GERD. 3. Allergic rhinitis. 4. Anxiety/depression. 5. She developed COVID-19 virus infection in October 2019. She had an uneventful recovery. 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 She had complete or near-complete debulking with her initial surgery in September 2015. She was given postoperative adjuvant chemotherapy with 6 cycles of carboplatin/paclitaxel. She had biopsy proven recurrence in the form of a right diaphragmatic peritoneal implant, discovered at the cholecystectomy procedure in April 2018. She then had further chemotherapy with 6 cycles of carboplatin/gemcitabine, completed in September 2018. She had no evidence of residual disease on restaging CT scans on 10/07/2018. She then continued maintenance therapy with single agent bevacizumab at a 3-week interval dosing schedule for 16 cycles. She began cycle 1 of bevacizumab on 11/10/2018. She tolerated it well, and she was able to continue her treatment every 3 weeks with no apparent adverse effects. As of 10/09/2019 she completed her 16th and last planned cycle of bevacizumab. As of January 2020 there was a significant increase in her CA-125 level, up to 48 U/mL. In reviewing her records, it actually has been showing a very gradual increase over the preceding year, from 12.4 U/mL in January 2019. However, she was not overtly symptomatic with it and her restaging CT scans on 01/24/2020 showed no evidence of metastatic disease. Her repeat CT scans on 04/02/2020 showed findings within the peritoneal cavity which were concerning for metastatic involvement, including increased soft tissue surrounding the mid SMA and increased soft tissue in the periaortic distribution. There were new small mesenteric, periaortic, and iliac chain lymph nodes. Also noted was a new small circumferential pericardial effusion. At this point she was having significant pain in her abdomen and back, and she also was having ongoing problems with constipation. She has had follow-up with Dr. Landon, and she was recommended to restart chemotherapy with either carboplatin in combination with Doxil or with Doxil monotherapy. In the meantime, she was found to be BRCA negative on genetic screening. At her follow-up visit on 04/30/2020 she was noted to have enlarging right supraclavicular lymphadenopathy. 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 It also showed genomic ZANE, and it was positive for PD-L1 expression with a CPS of 5. It was noted to be MSI stable. She began cycle 1 of Doxil monotherapy on 06/20/2020. The treatment was complicated by severe nausea/vomiting, requiring IV hydration on multiple occasions. She also had ongoing, severe constipation but with no evidence of bowel obstruction by abdominal x-ray or CT. As of her follow-up visit on 07/18/2020 she was beginning to feel better. There had been a significant decline in her CA-125 level, suggesting some response to the Doxil. However, given the severe toxicity that she experienced with it, I opted to change her chemotherapy back to the carboplatin/gemcitabine regimen. She began cycle 1 on 07/25/2020, administered on a day 1/day 8 schedule. She tolerated the treatment well other than her cycle 2 had to be delayed due to neutropenia and thrombocytopenia. However, there was a significant further decline in her CA-125 level, to 39.1 U/mL and at that point she also was feeling much better. She continued with cycle 2 of carboplatin/gemcitabine on 08/21/2020, administered with a 25% reduction in the gemcitabine dosage and on a day 1/day 15 schedule. She tolerated that treatment much better, and she continued with her 3rd cycle of carboplatin/gemcitabine on 10/02/2020. She had a very good clinical response to the chemotherapy. Given the severity of her side effects, I opted to stop her treatment after 3 cycles. As of 10/31/2020 her blood counts had recovered adequately. With the known BRCA1 mutation, she was then transitioned to maintenance olaparib at a standard dosage of 300 mg twice daily. She has been tolerating the olaparib with no significant adverse effects. She continues to show gradual improvement in her performance status with further recovery from the chemotherapy. She has had a very good response to the treatment, thus far with no evidence of disease progression. She continues olaparib 300 mg twice daily. She will be scheduled for a follow-up visit in 3 months. Signed By: John Grey M.D. <<Signature on File>>
== END 2020-12-08 23:59 | disposition home or self-care (01) ==
LOC: ONCMED 06:22
PROVIDERS: PCP Nurse Practitioner Family; Visit Provider Internal Medicine Medical Oncology
DX: C57.02 Malignant neoplasm of left fallopian tube (principal); K21.9 Gastro-esophageal reflux disease without esophagitis; J30.9 Allergic rhinitis, unspecified; F41.9 Anxiety disorder, unspecified; F32.9 Major depressive disorder, single episode, unspecified; Z86.16 Personal history of COVID-19; Z92.21 Personal history of antineoplastic chemotherapy; Z79.899 Other long term (current) drug therapy
CPT/HCPCS: 36591; 71260; 74177; 80053; 85025; 86304; 99214; Q9967

== ENCOUNTER 2020-11-26 18:43 | Emergency (ER) | payer MEDICARE, SELFPAY ==
[2020-11-26 19:18] VITALS: BP 136/84; PULSE 94; RESP 18; TEMP 36.6; O2SAT 100; BMI 21.6
--- NOTE | 2020-11-26 19:19 | CTR_ITS ---
PROCEDURE INFORMATION: Exam: CT Cervical Spine Without Contrast Exam date and time: 11/26/2020 7:19 PM Age: 54 years old Clinical indication: Injury or trauma; Other: Stepped on by cow; Blunt trauma and crushing; Additional info: Trauma; Trampoled by cow TECHNIQUE: Imaging protocol: Computed tomography images of the cervical spine without contrast. Radiation optimization: All CT scans at this facility use at least one of these dose optimization techniques: automated exposure control; mA and/or kV adjustment per patient size (includes targeted exams where dose is matched to clinical indication); or iterative reconstruction. COMPARISON: CT chest abd pel w con* 11/13/2020 10:30 AM RADIATION DOSE METRICS: Total DLP (mGy-cm): 290.7 FINDINGS: Bones/joints: No acute fracture. Normal alignment. Discs/Spinal canal/Neural foramina: No significant disc protrusion. No severe spinal canal stenosis. No significant neural foraminal narrowing. Lungs: Lung apices are normal. Soft tissues: Unremarkable. CT/CT cervical spin wo con* [id number] IMPRESSION: No acute findings. Radiation Dose CTDIVOL = (mGy): DLP = 290.7 (mGy-cm)
--- NOTE | 2020-11-26 19:19 | CTR_ITS ---
PROCEDURE INFORMATION: Exam: CT Chest With Contrast; Diagnostic Exam date and time: 11/26/2020 7:19 PM Age: 54 years old Clinical indication: Injury or trauma; Other: Stepped on by cow; Blunt and crushing; Generalized; Blunt trauma (contusions or hematomas) and crushing; Prior surgery; Surgery type: Gb, appy; Additional info: Trauma; Trampoled by cow TECHNIQUE: Imaging protocol: Diagnostic computed tomography of the chest with contrast. Radiation optimization: All CT scans at this facility use at least one of these dose optimization techniques: automated exposure control; mA and/or kV adjustment per patient size (includes targeted exams where dose is matched to clinical indication); or iterative reconstruction. Contrast material: OMNI 300; Contrast volume: 95 ml; Contrast route: INTRAVENOUS (IV); COMPARISON: CT chest abd pel w con* 11/13/2020 10:30 AM RADIATION DOSE METRICS: Total DLP (mGy-cm): 1074.78 FINDINGS: Tubes, catheters and devices: Left subclavian Lriioz-D-Vtyr with tip in the distal SVC. Lungs: Mild scarring in the lung apices. The lungs are otherwise clear. Pleural spaces: Unremarkable. No pneumothorax. No pleural effusion. Heart: Unremarkable. No cardiomegaly. No pericardial effusion. Aorta: Unremarkable. No aortic aneurysm. Lymph nodes: Unremarkable. No enlarged lymph nodes. Bones/joints: Unremarkable. No acute fracture. Soft tissues: Subcutaneous soft tissue contusion in the upper left breast and chest wall. IMPRESSION: 1. No fracture identified. 2. Subcutaneous soft tissue contusion in the upper left breast and chest wall. PROCEDURE INFORMATION: Exam: CT Abdomen And Pelvis With Contrast Exam date and time: 11/26/2020 7:19 PM Age: 54 years old Clinical indication: Injury or trauma; Other: Stepped on by cow; Blunt and crushing; Generalized; Blunt trauma (contusions or hematomas) and crushing; Prior surgery; Surgery type: Gb, appy; Additional info: Trauma; Trampoled by cow TECHNIQUE: Imaging protocol: Computed tomography of the abdomen and pelvis with contrast. Radiation optimization: All CT scans at this facility use at least one of these dose optimization techniques: automated exposure control; mA and/or kV adjustment per patient size (includes targeted exams where dose is matched to clinical indication); or iterative reconstruction. Contrast material: OMNI 300; Contrast volume: 95 ml; Contrast route: INTRAVENOUS (IV); COMPARISON: CT chest abd pel w con* 11/13/2020 10:30 AM RADIATION DOSE METRICS: Total DLP (mGy-cm): 1074.78 FINDINGS: Liver: Normal. No mass. Gallbladder and bile ducts: Cholecystectomy clips. The bile ducts are normal. Pancreas: Normal. No ductal dilation. Spleen: Normal. No splenomegaly. Adrenal glands: Normal. No mass. Kidneys and ureters: Stable central cysts in the left kidney. The kidneys are otherwise unremarkable. No hydronephrosis. Stomach and bowel: Unremarkable. No obstruction. No mucosal thickening. Appendix: No evidence of appendicitis. Intraperitoneal space: Unremarkable. No free air. No significant fluid collection. Vasculature: Unremarkable. No abdominal aortic aneurysm. Lymph nodes: Unremarkable. No enlarged lymph nodes. Urinary bladder: Unremarkable as visualized. Reproductive: The uterus and ovaries are absent. Bones/joints: Unremarkable. No acute fracture. Soft tissues: Surgical clips in the retroperitoneum and left inguinal region. Subcutaneous soft tissue stranding or contusion in the lower right abdominal wall. CT/CT chest abd pel w con* IMPRESSION: 1. No fracture or solid organ trauma identified. 2. Mild subcutaneous soft tissue contusion in the lower right abdominal wall. Radiation Dose CTDIVOL = (mGy): DLP = 1074.78~1074.78 (mGy-cm)
--- NOTE | 2020-11-26 19:19 | XRR_ITS ---
PROCEDURE INFORMATION: Exam: XR Left Hand Exam date and time: 11/26/2020 7:19 PM Age: 54 years old Clinical indication: Injury or trauma; Other: Kicked by cow; Blunt trauma (contusions or hematomas); Injury date: 11/26/2020; Patient HX: Left hand pain, swelling; Additional info: Trauma; Trampoled by cow TECHNIQUE: Imaging protocol: XR Left hand. Views: 3 or more views. COMPARISON: No relevant prior studies available. FINDINGS: Bones/joints: Normal. Soft tissues: Normal. XR/XR hand LT min 3V* [id number] IMPRESSION: No acute findings. Radiation Dose CTDIVOL = (mGy): DLP = (mGy-cm)
--- NOTE | 2020-11-26 19:23 | XRR_ITS ---
PROCEDURE INFORMATION: Exam: XR Chest Exam date and time: 11/26/2020 7:23 PM Age: 54 years old Clinical indication: Injury or trauma; Blunt trauma (contusions or hematomas); Injury date: 11/26/2020; Injury details: Kicked by cow today; Prior surgery; Surgery type: Port; Patient HX: HX cancer, chest pain TECHNIQUE: Imaging protocol: XR of the chest. Views: 1 view. COMPARISON: CR XR chest 1V portable [id number] 06/05/2020 12:16:06 PM FINDINGS: Tubes, catheters and devices: Infusion port catheter remains in place with its tip in the superior vena cava. Lungs: Visualized portions of the lungs are clear. Pleural spaces: Unremarkable. No pleural effusion. No pneumothorax. Heart/Mediastinum: Heart is within normal limits of size. Bones/joints: Unremarkable. XR/XR chest 1V portable [id number] IMPRESSION: No acute finding. Radiation Dose CTDIVOL = (mGy): DLP = (mGy-cm)
--- NOTE | 2020-11-26 19:34 | PC.NURSE ---
sling placed on left arm secondary to disformed left wrist
[2020-11-26 20:41] VITALS: BP 124/84; PULSE 99; RESP 18; O2SAT 98
--- NOTE | 2020-11-26 21:50 | CTR_ITS ---
PROCEDURE INFORMATION: Exam: CT Maxillofacial Without Contrast Exam date and time: 11/26/2020 9:50 PM Age: 54 years old Clinical indication: Injury or trauma; Other: Stepped on by cow; Blunt trauma (contusions or hematomas) and crushing; Orbit/periorbital and jaw; Left TECHNIQUE: Imaging protocol: Computed tomography images of the face without contrast. Radiation optimization: All CT scans at this facility use at least one of these dose optimization techniques: automated exposure control; mA and/or kV adjustment per patient size (includes targeted exams where dose is matched to clinical indication); or iterative reconstruction. COMPARISON: CT sinus wo con* [id number] 07/21/2019 9:44 AM RADIATION DOSE METRICS: Total DLP (mGy-cm): 714.01 FINDINGS: Orbital cavity: Orbits are normal. Globes are unremarkable. Bones/joints: There is nasal septal deviation towards the right. No fracture is identified. Paranasal sinuses: Paranasal sinuses are clear. The ostia of the maxillary antra are patent. Soft tissues: Unremarkable. Nasal cavity: There is lokesh bullosa on the left. CT/CT facial bones wo con* [id number] IMPRESSION: No facial fracture is identified. Radiation Dose CTDIVOL = (mGy): DLP = 714.01 (mGy-cm)
[2020-11-26] MEDS: iohexol 300 mg/mL 100 mL Btl IV (21:59)
--- NOTE | 2020-11-26 22:05 | W.ED.GENADLT ---
Documented by User: Hayde Esquivel MD 11/28/20 21:58 HPI - General Adult General: Chief complaint: General Medical Stated complaint: Injury to Chest/Mouth & L Arm Time Seen by Provider: 11/26/20 21:47 History of Present Illness: HPI narrative: Patient is a 54-year-old female with history of ovarian cancer on chemotherapy presenting to the emergency room after she was attacked by a cow about an hour ago. Patient was feeding a baby cow when themother cow became aggressive and headbutt patient in the chest and hit her in the mouth and hand. Patient denies any LOC. Currently denies any chest pain shortness of breath, abdominal complaints, or any other focal complaints. Onset:1 hr ago Duration:1 hr Location:home Severity:moderate Review of Systems Narrative: Constitutional: No fever, no chills. HEENT: No vision changes CV: +L sided chest pain, no palpitations PULM: no cough, no dyspnea. GI: No abdominal pain, no N/V/D. : No dysuria MSKEL: No muscle pain SKIN: +L chest bruise, +L lower lip bruise NEURO: No headache, no focal weakness. HEME: No visible bruises PSYCH: Normal mood PFSH ED PFSH: Medical History (Updated 11/26/20 @ 23:04 by Hayde Esquivel MD) Acute dehydration Generalized weakness Ovarian metastasis Social History (System 08/27/20 @ 10:32 by Arcelia Pemberton) Smoking and tobacco status: former smoker Quit status (tobacco): has quit using tobacco Year quit tobacco: 1998 Former quit date comment: 0.5 PPD X 20 YEARS Female Reproductive History: Date of last menstrual period: 05/02/20 Physical Exam Narrative: EXAM NARRATIVE: Head: Atraumatic Eyes: PERRL, conjunctiva without injection ENT: Mucous membrane moist, no loose teeth, no trismus, no jaw malocclusion NECK: Supple, ROM intact LUNGS: LCTAB, no crackles/rhonchi CV: RRR ABDOMEN: Soft, nontender in all quadrants EXTREMITY: Normal ROM, +L lateral carpal tenderness to palpation SKIN: +Bruise over the L chest, bruise over the L lower lip NEURO: Awake and alert, no focal motor deficits PSYCH: Normal mood and affect Course Vital Signs: Vital signs: Vital Signs Temperature 97.9 F 11/26/20 19:18 Pulse Rate 82 11/27/20 00:41 Respiratory Rate 16 11/27/20 00:41 Blood Pressure 103/69 11/27/20 00:41 Pulse Oximetry 97 11/27/20 00:41 MDM - General Adult MDM Narrative: Medical decision making narrative: 54-year-old female presenting to the emergency room for she was attacked by a cow. Patient has bruises over the left lower lip, left chest and complains of pain in the left lateral dorsal wrist. XR chest, XR wrist negative for any acute finding. Given significant pain in the wrist, patient will be placed in a splint with follow-up with PCP in 1 week for repeat x-ray. Pending troponin and EKG at this time for evaluation of cardiac contusion. Case was signed out to Dr. Sanchez. I have given patient follow up with our mattress spring encaser to be seen by PCP for repeat XR of the L hand for evaluation of occult fracture. Patient aware of a call from our mattress spring encaser to schedule for appointment(s) and verbalizes understanding of the importance of following up. Lab Data: Labs: Lab Results 11/26/20 11/26/20 11/26/20 23:12 23:12 23:12 WBC 6.6 10^3/uL 10^3/ uL (4.0-10.0) RBC 2.83 10^6/uL L 10 ^6/uL (4.1-5.3) Hgb 10.5 g/dL L g/dL (11.5-15.3) Hct 31.8 % L % (37.0-47.0) MCV 112.4 fl H fl (81-99) MCH 37.1 pg H pg (28.0-34.0) MCHC 33.0 g/dL g/dL (30.0-36.0) RDW 14.3 % % (12.1-15.1) Plt Count 103 10^3/cmm L 10 ^3/cmm (130-400) MPV 10.4 fL fL (7.4-10.4) Neut % (Auto) 81.2 % % Lymph % (Auto) 8.9 % % [place] % (Auto) 9.3 % % Eos % (Auto) 0.0 % % Baso % (Auto) 0.3 % % Neut # (Auto) 5.32 10^3/uL 10^3 /uL (1.8-7.7) Lymph # (Auto) 0.6 10^3/uL L 10^ 3/uL (0.8-4.8) [place] # (Auto) 0.6 10^3/uL 10^3/ uL (0.2-0.9) Eos # (Auto) 0.0 10^3/uL 10^3/ uL (0.0-0.8) Baso # (Auto) 0.0 10^3/uL 10^3/ uL (0.0-0.1) Nucleated RBC % (a uto) 0 % % Nucleated RBCs # 0.0 /100WBC /100W BC Sodium 139 mmol/L mmol/L (136-145) Potassium 3.5 mmol/L mmol/L (3.5-5.1) Chloride 101 mmol/L mmol/L (98-107) Carbon Dioxide 23 mmol/L mmol/L (22-29) Anion Gap 18.5 (5-19) BUN 10 mg/dL mg/dL (6-20) Creatinine 0.6 mg/dL mg/dL (0.5-0.9) GFR Calculation 103.4 mL/min mL/m in (90-130) Glucose 105 mg/dL mg/dL (65-115) Calculated Osmolal ity 287 mOsm/kg mOsm/ kg (285-295) Calcium 9.0 mg/dL mg/dL (8.5-10.5) Troponin T Gen 5 n g/L 6 ng/L ng/L (0-10) Discharge Plan Discharge Patient Disposition: Home Clinical Impression: Contusion of face, Superficial bruising of chest wall, Hand pain Condition: Stable Prescriptions: No Action pantoprazole [Protonix] [address] for susp in packet 40 mg PO DAILY@0900 RF: 0 Zyrtec 10 mg capsule 10 mg PO DAILY PRN (Reason: Allergy Symptoms) RF: 0 vitamin B complex Tablet 1 tab PO DAILY@0900 RF: 0 montelukast 10 mg tablet 10 mg PO BEDTIME@2100 RF: 0 escitalopram oxalate 20 mg tablet 20 mg PO DAILY@0900 RF: 0 Linzess 145 mcg capsule 145 mcg PO DAILY@0900 RF: 0 Vitamin C 1 tab PO DAILY@0900 RF: 0 Vitamin D3 1 tab PO DAILY@0900 RF: 0 vitamin A 1 tab PO DAILY@0900 RF: 0 vitamin E 1 tab PO DAILY@0900 RF: 0 hydromorphone 8 mg tablet 8 mg PO Q6H PRN (Reason: Pain) RF: 0 lorazepam [Ativan] 2 mg tablet 2 mg PO Q6H PRN (Reason: anxiety) Qty: 30 RF: 0 lorazepam 0.5 mg tablet 0.5 mg PO Q4H PRN (Reason: NAUSEA/VOMITING) RF: 0 lactulose 20 gram/30 mL solution 10 g PO DAILY PRN (Reason: constipation) Qty: 1200 RF: 0 Discharge Orders: Discharge ED (Routine); Ordered 11/26/20 Ordered By: Maryana Sanchez Referrals: Mason,AMERICO MosquedaN [Primary Care Provider] - 1-3 days Discharge Diet: Advance as tolerated Discharge Activity: Resume usual activity Patient Instructions: Facial Contusion (ED), Opioid Safety Activity Restrictions/Additional Instructions: Our mattress spring encaser will have you follow-up with PCP in 1 week for repeat XR of the wrist. You would be expected to have a phone call with our mattress spring encaser who will put you on the schedule. Come back to the emergency room should she have any pain, any new headache, any any other concerning complaints. Please use your splint as instructed until you are seen by your primary care provider for repeat x-ray. Coding Level of Care Code ED Laborer Landscape for Chg Fwd Documented by User: Maryana Sanchez MD 11/26/20 23:57 HPI - General Adult General: Chief complaint: General Medical Stated complaint: Injury to Chest/Mouth & L Arm Time Seen by Provider: 11/26/20 21:47 PFSH ED PFSH: Medical History (Updated 11/26/20 @ 23:04 by Hayde Esquivel MD) Acute dehydration Generalized weakness Ovarian metastasis Social History (System 08/27/20 @ 10:32 by Arcelia Pemberton) Smoking and tobacco status: former smoker Quit status (tobacco): has quit using tobacco Year quit tobacco: 1998 Former quit date comment: 0.5 PPD X 20 YEARS Course Vital Signs: Vital signs: Vital Signs Temperature 97.9 F 11/26/20 19:18 Pulse Rate 82 11/27/20 00:41 Respiratory Rate 16 11/27/20 00:41 Blood Pressure 103/69 11/27/20 00:41 Pulse Oximetry 97 11/27/20 00:41 MDM - General Adult MDM Narrative: Medical decision making narrative: Patient presents here after an injury with a [place] she has no signs of any fractures does have a chest wall contusion. She is stable for discharge she is to follow-up with PCP and return if worsening. She understands agrees to plan. Lab Data: Labs: Lab Results 11/26/20 11/26/20 11/26/20 23:12 23:12 23:12 WBC 6.6 10^3/uL 10^3/ uL (4.0-10.0) RBC 2.83 10^6/uL L 10 ^6/uL (4.1-5.3) Hgb 10.5 g/dL L g/dL (11.5-15.3) Hct 31.8 % L % (37.0-47.0) MCV 112.4 fl H fl (81-99) MCH 37.1 pg H pg (28.0-34.0) MCHC 33.0 g/dL g/dL (30.0-36.0) RDW 14.3 % % (12.1-15.1) Plt Count 103 10^3/cmm L 10 ^3/cmm (130-400) MPV 10.4 fL fL (7.4-10.4) Neut % (Auto) 81.2 % % Lymph % (Auto) 8.9 % % [place] % (Auto) 9.3 % % Eos % (Auto) 0.0 % % Baso % (Auto) 0.3 % % Neut # (Auto) 5.32 10^3/uL 10^3 /uL (1.8-7.7) Lymph # (Auto) 0.6 10^3/uL L 10^ 3/uL (0.8-4.8) [place] # (Auto) 0.6 10^3/uL 10^3/ uL (0.2-0.9) Eos # (Auto) 0.0 10^3/uL 10^3/ uL (0.0-0.8) Baso # (Auto) 0.0 10^3/uL 10^3/ uL (0.0-0.1) Nucleated RBC % (a uto) 0 % % Nucleated RBCs # 0.0 /100WBC /100W BC Sodium 139 mmol/L mmol/L (136-145) Potassium 3.5 mmol/L mmol/L (3.5-5.1) Chloride 101 mmol/L mmol/L (98-107) Carbon Dioxide 23 mmol/L mmol/L (22-29) Anion Gap 18.5 (5-19) BUN 10 mg/dL mg/dL (6-20) Creatinine 0.6 mg/dL mg/dL (0.5-0.9) GFR Calculation 103.4 mL/min mL/m in (90-130) Glucose 105 mg/dL mg/dL (65-115) Calculated Osmolal ity 287 mOsm/kg mOsm/ kg (285-295) Calcium 9.0 mg/dL mg/dL (8.5-10.5) Troponin T Gen 5 n g/L 6 ng/L ng/L (0-10) Discharge Plan Discharge Patient Disposition: Home Clinical Impression: Contusion of face, Superficial bruising of chest wall, Hand pain Condition: Stable Prescriptions: No Action pantoprazole [Protonix] [address] for susp in packet 40 mg PO DAILY@0900 RF: 0 Zyrtec 10 mg capsule 10 mg PO DAILY PRN (Reason: Allergy Symptoms) RF: 0 vitamin B complex Tablet 1 tab PO DAILY@0900 RF: 0 montelukast 10 mg tablet 10 mg PO BEDTIME@2100 RF: 0 escitalopram oxalate 20 mg tablet 20 mg PO DAILY@0900 RF: 0 Linzess 145 mcg capsule 145 mcg PO DAILY@0900 RF: 0 Vitamin C 1 tab PO DAILY@0900 RF: 0 Vitamin D3 1 tab PO DAILY@0900 RF: 0 vitamin A 1 tab PO DAILY@0900 RF: 0 vitamin E 1 tab PO DAILY@0900 RF: 0 hydromorphone 8 mg tablet 8 mg PO Q6H PRN (Reason: Pain) RF: 0 lorazepam [Ativan] 2 mg tablet 2 mg PO Q6H PRN (Reason: anxiety) Qty: 30 RF: 0 lorazepam 0.5 mg tablet 0.5 mg PO Q4H PRN (Reason: NAUSEA/VOMITING) RF: 0 lactulose 20 gram/30 mL solution 10 g PO DAILY PRN (Reason: constipation) Qty: 1200 RF: 0 Discharge Orders: Discharge ED (Routine); Ordered 11/26/20 Ordered By: Maryana Sanchez Referrals: Mason,Jaylin, RESPIRATORY THERAPIST ASSISTANT [Primary Care Provider] - 1-3 days Discharge Diet: Advance as tolerated Discharge Activity: Resume usual activity Patient Instructions: Facial Contusion (ED), Opioid Safety Activity Restrictions/Additional Instructions: Our mattress spring encaser will have you follow-up with PCP in 1 week for repeat XR of the wrist. You would be expected to have a phone call with our mattress spring encaser who will put you on the schedule. Come back to the emergency room should she have any pain, any new headache, any any other concerning complaints. Please use your splint as instructed until you are seen by your primary care provider for repeat x-ray. Coding Level of Care Code ED Laborer Landscape for Albino Mondragon
--- NOTE | 2020-11-26 22:35 | ECG_ITS ---
[facility] Test Date: 2020-11-26 Pat Name: Jagruti Jay Department: Room: Gender: Female Education Administrative Assistant: : 1965 Requested By: Hayde Esquivel Order Number: [id number] Reading MD: OMAIRA RIOS Measurements Intervals [place] Rate: 94 P: 79 CT: 146 QRS: 75 QRSD: 84 T: 48 QT: 348 QTc: 436 Interpretive Statements SINUS RHYTHM POSSIBLE RIGHT ATRIAL ENLARGEMENT [0.25mV P-WAVE] NONSPECIFIC ST & T-WAVE ABNORMALITY Compared to ECG 06/05/2020 14:39:35 No significant changes Electronically Signed On 11-28-2020 0:12:47 CDT by OMAIRA RIOS [id number]
[2020-11-26 23:00] VITALS: BP 107/55; PULSE 72; RESP 18; O2SAT 99
[2020-11-26 23:19] LABS: Basophils % 0.3 %; Hematocrit 31.8 % (37.0-47.0); Hemoglobin 10.5 g/dL (11.5-15.3); Lymphocytes # 0.6 10^3/uL (0.8-4.8); Lymphocytes % 8.9 %; Mean Corpuscular Hemoglobin 37.1 pg (28.0-34.0); Mean Corpuscular Volume 112.4 fl (81-99); Mean Platelet Volume 10.4 fL (7.4-10.4); Monocytes # 0.6 10^3/uL (0.2-0.9); Monocytes % 9.3 %; Neutrophils # 5.32 10^3/uL (1.8-7.7); Neutrophils % 81.2 %; Nucleated Red Blood Cells % 0 %; Platelet Count 103 10^3/cmm (130-400); Red Blood Count 2.83 10^6/uL (4.1-5.3); Red Cell Distribution Width 14.3 % (12.1-15.1); White Blood Count 6.6 10^3/uL (4.0-10.0)
[2020-11-26] MEDS: acetaminophen 500 mg Tablet 1000 MG PO (23:32)
--- NOTE | 2020-11-26 23:32 | PC.NURSE ---
Pt resting. Spouse at bedside. Call light in reach. No needs at this time
[2020-11-26 23:52] LABS: Anion Gap 18.5 (5-19); Blood Urea Nitrogen 10 mg/dL (6-20); Carbon Dioxide 23 mmol/L (22-29); Chloride 101 mmol/L (98-107); Creatinine Clr Calc Pharmacy 95.5087; Glomerular Filtration Rate 103.4 mL/min (90-130); Glucose 105 mg/dL (65-115); Osmolality Calculated 287 mOsm/kg (285-295); Potassium 3.5 mmol/L (3.5-5.1); Sodium 139 mmol/L (136-145); Troponin T (5th) Once 6 ng/L (0-10)
[2020-11-27 00:41] VITALS: BP 103/69; PULSE 82; RESP 16; O2SAT 97
--- NOTE | 2020-11-28 14:33 | DCPLANNER ---
radiology services manager had message to speak with patient about follow up appointment with primary care. radiology services manager called phone number [phone], unable to speak with patient and unable to leave a voicemail for patient.
== END 2020-11-27 00:42 | disposition home or self-care (01) ==
PROVIDERS: Emergency Medicine; Emergency Provider Emergency Medicine; PCP Nurse Practitioner Family
DX: S00.83XA Contusion of other part of head, initial encounter (principal); S20.219A Contusion of unspecified front wall of thorax, initial encounter; M79.642 Pain in left hand; Z87.891 Personal history of nicotine dependence; W55.22XA Struck by cow, initial encounter
CPT/HCPCS: 70486; 71045; 71260; 72125; 73130; 74177; 80048; 84484; 85025; 93005; 99214; 99283; Q9967

== ENCOUNTER 2020-12-13 06:34 | Outpatient (RCR) | payer MEDICARE, SELFPAY | END 2021-01-07 23:59 | disposition home or self-care (01) | LOC: ONCMED 06:34 | PROVIDERS: PCP Nurse Practitioner Family; Visit Provider Internal Medicine Medical Oncology | DX: Z45.2 Encounter for adjustment and management of vascular access device (principal) | CPT/HCPCS: 96523 ==

== ENCOUNTER 2021-01-10 07:07 | Outpatient (RCR) | payer MEDICARE, SELFPAY ==
[2021-01-10 12:59] LABS: CA 125 19.2 U/mL (0-35)
== END 2021-01-18 06:00 | disposition home or self-care (01) ==
LOC: ONCMED 07:07
PROVIDERS: PCP Nurse Practitioner Family; Visit Provider Internal Medicine Medical Oncology
DX: C57.02 Malignant neoplasm of left fallopian tube (principal); C78.6 Secondary malignant neoplasm of retroperitoneum and peritoneum
CPT/HCPCS: 36591; 86304

== ENCOUNTER 2021-01-18 15:30 | Inpatient (IN) | payer MEDICARE, SELFPAY ==
[2021-01-18] VITALS (7 sets, daily range): BP systolic 71–170; BP diastolic 48–83; PULSE 101–137; RESP 16–22; TEMP 36.3; O2SAT 94–98; BMI 21.6
--- NOTE | 2021-01-18 | USCV_ITS ---
Jagruti Jay Age: 55 Gender: F : 1965 Exam Date: 01/18/2021 23:00 Ordering Phys: Lynne Hyde MD ([email or web address]) Technologist: FATOU Exam Location: Echo Lab Indication: PERICARDIOCENTESIS Conclusions S/p emergent pericardiocentesis after the code due to cardiac tamponade. Large effusion of tamponade physiology drained out, no residual pericardial effusion noted now. No diastolic collapse of RVR or is noted. When compared to the prior echocardiogram there is no pericardial effusion now. There appeared to be pericardial drain noted in the pericardial space. Lynne Hyde MD (Electronically Signed) Final Date: 19 January 2021 18:53 S
--- NOTE | 2021-01-18 16:16 | W.ED.ABDPA2 ---
HPI - Abdominal Pain General: Chief Complaint: Abdominal Pain Stated Complaint: ABD PAIN, PTS SAYS LOW PULSE Time Seen by Provider: 01/18/21 16:16 Related Data: Date of Last Menstrual Period: 05/02/20 [facility] PFSH: Medical History Acute dehydration Generalized weakness Ovarian metastasis Social History Smoking and tobacco status: former smoker Quit status (tobacco): has quit using tobacco Year quit tobacco: 1998 Former quit date comment: 0.5 PPD X 20 YEARS Female Reproductive History: Date of last menstrual period: 05/02/20 Course Vital Signs: Vital signs: Vital Signs Temperature 97.3 F L 01/18/21 16:04 Pulse Rate 137 H 01/18/21 16:04 Respiratory Rate 18 01/18/21 16:04 Blood Pressure 87/48 01/18/21 16:04 Pulse Oximetry 97 01/18/21 16:04 Discharge Plan Discharge Prescriptions: No Action pantoprazole [Protonix] [address] for susp in packet 40 mg PO DAILY@0900 RF: 0 Zyrtec 10 mg capsule 10 mg PO DAILY PRN (Reason: Allergy Symptoms) RF: 0 vitamin B complex Tablet 1 tab PO DAILY@0900 RF: 0 montelukast 10 mg tablet 10 mg PO BEDTIME@2100 RF: 0 escitalopram oxalate 20 mg tablet 20 mg PO DAILY@0900 RF: 0 Linzess 145 mcg capsule 145 mcg PO DAILY@0900 RF: 0 Vitamin C 1 tab PO DAILY@0900 RF: 0 Vitamin D3 1 tab PO DAILY@0900 RF: 0 vitamin A 1 tab PO DAILY@0900 RF: 0 vitamin E 1 tab PO DAILY@0900 RF: 0 hydromorphone 8 mg tablet 8 mg PO Q6H PRN (Reason: Pain) RF: 0 lorazepam [Ativan] 2 mg tablet 2 mg PO Q6H PRN (Reason: anxiety) Qty: 30 RF: 0 lorazepam 0.5 mg tablet 0.5 mg PO Q4H PRN (Reason: NAUSEA/VOMITING) RF: 0 lactulose 20 gram/30 mL solution 10 g PO DAILY PRN (Reason: constipation) Qty: 1200 RF: 0 Coding Level of Care Code ED Assistant Oceanographer for Chg Fwd
[2021-01-18] MEDS: sodium chloride 0.9% 1,000 ML 999 ML IV (16:40)
[2021-01-18 16:42] LABS: Basophils % 0.2 %; Hematocrit 35.9 % (37.0-47.0); Hemoglobin 11.8 g/dL (11.5-15.3); Lymphocytes # 1.1 10^3/uL (0.8-4.8); Lymphocytes % 13.7 %; Mean Corpuscular HGB Conc 32.9 g/dL (30.0-36.0); Mean Corpuscular Hemoglobin 36.8 pg (28.0-34.0); Mean Corpuscular Volume 111.8 fl (81-99); Mean Platelet Volume 10.7 fL (7.4-10.4); Monocytes # 0.8 10^3/uL (0.2-0.9); Monocytes % 9.4 %; Neutrophils # 6.16 10^3/uL (1.8-7.7); Neutrophils % 76.1 %; Nucleated Red Blood Cells # 0.1 /100WBC; Nucleated Red Blood Cells % 0.7 %; Platelet Count 191 10^3/cmm (130-400); Red Blood Count 3.21 10^6/uL (4.1-5.3); White Blood Count 8.1 10^3/uL (4.0-10.0)
--- NOTE | 2021-01-18 16:42 | XRR_ITS ---
PROCEDURE INFORMATION: Exam: XR Abdomen Exam date and time: 01/18/2021 4:42 PM Age: 55 years old Clinical indication: Abdominal pain; Additional info: Pain, unstable vital signs, eval acute obstruction TECHNIQUE: Imaging protocol: XR of the abdomen. Views: Frontal supine view of the abdomen. 1 View. COMPARISON: CT chest abd pel w con* 11/26/2020 9:55 PM FINDINGS: Gastrointestinal tract: Normal. No bowel dilation. Bones/joints: Unremarkable. XR/XR KUB [id number] IMPRESSION: No acute findings.
--- NOTE | 2021-01-18 16:42 | XRR_ITS ---
PROCEDURE INFORMATION: Exam: XR Chest Exam date and time: 01/18/2021 4:42 PM Age: 55 years old Clinical indication: Shortness of breath; Additional info: Hypotension, tachycardia TECHNIQUE: Imaging protocol: XR of the chest. Views: 1 view. COMPARISON: CT chest abd pel w con* 11/26/2020 9:55 PM FINDINGS: Tubes, catheters and devices: Left-sided Port-A-Cath. Lungs: Unremarkable. No consolidation. Pleural spaces: Unremarkable. No pleural effusion. No pneumothorax. Heart/Mediastinum: Cardiomegaly. Bones/joints: Unremarkable. XR/XR chest 1V portable [id number] IMPRESSION: 1. Negative for infiltrate. 2. Cardiomegaly.
--- NOTE | 2021-01-18 16:59 | CTR_ITS ---
PROCEDURE INFORMATION: Exam: CT Abdomen And Pelvis With Contrast Exam date and time: 01/18/2021 4:59 PM Age: 55 years old Clinical indication: Prior surgery; Surgery date: 6+ months; Patient HX: Acute abdominal pain TECHNIQUE: Imaging protocol: Computed tomography of the abdomen and pelvis with contrast. Radiation optimization: All CT scans at this facility use at least one of these dose optimization techniques: automated exposure control; mA and/or kV adjustment per patient size (includes targeted exams where dose is matched to clinical indication); or iterative reconstruction. Contrast material: OMNI 350; Contrast volume: 95 ml; Contrast route: INTRAVENOUS (IV); COMPARISON: CT chest abd pel w con* 11/26/2020 9:55 PM RADIATION DOSE METRICS: Total DLP (mGy-cm): 944.98 FINDINGS: Lungs: Bibasilar dependent atelectasis versus minimal infiltrate. Pleural spaces: Moderate right and trace left pleural effusion. Heart: Large pericardial effusion measuring up to 2.6 cm. Liver: Periportal edema likely related hydration status. Gallbladder and bile ducts: Cholecystectomy. Pancreas: Normal. No ductal dilation. Spleen: Normal. No splenomegaly. Adrenal glands: Normal. No mass. Kidneys and ureters: Left kidney cyst, negative for follow-up advised. Stomach and bowel: Constipation. Appendix: No evidence of appendicitis. Intraperitoneal space: Moderate ascites in the abdomen, nonspecific. Vasculature: Unremarkable. No abdominal aortic aneurysm. Lymph nodes: Unremarkable. No enlarged lymph nodes. Urinary bladder: Unremarkable as visualized. Reproductive: Unremarkable as visualized. Bones/joints: Unremarkable. No acute fracture. Soft tissues: Unremarkable. CT/CT abdomen pelvis w con* [id number] IMPRESSION: 1. Negative for acute inflammatory process in the abdomen or pelvis. 2. Large pericardial effusion measuring up to 2.6 cm. 3. Moderate right and trace left pleural effusion. 4. Bibasilar dependent atelectasis versus minimal infiltrate. 5. Periportal edema likely related hydration status. 6. Moderate ascites in the abdomen, nonspecific. 7. Cholecystectomy. 8. Left kidney cyst, negative for follow-up advised. 9. Constipation.
[2021-01-18 17:01] LABS: Lactate (Lactic Acid level) 3.3 mmol/L (0.5-2.2)
[2021-01-18 17:02] LABS: Alanine Aminotransferase 92 U/L (0-33); Albumin Level 3.9 g/dL (3.5-5.2); Alkaline Phosphatase 116 IU/L (35-105); Anion Gap 17.4 (5-19); Aspartate Amino Transferase 47 U/L (0-32); Blood Urea Nitrogen 24 mg/dL (6-20); Calcium 8.6 mg/dL (8.5-10.5); Carbon Dioxide 24 mmol/L (22-29); Chloride 95 mmol/L (98-107); Globulin 2.1 g/dL (1.3-4.6); Glomerular Filtration Rate 64.5 mL/min (90-130); Glucose 155 mg/dL (65-115); Lipase 11 U/L (13-60); Osmolality Calculated 281 mOsm/kg (285-295); Potassium 4.4 mmol/L (3.5-5.1); Sodium 132 mmol/L (136-145); Total Bilirubin 0.8 mg/dL (0.15-1.2)
[2021-01-18] MEDS: iohexol 300 mg/mL 100 mL Btl IV (17:29)
[2021-01-18 19:04] LABS: Add Urine Microscopic? YES; Bilirubin Urine 1+ (Negative); Blood Urine Neg (Negative); Glucose Urine UA Norm (Normal); Ketones Urine Negative (Negative); Leukocyte Esterase Urine Negative (Negative); Nitrate Urine Negative (Negative); Protein Urine 1+ (Negative); Urine Appearance Clear (CLEAR); Urine Color Dark Yellow (Yellow); Urobilinogen Urine 4 mg/dL (Negative); pH Urine 6.5 (5-7)
[2021-01-18 19:05] LABS: Bacteria Urine TRACE /hpf; Mucus Urine 2+ /hpf; Squamous Epithelial Cell Urine RARE /hpf (0-5); WBC Urine 0-4 /hpf (0-5)
[2021-01-18 19:06] LABS: Add Urine Culture? No
--- NOTE | 2021-01-18 19:07 | USCV_ITS ---
Jagruti Jay Age: 55 Gender: F : 1965 Exam Date: 01/18/2021 20:04 Ordering Phys: Evaristo Hoang MD Technologist: Darshana Arthur Exam Location: [facility] Indication: PERICARDIAL EFFUSION, TACHYCARDIA BP: 99 / 80 HR: 122 Rhythm: Sinus Technical Quality: Adequate MEASUREMENTS (Male / Female) Normal Values 2D ECHO LV Diastolic Diameter PLAX 2.5 cm 4.2 - 5.9 / 3.9 - 5.3 cm LV Systolic Diameter PLAX 1.8 cm IVS Diastolic Thickness 1.0 cm 0.6 - 1.0 / 0.6 - 0.9 cm IVS Systolic Thickness 1.1 cm LVPW Diastolic Thickness 1.0 cm 0.6 - 1.0 / 0.6 - 0.9 cm LVPW Systolic Thickness 1.1 cm LVOT Diameter 2.0 cm LV Ejection Fraction 2D Teich 56.1 % LV Ejection Fraction MOD 2C 58.1 % LV Ejection Fraction 2C AL 59.5 % Aorta at Sinotubular Diameter 2.0 cm DOPPLER TR Peak Velocity 156.0 cm/s TR Peak Gradient 9.7 mmHg RV Acceleration Time 0.1 s RV Ejection Time 0.3 s RV AcT/ET 0.4 FINDINGS Left Ventricle LV size and ejection fraction of 65%. Septum appears to be diffusely hypokinetic Right Ventricle Normal RV size ejection fraction. Partial collapse of the right ventricular free wall during early diastole Right Atrium Partial collapse of the right atrial wall, during late diastole Left Atrium Appears to be normal size Mitral Valve No gross abnormalities noted Aortic Valve No gross abnormalities noted Tricuspid Valve Could not be visualized well could not be visualized well Pulmonic Valve Pulmonic valve not well visualized. Pericardium Large pericardial effusion with some features of early diastolic collapse of the right ventricle. Echogenic materials were found to be attached to the parietal pericardium. The effusion appears to be more in the anterolateral aspect. Aorta Normal aortic annulus size. CONCLUSIONS Large pericardial effusion with the some early features of tamponade-the effusion appears to be more confined to the anterolateral aspect Normal LV size and ejection fraction Wall motion mildly as mentioned above. Cardiac chamber sizes. Normal LV size ejection fraction of 65% Study is technically somewhat limited because of the tachycardia. Dr Sai Quinones MD FACC (Electronically Signed) Final Date: 18 January 2021 21:47 S
--- NOTE | 2021-01-18 19:33 | ECG_ITS ---
[facility] Test Date: 2021-01-18 Pat Name: Jagruti Jay Department: Room: ICU08 Gender: Female Tobacco Dipper: : 1965 Requested By: Evaristo Hoang Order Number: [id number] Manpreet MD: Sai Quinones M.D. 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 [id number]
--- NOTE | 2021-01-18 19:33 | PC.NURSE ---
REPORT GIVEN TO [facility]TH[facility] ASSUMED CARE.
[2021-01-18 20:39] LABS: Troponin(5th) Baseline 46 ng/L (0-10)
[2021-01-18 20:47] LABS: NT Pro B Type Natriuretic Pept 508 pg/mL (0-125)
--- NOTE | 2021-01-18 22:22 | XACV_ITS ---
Wt: 59 kg Gender: Female : 1965 Exam Priority: Routine Procedure(s): Procedure Description: Diagnostic procedure Procedure Description: Miscellaneous Procedure Description: Pericardiocentesis RUDYJoni; Diagnostic Cath Status: Emergency Conclusions 1. 55-year-old female past medical history significant for metastatic ovarian cancer presented with tachypnea tachycardia hypotension was taken emergently to the [facility] for pericardiocentesis. While trying to prepare for the procedure patient went apneic hypotensive with pulseless electrical activity. CODE BLUE was called during process of intubation and CPR, we performed emergent blind pericardiocentesis with the help of micro needle from micropuncture kit was performed. Wire was confirmed in the pericardium with the help of bedside echo and fluoroscopy. Wire noted to be tracking around the cardiac silhouette anteriorly. Over the wire UF catheter 5 Chinese was placed. Total of 725 mL of hemorrhagic effusion was drained. IV fluid was pushed patient started perfusing, good blood pressure restored. Her tachycardia also improved. Pericardial fluid was sent for cytology analysis and culture. Continuous drain was placed and sutured with flying fluid from pericardium into draining bag. Patient vitals became stable. She started responding to the command by opening the eyes. Last systolic blood pressure was 109/54 with heart rate of 116 bpm sinus tachycardia. Cardiac surgery was consulted for pericardial window. Discussed with Dr. Hernandez would like to take her for pericardial window today. 2. . Recommendations * Post pericardiocentesis care, consider pericardial window before discharge. Pressures Phase:Rest AO : 144 / 71 ( 91 ) @ 7:09:01 PM Procedural Details Pre-Procedure Time Out. Identified patient by full name and date of as verbalized by the patient/guarantor. Does the consent match the physician's order: N/A Emergent. Accurate & Complete Informed Consent: N/A Emergent. Inpatient/Outpatient History & Physical on Chart: N/A Emergent. If H&P is completed, is and addenduem needed: N/A Emergent; If yes, is the addendum complete: N/A Emergent. Visualize and Verify Site with Patient/Guarantor: N/A. Relevant Radiology Images available: N/A Emergent. The risks, benefits, and alternatives of sedation and/or procedure were discussed by physician. The patient agrees to continue. Procedure started. Correct patient, site and procedure confirmed by cath team. PERRLA. Strong, equal hand model and pattern supervisor bilaterally. Lungs clear x 5 lobes. IV Site on Arrival: 18 gauge in the left anticubital. IV Fluids: 0.9% NaCl at KVO. 900 mL infused prior to oil field laborer. Oxygen started at 2liters/min via nasal canula. chest was prepped with chloroprep then draped in the usual sterile fashion. Baseline sample Acquired. HR: 71 BPM. Physician arrived. Cynthia with ultrasound here to assist with the pericardiocentesis. Physician scrubbed in. Immediate Pre-Procedure Time Out. Correct Patient: N/A Emergent; Correct Procedure: N/A Emergent; Correct Site: N/A Emergent; Correct Patient Position: N/A Emergent; Correct Supplies: N/A Emergent; Dried Flammable Prep: N/A Emergent; Blood Products Available: N/A Emergent;. Lidocaine 1% infiltrated to the chest. Dr. Quinones arrived to observe. rapid response and resp called stat. code blue called. AP Pads placed. code team intubating the patient. Vital chart was stopped. 100mg succs given by the code team. access obtained. micropuncture wire inserted through the access needle. needle removed, micropuncture sheath inserted. micropuncture sheath and wire removed. Dr. Hernandez called to the oil field laborer. access obtained. micropuncture wire inserted through the access needle. needle removed, micropuncture sheath inserted. 6F sheath inserted. access obtained. wire inserted. UF catheter inserted OTW. wire removed. lab arrived to collect fluid and blood. fluid being aspirated by Dr. Hyde Total: 700mL of fluid. Dr. Hernandez arrived. catheter sutured in. right radial was prepped with chloroprep then draped in the usual sterile fashion. Lidocaine 1% infiltrated to the right radial. Arterial access obtained. blood sent to lab. Arterial sheath flushed and connected to tranducer and pressure bag with heparinized saline. Dr. Hyde scrubbed out. Waiting on the OR staff to arrive to recieve patient. Procedure completed. Medication's Wasted: Lidocaine 1% = 16 mL. Medication's Wasted: Nitro = 49.6 mg. Medication's Wasted: Heparin = 3000 units. Total IV fluids: 1000 mL. OR arrived to recieve patient. Vital chart was stopped. Access Site Site: Right Radial artery Sheath Size: 6 Fr Hemostasis Success: Unsuccessful Procedure Medications Start: 11:08 PM Stop: 11:08 PM Medication: Versed Amount: 1 mg Route: I.V. Start: 11:08 PM Stop: 11:08 PM Medication: Fentanyl Amount: 50 mcg Route: I.V. Start: 11:08 PM Stop: 11:08 PM Medication: Zofran (ondansetron) Amount: 4 mg Route: I.V. Start: 11:13 PM Stop: 11:13 PM Medication: Versed Amount: 1 mg Route: I.V. Start: 11:13 PM Stop: 11:13 PM Medication: Fentanyl Amount: 50 mcg Route: I.V. Start: 11:25 PM Stop: 11:25 PM Medication: Versed Amount: 1 mg Route: I.V. Start: 11:25 PM Stop: 11:25 PM Medication: Fentanyl Amount: 50 mcg Route: I.V. Start: 11:32 PM Stop: 11:32 PM Medication: Narcan Amount: 0.4 mg Route: I.V. Start: 11:32 PM Stop: 11:32 PM Medication: Atropine Amount: 1 mg Route: I.V. Start: 11:35 PM Stop: 11:35 PM Medication: Epinephrine Amount: 1 mg Route: I.V. Start: 11:37 PM Stop: 11:37 PM Medication: Narcan Amount: 0.4 mg Route: I.V. Start: 11:54 PM Stop: 11:54 PM Medication: Versed Amount: 1 mg Route: I.V. Start: 11:59 PM Stop: 11:59 PM Medication: unlisted medication Amount: 10 mg Route: I.V. Start: 11:59 PM Stop: 11:59 PM Medication: unlisted medication Amount: 10 mg Route: I.V. Start: 12:08 AM Stop: 12:08 AM Medication: unlisted medication Amount: 15 mcg/kg/min Route: I.V. Start: 12:20 AM Stop: 12:20 AM Medication: Nitrogylcerin Amount: 100 mcg Start: 12:23 AM Stop: 12:23 AM Medication: Nitrogylcerin Amount: 100 mcg Route: I.A. I, the attending physician, have reviewed and verified all procedure medications. Yes, all medications given per verbal order History/Risk Factors Hypertension: No Dyslipidemia: No Peripheral Arterial Disease (PAD): No Myocardial Infarction (UT): No Obesity: No Renal Disease: No Prior Interventions PCI: No CABG: No Valve Surgery: No Report Signatures Finalized by Lynne Hyde MD on 01/28/2021 03:57 PM
--- NOTE | 2021-01-18 22:27 | P.CONIM_ITS ---
Providers/Reason For Consult Consulting Physician/Specialty*: CAMELIA Quinones MD/cardiology Reason for Consult*: Patient is a large pericardial effusion/tamponade Requesting Physician: Natalya/Evaristo Primary Care Provider: Jaylin Mason APN History of Present Illness History of Present Illness Jagruti Jay is a 55 year old female who presented to the emergency room with complaints of epigastric discomfort and shortness of breath. She was found to have significant pericardial effusion by CT of the abdomen and pelvis -done in the emergency room. Subsequent echocardiogram revealed a large pericardial effusion with some features of tamponade. Cardiology consult is requested for further cardiac evaluation recommendations. This patient is known to have metastatic ovarian cancer. 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 Subsequently she underwent radical hysterectomy for ovarian cancer. She had a metastatic lesions in the subdiaphragmatic area. So far she had a 3 courses of chemotherapy and radiation treatment for the lymph nodes in the neck. She is being followed by Dr. Grey. The last 3 days also, she been having progressive shortness of breath. She also had some symptoms of upper respiratory infection for which Dr. Grey prescribed antibiotics -Z-Cale. Her shortness of breath with exertion Getting worse. She also felt very tired and weak. The epigastric discomfort was thought to be related to the Z-Cale. Because of the worsening of the symptoms, she came to the emergency room. She has no chest pain. Her pulse was found to be weak and the blood pressure could not be recorded at home. Her blood pressure usually runs around 100 to 110 at home. But today the blood pressure could not be recorded Denies any fever or chills. No dysuria. No hematemesis or melena. She has no previous history for any cardiac illness. No history for cardiac arrhythmia Patient was given a total of 1 L of IV fluid in the emergency room. Even after that, the blood pressure was found to be in the 80s. Heart rate is staying in the 120s to 130 range. Review of Systems Narrative: CONSTITUTIONAL: No fever or chills. Some feeling of generalized weakness EYES: No blurring of vision or other visual disturbances lately. ENT: No hoarseness of voice, auditory disturbances or sore throat. CARDIOVASCULAR: As mentioned above. RESPIRATORY: Shortness of breath with exertion as mentioned above GASTROINTESTINAL: No hematemesis or melena. GENITOURINARY: Metastatic ovarian cancer as mentioned above INTEGUMENTARY: No skin rashes or history of skin cancer. NEURO: No transient ischemic attacks or amaurosis. PSYCHIATRIC: No history of psychosis or major depression. HEMATOLOGIC: Has been having some anemia. ENDOCRINE: No history of polyuria or polydipsia. MUSCULOSKELETAL: No recent joint pain or swelling. ALLERGY/IMMUNOLOGY: As mentioned above. Meds/Allergies Home Medications and Allergies Home Medications Medication Instructions Recorded Confirmed Last Taken Type cetirizine 10 mg capsule 10 mg PO DAILY PRN 05/10/20 01/19/21 06/02/20 History Vitamin C 1 tab PO DAILY@0900 06/03/20 01/19/21 06/04/20 History Vitamin D3 1 tab PO DAILY@0900 06/03/20 01/19/21 06/04/20 History escitalopram oxalate 20 mg PO DAILY@0900 06/03/20 01/19/21 06/04/20 History hydromorphone 8 mg PO Q6H PRN 06/03/20 01/19/21 06/03/20 History lorazepam [Ativan] 2 mg PO Q6H PRN #30 tab 06/03/20 01/19/21 06/04/20 Rx montelukast 10 mg PO BEDTIME@2100 06/03/20 01/19/21 06/04/20 History vitamin A 1 tab PO DAILY@0900 06/03/20 01/19/21 06/04/20 History vitamin B complex 1 tab PO DAILY@0900 06/03/20 01/19/21 06/04/20 History vitamin E 1 tab PO DAILY@0900 06/03/20 01/19/21 06/04/20 History lorazepam 0.5 mg PO Q4H PRN 06/05/20 01/19/21 Unknown History lactulose 10 g PO DAILY PRN #1200 ml 06/07/20 01/19/21 Unknown Rx azithromycin See Rx Instructions .ROUTE .COMPLEX 01/19/21 01/19/21 Unknown History famotidine 20 mg PO BID 01/19/21 01/19/21 Unknown History lidocaine-prilocaine 1 applic TOPICAL . 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, follows with Dr Grey -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, debulked and treated with carboplatin/paclitaxel -2018 peritoneal/diaphragm seeding, treated with carboplatin/gemcitabine -2018 to 2019 treated with Bevacizumab -03/2020 peritoneal mets, treated with Doxil (stopped due to intolerance 07/29), treated with carboplatin/gemcitabine (stopped 09/28 due to intolerance), started Olaparib 10/29 -Palliative radiation summer 2020 -BRCA1 mutation Depression GERD (gastroesophageal reflux disease) Surgical History History of appendectomy History of bilateral oophorectomy History of cholecystectomy History of hysterectomy History of pelvic surgery radical debulking with pelvic & periaortic lymphadenectomy and omentectomy Family History Father Cancer lung Mother CHF (congestive heart failure) CAD (coronary artery disease) Diabetes Brother Leukemia Family/Other Leukemia Social History Smoking and tobacco status: former smoker Quit status (tobacco): has quit using tobacco Year quit tobacco: 1998 Former quit date comment: 0.5 PPD X 20 years Alcohol intake: never Substance/Drug Use: never Household members: spouse Female Reproductive History: Date of last menstrual period: 05/02/20 Vitals/I&O/Wt Last Vital Signs Temp 97.3 F L 01/18/21 20:43 Pulse 127 H 01/18/21 21:39 Resp 18 01/18/21 20:43 BP 104/74 01/18/21 21:39 Pulse Ox 94 01/18/21 21:39 The repeat blood pressure by me revealed pulses paradoxus of 15 mmHg. The systolic blood pressure during expiration is 90 mmHg and the inspiratory blood pressure is 75 mmHg. Weight last 48 hrs Weight 130 lb Physical Exam Narrative: EXAM NARRATIVE: GENERAL: The patient is alert and oriented times three. Not in any acute distress. Looks somewhat lethargic. Slightly tachypneic. HEENT: Mild pallor. No icterus or lymphadenopathy. The pupils are symmetrical oral cavity: There are no mucous membrane lesions. Funduscopic examination: The disk margins appear to be sharp with no exudates or hemorrhages. NECK: Trachea appears to be central. No masses noted. No JVD or thyromegaly appreciated. No carotid bruit. RESPIRATORY: Chest is symmetrical. No intercostals muscle retraction or any accessory muscle activation. There is no chest wall tenderness. Breath sounds are heard bilaterally. No rales or rhonchi heard. No evidence of any consolidation. BREASTS: Deferred. HEART: The PMI could not be palpated. No other palpable precordial events. The heart sounds are somewhat muffled. No significant murmurs. No pericardial rub ABDOMEN: Patient has vague tenderness in the epigastric area. Liver is palpable in the right subcostal region. No other organomegaly appreciated. : Deferred. RECTAL: Deferred. LYMPHATIC: Enlarged lymph nodes in the cervical and supraclavicular regions EXTREMITIES: No significant edema or cyanosis. Peripheral pulses are palpable but weak bilaterally. MUSCULOSKELETAL: No acute joint deformities or swelling SKIN: There are no significant scars or skin rash noted. NEUROPSYCHIATRIC: The patient is alert and oriented x3. No focal motor deficits. Data Labs: Other Labs: Laboratory Last Values WBC 8.1 10^3/uL (4.0- 10.0) 01/18/21 16:25 RBC 3.21 10^6/uL (4.1 -5.3) L 01/18/21 16:25 Hgb 11.8 g/dL (11.5-1 5.3) 01/18/21 16:25 Hct 35.9 % (37.0-47.0 ) L 01/18/21 16:25 MCV 111.8 fl (81-99) H 01/18/21 16:25 MCH 36.8 pg (28.0-34. 0) H 01/18/21 16:25 MCHC 32.9 g/dL (30.0-3 6.0) 01/18/21 16:25 RDW 14.0 % (12.1-15.1 ) 01/18/21 16:25 Plt Count 191 10^3/cmm (130 -400) 01/18/21 16:25 MPV 10.7 fL (7.4-10.4 ) H 01/18/21 16:25 Neut % (Auto) 76.1 % 01/18/21 16:25 Lymph % (Auto) 13.7 % 01/18/21 16:25 [place] % (Auto) 9.4 % 01/18/21 16:25 Eos % (Auto) 0.0 % 01/18/21 16:25 Baso % (Auto) 0.2 % 01/18/21 16:25 Neut # (Auto) 6.16 10^3/uL (1.8 -7.7) 01/18/21 16:25 Lymph # (Auto) 1.1 10^3/uL (0.8- 4.8) 01/18/21 16:25 [place] # (Auto) 0.8 10^3/uL (0.2- 0.9) 01/18/21 16:25 Eos # (Auto) 0.0 10^3/uL (0.0- 0.8) 01/18/21 16:25 Baso # (Auto) 0.0 10^3/uL (0.0- 0.1) 01/18/21 16:25 Nucleated RBC % (a uto) 0.7 % 01/18/21 16:25 Nucleated RBCs # 0.1 /100WBC 01/18/21 16:25 Sodium 132 mmol/L (136-1 45) L 01/18/21 16:25 Potassium 4.4 mmol/L (3.5-5 .1) 01/18/21 16:25 Chloride 95 mmol/L (98-107 ) L 01/18/21 16:25 Carbon Dioxide 24 mmol/L (22-29) 01/18/21 16:25 Anion Gap 17.4 (5-19) 01/18/21 16:25 BUN 24 mg/dL (6-20) H 01/18/21 16:25 Creatinine 0.9 mg/dL (0.5-0. 9) 01/18/21 16:25 GFR Calculation 64.5 mL/min (90-1 30) L 01/18/21 16:25 Glucose 155 mg/dL (65-115 ) H 01/18/21 16:25 Calculated Osmolal ity 281 mOsm/kg (285- 295) L 01/18/21 16:25 Lactate 3.3 mmol/L (0.5-2 .2) H 01/18/21 16:25 Calcium 8.6 mg/dL (8.5-10 .5) 01/18/21 16:25 Total Bilirubin 0.8 mg/dL (0.15-1 .2) 01/18/21 16:25 AST 47 U/L (0-32) H 01/18/21 16:25 ALT 92 U/L (0-33) H 01/18/21 16:25 Alkaline Phosphata se 116 IU/L (35-105) H 01/18/21 16:25 Troponin T Baselin e 46 ng/L (0-10) H 01/18/21 20:13 NT-Pro-B Natriuret Pep 508 pg/mL (0-125) H 01/18/21 20:13 Total Protein 6.0 g/dL (6.6-8.7 ) L 01/18/21 16:25 Albumin 3.9 g/dL (3.5-5.2 ) 01/18/21 16:25 Globulin 2.1 g/dL (1.3-4.6 ) 01/18/21 16:25 Lipase 11 U/L (13-60) L 01/18/21 16:25 Urine Color Dark yellow (Yel low) 01/18/21 18:12 Urine Appearance Clear (CLEAR) 01/18/21 18:12 Urine pH 6.5 (5-7) 01/18/21 18:12 Ur Specific Gravit y 1.010 (1.005-1.0 30) 01/18/21 18:12 Urine Protein 1+ (Negative) H 01/18/21 18:12 Urine Glucose (UA) Norm (Normal) 01/18/21 18:12 Urine Ketones Negative (Negati ve) 01/18/21 18:12 Urine Blood Neg (Negative) 01/18/21 18:12 Urine Nitrate Negative (Negati ve) 01/18/21 18:12 Urine Bilirubin 1+ (Negative) H 01/18/21 18:12 Urine Urobilinogen 4 mg/dL (Negative ) H 01/18/21 18:12 Ur Leukocyte Roya ase Negative (Negati ve) 01/18/21 18:12 Urine RBC None /hpf (0-2) 01/18/21 18:12 Urine WBC 0-4 /hpf (0-5) H 01/18/21 18:12 Ur Squamous Epith Cells Rare /hpf (0-5) 01/18/21 18:12 Amorphous Sediment Not Reportable 01/18/21 18:12 Urine Bacteria Trace /hpf (NONE) 01/18/21 18:12 Urine Mucus 2+ /hpf 01/18/21 18:12 Blood Type A Positive 01/18/21 17:20 Rho(D) Type Positive 01/18/21 17:20 Antibody Screen Negative 01/18/21 17:20 Micro: Micro: Microbiology 01/18/21 Unknown Blood Culture - Pr eliminary Blood SPECIMEN [facility]LE UMAIR 01/18/21 Unknown Blood Culture - Pr eliminary Blood [facility]EN [facility] A&P Assessment and plan (1) Pericardial effusion with cardiac tamponade: Patient has clinical and echocardiographic features of pericardial tamponade. For further management of her condition, she would benefit from pericardiocentesis. This was discussed with the patient and her in detail which he understood well. Status: Acute (2) Sinus tachycardia: The sinus tachycardia and hypotension are associated with the pericardial tamponade. At this point, I may continue giving the IV normal saline and 125 cc/h. 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 Grey Status: Chronic Qualifiers: Laterality: bilateral Qualified Code(s): C79.63 - Secondary malignant neoplasm of bilateral ovaries (4) Hypotension: Continue the IV normal saline as mentioned above. Patient requires pericardiocentesis as soon as possible. She was given a total of 1 L of IV fluid. The systolic blood pressure is still in the 80s Status: Acute Qualifiers: Hypotension type: other hypotension type Qualified Code(s): I95.89 - Other hypotension Additional A&P Information I contacted Dr. Hyde and discussed her case. Dr. Hyde is willing to perform the pericardiocentesis. If the patient has recurrence of the pericardial effusion, she may require a pericardial window. Based on her clinical progress, further recommendations will be made. If there is a hospital bed available, the patient will be admitted to the hospital by the hospitalist Consult Attestations Medical Necessity Statement: Patient needs to be closely monitored in the hospital. Coding Level of Care Code Acute Radiation Protection Engineer for Chg Fwd History Detailed Medical Decision Making High Complexity Diagnoses Pericardial effusion with cardiac tamponade I31.3; I31.4 Sinus tachycardia R00.0 Metastatic malignant neoplasm to ovary C79.63 Laterality: bilateral Hypotension I95.89 Hypotension type: other hypotension type
--- NOTE | 2021-01-18 22:53 | P.HP_ITS ---
Providers/Chief Complaint Admitting Physician: Norah Champion MD Primary Care Provider: Jaylin Mason APN Chief Complaint: ABD PAIN, PTS SAYS LOW PULSE History of Present Illness Jagruti Jay is a 55 year old female to the emergency room chief complaint of abdominal pain, several episodes of vomiting and diarrhea today. No hematemesis, melena or hematochezia described. Typically has problems with constipation. Pain described as primarily in the epigastric to mid abdominal area, described as crampy in nature. She was short of breath with it. Recently been prescribed some antibiotics for upper respiratory infection. Her GI symptoms and dyspnea on exertion had worsened. No report of any fever noted. With development of tachycardia, difficulty measuring blood pressure and significant weakness today she came in for further evaluation. I am not able to ask her directly any questions. History was obtained from ER physician, discussion with Dr. Quinones and briefly reviewed with her . Patient is critically ill and taken to [facility] emergently for pericardiocentesis due to cardiac tamponade. As part of her work-up for GI symptoms she had a CT of the abdomen and pelvis done. Upper portions of this image showed evidence of pericardial effusion. Echocardiogram was subsequently done urgently and did reveal large pericardial effusion with tamponade features. Patient was tachycardic and hypotensive with heart rate in the 120s to 130s and systolic pressures as low as 70. Dr. Hyde came in for emergent intervention. She received IV fluids in the emergency room with improvement in blood pressures. In the [facility], prior to pericardial sac being entered, Mrs. Hutchins went into PEA arrest. I was present in the [facility]. She received CPR for 1 round with atropine and epi given. Return of spontaneous circulation was noted. Patient was intubated by ER physician. Pericardial fluid was withdrawn shortly after and heart rate and blood pressure both improved. Dr. Hernandez has been called in to take patient for pericardial window tonight. Postprocedure after intubation medications had worn off, Mrs. Jay made eye contact and smiled, followed simpl e command. She was maintained on ventilator and sedated and went from [facility] to the OR and will be admitted to the ICU. Review of Systems General: Reports: ROS unobtainable due to medical condition Medications/Allergies Home Medications Medication Instructions Recorded Confirmed Last Taken Type cetirizine 10 mg capsule 10 mg PO DAILY PRN 0406/05/20 06/02/20 History pantoprazole 40 mg granules 40 mg PO DAILY@0900 05/10/20 06/05/20 06/04/20 History delayed-release for susp in packet Linzess 145 mcg PO DAILY@0900 06/03/20 06/05/20 06/04/20 History Vitamin C 1 tab PO DAILY@0900 06/03/20 06/05/20 06/04/20 History Vitamin D3 1 tab PO DAILY@0900 06/03/20 06/05/20 06/04/20 History escitalopram oxalate 20 mg PO DAILY@0900 06/03/20 06/05/20 06/04/20 History hydromorphone 8 mg PO Q6H PRN 06/03/20 06/05/20 06/03/20 History lorazepam [Ativan] 2 mg PO Q6H PRN #30 tab 06/03/20 06/05/20 06/04/20 Rx montelukast 10 mg PO BEDTIME@2100 06/03/20 06/05/20 06/04/20 History vitamin A 1 tab PO DAILY@0900 06/03/20 06/05/20 06/04/20 History vitamin B complex 1 tab PO DAILY@0900 06/03/20 06/05/20 06/04/20 History vitamin E 1 tab PO DAILY@0900 06/03/20 06/05/20 06/04/20 History lorazepam 0.5 mg PO Q4H PRN 06/05/20 06/05/20 Unknown History lactulose 10 g PO DAILY PRN #1200 ml 06/07/20 Unknown Rx Allergies Allergy/AdvReac Type Severity Reaction Status Date / Time Sulfa (Sulfonamide Allergy Unknown RASH Verified 08/27/20 10:32 Antibiotics) Additional Medication Information Her medications are not able to be directly updated this evening but current viewable external medication list is similar to the above with the addition of Olaparib for her cancer PFSH Acute PFSH: Medical History 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, follows with Dr Grey -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, debulked and treated with carboplatin/paclitaxel -2018 peritoneal/diaphragm seeding, treated with carboplatin/gemcitabine -2018 to 2019 treated with Bevacizumab -03/2020 peritoneal mets, treated with Doxil (stopped due to intolerance 07/29), treated with carboplatin/gemcitabine (stopped 09/28 due to intolerance), started Olaparib 10/29 -Palliative radiation summer 2020 -BRCA1 mutation Depression GERD (gastroesophageal reflux disease) Surgical History History of appendectomy History of bilateral oophorectomy History of cholecystectomy History of hysterectomy History of pelvic surgery radical debulking with pelvic & periaortic lymphadenectomy and omentectomy Family History Father Cancer lung Mother CHF (congestive heart failure) CAD (coronary artery disease) Diabetes Brother Leukemia Family/Other Leukemia Social History Smoking and tobacco status: former smoker Quit status (tobacco): has quit using tobacco Year quit tobacco: 1998 Former quit date comment: 0.5 PPD X 20 years Alcohol intake: never Substance/Drug Use: never Household members: spouse Vitals/I&O/Wt Last Vital Signs Temp 97.3 F L 01/18/21 20:43 Pulse 127 H 01/18/21 21:39 Resp 18 01/18/21 20:43 BP 104/74 01/18/21 21:39 Pulse Ox 94 01/18/21 21:39 Weight last 48 hrs Weight 58.967 kg Physical Exam Narrative: EXAM NARRATIVE: Constitutional: Ill-appearing, mildly lethargic but answers questions simple answers HEENT: Normocephalic, atraumatic, pupils are equal bilaterally and reactive, dry mucous membranes Neck: Supple Respiratory: Tachypneic with mild supraclavicular retractions, no wheezes, shallow Cardiovascular: Tachycardic, regular rhythm, diminished heart sounds, no obvious murmurs or rubs, no discernible JVD, decreased peripheral pulses but equal x4, distal extremities cool Abdomen: Soft, slightly rotund, tender to palpation throughout the most prominent in the epigastrium, dull to percussion, decreased bowel sounds : Normal external Extremities: No pitting edema, no calf tenderness, no acute synovitis appreciated Skin: Dry, pale, no mottling Neuro: Moves all extremities Data : 01/19/21 00:30 01/18/21 16:25 Other Labs: Laboratory Results WBC 8.1 10^3/uL (4.0-10.0) 01/18/21 16:25 RBC 3.21 10^6/uL (4.1-5.3) L 01/18/21 16:25 Hgb 11.8 g/dL (11.5-15.3) 01/18/21 16:25 Hct 35.9 % (37.0-47.0) L 01/18/21 16:25 MCV 111.8 fl (81-99) H 01/18/21 16:25 MCH 36.8 pg (28.0-34.0) H 01/18/21 16:25 MCHC 32.9 g/dL (30.0-36.0) 01/18/21 16:25 RDW 14.0 % (12.1-15.1) 01/18/21 16:25 Plt Count 191 10^3/cmm (130-400) 01/18/21 16:25 MPV 10.7 fL (7.4-10.4) H 01/18/21 16:25 Neut % (Auto) 76.1 % 01/18/21 16:25 Lymph % (Auto) 13.7 % 01/18/21 16:25 [place] % (Auto) 9.4 % 01/18/21 16:25 Eos % (Auto) 0.0 % 01/18/21 16:25 Baso % (Auto) 0.2 % 01/18/21 16:25 Neut # (Auto) 6.16 10^3/uL (1.8-7.7) 01/18/21 16:25 Lymph # (Auto) 1.1 10^3/uL (0.8-4.8) 01/18/21 16:25 [place] # (Auto) 0.8 10^3/uL (0.2-0.9) 01/18/21 16:25 Eos # (Auto) 0.0 10^3/uL (0.0-0.8) 01/18/21 16:25 Baso # (Auto) 0.0 10^3/uL (0.0-0.1) 01/18/21 16:25 Nucleated RBC % (auto) 0.7 % 01/18/21 16:25 Nucleated RBCs # 0.1 /100WBC 01/18/21 16:25 Sodium 132 mmol/L (136-145) L 01/18/21 16:25 Potassium 4.4 mmol/L (3.5-5.1) 01/18/21 16:25 Chloride 95 mmol/L (98-107) L 01/18/21 16:25 Carbon Dioxide 24 mmol/L (22-29) 01/18/21 16:25 Anion Gap 17.4 (5-19) 01/18/21 16:25 BUN 24 mg/dL (6-20) H 01/18/21 16:25 Creatinine 0.9 mg/dL (0.5-0.9) 01/18/21 16:25 GFR Calculation 64.5 mL/min (90-130) L 01/18/21 16:25 Glucose 155 mg/dL (65-115) H 01/18/21 16:25 Calculated Osmolality 281 mOsm/kg (285-295) L 01/18/21 16:25 Lactate 3.3 mmol/L (0.5-2.2) H 01/18/21 16:25 Calcium 8.6 mg/dL (8.5-10.5) 01/18/21 16:25 Total Bilirubin 0.8 mg/dL (0.15-1.2) 01/18/21 16:25 AST 47 U/L (0-32) H 01/18/21 16:25 ALT 92 U/L (0-33) H 01/18/21 16:25 Alkaline Phosphatase 116 IU/L (35-105) H 01/18/21 16:25 Troponin T Baseline 46 ng/L (0-10) H 01/18/21 20:13 Troponin T 120 Minute 49.66 ng/L (0-10) H 01/18/21 22:17 Delta Troponin T 3.66 ABS# (0-10) 01/18/21 22:17 NT-Pro-B Natriuret Pep 508 pg/mL (0-125) H 01/18/21 20:13 Total Protein 6.0 g/dL (6.6-8.7) L 01/18/21 16:25 Albumin 3.9 g/dL (3.5-5.2) 01/18/21 16:25 Globulin 2.1 g/dL (1.3-4.6) 01/18/21 16:25 Lipase 11 U/L (13-60) L 01/18/21 16:25 Urine Color Dark yellow (Yellow) 01/18/21 18:12 Urine Appearance Clear (CLEAR) 01/18/21 18:12 Urine pH 6.5 (5-7) 01/18/21 18:12 Ur Specific [place] 1.010 (1.005-1.030) 01/18/21 18:12 Urine Protein 1+ (Negative) H 01/18/21 18:12 Urine Glucose (UA) Norm (Normal) 01/18/21 18:12 Urine Ketones Negative (Negative) 01/18/21 18:12 Urine Blood Neg (Negative) 01/18/21 18:12 Urine Nitrate Negative (Negative) 01/18/21 18:12 Urine Bilirubin 1+ (Negative) H 01/18/21 18:12 Urine Urobilinogen 4 mg/dL (Negative) H 01/18/21 18:12 Ur Leukocyte Esterase Negative (Negative) 01/18/21 18:12 Urine RBC None /hpf (0-2) 01/18/21 18:12 Urine WBC 0-4 /hpf (0-5) H 01/18/21 18:12 Ur Squamous Epith Cells Rare /hpf (0-5) 01/18/21 18:12 Amorphous Sediment Not Reportable 01/18/21 18:12 Urine Bacteria Trace /hpf (NONE) 01/18/21 18:12 Urine Mucus 2+ /hpf 01/18/21 18:12 Blood Type A Positive 01/18/21 17:20 Rho(D) Type Positive 01/18/21 17:20 Antibody Screen Negative 01/18/21 17:20 Impressions Chest X-Ray 01/18/21 16:42 IMPRESSION: 1. Negative for infiltrate. 2. Cardiomegaly. KUB X-Ray 01/18/21 16:42 IMPRESSION: No acute findings. Abdomen/Pelvis CT 01/18/21 16:59 IMPRESSION: 1. Negative for acute inflammatory process in the abdomen or pelvis. 2. Large pericardial effusion measuring up to 2.6 cm. 3. Moderate right and trace left pleural effusion. 4. Bibasilar dependent atelectasis versus minimal infiltrate. 5. Periportal edema likely related hydration status. 6. Moderate ascites in the abdomen, nonspecific. 7. Cholecystectomy. 8. Left kidney cyst, negative for follow-up advised. 9. Constipation. Echocardiogram 01/18/21 21:47 CONCLUSIONS Large pericardial effusion with the some early features of tamponade-the effusion appears to be more confined to the anterolateral aspect Normal LV size and ejection fraction Wall motion mildly as mentioned above. Cardiac chamber sizes. Normal LV size ejection fraction of 65% Study is technically somewhat limited because of the tachycardia. Micro: Microbiology 01/18/21 Unknown Blood Culture - Preliminary Blood SPECIMEN COLLECTED 01/18/21 Unknown Blood Culture - Preliminary Blood SPECIMEN COLLECTED Other data: Laboratory Tests 10/24/19 11/22/19 01/24/20 09:10 08:10 11:12 CA 125 Antigen 33.4 33.2 48.3 H 02/23/20 03/29/20 04/30/20 09:50 10:48 14:38 CA 125 Antigen 45.3 H 75.8 H 177.0 H 06/27/20 07/11/20 07/25/20 13:33 15:00 09:05 CA 125 Antigen 407.8 H 175.4 H 98.5 H 08/21/20 09/18/20 11/13/20 11:50 08:19 08:20 CA 125 Antigen 39.1 H 27.4 20.4 01/10/21 10:24 CA 125 Antigen 19.2 A&P Assessment and plan (1) Pericardial effusion with cardiac tamponade: With tachycardia and hypotension Has been seen by Dr Quinones Emergent pericardiocentesis with drain/window this evening by Dr. Hyde, Dr. Hernandez ~750 ml dark bloody fluid removed from pericardial sac thus far Presentation was with abdominal pain, diarrhea, vomiting Likely metastatic Status: Acute (2) Cardiopulmonary arrest with successful resuscitation: Periprocedure, PEA arrest before entry into the pericardium. Received atropine, epi, CPR with return of spontaneous circulation. Subsequent significant improvement in vital signs after removal of pericardial fluid. Alert and made eye contact post event prior to surgery. Status: Acute (3) Acute respiratory failure: Secondary to cardiac tamponade associated PEA arrest, requiring intubation, hypoxic and apneic Status: Acute (4) Carcinoma of tubo-ovarian: Serous adenocarcinoma fallopian tube with metastasis, follows with Dr Grey, last appointment 11/2020 -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, debulked and treated with carboplatin/paclitaxel -2018 peritoneal/diaphragm seeding, treated with carboplatin/gemcitabine -2018 to 2019 treated with Bevacizumab -03/2020 peritoneal mets, treated with Doxil (stopped due to intolerance 07/29), treated with carboplatin/gemcitabine (stopped 09/28 due to intolerance), started Olaparib 10/29 -Palliative radiation summer 2020 -BRCA1 mutation Status: Chronic (5) Depression: Chronically on escitalopram per available information Status: Chronic (6) GERD (gastroesophageal reflux disease): Chronically on ppi or h2 delfina from available information Status: Chronic Additional A&P Information Constipation of late, [facility] ICU care Post pericardiocentesis and post op care as indicated with input from cardiology and cardiothoracic surgery Will send pericardial fluid for cytology, Gram stain and culture, cell count and differential, usual chemistries Cultures have been collected Empiric antibiotic therapy with Vanco and cefepime currently Ventilator support Blood transfusion has been typed and crossed for 4 units I discussed with the the likelihood that this will be malignant effusion based on history and that this is generally poor once pericardial effusions occur. He indicates that CA-125 levels last appointment were improved on Olaparib. Check CA-[address] Grey tomorrow if available or Wednesday of events PPI SCDs presently for DVT prophylaxis No pharmacological DVT prophylaxis ordered as of yet secondary to surgical procedure Address home medications once clarified and patient is stable Supportive care otherwise Disposition will depend on clinical course though anticipate discharge home was given an opportunity to ask questions though it has been an eventful evening and is understandably challenging for him, we will keep him updated. He is aware that she was following commands prior to planned surgery Full code Attestations Medical Necessity Statement*: Anticipated stay greater than two midnights in this patient critically ill from cardiac tamponade status post PEA arrest with return of spontaneous circulation, pericardiocentesis with drain placement and going for pericardial window. Critical Care Time: The high probability of a clinically significant, sudden or life threatening deterioration of the patient's cardiopulmonary system(s) required my full and direct attention, intervention and personal management. The critical care time is as shown. This time is in addition to time spent performing any reported procedures but includes the following: [x] Data and vital sign review and interpretation [x] Patient assessment, examination and intervention [x] Documentation [x] Medication orders and management On 01/18 60 minutes critical care for discussion with cardiology x 2, ED provider, nursing staff, lab and radiology staff and managing prior to procedure from ~10:40-11:40pm On 01/19 75 minutes critical care for code management, periop transition, admission, post op care, discussion with , directing nursing staff Total critcal care time below covers 01/19/ and 01/18 respectively as described Critical Care Time (min): 135 Coding Level of Care Code Acute Steel Rod Buster for Chg Fwd Diagnoses Pericardial effusion with cardiac tamponade I31.3; I31.4 Cardiopulmonary arrest with successful resuscitation I46.9 Acute respiratory failure J96.00 Carcinoma of tubo-ovarian C57.8 Depression F32.A GERD (gastroesophageal reflux disease) K21.9
[2021-01-18 22:56] LABS: Troponin 5 2HR 49.66 ng/L (0-10); Troponin 5 2HR Delta 3.66 ABS# (0-10)
--- NOTE | 2021-01-18 23:06 | W.PM.OPSUD ---
Surgery/Procedure H&P Update DATE OF PROCEDURE: January 18, 2021 DATE H&P PERFORMED: 01/18/21 H&P UPDATE INFORMATION: I have reviewed H&P completed within last 30 days and I have examined patient prior to procedure PREOP DIAGNOSIS: Large pericardial effusion/tamponade physiology PRIMARY INDICATION FOR PROCEDURE: Pericardiocentesis PATIENT REASSESSED PRIOR TO SEDATION, WITH NO CHANGE NOTED: Yes PHYSICAL EXAM: alert, oriented x 3 and clear to auscultation bilaterally AIRWAY EVAL/ANESTHESIA PLAN: ASA II and Risks, benefits & alternatives of sedation and/or procedure discussed ADDITIONAL INFORMATION: All risk benefit and alternative for the procedure including pericardial tamponade myocardial rupture arrhythmia urgent emergent cardiac surgery emergent pericardial window tissue liver damage were explained in detail patient presented tamponade hypotensive therefore we will proceed with emergent pericardiocentesis.
[2021-01-19] VITALS (57 sets, daily range): BP systolic 76–110; BP diastolic 42–76; PULSE 0–117; RESP 0–22; TEMP 36.3–36.6; O2SAT 93–100
[2021-01-19 00:19] LABS: Mononuclear #, Pericardial Fl 1.579 10^3/uL; Polynuclear # Cells, Peri 1.917 10^3/uL; RBC Pericardial Fluid 2178 10^3/uL; WBC Pericardial Fluid 3496 /uL
[2021-01-19 00:20] LABS: Pericardial Fluid Appearance Bloody (Clear); Pericardial Fluid Color Red (Pale Yellow)
--- NOTE | 2021-01-19 00:31 | PM.PROC ---
Procedure Note: Date of procedure: 01/18/21 Pre-procedure diagnosis: Pericardial tamponade Other Information: 55-year-old female past medical history significant for metastatic ovarian cancer presented with tachypnea tachycardia hypotension was taken emergently to the [facility] for pericardiocentesis. While trying to prepare for the procedure patient went apneic hypotensive with pulseless electrical activity. CODE ROGELIO was called during process of intubation and CPR, we performed emergent blind pericardiocentesis with the help of micro needle from micropuncture kit was performed. Wire was confirmed in the pericardium with the help of bedside echo and fluoroscopy. Wire noted to be tracking around the cardiac silhouette anteriorly. Over the wire UF catheter 5 [place] was placed. Total of 725 mL of hemorrhagic effusion was drained. IV fluid was pushed patient started perfusing, good blood pressure restored. Her tachycardia also improved. Pericardial fluid was sent for cytology analysis and culture. Continuous drain was placed and sutured with flying fluid from pericardium into draining bag. Patient vitals became stable. She started responding to the command by opening the eyes. Last systolic blood pressure was 109/54 with heart rate of 116 bpm sinus tachycardia. Cardiac surgery was consulted for pericardial window. Discussed with Dr. Hernandez would like to take her for pericardial window today. Coding Level of Care Code Acute Airplane Navigator for Albino Mondragon
[2021-01-19 00:32] LABS: Pericardial Fluid Spec Gravity 1.015
[2021-01-19 00:46] LABS: LDH Pericardial Fluid 996 U/L; Pericardial Fluid Total Prot 5.9 g/dL
--- NOTE | 2021-01-19 00:58 | PM.CONSULT ---
Providers/Reason For Consult Consulting Physician/Specialty*: Dr. Hernandez/cardiothoracic surgery Reason for Consult*: Pericardial effusion with tamponade Requesting Physician: Dr. Hyde Primary Care Provider: Jaylin Mason APN History of Present Illness History of Present Illness Jagruti Jay is a 55 year old female called urgently to the [facility] for surgical opinion concerning a pericardial effusion, felt to be malignant. She has just successfully been rescued by percutaneous pericardial drain placement by Dr. Hyde. She had presented earlier to the emergency department with epigastric discomfort and shortness of breath. Patient has known metastatic ovarian carcinoma with peritoneal involvement. Transthoracic echocardiogram revealed early tamponade physiology with a large pericardial effusion. Patient was taken to the catheterization lab for expeditious pericardial drain placement when she developed cardiac arrest with the drain subsidy been placed and a large volume of bloody effusion returned. Due to the substantially sanguinous effusion as well as evidence for stranding on echocardiogram, I recommended proceeding directly to the operating room suite for transition to a formal pericardial window and larger pericardial drain placement as I am fearful of potential early clotting of the small bore drain currently in position. Ms. Vasquez is currently sedated and intubated. Blood pressure approximately 100 systolic. She is tachycardic. I have conferred in the catheterization lab directly with my colleagues, Dr. Hyde and Dr. Quinones. Pending chest x-ray shows a substantial cardiac silhouette change as compared to November of this year. There is now a more globular and distended silhouette. CT scan of the abdomen and pelvis again confirmed a large pericardial effusion as well as moderate right pleural effusion and smaller left effusion. Review of Systems General: Reports: ROS unobtainable due to medical condition (Review of systems is obtained from chart review) Meds/Allergies Home Medications and Allergies Home Medications Medication Instructions Recorded Confirmed Last Taken Type cetirizine 10 mg capsule 10 mg PO DAILY PRN 05/10/20 06/05/20 06/02/20 History pantoprazole 40 mg granules 40 mg PO DAILY@89905/10/20 06/05/20 06/04/20 History delayed-release for susp in packet Linzess 145 mcg PO DAILY@89906/03/20 06/05/20 06/04/20 History Vitamin C 1 tab PO DAILY@89906/03/20 06/05/20 06/04/20 History Vitamin D3 1 tab PO DAILY@0900 06/03/20 06/05/20 06/04/20 History escitalopram oxalate 20 mg PO DAILY@0900 06/03/20 06/05/20 06/04/20 History hydromorphone 8 mg PO Q6H PRN 06/03/20 06/05/20 06/03/20 History lorazepam [Ativan] 2 mg PO Q6H PRN #30 tab 06/03/20 06/05/20 06/04/20 Rx montelukast 10 mg PO BEDTIME@2100 06/03/20 06/05/20 06/04/20 History vitamin A 1 tab PO DAILY@0900 06/03/20 06/05/20 06/04/20 History vitamin B complex 1 tab PO DAILY@0900 06/03/20 06/05/20 06/04/20 History vitamin E 1 tab PO DAILY@0900 06/03/20 06/05/20 06/04/20 History lorazepam 0.5 mg PO Q4H PRN 06/05/20 06/05/20 Unknown History lactulose 10 g PO DAILY PRN #1200 ml 06/07/20 Unknown Rx Allergies Allergy/AdvReac Type Severity Reaction Status Date / Time Sulfa (Sulfonamide Allergy Unknown RASH Verified 08/27/20 10:32 Antibiotics) PFSH Acute PFSH: Medical History 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, follows with Dr Grey -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, debulked and treated with carboplatin/paclitaxel -2018 peritoneal/diaphragm seeding, treated with carboplatin/gemcitabine -2018 to 2019 treated with Bevacizumab -03/2020 peritoneal mets, treated with Doxil (stopped due to intolerance 07/29), treated with carboplatin/gemcitabine (stopped 09/28 due to intolerance), started Olaparib 10/29 -Palliative radiation summer 2020 -BRCA1 mutation Depression GERD (gastroesophageal reflux disease) Surgical History History of appendectomy History of bilateral oophorectomy History of cholecystectomy History of hysterectomy History of pelvic surgery radical debulking with pelvic & periaortic lymphadenectomy and omentectomy Family History Father Cancer lung Mother CHF (congestive heart failure) CAD (coronary artery disease) Diabetes Brother Leukemia Family/Other Leukemia Social History Smoking and tobacco status: former smoker Quit status (tobacco): has quit using tobacco Year quit tobacco: 1998 Former quit date comment: 0.5 PPD X 20 years Alcohol intake: never Substance/Drug Use: never Household members: spouse Vitals/I&O/Wt Last Vital Signs Temp 97.3 F L 01/18/21 20:43 Pulse 127 H 01/18/21 21:39 Resp 22 H 01/19/21 00:07 BP 104/74 01/18/21 21:39 Pulse Ox 94 01/18/21 21:39 Weight last 48 hrs Weight 130 lb Physical Exam Const: OTHER: Patient is currently sedated and intubated. Physical exam is abbreviated as [facility] is completing placement of bandages status post pericardial drain placement. Resp: OTHER: Bilateral crackles. Data Micro: Micro: Microbiology 01/18/21 Unknown Blood Culture - Pr eliminary Blood SPECIMEN [facility]MAIR 01/18/21 Unknown Blood Culture - Pr eliminary Blood SPECIMEN [facility] Consult Attestations Medical Necessity Statement: Pericardial effusion with tamponade Time Spent in Patient Care: 16 - 35 minutes Coding Level of Care Code Acute Chief Engineer Production for Albino Mondragon
[2021-01-19 01:11] LABS: Basophils % 0.1 %; Hematocrit 26.5 % (37.0-47.0); Hemoglobin 8.8 g/dL (11.5-15.3); Lymphocytes # 0.5 10^3/uL (0.8-4.8); Lymphocytes % 7.9 %; Mean Corpuscular HGB Conc 33.2 g/dL (30.0-36.0); Mean Corpuscular Hemoglobin 36.8 pg (28.0-34.0); Mean Corpuscular Volume 110.9 fl (81-99); Mean Platelet Volume 11.2 fL (7.4-10.4); Monocytes # 0.6 10^3/uL (0.2-0.9); Monocytes % 8.3 %; Neutrophils % 83.3 %; Nucleated Red Blood Cells # 0.1 /100WBC; Nucleated Red Blood Cells % 0.9 %; Platelet Count 133 10^3/cmm (130-400); Red Blood Count 2.39 10^6/uL (4.1-5.3); Red Cell Distribution Width 13.9 % (12.1-15.1); White Blood Count 6.7 10^3/uL (4.0-10.0)
[2021-01-19 01:19] LABS: INR 1.26 (0.8-1.2)
[2021-01-19 01:20] LABS: Partial Thromboplastin Time 24.2 SECONDS (23.9-36.7)
[2021-01-19 01:32] LABS: Lactate (Lactic Acid level) 3.6 mmol/L (0.5-2.2)
[2021-01-19] MEDS: vancomycin 1,000 MG SDV 2000 MG IRRIGATION (01:47)
[2021-01-19 02:41] LABS: Alanine Aminotransferase 114 U/L (0-33); Albumin Level 2.9 g/dL (3.5-5.2); Alkaline Phosphatase 102 IU/L (35-105); Amylase 27 U/L (28-100); Anion Gap 20.9 (5-19); Aspartate Amino Transferase 79 U/L (0-32); Blood Urea Nitrogen 27 mg/dL (6-20); C Reactive Protein 11.2 mg/L (0.0-4.9); Carbon Dioxide 15 mmol/L (22-29); Chloride 103 mmol/L (98-107); Globulin 1.3 g/dL (1.3-4.6); Glomerular Filtration Rate 73.9 mL/min (90-130); Glucose 189 mg/dL (65-115); Lactate Dehydrogenase 206 U/L (135-214); Magnesium 1.5 mg/dL (1.7-2.3); Osmolality Calculated 290 mOsm/kg (285-295); Phosphorus 4.1 mg/dL (2.5-4.5); Potassium 3.9 mmol/L (3.5-5.1); Sodium 135 mmol/L (136-145); Total Bilirubin 0.6 mg/dL (0.15-1.2); Total Protein 4.2 g/dL (6.6-8.7)
--- NOTE | 2021-01-19 02:47 | P.ANESASSM_ITS ---
Pre-Anesthetic Assessment Pre-Anesthetic Assessment: Height/Weight: Height 1.65 m Weight 58.967 kg Temp Pulse Resp BP Pulse Ox 97.3 F L 64 18 104/74 98 01/18/21 20:43 01/19/21 01:55 01/19/21 01:55 01/18/21 21:39 01/19/21 01:55 Preop Diagnosis: Large pericardial effusion/tamponade physiology Proposed Procedure: Operation Date: 01/19/21 01:25 Proposed Procedures p Pericardial Window(Not Applicable) - Sav Hernandez MD Familial anesthetic complications: unable to obtain Last intake: N/A Social: Comment: unable to botain Exam: Additional Exam Findings (including area of procedure): Intubated and sedated Airway: Additional comments: intubated and sedated CV/HEM: Comments: s/p pericardiocentesis and CPR Musc/skel: Comments: metastatic cancer Anesthetic Plan: ASA status: 4E Anesthesia: General Risk of > 500 ml blood loss (7ml/kg in children): Yes, adequate IV access and fluids planned (2 IVS and port) Meds/Allergies Additional Medication Information: Her medications are not able to be directly updated this evening but current viewable external medication list is similar to the above with the addition of Olaparib for her cancer PFSH Anesthesia PFSH: Medical History 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, follows with Dr Grey -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, debulked and treated with carboplatin/paclitaxel -2018 peritoneal/diaphragm seeding, treated with carboplatin/gemcitabine -2018 to 2019 treated with Bevacizumab -03/2020 peritoneal mets, treated with Doxil (stopped due to intolerance 07/29), treated with carboplatin/gemcitabine (stopped 09/28 due to intolerance), started Olaparib 10/29 -Palliative radiation summer 2020 -BRCA1 mutation Depression GERD (gastroesophageal reflux disease) Surgical History History of appendectomy History of bilateral oophorectomy History of cholecystectomy History of hysterectomy History of pelvic surgery radical debulking with pelvic & periaortic lymphadenectomy and omentectomy Family History Father Cancer lung Mother CHF (congestive heart failure) CAD (coronary artery disease) Diabetes Brother Leukemia Family/Other Leukemia Social History Smoking and tobacco status: former smoker Quit status (tobacco): has quit using tobacco Year quit tobacco: 1998 Former quit date comment: 0.5 PPD X 20 years Alcohol intake: never Substance/Drug Use: never Household members: spouse Data Anesthesia CBC & Chem 7: 01/19/21 00:30 01/19/21 00:30 Other Labs: Laboratory Results - last 48 hr 01/18/21 01/18/21 01/18/21 16:25 16:25 16:25 WBC 8.1 RBC 3.21 L Hgb 11.8 Hct 35.9 L MCV 111.8 H MCH 36.8 H MCHC 32.9 RDW 14.0 Plt Count 191 MPV 10.7 H Neut % (Auto) 76.1 Lymph % (Auto) 13.7 [place] % (Auto) 9.4 Eos % (Auto) 0.0 Baso % (Auto) 0.2 Neut # (Auto) 6.16 Lymph # (Auto) 1.1 [place] # (Auto) 0.8 Eos # (Auto) 0.0 Baso # (Auto) 0.0 Nucleated RBC % (auto) 0.7 Nucleated RBCs # 0.1 PT INR APTT Sodium 132 L Potassium 4.4 Chloride 95 L Carbon Dioxide 24 Anion Gap 17.4 BUN 24 H Creatinine 0.9 GFR Calculation 64.5 L Glucose 155 H Calculated Osmolality 281 L Lactate 3.3 H Calcium 8.6 Phosphorus Total Bilirubin 0.8 AST 47 H ALT 92 H Alkaline Phosphatase 116 H Lactate Dehydrogenase Troponin T Baseline Troponin T 120 Minute Delta Troponin T NT-Pro-B Natriuret Pep Total Protein 6.0 L Albumin 3.9 Globulin 2.1 Lipase 11 L Urine Color Urine Appearance Urine pH Ur Specific [place] Urine Protein Urine Glucose (UA) Urine Ketones Urine Blood Urine Nitrate Urine Bilirubin Urine Urobilinogen Ur Leukocyte Esterase Urine RBC Urine WBC Ur Squamous Epith Cells Amorphous Sediment Urine Bacteria Urine Mucus [place] Color Pericard Appearance Pericard pH Pericard Spec [place] Pericard WBC Pericard RBC Pericar Polynuclear WBC Pericar Polynuc WBCs % Peric Mononuc WBCs % Peric Mononuc WBC #Auto Pericard Total Protein Pericardial LDH Pericardial Glucose Pericardial Amylase Blood Type Rho(D) Type Antibody Screen Crossmatch 01/18/21 01/18/21 01/18/21 17:20 18:12 20:13 WBC RBC Hgb Hct MCV MCH MCHC RDW Plt Count MPV Neut % (Auto) Lymph % (Auto) [place] % (Auto) Eos % (Auto) Baso % (Auto) Neut # (Auto) Lymph # (Auto) [place] # (Auto) Eos # (Auto) Baso # (Auto) Nucleated RBC % (auto) Nucleated RBCs # PT INR APTT Sodium Potassium Chloride Carbon Dioxide Anion Gap BUN Creatinine GFR Calculation Glucose Calculated Osmolality Lactate Calcium Phosphorus Total Bilirubin AST ALT Alkaline Phosphatase Lactate Dehydrogenase Troponin T Baseline 46 H Troponin T 120 Minute Delta Troponin T NT-Pro-B Natriuret Pep Total Protein Albumin Globulin Lipase Urine Color Dark yellow Urine Appearance Clear Urine pH 6.5 Ur Specific [place] 1.010 Urine Protein 1+ H Urine Glucose (UA) Norm Urine Ketones Negative Urine Blood Neg Urine Nitrate Negative Urine Bilirubin 1+ H Urine Urobilinogen 4 H Ur Leukocyte Esterase Negative Urine RBC None Urine WBC 0-4 H Ur Squamous Epith Cells Rare Amorphous Sediment Not Reportable Urine Bacteria Trace Urine Mucus 2+ [place] Color Pericard Appearance Pericard pH Pericard Spec [place] Pericard WBC Pericard RBC Pericar Polynuclear WBC Pericar Polynuc WBCs % Peric Mononuc WBCs % Peric Mononuc WBC #Auto [place] Total Protein Pericardial LDH Pericardial Glucose Pericardial Amylase Blood Type A Positive Rho(D) Type Positive Antibody Screen Negative Crossmatch See Detail 01/18/21 01/18/21 01/18/21 20:13 22:17 23:55 WBC RBC Hgb Hct MCV MCH MCHC RDW Plt Count MPV Neut % (Auto) Lymph % (Auto) [place] % (Auto) Eos % (Auto) Baso % (Auto) Neut # (Auto) Lymph # (Auto) [place] # (Auto) Eos # (Auto) Baso # (Auto) Nucleated RBC % (auto) Nucleated RBCs # PT INR APTT Sodium Potassium Chloride Carbon Dioxide Anion Gap BUN Creatinine GFR Calculation Glucose Calculated Osmolality Lactate Calcium Phosphorus Total Bilirubin AST ALT Alkaline Phosphatase Lactate Dehydrogenase Troponin T Baseline Troponin T 120 Minute 49.66 H Delta Troponin T 3.66 NT-Pro-B Natriuret Pep 508 H Total Protein Albumin Globulin Lipase Urine Color Urine Appearance Urine pH Ur Specific [place] Urine Protein Urine Glucose (UA) Urine Ketones Urine Blood Urine Nitrate Urine Bilirubin Urine Urobilinogen Ur Leukocyte Esterase Urine RBC Urine WBC Ur Squamous Epith Cells Amorphous Sediment Urine Bacteria Urine Mucus [place] Color Red Per[place]ard Appearance Bloody Pericard pH 8.0 Pericard Spec [place] 1.015 Pericard WBC 3496 [place] RBC 2178 Pericar Polynuclear WBC 1.917 Pericar Polynuc WBCs % 54.800 Peric Mononuc WBCs % 45.200 Peric Mononuc WBC #Auto 1.579 [place] Total Protein 5.9 Pericardial LDH 996 Pericardial Glucose 2.0 Pericardial Amylase 31.0 Blood Type Rho(D) Type Antibody Screen Crossmatch 01/19/21 01/19/21 01/19/21 00:30 00:30 00:30 WBC RBC Hgb Hct MCV MCH MCHC RDW Plt Count MPV Neut % (Auto) Lymph % (Auto) [place] % (Auto) Eos % (Auto) Baso % (Auto) Neut # (Auto) Lymph # (Auto) [place] # (Auto) Eos # (Auto) Baso # (Auto) Nucleated RBC % (auto) Nucleated RBCs # PT 16.10 H INR 1.26 H APTT 24.2 Sodium Potassium 3.9 Chloride 103 Carbon Dioxide Anion Gap BUN Creatinine 0.8 GFR Calculation Glucose Calculated Osmolality 290 Lactate 3.6 H Calcium Phosphorus 4.1 Total Bilirubin 0.6 AST ALT Alkaline Phosphatase 102 Lactate Dehydrogenase 206 Troponin T Baseline Troponin T 120 Minute Delta Troponin T NT-Pro-B Natriuret Pep Total Protein Albumin Globulin 1.3 Lipase Urine Color Urine Appearance Urine pH Ur Specific [place] Urine Protein Urine Glucose (UA) Urine Ketones Urine Blood Urine Nitrate Urine Bilirubin Urine Urobilinogen Ur Leukocyte Esterase Urine RBC Urine WBC Ur Squamous Epith Cells Amorphous Sediment Urine Bacteria Urine Mucus [place] Color Pericard Appearance Pericard pH Pericard Spec [place] Pericard WBC Pericard RBC Pericar Polynuclear WBC Pericar Polynuc WBCs % Peric Mononuc WBCs % Peric Mononuc WBC #Auto [place] Total Protein Pericardial LDH Pericardial Glucose Pericardial Amylase Blood Type Rho(D) Type Antibody Screen Crossmatch 01/19/21 00:30 WBC 6.7 RBC 2.39 L Hgb 8.8 L Hct 26.5 L MCV 110.9 H MCH 36.8 H MCHC 33.2 RDW 13.9 Plt Count 133 D MPV 11.2 H Neut % (Auto) 83.3 Lymph % (Auto) 7.9 [place] % (Auto) 8.3 Eos % (Auto) 0.0 Baso % (Auto) 0.1 Neut # (Auto) 5.60 Lymph # (Auto) 0.5 L [place] # (Auto) 0.6 Eos # (Auto) 0.0 Baso # (Auto) 0.0 Nucleated RBC % (auto) 0.9 Nucleated RBCs # 0.1 PT INR APTT Sodium Potassium Chloride Carbon Dioxide Anion Gap BUN Creatinine GFR Calculation Glucose Calculated Osmolality Lactate Calcium Phosphorus Total Bilirubin AST ALT Alkaline Phosphatase Lactate Dehydrogenase Troponin T Baseline Troponin T 120 Minute Delta Troponin T NT-Pro-B Natriuret Pep Total Protein Albumin Globulin Lipase Urine Color Urine Appearance Urine pH Ur Specific [place] Urine Protein Urine Glucose (UA) Urine Ketones Urine Blood Urine Nitrate Urine Bilirubin Urine Urobilinogen Ur Leukocyte Esterase Urine RBC Urine WBC Ur Squamous Epith Cells Amorphous Sediment Urine Bacteria Urine Mucus [place] Color Pericard Appearance Pericard pH Pericard Spec [place] Pericard WBC Pericard RBC Pericar Polynuclear WBC Pericar Polynuc WBCs % Peric Mononuc WBCs % Peric Mononuc WBC #Auto Pericard Total Protein Pericardial LDH Pericardial Glucose Pericardial Amylase Blood Type Rho(D) Type Antibody Screen Crossmatch Micro: Microbiology 01/18/21 Unknown Blood Culture - Preliminary Blood SPECIMEN COLLECTED 01/18/21 Unknown Blood Culture - Preliminary Blood SPECIMEN COLLECTED Cardiac Studies: Echocardiogram 01/18/21
--- NOTE | 2021-01-19 02:54 | P.OP_ITS ---
Operative Report Date of procedure: January 19, 2021 Pre-op Diagnosis: Large pericardial effusion/tamponade physiology Post-op diagnosis: same Procedure Done: Subxiphoid pericardial window Specimens removed/disposition: Pericardial fluid for cytology Pericardium for permanent section Surgeon: Sav Hernandez Anesthesia: General Complications: None Condition: stable Disposition: ICU Brief History: 55-year-old female with metastatic ovarian carcinoma who was just recently undergone pericardial drain placement by Dr. Hyde in the [facility] for a large sanguinous effusion. We have recommended formal pericardial window due to the bloody nature of the effusion and concerns that the current smallbore catheter may become clotted. Details of the procedure were carefully discussed with her where proper consents have been reviewed and signed. Procedure: Ms. Jay was carefully positioned on the operating room table with the operating team scrubbed and instruments ready. Appropriate invasive lines were placed. She then underwent careful induction for general anesthesia and intubation, which she tolerated well. The entire chest was then sterilely prepped and draped. Midline incision was made over the xiphoid process and carried down to the fascia with cautery. The xiphoid process was excised with use of cautery and wire cutters. Pre-pericardial fat was carefully dissected free and retraction was performed utilizing a sponge stick. The pericardium was visualized and carefully opened with a #15 scalpel blade. There was an imme diate return of proximally 150 cc's of sanguinous pericardial fluid. Specimens were collected for cytology from both the pericardial fluid and the portion of pericardium collected for permanent section. A generous pericardial window was then created utilizing cautery. Pericardial specimen was sent to pathology for permanent sectioning and review. A 28 [place] mediastinal drain was then placed through an inferior placed incision and directed posteriorly beneath the heart. This was connected to Pleur-evac suction. Wound was irrigated and hemostasis confirmed. The incision then closed by reapproximating the fascia with 0 Vicryl suture. Subcutaneous layer was closed with 2-0 Vicryl suture. Skin was reapproximated in a subcuticular manner with 3-0 Monocryl suture. Sterile dressing was applied. Ms. Jay was awakened and extubated and taken to the postoperative care unit. Chest x-ray is pending. I spoke with her at completion of the procedure.
[2021-01-19 03:46] LABS: ABG PCO2 29.8 mmHg (35-45); Arterial Blood Gas Hematocrit 22.7 % (37-47); Base Excess ABG -5.6 mmol/L (-2.0-2.0); Blood Gas Allen Test Pos; Blood Gas Sample Site Radial, right; Blood Gas Sample Type Arterial; HCO3 ABG 18.5 mmol/L (22-26); Oxygen Device VENT
--- NOTE | 2021-01-19 04:00 | XRR_ITS ---
PROCEDURE INFORMATION: Exam: XR Chest Exam date and time: 01/19/2021 4:00 AM Age: 55 years old Clinical indication: Device placement; Ng tube; Additional info: Vent and post pericardial window TECHNIQUE: Imaging protocol: XR of the chest. Views: 1 view. COMPARISON: CR (CHEST, ) 01/18/2021 4:52 PM FINDINGS: Tubes, catheters and devices: An endotracheal tube is placed with its tip approximately 3.3 cm from the jonelle. A central venous line is placed via the left subclavian vein with its tip at the level of the superior cavoatrial junction. EKG leads overlie the chest. A nasogastric tube is present with its tip in the proximal stomach. A mediastinal drain tube is present overlying the cardiac profile. Lungs: There are diffuse interstitial opacities present within the hemithoraces, right more prominent than left, findings that could represent bilateral interstitial pneumonitis although mild asymmetric pulmonary edema could have this appearance. Pleural spaces: Unremarkable. No pleural effusion. No pneumothorax. Heart/Mediastinum: Unremarkable. No cardiomegaly. Bones/joints: Unremarkable. XR/XR chest 1V portable [id number] IMPRESSION: 1. Endotracheal tube tip 3.3 cm from the jonelle. 2. Nasogastric tube tip at least in proximal stomach. 3. Mediastinal drain tube present 4. Diffuse interstitial opacities are present bilaterally, findings suggesting a bilateral interstitial pneumonitis although mild asymmetric pulmonary edema could have this appearance.
[2021-01-19] MEDS: cefepime 1,000 MG in sodium chloride 0.9% (plus) 50 ML 100 MG IV ×2 (04:20→16:42)
[2021-01-19 04:34] LABS: Basophils % 0.2 %; Hematocrit 25.7 % (37.0-47.0); Hemoglobin 8.6 g/dL (11.5-15.3); Lymphocytes # 0.5 10^3/uL (0.8-4.8); Lymphocytes % 6.2 %; Mean Corpuscular HGB Conc 33.5 g/dL (30.0-36.0); Mean Corpuscular Hemoglobin 36.4 pg (28.0-34.0); Mean Corpuscular Volume 108.9 fl (81-99); Mean Platelet Volume 11.3 fL (7.4-10.4); Monocytes # 0.8 10^3/uL (0.2-0.9); Monocytes % 9.4 %; Neutrophils # 6.86 10^3/uL (1.8-7.7); Neutrophils % 83.7 %; Nucleated Red Blood Cells % 0 %; Platelet Count 101 10^3/cmm (130-400); Red Blood Count 2.36 10^6/uL (4.1-5.3); Red Cell Distribution Width 13.8 % (12.1-15.1); White Blood Count 8.2 10^3/uL (4.0-10.0)
--- NOTE | 2021-01-19 04:46 | PC.PHAR ---
Vancomycin is dosed at 1500mg IVPB every 18 hours to produce a predicted trough level of 17.36 (population based pharmacokinetic analysis). A trough level has been ordered from the lab to be obtained before the fourth doose to confirm and adjust if needed.
[2021-01-19] MEDS: vancomycin 1,000 MG in sodium chloride 0.9% 250 ML 250 MG IV (04:49)
[2021-01-19 05:02] LABS: Magnesium 1.4 mg/dL (1.7-2.3); Phosphorus 2.6 mg/dL (2.5-4.5)
--- NOTE | 2021-01-19 06:00 | PC.NURSE ---
Restraints placed on patient, waking up and attempting to pull at chest tube and oral ETT.
[2021-01-19] MEDS: propofol 1,000 MG/100 ML INJ 12.38 MG IV (06:04)
[2021-01-19] MEDS: sodium chloride 0.9% 500 ML IV (06:15)
[2021-01-19] MEDS: magnesium sulfate premix 2 GM/50 ML PIGGYBACK IV ×2 (06:15→17:13)
[2021-01-19] MEDS: sodium chlor 0.9% + KCl 20 mEq 20 MEQ/1,000 ML BAG 75 MEQ IV ×2 (06:23→21:32)
[2021-01-19 06:35] LABS: Troponin 5 6HR 251.5 ng/L (0-10); Troponin 5 6HR Delta 205.5 ng/L (0-12)
[2021-01-19 07:49] LABS: Glucose Point of Care 105 mg/dL (70-110)
[2021-01-19] MEDS: pantoprazole 40 mg SDV IVP (07:50)
[2021-01-19] MEDS: morphine 4 mg/mL SDV 1 mL 2 MG IVP ×3 (10:35→20:35)
--- NOTE | 2021-01-19 11:06 | PM.CCN ---
Critical Care Event Note Critical Care Event Responded to overhead page for CODE BLUE in CT scanner. Upon arrival found Ms. Jay to be pulseless with chest compressions and [id number]-[id number] ventilations. I personally directed the code until Dr. Mariscal arrived and subsequently provided assistance as indicated. I performed intubation as below. Due to a high probability of clinically significant, possibly life threatening deterioration, the patient required my highest level of attention and preparedness to intervene emergently and I personally spent this critical care time directly and personally managing the patient. This critical care time included obtaining a history; examining the patient; pulse oximetry; ordering and review of laboratory and imaging studies; arranging urgent treatment with development of a management plan; evaluation of patient's response to treatment; frequent reassessment; and, discussions with other providers as applicable. It was exclusive of separately billable procedures. 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
--- NOTE | 2021-01-19 11:28 | P.PN_ITS ---
Subjective Subjective: Interval history: Postop day #1 status post subxiphoid pericardial window. Patient is awake and responding appropriately. She is desiring to have her endotracheal tube removed. is at bedside. Vital signs have been stable. Drain output approximately 200 cc since surgery. Vitals/I&O/Wt Last Vital Signs Temp 97.4 F L 01/19/21 03:30 Pulse 103 H 01/19/21 09:30 Resp 14 01/19/21 09:19 BP 82/53 01/19/21 09:30 Pulse Ox 99 01/19/21 09:30 01/18/21 01/19/21 01/19/21 22:59 06:59 14:59 Intake Total 1200 / 1200 1850 / 1850 Output Total 80 / 80 300 / 300 Balance 1120 / 1120 1550 / 1550 Weight last 48 hrs Weight 137 lb 11.2 oz Weight 137 lb 11.2 oz Weight 137 lb 11.2 oz Weight 130 lb Physical Exam Chest: OTHER: Dressing clean and dry. Drain is in good position. Serosanguineous fluid recovered. Resp: OTHER: Bibasilar crackles right greater than left Cardio: COMMON NORMALS: S1 normal heart sound present and No murmurs present (Cardio) HEART SOUNDS: S1 normal heart sound present OTHER: Mild tachycardia Urinary Catheter Management^: Diane: Cath Placed During This Visit: no Reason for Continuing Indwelling Catheter: Accurate Measurement of Urinary Output in Critically Ill Patients Data : 01/19/21 04:05 01/19/21 00:30 Micro: Microbiology 01/18/21 Unknown Blood Culture - Preliminary Blood SPECIMEN COLLECTED 01/18/21 Unknown Blood Culture - Preliminary Blood SPECIMEN COLLECTED A&P Assessment and plan (1) Pericardial effusion with cardiac tamponade: POD #1 status post subxiphoid pericardial window. Anemia Plan: I would proceed with weaning as tolerated and extubation if appropriate. I have conferred with my colleague Dr. Mariscal, and he is in concurrence. If she remains tachycardic, given her numerous comorbidities, I believe we should consider transfusion. We will leave the drain in for now. Status: Acute Attestations Medical Necessity Statement*: Status post subxiphoid pericardial window. Status post pericardial drain. Status post tamponade. Time Spent in Patient Care: 16 - 35 minutes Coding Level of Care Code Acute Hydrostatic Tester for g Fwd Diagnoses Pericardial effusion with cardiac tamponade I31.3; I31.4
[2021-01-19 11:31] LABS: Glucose Point of Care 109 mg/dL (70-110)
[2021-01-19 12:11] LABS: Glucose Point of Care 202 mg/dL (70-110)
--- NOTE | 2021-01-19 16:02 | PM.PN ---
Subjective Subjective: Interval history: Patient was seen and examined this morning, overall she is doing better, she has been extubated, has done well post extubation. Still requiring Levophed.Her other vitals and labs have been reviewed. Medications: Reviewed: Yes Vitals/I&O/Wt Last Vital Signs Temp 97.4 F L 01/19/21 03:30 Pulse 108 H 01/19/21 14:30 Resp 11 L 01/19/21 12:32 BP 97/52 01/19/21 14:30 Pulse Ox 98 01/19/21 13:30 01/19/21 01/19/21 01/19/21 06:59 14:59 22:59 Intake Total 1200 / 1200 1850 / 1850 100 / 1950 Output Total 80 / 80 300 / 300 Balance 1120 / 1120 1550 / 1550 100 / 1650 Weight last 48 hrs Weight 62.46 kg Weight 62.46 kg Weight 62.46 kg Weight 58.967 kg Physical Exam Const: COMMON NORMALS: patient oriented x3 HENMT: COMMON NORMALS: normocephalic and atraumatic HEAD & SCALP: normocephalic and atraumatic Chest: OTHER: Pericardial drain in place Resp: COMMON NORMALS: clear to auscultation bilaterally AUSCULTATION: clear to auscultation bilaterally Cardio: COMMON NORMALS: regular rate, regular rhythm, S1 normal heart sound present, S2 normal heart sound present, No gallops present (Cardio), No murmurs present (Cardio), No rub (Cardio) and Peripheral pulses 2+ throughout RATE: regular rate RHYTHM: regular rhythm HEART SOUNDS: S1 normal heart sound present and S2 normal heart sound present PERIPHERAL PULSES: Peripheral pulses 2+ throughout GI: COMMON NORMALS: Normal to inspection, nondistended, normoactive bowel sounds present, Soft to palpation, non-tender, No hepatosplenomegaly present and no masses AUSCULTATION: Yes normoactive bowel sounds PALPATION: Yes Soft to palpation and Yes No hepatosplenomegaly present RECTAL EXAM: deferred Extremity: COMMON NORMALS: no clubbing, cyanosis or edema and no pedal edema Neuro: COMMON NORMALS: patient oriented x3 Urinary Catheter Management^: Diane: Cath Placed During This Visit: no Reason for Continuing Indwelling Catheter: Accurate Measurement of Urinary Output in Critically Ill Patients Data : 01/19/21 04:05 01/19/21 00:30 Micro: Microbiology 01/19/21 07:40 Gram Stain - Final Sputum - Endotracheal Tube Aspirate 01/18/21 23:55 Gram Stain - Final Pericardial Fluid 01/18/21 Unknown Blood Culture - Preliminary Blood SPECIMEN COLLECTED 01/18/21 Unknown Blood Culture - Preliminary Blood SPECIMEN COLLECTED A&P Assessment and plan (1) Pericardial effusion with cardiac tamponade: With tachycardia and hypotension Has been seen by Dr Quinones Emergent pericardiocentesis with drain/window this evening by Dr. Sabrina Bailey ~750 ml dark bloody fluid removed from pericardial sac thus far Presentation was with abdominal pain, diarrhea, vomiting Likely metastatic Status: Acute (2) Cardiopulmonary arrest with successful resuscitation: Periprocedure, PEA arrest before entry into the pericardium. Received atropine, epi, CPR with return of spontaneous circulation. Subsequent significant improvement in vital signs after removal of pericardial fluid. Alert and made eye contact post event prior to surgery. Status: Acute (3) Acute respiratory failure: Secondary to cardiac tamponade associated PEA arrest, requiring intubation, hypoxic and apneic Status: Acute (4) Carcinoma of tubo-ovarian: Serous adenocarcinoma fallopian tube with metastasis, follows with Dr Grey, last appointment 11/2020 -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, debulked and treated with carboplatin/paclitaxel -2018 peritoneal/diaphragm seeding, treated with carboplatin/gemcitabine -2018 to 2019 treated with Bevacizumab -03/2020 peritoneal mets, treated with Doxil (stopped due to intolerance 07/29), treated with carboplatin/gemcitabine (stopped 09/28 due to intolerance), started Olaparib 10/29 -Palliative radiation summer 2020 -BRCA1 mutation Status: Chronic (5) Depression: Chronically on escitalopram per available information Status: Chronic (6) GERD (gastroesophageal reflux disease): Chronically on ppi or h2 delfina from available information Status: Chronic (7) Elevated troponin: Status: Acute Additional A&P Information Cardiogenic shock secondary to cardiac tamponade: S/p pericardiocentesis, s/p subxiphoid pericardial window. Follow pericardial fluid analysis: Follow blood culture: Continue empiric Vanco and cefepime. Continue Levophed IV hydration with NS at the rate of 75 cc an hour Initially she was intubated and on mechanical ventilation status post extubation. Elevated troponin: Type II PR secondary to cardiogenic shock. Post op anemia: Monitor H&H: Currently hemoglobin is 8.6. Blood transfusion has been typed and crossed for 4 units Follow CA-125 :45 SCDs presently for DVT prophylaxis No pharmacological DVT prophylaxis ordered as of yet secondary to surgical procedure Full code Attestations Medical Necessity Statement*: Patient needs to be in hospital for management of cardiogenic shock. Time Spent in Patient Care: Greater than 35 minutes Critical Care Time: Critical Care Time (min): 40 Other Attestations: The high probability of a clinically significant, sudden or life threatening deterioration of the patient's [] system(s) required my full and direct attention, intervention and personal management. The critical care time is as shown. This time is in addition to time spent performing any reported procedures but includes the following: [x] Data and vital sign review and interpretation [x] Patient assessment, examination and intervention [x] Documentation [x] Medication orders and management Coding Level of Care Code Acute Credit Administration Specialist for [facility] Fwd Exam Detailed Diagnoses Pericardial effusion with cardiac tamponade I31.3; I31.4 Cardiopulmonary arrest with successful resuscitation I46.9 Acute respiratory failure J96.00 Carcinoma of tubo-ovarian C57.8 Depression F32.A GERD (gastroesophageal reflux disease) K21.9 Elevated troponin R77.8
[2021-01-19] MEDS: vancomycin 1,500 MG/300 ML PIGGYBACK 150 MG IV (17:15)
--- NOTE | 2021-01-19 17:34 | P.PN_ITS ---
Subjective Subjective: Interval history: The patient underwent pericardiocentesis last night with Dr. Forte. She had a brief. Of cardiac standstill during the procedure. She had a CPR and respiratory intubation. Currently she is on a vent. She apparently was found a hemorrhagic effusion in the pericardial cavity. Total of 1 L of hemorrhagic fluid was taken out. Because of the hemorrhagic fluid, it was decided to do a pericardial window. Dr. Hernandez was consulted. Patient was taken to the OR early this morning and had a pericardial window placement. Medications: Reviewed: Yes Medication Review Details: Current Medications Dextrose (Dextrose 50% Syringe 50 Ml) 25 ml IVP ONCE PRN; Protocol PRN Reason: hypoglycemia protocol Dextrose (Dextrose 50% Syringe 50 Ml) 50 ml IVP PRN PRN; Protocol PRN Reason: hypoglycemia protocol Glucagon (Glucagon 1 Mg/Ml Inj 1 Ml) 1 mg IM ONCE PRN; Protocol PRN Reason: Adult Acute Hypoglycemia Prot. Norepinephrine Bitartrate 4 mg (/ Dextrose) 254 mls @ 0 mls/hr IV PRN [facility] Last Admin: 01/19/21 17:25 Dose: 7.5 mls/hr Documented by: Propofol (Diprivan) 1,000 mg in 100 mls @ 0 mls/hr IV .Q0M [facility]; Protocol Last Titration: 01/19/21 15:56 Dose: Infused Documented by: Vancomycin/PEG/NADA/Lysine/Water (Vancocin) 1,500 mg in 300 mls @ 150 mls/hr IV Q18H [facility] Last Admin: 01/19/21 17:15 Dose: 150 mls/hr Documented by: Potassium Chloride/Sodium Chloride (Sodium Chlor 0.9% + Kcl 20 Meq) 20 meq in 1,000 mls @ 75 mls/hr IV .[id number] [facility] Last Admin: 01/19/21 06:23 Dose: 75 mls/hr Documented by: Dextrose (D5w) 500 mls @ 100 mls/hr IV ONCE PRN; Protocol PRN Reason: Adult Acute Hypoglycemia Prot Cefepime HCl 1,000 mg/ Sodium (Chloride) 50 mls @ 100 mls/hr IV Q12H [facility] Last Admin: 01/19/21 16:42 Dose: 100 mls/hr Documented by: Insulin Human Lispro (Insulin Lispro 100 Unit/1 Ml) 0 unit SUBCUT BEDTIME [facility]; Protocol Insulin Human Lispro (Insulin Lispro 100 Unit/1 Ml) 0 unit SUBCUT TIDWM [facility]; Protocol Last Admin: 01/19/21 12:57 Dose: Not Given Documented by: Ketorolac Tromethamine (Ketorolac 10 Mg Tablet) 10 mg PO Q6H PRN PRN Reason: PAIN Morphine Sulfate (Morphine 4 Mg/Ml Sdv 1 Ml) 2 mg IVP Q5M PRN PRN Reason: SEVERE PAIN Last Admin: 01/19/21 10:35 Dose: 2 mg Documented by: Pantoprazole Sodium (Pantoprazole 40 Mg Sdv) 40 mg IVP DAILY [facility] Last Admin: 01/19/21 07:50 Dose: 40 mg Documented by: Vitals/I&O/Wt Last Vital Signs Temp 98 F 01/19/21 16:00 Pulse 110 H 01/19/21 16:00 Resp 11 L 01/19/21 12:32 BP 99/62 01/19/21 16:00 Pulse Ox 98 01/19/21 15:30 01/19/21 01/19/21 01/19/21 06:59 14:59 22:59 Intake Total 1200 / 1200 1850 / 1850 186.75 / 2036.75 Output Total 80 / 80 300 / 300 Balance 1120 / 1120 1550 / 1550 186.75 / 1736.75 Weight last 48 hrs Weight 137 lb 11.2 oz Weight 137 lb 11.2 oz Weight 137 lb 11.2 oz Weight 130 lb Physical Exam Narrative: EXAM NARRATIVE: GENERAL: The patient is alert and oriented times three. Not in any acute distress. Looks somewhat lethargic. Slightly tachypneic. HEENT: Mild pallor. No icterus or lymphadenopathy. The pupils are symmetrical oral cavity: There are no mucous membrane lesions. NECK: Trachea appears to be central. No masses noted. No JVD or thyromegaly appreciated. No carotid bruit. RESPIRATORY: Chest is symmetrical. No intercostals muscle retraction or any accessory muscle activation. There is no chest wall tenderness. Breath sounds are heard bilaterally. No rales or rhonchi heard. No evidence of any co nsolidation. BREASTS: Deferred. HEART: The PMI could not be palpated. No other palpable precordial events. The heart sounds are somewhat muffled. Short systolic murmur in the left sternal border. No diastolic murmurs. No pericardial rub ABDOMEN: Patient has vague tenderness in the epigastric area. Liver is palpable in the right subcostal region. No other organomegaly appreciated. : Deferred. RECTAL: Deferred. LYMPHATIC: Enlarged lymph nodes in the cervical and supraclavicular regions EXTREMITIES: No significant edema or cyanosis. Peripheral pulses are palpable but weak bilaterally. MUSCULOSKELETAL: No acute joint deformities or swelling SKIN: There are no significant scars or skin rash noted. NEUROPSYCHIATRIC: The patient is alert and oriented x3. No focal motor deficits. Urinary Catheter Management^: Diane: Cath Placed During This Visit: no Reason for Continuing Indwelling Catheter: Accurate Measurement of Urinary Output in Critically Ill Patients Data : 01/19/21 04:05 01/19/21 00:30 Micro: Microbiology 01/19/21 07:40 Gram Stain - Final Sputum - Endotracheal Tube Aspirate 01/18/21 23:55 Gram Stain - Final Pericardial Fluid 01/18/21 Unknown Blood Culture - Preliminary Blood SPECIMEN COLLECTED 01/18/21 Unknown Blood Culture - Preliminary Blood SPECIMEN COLLECTED A&P Assessment and plan (1) Pericardial effusion with cardiac tamponade: Patient status post pericardiocentesis. Status post window placement. Currently seems to be stable. Status: Acute (2) Sinus tachycardia: The sinus tachycardia and hypotension are associated with the pericardial tamponade. Currently the blood pressure is in the normal range. Heart rate is in the 90-100. Significant improvement of the hemodynamics since the pericardiocentesis. 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 We will continue on the careful IV hydration Status: Acute Qualifiers: Hypotension type: other hypotension type Qualified Code(s): I95.89 - Other hypotension (5) Intraoperative cardiorespiratory arrest: This could be multifactorial. Her hypotension, tamponade, sedation, etc. are contributing factors We may consider doing a stress test later on . Status: Acute Additional A&P Information We may consider doing a limited 2D echocardiogram tomorrow to follow-up on the pericardial effusion. Patient is currently on the ventilator. She is in the process of being weaned off. Continue on the current treatment measures. 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
[2021-01-19] MEDS: ketorolac 10 mg Tablet PO (17:42)
[2021-01-19 18:05] LABS: Glucose Point of Care 89 mg/dL (70-110)
[2021-01-19] MEDS: LORazepam 2 mg Tablet PO (20:35)
[2021-01-19 20:36] LABS: Glucose Point of Care 106 mg/dL (70-110)
[2021-01-20] VITALS (50 sets, daily range): BP systolic 80–116; BP diastolic 46–70; PULSE 79–108; RESP 16–24; TEMP 37.1–37.2; O2SAT 90–98
[2021-01-20] MEDS: morphine 4 mg/mL SDV 1 mL 2 MG IVP ×3 (00:30→06:23)
[2021-01-20] MEDS: LORazepam 2 mg Tablet PO ×2 (02:36→19:17)
[2021-01-20] MEDS: ketorolac 10 mg Tablet PO ×2 (02:42→14:15)
[2021-01-20] MEDS: cefepime 1,000 MG in sodium chloride 0.9% (plus) 50 ML 100 MG IV ×2 (04:26→15:57)
[2021-01-20 07:53] LABS: Glucose Point of Care 101 mg/dL (70-110)
--- NOTE | 2021-01-20 08:32 | PC.NURSE ---
Suction removed and patient chest tube to water seal only, by Dr. Hernandez approximately 0830.
--- NOTE | 2021-01-20 08:59 | PC.NURSE ---
IV maintenance fluids stopped per Dr. Mackenzie during morning rounding approximately 0858.
[2021-01-20] MEDS: pantoprazole 40 mg SDV IVP (09:02)
--- NOTE | 2021-01-20 09:04 | PM.PN ---
Subjective Subjective: Interval history: Patient is sitting up in the chair and denies any shortness of breath. Her vital signs are stable. Remains afebrile. Still has the chest tube. Complaining of some fullness in the epigastric area. No other specific complaints. Medications: Reviewed: Yes Medication Review Details: Current Medications Dextrose (Dextrose 50% Syringe 50 Ml) 25 ml IVP ONCE PRN; Protocol PRN Reason: hypoglycemia protocol Dextrose (Dextrose 50% Syringe 50 Ml) 50 ml IVP PRN PRN; Protocol PRN Reason: hypoglycemia protocol Glucagon (Glucagon 1 Mg/Ml Inj 1 Ml) 1 mg IM ONCE PRN; Protocol PRN Reason: Adult Acute Hypoglycemia Prot. Norepinephrine Bitartrate 4 mg (/ Dextrose) 254 mls @ 0 mls/hr IV PRN [facility] Last Admin: 01/19/21 17:25 Dose: 7.5 mls/hr Documented by: Propofol (Diprivan) 1,000 mg in 100 mls @ 0 mls/hr IV .Q0M [facility]; Protocol Last Titration: 01/19/21 15:56 Dose: Infused Documented by: Vancomycin/PEG/NADA/Lysine/Water (Vancocin) 1,500 mg in 300 mls @ 150 mls/hr IV Q18H [facility] Last Infusion: 01/19/21 20:13 Dose: Infused Documented by: Potassium Chloride/Sodium Chloride (Sodium Chlor 0.9% + Kcl 20 Meq) 20 meq in 1,000 mls @ 75 mls/hr IV .[id number] [facility] Last Admin: 01/20/21 08:59 Dose: Not Given Documented by: Dextrose (D5w) 500 mls @ 100 mls/hr IV ONCE PRN; Protocol PRN Reason: Adult Acute Hypoglycemia Prot Cefepime HCl 1,000 mg/ Sodium (Chloride) 50 mls @ 100 mls/hr IV Q12H [facility] Last Infusion: 01/20/21 05:00 Dose: Infused Documented by: Insulin Human Lispro (Insulin Lispro 100 Unit/1 Ml) 0 unit SUBCUT BEDTIME [facility]; Protocol Last Admin: 01/19/21 20:34 Dose: Not Given Documented by: Insulin Human Lispro (Insulin Lispro 100 Unit/1 Ml) 0 unit SUBCUT TIDWM [facility]; Protocol Last Admin: 01/20/21 07:52 Dose: Not Given Documented by: Ketorolac Tromethamine (Ketorolac 10 Mg Tablet) 10 mg PO Q6H PRN PRN Reason: PAIN Last Admin: 01/20/21 02:42 Dose: 10 mg Documented by: Lorazepam (Lorazepam 2 Mg Tablet) 2 mg PO Q6H PRN PRN Reason: ANXIETY Last Admin: 01/20/21 02:36 Dose: 2 mg Documented by: Morphine Sulfate (Morphine 4 Mg/Ml Sdv 1 Ml) 2 mg IVP Q5M PRN PRN Reason: SEVERE PAIN Last Admin: 01/20/21 06:23 Dose: 2 mg Documented by: Pantoprazole Sodium (Pantoprazole 40 Mg Sdv) 40 mg IVP DAILY [facility] Last Admin: 01/20/21 09:02 Dose: 40 mg Documented by: Vitals/I&O/Wt Last Vital Signs Temp 98.7 F 01/20/21 07:00 Pulse 79 01/20/21 08:48 Resp 11 L 01/19/21 12:32 BP 106/52 01/20/21 08:30 Pulse Ox 98 01/20/21 08:48 01/19/21 01/20/21 01/20/21 22:59 06:59 14:59 Intake Total 1936.75 / 3786.75 50 / 3836.75 Output Total 1000 / 1300 885 / 2185 Balance 936.75 / 2486.75 -835 / 1651.75 Weight last 48 hrs Weight 137 lb 11.2 oz Weight 137 lb 11.2 oz Weight 137 lb 11.2 oz Weight 130 lb Physical Exam Narrative: EXAM NARRATIVE: GENERAL: The patient is alert and oriented times three. Not in any acute distress. Looks somewhat lethargic. Slightly tachypneic. HEENT: Mild pallor. No icterus or lymphadenopathy. The pupils are symmetrical oral cavity: There are no mucous membrane lesions. NECK: Trachea appears to be central. No masses noted. No JVD or thyromegaly appreciated. No carotid bruit. RESPIRATORY: Chest is symmetrical. No intercostals muscle retraction or any accessory muscle activation. There is no chest wall tenderness. Breath sounds are heard bilaterally. Scattered coarse crackles BREASTS: Deferred. HEART: The PMI could not be palpated. No other palpable precordial events. The heart sounds are somewhat muffled. Short systolic murmur in the left sternal border. No diastolic murmurs. No pericardial rub ABDOMEN: Patient has vague tenderness in the epigastric area. Liver is palpable in the right subcostal region. No other organomegaly appreciated. : Deferred. RECTAL: Deferred. LYMPHATIC: Enlarged lymph nodes in the cervical and supraclavicular regions EXTREMITIES: No significant edema or cyanosis. MUSCULOSKELETAL: No acute joint deformities or swelling SKIN: There are no significant scars or skin rash noted. NEUROPSYCHIATRIC: The patient is alert and oriented x3. No focal motor deficits. Urinary Catheter Management^: Diane: Cath Placed During This Visit: no Reason for Continuing Indwelling Catheter: Accurate Measurement of Urinary Output in Critically Ill Patients Data : 01/20/21 12:50 01/20/21 12:50 Other Labs: Laboratory Last Values WBC 8.2 10^3/uL (4.0-10.0) 01/19/21 04:05 RBC 2.36 10^6/uL (4.1-5.3) L 01/19/21 04:05 Hgb 8.6 g/dL (11.5-15.3) L 01/19/21 04:05 Hct 25.7 % (37.0-47.0) L 01/19/21 04:05 MCV 108.9 fl (81-99) H 01/19/21 04:05 MCH 36.4 pg (28.0-34.0) H 01/19/21 04:05 MCHC 33.5 g/dL (30.0-36.0) 01/19/21 04:05 RDW 13.8 % (12.1-15.1) 01/19/21 04:05 Plt Count 101 10^3/cmm (130-400) L 01/19/21 04:05 MPV 11.3 fL (7.4-10.4) H 01/19/21 04:05 Neut % (Auto) 83.7 % 01/19/21 04:05 Lymph % (Auto) 6.2 % 01/19/21 04:05 [place] % (Auto) 9.4 % 01/19/21 04:05 Eos % (Auto) 0.0 % 01/19/21 04:05 Baso % (Auto) 0.2 % 01/19/21 04:05 Neut # (Auto) 6.86 10^3/uL (1.8-7.7) 01/19/21 04:05 Lymph # (Auto) 0.5 10^3/uL (0.8-4.8) L 01/19/21 04:05 [place] # (Auto) 0.8 10^3/uL (0.2-0.9) 01/19/21 04:05 Eos # (Auto) 0.0 10^3/uL (0.0-0.8) 01/19/21 04:05 Baso # (Auto) 0.0 10^3/uL (0.0-0.1) 01/19/21 04:05 Nucleated RBC % (auto) 0 % 01/19/21 04:05 Nucleated RBCs # 0.0 /100WBC 01/19/21 04:05 PT 16.10 SECONDS (12.1-14.9) H 01/19/21 00:30 INR 1.26 (0.8-1.2) H 01/19/21 00:30 APTT 24.2 SECONDS (23.9-36.7) 01/19/21 00:30 Specimen Type Arterial 01/19/21 03:45 Sample Site Radial, right 01/19/21 03:45 ABG pH 7.40 (7.35-7.45) 01/19/21 03:45 ABG pCO2 29.8 mmHg (35-45) L 01/19/21 03:45 ABG pO2 90.0 mmHg (80.0-100.0) 01/19/21 03:45 ABG HCO3 18.5 mmol/L (22-26) L 01/19/21 03:45 ABG Base Excess -5.6 mmol/L (-2.0-2.0) L 01/19/21 03:45 [place] Test Pos 01/19/21 03:45 Hematocrit 22.7 % (37-47) L 01/19/21 03:45 O2 Delivery Device Vent 01/19/21 03:45 FiO2 50.0 % 01/19/21 03:45 Tidal Volume 0.40 01/19/21 03:45 PEEP 5.0 cmH20 01/19/21 03:45 Diesel Engine Engineer ID [email or web address] 01/19/21 03:45 Sodium 135 mmol/L (136-145) L 01/19/21 00:30 Potassium 3.9 mmol/L (3.5-5.1) 01/19/21 00:30 Chloride 103 mmol/L (98-107) 01/19/21 00:30 Carbon Dioxide 15 mmol/L (22-29) L 01/19/21 00:30 Anion Gap 20.9 (5-19) H 01/19/21 00:30 BUN 27 mg/dL (6-20) H 01/19/21 00:30 Creatinine 0.8 mg/dL (0.5-0.9) 01/19/21 00:30 GFR Calculation 73.9 mL/min (90-130) L 01/19/21 00:30 Glucose 189 mg/dL (65-115) H 01/19/21 00:30 POC Glucose 101 mg/dL (70-110) 01/20/21 07:39 Calculated Osmolality 290 mOsm/kg (285-295) 01/19/21 00:30 Lactate 3.6 mmol/L (0.5-2.2) H 01/19/21 00:30 Calcium 7.0 mg/dL (8.5-10.5) L 01/19/21 00:30 Phosphorus 2.6 mg/dL (2.5-4.5) 01/19/21 04:05 Magnesium 1.4 mg/dL (1.7-2.3) L 01/19/21 04:05 Total Bilirubin 0.6 mg/dL (0.15-1.2) 01/19/21 00:30 AST 79 U/L (0-32) H 01/19/21 00:30 ALT 114 U/L (0-33) H 01/19/21 00:30 Alkaline Phosphatase 102 IU/L (35-105) 01/19/21 00:30 Lactate Dehydrogenase 206 U/L (135-214) 01/19/21 00:30 Troponin T Baseline 46 ng/L (0-10) H 01/18/21 20:13 Troponin T 120 Minute 49.66 ng/L (0-10) H 01/18/21 22:17 Delta Troponin T 3.66 ABS# (0-10) 01/18/21 22:17 Troponin T Hi Sens 6Hr 251.5 ng/L (0-10) H 01/19/21 04:05 Troponin T Hi Sens 6Hr Delta 205.5 ng/L (0-12) H* 01/19/21 04:05 C-Reactive Protein 11.2 mg/L (0.0-4.9) H 01/19/21 00:30 NT-Pro-B Natriuret Pep 508 pg/mL (0-125) H 01/18/21 20:13 Total Protein 4.2 g/dL (6.6-8.7) L D 01/19/21 00:30 Albumin 2.9 g/dL (3.5-5.2) L 01/19/21 00:30 Globulin 1.3 g/dL (1.3-4.6) 01/19/21 00:30 Amylase 27 U/L (28-100) L 01/19/21 00:30 Lipase 11 U/L (13-60) L 01/18/21 16:25 CA 125 Antigen 45.0 U/mL (0-35) H 01/19/21 04:05 Urine Color Dark yellow (Yellow) 01/18/21 18:12 Urine Appearance Clear (CLEAR) 01/18/21 18:12 Urine pH 6.5 (5-7) 01/18/21 18:12 Ur Specific [place] 1.010 (1.005-1.030) 01/18/21 18:12 Urine Protein 1+ (Negative) H 01/18/21 18:12 Urine Glucose (UA) Norm (Normal) 01/18/21 18:12 Urine Ketones Negative (Negative) 01/18/21 18:12 Urine Blood Neg (Negative) 01/18/21 18:12 Urine Nitrate Negative (Negative) 01/18/21 18:12 Urine Bilirubin 1+ (Negative) H 01/18/21 18:12 Urine Urobilinogen 4 mg/dL (Negative) H 01/18/21 18:12 Ur Leukocyte Esterase Negative (Negative) 01/18/21 18:12 Urine RBC None /hpf (0-2) 01/18/21 18:12 Urine WBC 0-4 /hpf (0-5) H 01/18/21 18:12 Ur Squamous Epith Cells Rare /hpf (0-5) 01/18/21 18:12 Amorphous Sediment Not Reportable 01/18/21 18:12 Urine Bacteria Trace /hpf (NONE) 01/18/21 18:12 Urine Mucus 2+ /hpf 01/18/21 18:12 Pericard Color Red (Pale Yellow) 01/18/21 23:55 Pericard Appearance Bloody (Clear) 01/18/21 23:55 Pericard pH 8.0 01/18/21 23:55 Pericard Spec [place] 1.015 01/18/21 23:55 Pericard WBC 3496 /uL 01/18/21 23:55 Pericard RBC 2178 10^3/uL 01/18/21 23:55 Pericar Polynuclear WBC 1.917 10^3/uL 01/18/21 23:55 Pericar Polynuc WBCs % 54.800 % 01/18/21 23:55 Peric Mononuc WBCs % 45.200 % 01/18/21 23:55 Peric Mononuc WBC #Auto 1.579 10^3/uL 01/18/21 23:55 Pericard Total Protein 5.9 g/dL 01/18/21 23:55 Pericardial LDH 996 U/L 01/18/21 23:55 Pericardial Glucose 2.0 mg/dL 01/18/21 23:55 Pericardial Amylase 31.0 U/L 01/18/21 23:55 Blood Type A Positive 01/18/21 17:20 Rho(D) Type Positive 01/18/21 17:20 Antibody Screen Negative 01/18/21 17:20 Crossmatch See Detail 01/18/21 17:20 Micro: Microbiology 01/18/21 Unknown Blood Culture - Preliminary Blood NEGATIVE TO DATE 01/18/21 Unknown Blood Culture - Preliminary Blood NEGATIVE TO DATE 01/19/21 07:40 Gram Stain - Final Sputum - Endotracheal Tube Aspirate 01/18/21 23:55 Gram Stain - Final Pericardial Fluid A&P Assessment and plan (1) Pericardial effusion with cardiac tamponade: Patient status post pericardiocentesis. Status post window placement. Currently seems to be stable. Status: Acute (2) Sinus tachycardia: Currently she seems to be in a sinus rhythm. 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 We will continue on the careful IV hydration Status: Acute Qualifiers: Hypotension type: other hypotension type Qualified Code(s): I95.89 - Other hypotension (5) Intraoperative cardiorespiratory arrest: This could be multifactorial. Her hypotension, tamponade, sedation, etc. are contributing factors We may consider doing a stress test later on . 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
--- NOTE | 2021-01-20 10:30 | PC.CHAP ---
Pastoral Care Encounter/Spiritual Assessment Type of Contact [] Declined numerical control machine operator visit [] Patient/Family/Request visit [] Outpatient visit [] Follow-up visit [] Physician referral [] Code/Alert [x] Routine visit [] Staff referral [] Actively dying [] Patient sleeping [] Family support [] [] Out of room [] Palliative care [] [] Receiving care in room [] Pre-surgical visit [] Trauma [] Long length of stay [x] ICU visit [] Other: Relational/Emotional Strength [] Patient feels connected with others/family/visitors/staff [] Distress [] Loneliness/isolation [] Abandonment Spirituality of Patient [] Person of Sandi [] Attends Zoroastrian of their Sandi [] Believes in Prayer [] Reads Bible or Zoroastrianism materials [] There are Spiritual issues to be addressed Wafer Cutter Interventions [x] Prayer [x] Active listening [x] Non-anxious presence [x] Spiritual/emotional support [] Crisis/trauma care [] Spiritual counseling [] Bereavement support [] Provided bereavement packet [] Provided Bible/devotional materials [] Provided toy/stuffed animal, coloring book to patient or family member [] Provided Communion [] Anointing/[place] [] Salvation [x] Completed spiritual assessment [] Other: Impact on Illness or Injury [] Angry [] Fearful [] Anxious [] Often cries [] Exhaustion [] Unable to work [] Unable to attend uatsdin [] Unable to walk/stand [] Unable to read [] Unable to drive [] Unable to eat/drink [] Unable to sleep [] Unable to be with family [] Patient intubated [] Other: Summary having breakfast.. visit from doctor.. feeling stronger, but far from full recovery Time spent with patient 10 min
[2021-01-20] MEDS: midodrine 5 mg TABLET PO ×2 (11:08→14:15)
[2021-01-20] MEDS: vancomycin 1,500 MG/300 ML PIGGYBACK 150 MG IV (11:08)
[2021-01-20 11:38] LABS: Glucose Point of Care 103 mg/dL (70-110)
[2021-01-20 13:11] LABS: Basophils % 0.3 %; Eosinophils % 0.3 %; Hematocrit 24.8 % (37.0-47.0); Hemoglobin 8.2 g/dL (11.5-15.3); Lymphocytes # 0.5 10^3/uL (0.8-4.8); Lymphocytes % 8.2 %; Mean Corpuscular HGB Conc 33.1 g/dL (30.0-36.0); Mean Corpuscular Hemoglobin 37.1 pg (28.0-34.0); Mean Corpuscular Volume 112.2 fl (81-99); Mean Platelet Volume 10.5 fL (7.4-10.4); Monocytes # 0.5 10^3/uL (0.2-0.9); Monocytes % 8.3 %; Neutrophils # 5.15 10^3/uL (1.8-7.7); Neutrophils % 82.4 %; Nucleated Red Blood Cells % 0 %; Platelet Count 105 10^3/cmm (130-400); Red Blood Count 2.21 10^6/uL (4.1-5.3); Red Cell Distribution Width 13.9 % (12.1-15.1); White Blood Count 6.3 10^3/uL (4.0-10.0)
[2021-01-20 13:34] LABS: Alanine Aminotransferase 87 U/L (0-33); Albumin Level 2.8 g/dL (3.5-5.2); Alkaline Phosphatase 87 IU/L (35-105); Anion Gap 11.2 (5-19); Aspartate Amino Transferase 41 U/L (0-32); Blood Urea Nitrogen 8 mg/dL (6-20); Calcium 7.3 mg/dL (8.5-10.5); Carbon Dioxide 24 mmol/L (22-29); Chloride 104 mmol/L (98-107); Globulin 1.7 g/dL (1.3-4.6); Glomerular Filtration Rate 229.3 mL/min (90-130); Glucose 101 mg/dL (65-115); Osmolality Calculated 280 mOsm/kg (285-295); Potassium 3.2 mmol/L (3.5-5.1); Sodium 136 mmol/L (136-145); Total Bilirubin 0.4 mg/dL (0.15-1.2); Total Protein 4.5 g/dL (6.6-8.7)
--- NOTE | 2021-01-20 13:36 | P.PN_ITS ---
Subjective Subjective: Interval history: Postop day #2 status post subxiphoid pericardial window. Pericardial drain is 160 cc past 24 hours. Ms. Jay is sitting up in the bed and having breakfast. Other than pericardial drain insertion site discomfort, she is doing quite well. Vitals/I&O/Wt Last Vital Signs Temp 98.7 F 01/20/21 07:00 Pulse 107 H 01/20/21 12:00 Resp 11 L 01/19/21 12:32 BP 103/69 01/20/21 12:00 Pulse Ox 96 01/20/21 12:00 01/19/21 01/20/21 01/20/21 22:59 06:59 14:59 Intake Total 1936.75 / 3786.75 50 / 3836.75 1909.583 / 1909.583 Output Total 1000 / 1300 885 / 2185 Balance 936.75 / 2486.75 -835 / 1651.75 1909.583 / 1909.583 Weight last 48 hrs Weight 137 lb 11.2 oz Weight 137 lb 11.2 oz Weight 137 lb 11.2 oz Weight 130 lb Physical Exam Chest: OTHER: Dressing is clean and dry. Pericardial drain remains in good position. Fluid output is serosanguineous but is more serous than originally. Urinary Catheter Management^: Diane: Cath Placed During This Visit: no Reason for Continuing Indwelling Catheter: Accurate Measurement of Urinary Output in Critically Ill Patients Data : 01/20/21 12:50 01/20/21 12:50 Micro: Microbiology 01/19/21 07:40 Gram Stain - Final Sputum - Endotracheal Tube Aspirate Sputum Culture - Preliminary 01/18/21 23:55 Gram Stain - Final Pericardial Fluid Body Fluid Culture - Preliminary 01/18/21 Unknown Blood Culture - Preliminary Blood NEGATIVE TO DATE 01/18/21 Unknown Blood Culture - Preliminary Blood NEGATIVE TO DATE A&P Assessment and plan (1) Status post creation of pericardial window: POD #2 status post subxiphoid pericardial window. Plan: I will place the drain to waterseal. Will assess output next 24 hours for determination of removal. Status: Acute Attestations Medical Necessity Statement*: Status post pericardial window for increasing pericardial fluid status post pericardiocentesis Time Spent in Patient Care: less than 15 minutes Coding Level of Care Code Acute Appliance Counselor for Chg Fwd Diagnoses Status post creation of pericardial window Z98.890
[2021-01-20] MEDS: bisacodyl 5 mg Tablet 10 MG PO (18:03)
[2021-01-20 19:20] LABS: Glucose Point of Care 98 mg/dL (70-110)
--- NOTE | 2021-01-20 19:28 | PM.PN ---
Subjective Subjective: Interval history: Patient was seen this morning, she has complaints of anterior chest discomfort with her chest tube, follows all commands, alert and oriented x4, she is eating breakfast this morning, remains afebrile overnight, on 6 of Levophed, on 2 L nasal cannula, no choking or no coughing after extubation Vitals/I&O/Wt Last Vital Signs Temp 98.8 F 01/20/21 14:00 Pulse 100 01/20/21 18:00 Resp 18 01/20/21 18:00 BP 97/61 01/20/21 18:00 Pulse Ox 94 01/20/21 18:00 01/20/21 01/20/21 01/20/21 06:59 14:59 22:59 Intake Total 50 / 3836.75 1927.016 / 1927.016 291.467 / 2218.483 Output Total 885 / 2185 Balance -835 / 1651.75 1927.016 / 1927.016 291.467 / 2218.483 Weight last 48 hrs Weight 62.46 kg Weight 62.46 kg Weight 62.46 kg Physical Exam Const: COMMON NORMALS: no acute distress and patient oriented x3 Chest: OTHER: Chest tube in place, to waterseal Resp: COMMON NORMALS: normal respiratory effort, No retractions, No use of accessory muscles and clear to auscultation bilaterally AUSCULTATION: clear to auscultation bilaterally Cardio: COMMON NORMALS: regular rate, regular rhythm, S1 normal heart sound present and S2 normal heart sound present RATE: regular rate RHYTHM: regular rhythm HEART SOUNDS: S1 normal heart sound present and S2 normal heart sound present GI: COMMON NORMALS: Normal to inspection, nondistended, normoactive bowel sounds present, Soft to palpation and non-tender PALPATION: Yes Soft to palpation Extremity: COMMON NORMALS: no pedal edema Neuro: COMMON NORMALS: patient oriented x3 Psych: COMMON NORMALS: mental status grossly normal Urinary Catheter Management^: Diane: Cath Placed During This Visit: no Reason for Continuing Indwelling Catheter: Accurate Measurement of Urinary Output in Critically Ill Patients Data : 01/20/21 12:50 01/20/21 12:50 Micro: Microbiology 01/19/21 07:40 Gram Stain - Final Sputum - Endotracheal Tube Aspirate Sputum Culture - Preliminary 01/18/21 23:55 Gram Stain - Final Pericardial Fluid Body Fluid Culture - Preliminary 01/18/21 Unknown Blood Culture - Preliminary Blood NEGATIVE TO DATE 01/18/21 Unknown Blood Culture - Preliminary Blood NEGATIVE TO DATE A&P Assessment and plan (1) Pericardial effusion with cardiac tamponade: With tachycardia and hypotension Status post xiphoid pericardial window by Dr. Hernandez Pericardial drain 1600 cc in last for 24 hours Culture so far negative, Presentation was with abdominal pain, diarrhea, vomiting Likely metastatic Status: Acute (2) Cardiopulmonary arrest with successful resuscitation: Periprocedure, PEA arrest before entry into the pericardium. Received atropine, epi, CPR with return of spontaneous circulation. Subsequent significant improvement in vital signs after removal of pericardial fluid. Alert and made eye contact post event prior to surgery. 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, follows with Dr Grey, last appointment 11/2020 -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, debulked and treated with carboplatin/paclitaxel -2018 peritoneal/diaphragm seeding, treated with carboplatin/gemcitabine -2018 to 2019 treated with Bevacizumab -03/2020 peritoneal mets, treated with Doxil (stopped due to intolerance 07/29), treated with carboplatin/gemcitabine (stopped 09/28 due to intolerance), started Olaparib 10/29 -Palliative radiation summer 2020 -BRCA1 mutation Status: Chronic (5) Depression: Chronically on escitalopram per available information Status: Chronic (6) GERD (gastroesophageal reflux disease): Chronically on ppi or h2 delfina from available information Status: Chronic (7) Elevated troponin: Status: Acute Additional A&P Information Cardiogenic shock secondary to cardiac tamponade: S/p pericardiocentesis, s/p subxiphoid pericardial window. Follow pericardial fluid analysis: Follow blood culture: Continue empiric Vanco and cefepime. Continue Levophed Weaned to midodrine 10 3 times daily Initially she was intubated and on mechanical ventilation status post extubation. Elevated troponin: Type II NM secondary to cardiogenic shock. Post op anemia: Monitor H&H: Currently hemoglobin is 8.2 Blood transfusion has been typed and crossed for 4 units Follow CA-125 :45 SCDs presently for DVT prophylaxis No pharmacological DVT prophylaxis ordered as of yet secondary to surgical procedure Full code Attestations Medical Necessity Statement*: Patient requires hospitalization for cardiac tamponade Coding Level of Care Code Acute Digital Operations Analyst for Chg Fwd Diagnoses Pericardial effusion with cardiac tamponade I31.3; I31.4 Cardiopulmonary arrest with successful resuscitation I46.9 Acute respiratory failure J96.00 Carcinoma of tubo-ovarian C57.8 Depression F32.A GERD (gastroesophageal reflux disease) K21.9 Elevated troponin R77.8
[2021-01-20] MEDS: midodrine 5 mg TABLET 10 MG PO (20:29)
[2021-01-20 20:53] LABS: Glucose Point of Care 108 mg/dL (70-110)
[2021-01-21] VITALS (47 sets, daily range): BP systolic 87–126; BP diastolic 48–70; PULSE 79–104; RESP 6–35; TEMP 36.8–37.3; O2SAT 74–100; BMI 22.1
[2021-01-21] MEDS: LORazepam 2 mg Tablet PO ×2 (00:57→18:22)
[2021-01-21] MEDS: ketorolac 10 mg Tablet PO ×2 (02:18→13:05)
[2021-01-21] MEDS: cefepime 1,000 MG in sodium chloride 0.9% (plus) 50 ML 100 MG IV ×2 (04:52→15:48)
[2021-01-21 05:08] LABS: Basophils % 0.3 %; Eosinophils % 1.1 %; Hematocrit 24.1 % (37.0-47.0); Hemoglobin 8.1 g/dL (11.5-15.3); Lymphocytes # 0.5 10^3/uL (0.8-4.8); Mean Corpuscular HGB Conc 33.6 g/dL (30.0-36.0); Mean Corpuscular Hemoglobin 37.3 pg (28.0-34.0); Mean Corpuscular Volume 111.1 fl (81-99); Mean Platelet Volume 10.8 fL (7.4-10.4); Monocytes # 0.3 10^3/uL (0.2-0.9); Monocytes % 8.1 %; Neutrophils # 2.83 10^3/uL (1.8-7.7); Nucleated Red Blood Cells % 0 %; Platelet Count 73 10^3/cmm (130-400); Red Blood Count 2.17 10^6/uL (4.1-5.3); Red Cell Distribution Width 13.7 % (12.1-15.1); White Blood Count 3.7 10^3/uL (4.0-10.0)
[2021-01-21] MEDS: vancomycin 1,500 MG/300 ML PIGGYBACK 150 MG IV ×2 (05:23→17:40)
[2021-01-21 05:46] LABS: Alanine Aminotransferase 77 U/L (0-33); Albumin Level 2.8 g/dL (3.5-5.2); Alkaline Phosphatase 77 IU/L (35-105); Anion Gap 16.2 (5-19); Aspartate Amino Transferase 31 U/L (0-32); Blood Urea Nitrogen 5 mg/dL (6-20); Calcium 7.6 mg/dL (8.5-10.5); Carbon Dioxide 22 mmol/L (22-29); Chloride 104 mmol/L (98-107); Globulin 1.7 g/dL (1.3-4.6); Glomerular Filtration Rate 229.3 mL/min (90-130); Glucose 87 mg/dL (65-115); Magnesium 1.7 mg/dL (1.7-2.3); Osmolality Calculated 285 mOsm/kg (285-295); Phosphorus 2.1 mg/dL (2.5-4.5); Potassium 3.2 mmol/L (3.5-5.1); Sodium 139 mmol/L (136-145); Total Bilirubin 0.4 mg/dL (0.15-1.2); Total Protein 4.5 g/dL (6.6-8.7)
[2021-01-21 05:48] LABS: Vancomycin Trough 6.3 ug/mL (10-15)
--- NOTE | 2021-01-21 07:24 | PM.PN ---
Subjective Subjective: Interval history: Postop day #3 status post subxiphoid pericardial window. 60 cc drainage reported over the past 24 hours. Vitals/I&O/Wt Last Vital Signs Temp 98.5 F 01/21/21 04:00 Pulse 94 01/21/21 06:00 Resp 27 H 01/21/21 06:00 BP 101/58 01/21/21 06:00 Pulse Ox 94 01/21/21 06:00 01/20/21 01/21/21 01/21/21 22:59 06:59 14:59 Intake Total 416.467 / 2343.483 50 / 2393.483 Output Total 850 / 850 900 / 1750 Balance -433.533 / 1493.483 -850 / 643.483 Physical Exam Chest: OTHER: Surgical dressing dry. Pericardial drain in position. Urinary Catheter Management^: Diane: Cath Placed During This Visit: no Reason for Continuing Indwelling Catheter: Accurate Measurement of Urinary Output in Critically Ill Patients Data : 01/21/21 04:15 01/21/21 04:15 Micro: Microbiology 01/19/21 07:40 Gram Stain - Final Sputum - Endotracheal Tube Aspirate Sputum Culture - Preliminary 01/18/21 23:55 Gram Stain - Final Pericardial Fluid Body Fluid Culture - Preliminary A&P Assessment and plan (1) Status post creation of pericardial window: Postop day #3 status post subxiphoid pericardial window. Plan: Out of bed in chair. I will assess drainage this morning to determine if pericardial drain can be removed this afternoon. DC Diane catheter Status: Acute Attestations Medical Necessity Statement*: Postop day #3 status post pericardial window Time Spent in Patient Care: less than 15 minutes Coding Level of Care Code Acute Furniture Reproducer for Chg Fwd Diagnoses Status post creation of pericardial window Z98.890
[2021-01-21 07:57] LABS: Glucose Point of Care 89 mg/dL (70-110)
[2021-01-21] MEDS: midodrine 5 mg TABLET 10 MG PO ×3 (09:25→20:10)
[2021-01-21] MEDS: pantoprazole 40 mg SDV IVP (09:25)
[2021-01-21] MEDS: magnesium sulfate premix 2 GM/50 ML PIGGYBACK IV (09:25)
[2021-01-21 11:42] LABS: Glucose Point of Care 97 mg/dL (70-110)
--- NOTE | 2021-01-21 14:08 | P.PN_ITS ---
Subjective Subjective: Interval history: Patient was seen this morning, she is sitting up in a chair, she tells me that she has discomfort of the chest tube but overall she feels better, no fevers, chills, nausea, vomiting no lightheadedness, dizziness Vitals/I&O/Wt Last Vital Signs Temp 98.7 F 01/21/21 13:30 Pulse 93 01/21/21 14:00 Resp 20 H 01/21/21 14:00 BP 87/58 01/21/21 14:00 Pulse Ox 95 01/21/21 14:00 01/20/21 01/21/21 01/21/21 22:59 06:59 14:59 Intake Total 416.467 / 2343.483 50 / 2393.483 770 / 770 Output Total 850 / 850 900 / 1750 1800 / 1800 Balance -433.533 / 1493.483 -850 / 643.483 -1030 / -1030 Weight last 48 hrs Weight 60.282 kg Physical Exam Const: COMMON NORMALS: no acute distress and patient oriented x3 Chest: OTHER: Chest tube in place Resp: COMMON NORMALS: normal respiratory effort, No retractions, No use of accessory muscles and clear to auscultation bilaterally AUSCULTATION: clear to auscultation bilaterally Cardio: COMMON NORMALS: regular rate, regular rhythm, S1 normal heart sound present and S2 normal heart sound present RATE: regular rate RHYTHM: regular rhythm HEART SOUNDS: S1 normal heart sound present and S2 normal heart sound present GI: COMMON NORMALS: Normal to inspection, nondistended, normoactive bowel sounds present, Soft to palpation and non-tender PALPATION: Yes Soft to palpation Extremity: COMMON NORMALS: no pedal edema Neuro: COMMON NORMALS: patient oriented x3 Psych: COMMON NORMALS: mental status grossly normal Urinary Catheter Management^: Diane: Cath Placed During This Visit: no Reason for Continuing Indwelling Catheter: Accurate Measurement of Urinary Outpu t in Critically Ill Patients Data : 01/21/21 04:15 01/21/21 04:15 Micro: Microbiology 01/19/21 07:40 Gram Stain - Final Sputum - Endotracheal Tube Aspirate Sputum Culture - Final Enterobacter hormaechei 01/18/21 23:55 Gram Stain - Final Pericardial Fluid Body Fluid Culture - Preliminary A&P Assessment and plan (1) Pericardial effusion with cardiac tamponade: With tachycardia and hypotension Status post xiphoid pericardial window by Dr. Hernandez Pericardial drain 160 cc in last for 24 hours Culture so far negative 2 days, Currently on vancomycin and cefepime Sputum culture showed Enterobacter on cefepime Pathology no malignancy, red blood cells identified Hemorrhagic pericardial effusion, etiology possibly secondary to olaparib? Status: Acute (2) Cardiopulmonary arrest with successful resuscitation: Periprocedure, PEA arrest before entry into the pericardium. Received atropine, epi, CPR with return of spontaneous circulation. Subsequent significant improvement in vital signs after removal of pericardial fluid. Alert and made eye contact post event prior to surgery. 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, follows with Dr Grey, last appointment 11/2020 -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, debulked and treated with carboplatin/paclitaxel -2018 peritoneal/diaphragm seeding, treated with carboplatin/gemcitabine -2018 to 2019 treated with Bevacizumab -03/2020 peritoneal mets, treated with Doxil (stopped due to intolerance 07/29), treated with carboplatin/gemcitabine (stopped 09/28 due to intolerance), started Olaparib 10/29 -Palliative radiation summer 2020 -BRCA1 mutation Status: Chronic (5) Depression: Chronically on escitalopram per available information Status: Chronic (6) GERD (gastroesophageal reflux disease): Chronically on ppi or h2 delfina from available information Status: Chronic (7) Elevated troponin: Status: Acute Additional A&P Information Cardiogenic shock secondary to cardiac tamponade: S/p pericardiocentesis, s/p subxiphoid pericardial window. Follow pericardial fluid analysis Follow blood culture: Continue empiric Vanco and cefepime. Weaned to midodrine 10 3 times daily Initially she was intubated and on mechanical ventilation status post extubation. Elevated troponin: Type II GA secondary to cardiogenic shock. Post op anemia: Monitor H&H: Currently hemoglobin is 8.2 Blood transfusion has been typed and crossed for 4 units Follow CA-125 :45 SCDs presently for DVT prophylaxis No pharmacological DVT prophylaxis ordered as of yet secondary to surgical procedure Full code Attestations Medical Necessity Statement*: Patient requires hospitalization for hemorrhagic pericardial effusion with cardiac tamponade Coding Level of Care Code Acute Security Strategist for Chg Fwd Diagnoses Pericardial effusion with cardiac tamponade I31.3; I31.4 Cardiopulmonary arrest with successful resuscitation I46.9 Acute respiratory failure J96.00 Carcinoma of tubo-ovarian C57.8 Depression F32.A GERD (gastroesophageal reflux disease) K21.9 Elevated troponin R77.8
[2021-01-21] MEDS: polyethylene glycol 3350 Pkt 17 gm PO ×2 (15:07→21:33)
--- NOTE | 2021-01-21 16:29 | PC.NUTR ---
Nutrition note: Nurse reports patient typically only consuming breakfast, not lunch or supper. Recommend to encourage po intakes of meals, and offer pt preferences to increase intake. May enjoy snacks or supplements in place of traditional meals at other times of day. See full RD assessment from 01/20/21 for further details. Will follow up in 1-2 days or as needed.
[2021-01-21 17:56] LABS: Glucose Point of Care 105 mg/dL (70-110)
[2021-01-21 18:01] LABS: Erythrocyte Sedimentation Rate 10 mm/hr (0-15)
[2021-01-21] MEDS: bisacodyl 5 mg Tablet 10 MG PO (18:22)
--- NOTE | 2021-01-21 18:55 | P.PN_ITS ---
Subjective Subjective: Interval history: The chest tube was discontinued. Histopathology of the pericardium revealed serous carcinoma most likely of the ovarian origin. Patient was evaluated by Dr. Grey today. Medications: Reviewed: Yes Medication Review Details: Current Medications Bisacodyl (Bisacodyl 5 Mg Tablet) 10 mg PO DAILY PRN PRN Reason: CONSTIPATION Last Admin: 01/21/21 18:22 Dose: 10 mg Documented by: Dextrose (Dextrose 50% Syringe 50 Ml) 25 ml IVP ONCE PRN; Protocol PRN Reason: hypoglycemia protocol Dextrose (Dextrose 50% Syringe 50 Ml) 50 ml IVP PRN PRN; Protocol PRN Reason: hypoglycemia protocol Glucagon (Glucagon 1 Mg/Ml Inj 1 Ml) 1 mg IM ONCE PRN; Protocol PRN Reason: Adult Acute Hypoglycemia Prot. Norepinephrine Bitartrate 4 mg (/ Dextrose) 254 mls @ 0 mls/hr IV PRN BLANCA Last Infusion: 01/20/21 15:34 Dose: 0 mls/hr Documented by: Potassium Chloride/Sodium Chloride (Sodium Chlor 0.9% + Kcl 20 Meq) 20 meq in 1,000 mls @ 75 mls/hr IV .[id number] [facility] Last Admin: 01/21/21 11:58 Dose: Not Given Documented by: Dextrose (D5w) 500 mls @ 100 mls/hr IV ONCE PRN; Protocol PRN Reason: Adult Acute Hypoglycemia Prot Cefepime HCl 1,000 mg/ Sodium (Chloride) 50 mls @ 100 mls/hr IV Q12H BLANCA Last Infusion: 01/21/21 16:28 Dose: Infused Documented by: Vancomycin/PEG/NADA/Lysine/Water (Vancocin) 1,500 mg in 300 mls @ 150 mls/hr IV Q12H [facility]ANCA Last Admin: 01/21/21 17:40 Dose: 150 mls/hr Documented by: Insulin Human Lispro (Insulin Lispro 100 Unit/1 Ml) 0 unit SUBCUT BEDTIME BLANCA; Protocol Last Admin: 01/20/21 20:19 Dose: Not Given Documented by: Insulin Human Lispro (Insulin Lispro 100 Unit/1 Ml) 0 unit SUBCUT TIDWM BLANCA; Protocol Last Admin: 01/21/21 18:01 Dose: Not Given Documented by: Ketorolac Tromethamine (Ketorolac 10 Mg Tablet) 10 mg PO Q6H PRN PRN Reason: PAIN Last Admin: 01/21/21 13:05 Dose: 10 mg Documented by: Lorazepam (Lorazepam 2 Mg Tablet) 2 mg PO Q6H PRN PRN Reason: ANXIETY Last Admin: 01/21/21 18:22 Dose: 2 mg Documented by: Midodrine (Midodrine 5 Mg Tablet) 10 mg PO TID BLANCA Last Admin: 01/21/21 15:07 Dose: 10 mg Documented by: Morphine Sulfate (Morphine 4 Mg/Ml Sdv 1 Ml) 2 mg IVP Q5M PRN PRN Reason: SEVERE PAIN Last Admin: 01/20/21 06:23 Dose: 2 mg Documented by: Pantoprazole Sodium (Pantoprazole 40 Mg Sdv) 40 mg IVP DAILY [facility] Last Admin: 01/21/21 09:25 Dose: 40 mg Documented by: Polyethylene Glycol (Polyethylene Glycol 3350 Pkt 17 Gm) 17 gm PO DAILY [facility] Last Admin: 01/21/21 15:07 Dose: 17 gm Documented by: Vitals/I&O/Wt Last Vital Signs Temp 98.8 F 01/21/21 18:00 Pulse 82 01/21/21 18:00 Resp 25 H 01/21/21 18:00 BP 105/66 01/21/21 18:00 Pulse Ox 97 01/21/21 18:00 01/21/21 01/21/21 01/21/21 06:59 14:59 22:59 Intake Total 50 / 2393.483 770 / 717 329.7219 / 1469.0909 Output Total 900 / 1750 1800 / 1800 500 / 2300 Balance -850 / 643.483 -1030 / -6117 552.9868 / -830.9091 Weight last 48 hrs Weight 132 lb 14.4 oz Physical Exam Narrative: EXAM NARRATIVE: GENERAL: The patient is alert and oriented times three. Not in any acute distress. Looks somewhat lethargic. Slightly tachypneic. HEENT: Mild pallor. No icterus or lymphadenopathy. The pupils are symmetrical oral cavity: There are no mucous membrane lesions. NECK: Trachea appears to be central. No masses noted. No JVD or thyromegaly appreciated. No carotid bruit. RESPIRATORY: Chest is symmetrical. No intercostals muscle retraction or any accessory muscle activation. There is no chest wall tenderness. Breath sounds are heard bilaterally. Scattered coarse crackles BREASTS: Deferred. HEART: The PMI could not be palpated. No other palpable precordial events. The heart sounds are somewhat muffled. Short systolic murmur in the left sternal border. No diastolic murmurs. No pericardial rub ABDOMEN: Patient has vague tenderness in the epigastric area. Liver is palpable in the right subcostal region. No other organomegaly appreciated. : Deferred. RECTAL: Deferred. LYMPHATIC: Enlarged lymph nodes in the cervical and supraclavicular regions EXTREMITIES: No significant edema or cyanosis. MUSCULOSKELETAL: No acute joint deformities or swelling SKIN: There are no significant scars or skin rash noted. NEUROPSYCHIATRIC: The patient is alert and oriented x3. No focal motor deficits. Urinary Catheter Management^: Diane: Cath Placed During This Visit: no Reason for Continuing Indwelling Catheter: Accurate Measurement of Urinary Output in Critically Ill Patients Data : 01/21/21 04:15 01/21/21 04:15 Other Labs: Laboratory Last Values WBC 3.7 10^3/uL (4.0-10.0) L 01/21/21 04:15 RBC 2.17 10^6/uL (4.1-5.3) L 01/21/21 04:15 Hgb 8.1 g/dL (11.5-15.3) L 01/21/21 04:15 Hct 24.1 % (37.0-47.0) L 01/21/21 04:15 MCV 111.1 fl (81-99) H 01/21/21 04:15 MCH 37.3 pg (28.0-34.0) H 01/21/21 04:15 MCHC 33.6 g/dL (30.0-36.0) 01/21/21 04:15 RDW 13.7 % (12.1-15.1) 01/21/21 04:15 Plt Count 73 10^3/cmm (130-400) L D 01/21/21 04:15 MPV 10.8 fL (7.4-10.4) H 01/21/21 04:15 Neut % (Auto) 76.0 % 01/21/21 04:15 Lymph % (Auto) 14.0 % 01/21/21 04:15 [place] % (Auto) 8.1 % 01/21/21 04:15 Eos % (Auto) 1.1 % 01/21/21 04:15 Baso % (Auto) 0.3 % 01/21/21 04:15 Neut # (Auto) 2.83 10^3/uL (1.8-7.7) 01/21/21 04:15 Lymph # (Auto) 0.5 10^3/uL (0.8-4.8) L 01/21/21 04:15 [place] # (Auto) 0.3 10^3/uL (0.2-0.9) 01/21/21 04:15 Eos # (Auto) 0.0 10^3/uL (0.0-0.8) 01/21/21 04:15 Baso # (Auto) 0.0 10^3/uL (0.0-0.1) 01/21/21 04:15 Nucleated RBC % (auto) 0 % 01/21/21 04:15 Nucleated RBCs # 0.0 /100WBC 01/21/21 04:15 ESR 10 mm/hr (0-15) 01/21/21 04:15 PT 16.10 SECONDS (12.1-14.9) H 01/19/21 00:30 INR 1.26 (0.8-1.2) H 01/19/21 00:30 APTT 24.2 SECONDS (23.9-36.7) 01/19/21 00:30 Specimen Type Arterial 01/19/21 03:45 Sample Site Radial, right 01/19/21 03:45 ABG pH 7.40 (7.35-7.45) 01/19/21 03:45 ABG pCO2 29.8 mmHg (35-45) L 01/19/21 03:45 ABG pO2 90.0 mmHg (80.0-100.0) 01/19/21 03:45 ABG HCO3 18.5 mmol/L (22-26) L 01/19/21 03:45 ABG Base Excess -5.6 mmol/L (-2.0-2.0) L 01/19/21 03:45 Damaso Test Pos 01/19/21 03:45 Hematocrit 22.7 % (37-47) L 01/19/21 03:45 O2 Delivery Device Vent 01/19/21 03:45 FiO2 50.0 % 01/19/21 03:45 Tidal Volume 0.40 01/19/21 03:45 PEEP 5.0 cmH20 01/19/21 03:45 Flight Test Supervisor ID genaro 01/19/21 03:45 Sodium 139 mmol/L (136-145) 01/21/21 04:15 Potassium 3.2 mmol/L (3.5-5.1) L 01/21/21 04:15 Chloride 104 mmol/L (98-107) 01/21/21 04:15 Carbon Dioxide 22 mmol/L (22-29) 01/21/21 04:15 Anion Gap 16.2 (5-19) 01/21/21 04:15 BUN 5 mg/dL (6-20) L 01/21/21 04:15 Creatinine 0.3 mg/dL (0.5-0.9) L 01/21/21 04:15 GFR Calculation 229.3 mL/min (90-130) H 01/21/21 04:15 Glucose 87 mg/dL (65-115) 01/21/21 04:15 POC Glucose 105 mg/dL (70-110) 01/21/21 17:38 Calculated Osmolality 285 mOsm/kg (285-295) 01/21/21 04:15 Lactate 3.6 mmol/L (0.5-2.2) H 01/19/21 00:30 Calcium 7.6 mg/dL (8.5-10.5) L 01/21/21 04:15 Phosphorus 2.1 mg/dL (2.5-4.5) L 01/21/21 04:15 Magnesium 1.7 mg/dL (1.7-2.3) 01/21/21 04:15 Total Bilirubin 0.4 mg/dL (0.15-1.2) 01/21/21 04:15 AST 31 U/L (0-32) 01/21/21 04:15 ALT 77 U/L (0-33) H 01/21/21 04:15 Alkaline Phosphatase 77 IU/L (35-105) 01/21/21 04:15 Lactate Dehydrogenase 206 U/L (135-214) 01/19/21 00:30 Troponin T Baseline 46 ng/L (0-10) H 01/18/21 20:13 Troponin T 120 Minute 49.66 ng/L (0-10) H 01/18/21 22:17 Delta Troponin T 3.66 ABS# (0-10) 01/18/21 22:17 Troponin T Hi Sens 6Hr 251.5 ng/L (0-10) H 01/19/21 04:05 Troponin T Hi Sens 6Hr Delta 205.5 ng/L (0-12) H* 01/19/21 04:05 C-Reactive Protein 11.2 mg/L (0.0-4.9) H 01/19/21 00:30 NT-Pro-B Natriuret Pep 508 pg/mL (0-125) H 01/18/21 20:13 Total Protein 4.5 g/dL (6.6-8.7) L 01/21/21 04:15 Albumin 2.8 g/dL (3.5-5.2) L 01/21/21 04:15 Globulin 1.7 g/dL (1.3-4.6) 01/21/21 04:15 Amylase 27 U/L (28-100) L 01/19/21 00:30 Lipase 11 U/L (13-60) L 01/18/21 16:25 CA 125 Antigen 45.0 U/mL (0-35) H 01/19/21 04:05 Urine Color Dark yellow (Yellow) 01/18/21 18:12 Urine Appearance Clear (CLEAR) 01/18/21 18:12 Urine pH 6.5 (5-7) 01/18/21 18:12 Ur Specific [place] 1.010 (1.005-1.030) 01/18/21 18:12 Urine Protein 1+ (Negative) H 01/18/21 18:12 Urine Glucose (UA) Norm (Normal) 01/18/21 18:12 Urine Ketones Negative (Negative) 01/18/21 18:12 Urine Blood Neg (Negative) 01/18/21 18:12 Urine Nitrate Negative (Negative) 01/18/21 18:12 Urine Bilirubin 1+ (Negative) H 01/18/21 18:12 Urine Urobilinogen 4 mg/dL (Negative) H 01/18/21 18:12 Ur Leukocyte Esterase Negative (Negative) 01/18/21 18:12 Urine RBC None /hpf (0-2) 01/18/21 18:12 Urine WBC 0-4 /hpf (0-5) H 01/18/21 18:12 Ur Squamous Epith Cells Rare /hpf (0-5) 01/18/21 18:12 Amorphous Sediment Not Reportable 01/18/21 18:12 Urine Bacteria Trace /hpf (NONE) 01/18/21 18:12 Urine Mucus 2+ /hpf 01/18/21 18:12 Pericard Color Red (Pale Yellow) 01/18/21 23:55 Pericard Appearance Bloody (Clear) 01/18/21 23:55 Pericard pH 8.0 01/18/21 23:55 Pericard Spec [place] 1.015 01/18/21 23:55 Pericard WBC 3496 /uL 01/18/21 23:55 Pericard RBC 2178 10^3/uL 01/18/21 23:55 Pericar Polynuclear WBC 1.917 10^3/uL 01/18/21 23:55 Pericar Polynuc WBCs % 54.800 % 01/18/21 23:55 Peric Mononuc WBCs % 45.200 % 01/18/21 23:55 Peric Mononuc WBC #Auto 1.579 10^3/uL 01/18/21 23:55 Pericard Total Protein 5.9 g/dL 01/18/21 23:55 Pericardial LDH 996 U/L 01/18/21 23:55 Pericardial Glucose 2.0 mg/dL 01/18/21 23:55 Pericardial Amylase 31.0 U/L 01/18/21 23:55 Vancomycin Trough 6.3 ug/mL (10-15) L 01/21/21 04:15 Blood Type A Positive 01/18/21 17:20 Rho(D) Type Positive 01/18/21 17:20 Antibody Screen Negative 01/18/21 17:20 Crossmatch See Detail 01/18/21 17:20 Micro: Microbiology 01/19/21 07:40 Gram Stain - Final Sputum - Endotracheal Tube Aspirate Sputum Culture - Final Enterobacter hormaechei 01/18/21 23:55 Gram Stain - Final Pericardial Fluid Body Fluid Culture - Preliminary A&P Assessment and plan (1) Pericardial effusion with cardiac tamponade: Patient status post pericardiocentesis. Status post window placement. Currently seems to be stable. 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 We will continue on the careful IV hydration Status: Acute Qualifiers: Hypotension type: other hypotension type Qualified Code(s): I95.89 - Other hypotension Additional A&P Information Other problems are #1 anemia #2 hypokalemia #3 elevated troponin T, possibly type II PR Since the patient is a cardiac status seems to be stable, I may sign off at this point. Please feel free to contact me if there are any further questions regarding her cardiovascular status. 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
--- NOTE | 2021-01-21 21:41 | PC.NURSE ---
Patient requesting an additional medication for constipation, normally takes bisacodyl at home as needed. Requested an additional dose of Miralax from automatic embroidery machine tender, VO received.
[2021-01-22] VITALS (35 sets, daily range): BP systolic 90–112; BP diastolic 46–69; PULSE 73–107; RESP 4–39; TEMP 37–37.2; O2SAT 81–98
[2021-01-22] MEDS: ketorolac 10 mg Tablet PO (00:33)
[2021-01-22] MEDS: LORazepam 2 mg Tablet PO (00:33)
--- NOTE | 2021-01-22 01:35 | XRR_ITS ---
PROCEDURE INFORMATION: Exam: XR Abdomen Exam date and time: 01/22/2021 1:35 AM Age: 55 years old Clinical indication: Abdominal tenderness; Prior surgery; Additional info: Possible ileus TECHNIQUE: Imaging protocol: XR of the abdomen. Views: Frontal supine view of the abdomen. 1 View. COMPARISON: CT abdomen pelvis w con* [id number] 01/18/2021 5:26 PM FINDINGS: Gastrointestinal tract: There are few loops of gas filled small bowel with a balanced amount of gas and fluid in the colon. Intraperitoneal space: Multiple surgical clips are scattered throughout the abdomen. Bones/joints: Unremarkable. XR/XR abdomen 1V* [id number] IMPRESSION: Ileus.
[2021-01-22] MEDS: cefepime 1,000 MG in sodium chloride 0.9% (plus) 50 ML 100 MG IV (04:48)
[2021-01-22] MEDS: vancomycin 1,500 MG/300 ML PIGGYBACK 15 MG IV (05:36)
[2021-01-22] MEDS: pantoprazole 40 mg SDV IVP (08:44)
[2021-01-22] MEDS: midodrine 5 mg TABLET 10 MG PO ×2 (08:44→14:36)
[2021-01-22] MEDS: polyethylene glycol 3350 Pkt 17 gm PO (08:45)
[2021-01-22] MEDS: docusate sodium 100 mg Capsule PO (09:03)
[2021-01-22] MEDS: docusate sodium 100 mg Capsule 300 MG PO (09:14)
--- NOTE | 2021-01-22 09:43 | PC.CHAP ---
Pastoral Care Encounter/Spiritual Assessment Type of Contact [] Declined inspector of dredging visit [] Patient/Family/Request visit [] Outpatient visit [] Follow-up visit [] Physician referral [] Code/Alert [x] Routine visit [] Staff referral [] Actively dying [] Patient sleeping [] Family support [] [] Out of room [] Palliative care [] [] Receiving care in room [] Pre-surgical visit [] Trauma [] Long length of stay [x] ICU visit [x] Other: isolated Relational/Emotional Strength [] Patient feels connected with others/family/visitors/staff [] Distress [] Loneliness/isolation [] Abandonment Spirituality of Patient [] Person of Sandi [] Attends Orthodox of their Sandi [] Believes in Prayer [] Reads Bible or Restorationism materials [] There are Spiritual issues to be addressed Chancellor Interventions [x] Prayer [] Active listening [] Non-anxious presence [] Spiritual/emotional support [] Crisis/trauma care [] Spiritual counseling [] Bereavement support [] Provided bereavement packet [] Provided Bible/devotional materials [] Provided toy/stuffed animal, coloring book to patient or family member [] Provided Communion [] Anointing/[place] [] Salvation [x] Completed spiritual assessment [] Other: Impact on Illness or Injury [] Angry [] Fearful [] Anxious [] Often cries [] Exhaustion [] Unable to work [] Unable to attend scientology [] Unable to walk/stand [] Unable to read [] Unable to drive [] Unable to eat/drink [] Unable to sleep [] Unable to be with family [] Patient intubated [] Other: Summary Time spent with patient
--- NOTE | 2021-01-22 10:56 | ED_ITS ---
HPI - Abdominal Pain General: Chief Complaint: ER Hold Stated Complaint: ABD PAIN, PTS SAYS LOW PULSE Time Seen by Provider: 01/18/21 16:16 History of Present Illness: HPI narrative: Ms. Vasquez is a 55-year-old lady with significant past medical history of ovarian cancer who presents to the emergency department due to abdominal pain. She reports symptom onset was subacute approximately 2 days ago. She denies specific provoking event that she can think of. Abdominal pain is epigastric in the right upper quadrant and severe in intensity. Quality is sharp. She has associated nausea, vomiting, diarrhea. Overall the course has been worsening. She denies other significant changes in health. No other specific exacerbating or relieving factors identified. 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, follows with Dr Grey -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, debulked and treated with carboplatin/paclitaxel -2018 peritoneal/diaphragm seeding, treated with carboplatin/gemcitabine -2018 to 2019 treated with Bevacizumab -03/2020 peritoneal mets, treated with Doxil (stopped due to intolerance 07/29), treated with carboplatin/gemcitabine (stopped 09/28 due to intolerance), started Olaparib 10/29 -Palliative radiation summer 2020 -BRCA1 mutation Depression GERD (gastroesophageal reflux disease) Surgical History (Updated 01/29/21 @ 15:45 by Gianna Angelo RN) History of appendectomy History of bilateral oophorectomy History of cholecystectomy History of hysterectomy History of pelvic surgery radical debulking with pelvic & periaortic lymphadenectomy and omentectomy Family History (Updated 01/29/21 @ 15:46 by Gianna Angelo RN) Father Cancer lung Lung disease Mother CHF (congestive heart failure) CAD (coronary artery disease) [facility] at 60 Diabetes Brother Leukemia Family/Other Leukemia Sister Diabetes Denies family history of Clotting disorder Dementia Chronic kidney disease (CKD) Suicide Anesthesia complication Bleeding disorder Stroke Social History (Updated 01/29/21 @ 15:46 by Gianna Angelo RN) Smoking and tobacco status: former smoker Quit status (tobacco): has quit using tobacco Year quit tobacco: 1998 Former quit date comment: 0.5 PPD X 20 years Alcohol intake: never Household members: spouse Physical Exam Narrative: EXAM NARRATIVE: GENERAL/CONSTITUTIONAL -ill appearing. Distress due to pain. Eyes - PERRL, no conjunctival injection ENMT - Atraumatic external nose and ears. Moist mucous membranes NECK - supple. trachea midline CARDIOVASCULAR - tachycardic rate and regular rhythm. Mild hypotension with preserved peripheral perfusion RESPIRATORY -clear to auscultation bilaterally. No retractions or accessory muscle use. ABDOMEN/GI - tenderness in the generalized abdomen worse in the upper regions of the abdomen with even mild palpation. There is tenderness to percussion. MSK - Extremities without obvious deformity or tenderness to palpation SKIN - Warm, Dry NEURO - alert and appropriately oriented. Moves all extremities equally. Course ED course: - Patient was seen and evaluated by me at bedside - Patient placed on cardiac monitors, IV access obtained - Initial evaluation notable for uncomfortable due to pain, distressed with hypotension and tachycardia and abdominal exam that is markedly tender. -Fluids and symptom control ordered. - Labs notable for no leukocytosis. Normal hemoglobin with macrocytosis. Metabolic panel with mild evidence of dehydration, transaminitis of unclear etiology, delta troponin is negative. - Imaging notable for no infiltrate or other obvious cause of patient's tachycardia on chest x-ray. CT abdomen pelvis negative for acute intra- abdominal pathology to explain the patient's symptoms. She does have large pericardial effusion. - Upon serial reexamination after treatment the patient was mildly improved with IV fluids and the patient remained tachycardic, blood pressure did improve. - Given CT findings in combination with hypotension and tachycardia I did attempt to perform bedside cardiac ultrasound however rate was too rapid with heart movement to accurately assess for RV/RA abnormalities - I discussed the case with cardiology, a formal echocardiogram was ordered. - Cardiology interpreted the patient's echocardiogram and initially plan was to admit the patient for a.m. intervention however after cardiology came and evaluated the patient the patient's further evidence of developing pericardial tamponade and will therefore emergently be taken to the [facility]. Dr. Quinones discussed the case with Dr. Hyde - Based on patient history, evaluation, labs, and imaging as interpreted the most likely cause of the patient's condition is unclear. She has pericardial tamponade which likely is creating portal venous hypertension and volume backup from the IVC which may possibly explain the patient's abdominal pain however initial exam was very concerning for a primary abdominal process which was not identified on CT scan. Additionally, the patient denied shortness of breath or respiratory symptoms when I performed review of systems and though she later endorses admitting physician and cardiology notes. The patient's tachycardia and hypotension is almost certainly related to pericardial tamponade. The exact etiology of the patient's pericardial tamponade is unclear however I am concerned given the patient's underlying oncologic process that this is malignant in nature. - The results of ED evaluation were discussed with the patient including plan for admission and emergent pericardiocentesis - Hospitalist service contacted and agreed admit the patient - Patient was admitted without further deterioration or significant events. Vital Signs: Vital signs: Vital Signs Temperature 98.6 F 01/22/21 15:35 Pulse Rate 86 01/22/21 16:00 Respiratory Rate 21 H 01/22/21 16:00 Blood Pressure 98/69 01/22/21 16:00 Pulse Oximetry 82 L 01/22/21 16:00 MDM - Abdominal Pain Medical Records: Attestation: I reviewed the patient's medical records. Lab Data: Attestation: I reviewed the patient's lab results. Labs: Lab Results 01/18/21 01/18/21 01/18/21 16:25 16:25 16:25 WBC 8.1 10^3/uL 10^3/ uL (4.0-10.0) RBC 3.21 10^6/uL L 10 ^6/uL (4.1-5.3) Hgb 11.8 g/dL g/dL (11.5-15.3) Hct 35.9 % L % (37.0-47.0) MCV 111.8 fl H fl (81-99) MCH 36.8 pg H pg (28.0-34.0) MCHC 32.9 g/dL g/dL (30.0-36.0) RDW 14.0 % % (12.1-15.1) Plt Count 191 10^3/cmm 10^3 /cmm (130-400) MPV 10.7 fL H fL (7.4-10.4) Neut % (Auto) 76.1 % % Lymph % (Auto) 13.7 % % [place] % (Auto) 9.4 % % Eos % (Auto) 0.0 % % Baso % (Auto) 0.2 % % Neut # (Auto) 6.16 10^3/uL 10^3 /uL (1.8-7.7) Lymph # (Auto) 1.1 10^3/uL 10^3/ uL (0.8-4.8) [place] # (Auto) 0.8 10^3/uL 10^3/ uL (0.2-0.9) Eos # (Auto) 0.0 10^3/uL 10^3/ uL (0.0-0.8) Baso # (Auto) 0.0 10^3/uL 10^3/ uL (0.0-0.1) Nucleated RBC % (a uto) 0.7 % % Nucleated RBCs # 0.1 /100WBC /100W BC PT INR APTT Sodium 132 mmol/L L mmol /L (136-145) Potassium 4.4 mmol/L mmol/L (3.5-5.1) Chloride 95 mmol/L L mmol/ L (98-107) Carbon Dioxide 24 mmol/L mmol/L (22-29) Anion Gap 17.4 (5-19) BUN 24 mg/dL H mg/dL (6-20) Creatinine 0.9 mg/dL mg/dL (0.5-0.9) GFR Calculation 64.5 mL/min L mL/ min (90-130) Glucose 155 mg/dL H mg/dL (65-115) Calculated Osmolal ity 281 mOsm/kg L mOs m/kg (285-295) Lactate 3.3 mmol/L H mmol /L (0.5-2.2) Calcium 8.6 mg/dL mg/dL (8.5-10.5) Phosphorus Magnesium Total Bilirubin 0.8 mg/dL mg/dL (0.15-1.2) AST 47 U/L H U/L (0-32) ALT 92 U/L H U/L (0-33) Alkaline Phosphata se 116 IU/L H IU/L (35-105) Lactate Dehydrogen ase Troponin T Baselin e Troponin T 120 Min samish Delta Troponin T C-Reactive Protein NT-Pro-B Natriuret Pep Total Protein 6.0 g/dL L g/dL (6.6-8.7) Albumin 3.9 g/dL g/dL (3.5-5.2) Globulin 2.1 g/dL g/dL (1.3-4.6) Amylase Lipase 11 U/L L U/L (13-60) Urine Color Urine Appearance Urine pH Ur Specific Gravit y Urine Protein Urine Glucose (UA) Urine Ketones Urine Blood Urine Nitrate Urine Bilirubin Urine Urobilinogen Ur Leukocyte Roya ase Urine RBC Urine WBC Ur Squamous Epith Cells Amorphous Sediment Urine Bacteria Urine Mucus Pericard Color Pericard Appearanc e Pericard pH Pericard Spec Grav ity Pericard WBC Pericard RBC Pericar Polynuclea r WBC Pericar Polynuc WB Cs % Peric Mononuc WBCs % Peric Mononuc WBC #Auto Pericard Total Pro tein Pericardial LDH Pericardial Glucos e Pericardial Amylas e Blood Type Rho(D) Type Antibody Screen Crossmatch 01/18/21 01/18/21 01/18/21 17:20 18:12 20:13 WBC RBC Hgb Hct MCV MCH MCHC RDW Plt Count MPV Neut % (Auto) Lymph % (Auto) [place] % (Auto) Eos % (Auto) Baso % (Auto) Neut # (Auto) Lymph # (Auto) [place] # (Auto) Eos # (Auto) Baso # (Auto) Nucleated RBC % (a uto) Nucleated RBCs # PT INR APTT Sodium Potassium Chloride Carbon Dioxide Anion Gap BUN Creatinine GFR Calculation Glucose Calculated Osmolal ity Lactate Calcium Phosphorus Magnesium Total Bilirubin AST ALT Alkaline Phosphata se Lactate Dehydrogen ase Troponin T Baselin e 46 ng/L H ng/L (0-10) Troponin T 120 Min samish Delta Troponin T C-Reactive Protein NT-Pro-B Natriuret Pep Total Protein Albumin Globulin Amylase Lipase Urine Color Dark yellow (Yellow) Urine Appearance Clear (CLEAR) Urine pH 6.5 (5-7) Ur Specific Gravit y 1.010 (1.005-1.030) Urine Protein 1+ H (Negative) Urine Glucose (UA) Norm (Normal) Urine Ketones Negative (Negative) Urine Blood Neg (Negative) Urine Nitrate Negative (Negative) Urine Bilirubin 1+ H (Negative) Urine Urobilinogen 4 mg/dL H mg/dL (Negative) Ur Leukocyte Roya ase Negative (Negative) Urine RBC None /hpf /hpf (0-2) Urine WBC 0-4 /hpf H /hpf (0-5) Ur Squamous Epith Cells Rare /hpf /hpf (0-5) Amorphous Sediment Not Reportable Urine Bacteria Trace /hpf /hpf (NONE) Urine Mucus 2+ /hpf /hpf Pericard Color Pericard Appearanc e Pericard pH Pericard Spec Grav ity Pericard WBC Pericard RBC Pericar Polynuclea r WBC Pericar Polynuc WB Cs % Peric Mononuc WBCs % Peric Mononuc WBC #Auto Pericard Total Pro tein Pericardial LDH Pericardial Glucos e Pericardial Amylas e Blood Type A Positive Rho(D) Type Positive Antibody Screen Negative Crossmatch See Detail 01/18/21 01/18/21 01/18/21 20:13 22:17 23:55 WBC RBC Hgb Hct MCV MCH MCHC RDW Plt Count MPV Neut % (Auto) Lymph % (Auto) [place] % (Auto) Eos % (Auto) Baso % (Auto) Neut # (Auto) Lymph # (Auto) [place] # (Auto) Eos # (Auto) Baso # (Auto) Nucleated RBC % (a uto) Nucleated RBCs # PT INR APTT Sodium Potassium Chloride Carbon Dioxide Anion Gap BUN Creatinine GFR Calculation Glucose Calculated Osmolal ity Lactate Calcium Phosphorus Magnesium Total Bilirubin AST ALT Alkaline Phosphata se Lactate Dehydrogen ase Troponin T Baselin e Troponin T 120 Min samish 49.66 ng/L H ng/L (0-10) Delta Troponin T 3.66 ABS# ABS# (0-10) C-Reactive Protein NT-Pro-B Natriuret Pep 508 pg/mL H pg/mL (0-125) Total Protein Albumin Globulin Amylase Lipase Urine Color Urine Appearance Urine pH Ur Specific Gravit y Urine Protein Urine Glucose (UA) Urine Ketones Urine Blood Urine Nitrate Urine Bilirubin Urine Urobilinogen Ur Leukocyte Roya ase Urine RBC Urine WBC Ur Squamous Epith Cells Amorphous Sediment Urine Bacteria Urine Mucus Pericard Color Red (Pale Yellow) Pericard Appearanc e Bloody (Clear) Pericard pH 8.0 Pericard Spec Grav ity 1.015 Pericard WBC 3496 /uL /uL Pericard RBC 2178 10^3/uL 10^3 /uL Pericar Polynuclea r WBC 1.917 10^3/uL 10^ 3/uL Pericar Polynuc WB Cs % 54.800 % % Peric Mononuc WBCs % 45.200 % % Peric Mononuc WBC #Auto 1.579 10^3/uL 10^ 3/uL Pericard Total Pro tein 5.9 g/dL g/dL Pericardial LDH 996 U/L U/L Pericardial Glucos e 2.0 mg/dL mg/dL Pericardial Amylas e 31.0 U/L U/L Blood Type Rho(D) Type Antibody Screen Crossmatch 01/19/21 01/19/21 01/19/21 00:30 00:30 00:30 WBC RBC Hgb Hct MCV MCH MCHC RDW Plt Count MPV Neut % (Auto) Lymph % (Auto) [place] % (Auto) Eos % (Auto) Baso % (Auto) Neut # (Auto) Lymph # (Auto) [place] # (Auto) Eos # (Auto) Baso # (Auto) Nucleated RBC % (a uto) Nucleated RBCs # PT 16.10 SECONDS H S ECONDS (12.1-14.9) INR 1.26 H (0.8-1.2) APTT 24.2 SECONDS SECO NDS (23.9-36.7) Sodium 135 mmol/L L mmol /L (136-145) Potassium 3.9 mmol/L mmol/L (3.5-5.1) Chloride 103 mmol/L mmol/L (98-107) Carbon Dioxide 15 mmol/L L mmol/ L (22-29) Anion Gap 20.9 H (5-19) BUN 27 mg/dL H mg/dL (6-20) Creatinine 0.8 mg/dL mg/dL (0.5-0.9) GFR Calculation 73.9 mL/min L mL/ min (90-130) Glucose 189 mg/dL H mg/dL (65-115) Calculated Osmolal ity 290 mOsm/kg mOsm/ kg (285-295) Lactate 3.6 mmol/L H mmol /L (0.5-2.2) Calcium 7.0 mg/dL L mg/dL (8.5-10.5) Phosphorus 4.1 mg/dL mg/dL (2.5-4.5) Magnesium 1.5 mg/dL L mg/dL (1.7-2.3) Total Bilirubin 0.6 mg/dL mg/dL (0.15-1.2) AST 79 U/L H U/L (0-32) ALT 114 U/L H U/L (0-33) Alkaline Phosphata se 102 IU/L IU/L (35-105) Lactate Dehydrogen ase 206 U/L U/L (135-214) Troponin T Baselin e Troponin T 120 Min samish Delta Troponin T C-Reactive Protein 11.2 mg/L H mg/L (0.0-4.9) NT-Pro-B Natriuret Pep Total Protein 4.2 g/dL L D g/dL (6.6-8.7) Albumin 2.9 g/dL L g/dL (3.5-5.2) Globulin 1.3 g/dL g/dL (1.3-4.6) Amylase 27 U/L L U/L (28-100) Lipase Urine Color Urine Appearance Urine pH Ur Specific Gravit y Urine Protein Urine Glucose (UA) Urine Ketones Urine Blood Urine Nitrate Urine Bilirubin Urine Urobilinogen Ur Leukocyte Roya ase Urine RBC Urine WBC Ur Squamous Epith Cells Amorphous Sediment Urine Bacteria Urine Mucus Pericard Color Pericard Appearanc e Pericard pH Pericard Spec Grav ity Pericard WBC Pericard RBC Pericar Polynuclea r WBC Pericar Polynuc WB Cs % Peric Mononuc WBCs % Peric Mononuc WBC #Auto Pericard Total Pro tein Pericardial LDH Pericardial Glucos e Pericardial Amylas e Blood Type Rho(D) Type Antibody Screen Crossmatch 01/19/21 00:30 WBC 6.7 10^3/uL 10^3/ uL (4.0-10.0) RBC 2.39 10^6/uL L 10 ^6/uL (4.1-5.3) Hgb 8.8 g/dL L g/dL (11.5-15.3) Hct 26.5 % L % (37.0-47.0) MCV 110.9 fl H fl (81-99) MCH 36.8 pg H pg (28.0-34.0) MCHC 33.2 g/dL g/dL (30.0-36.0) RDW 13.9 % % (12.1-15.1) Plt Count 133 10^3/cmm D 1 0^3/cmm (130-400) MPV 11.2 fL H fL (7.4-10.4) Neut % (Auto) 83.3 % % Lymph % (Auto) 7.9 % % [place] % (Auto) 8.3 % % Eos % (Auto) 0.0 % % Baso % (Auto) 0.1 % % Neut # (Auto) 5.60 10^3/uL 10^3 /uL (1.8-7.7) Lymph # (Auto) 0.5 10^3/uL L 10^ 3/uL (0.8-4.8) [place] # (Auto) 0.6 10^3/uL 10^3/ uL (0.2-0.9) Eos # (Auto) 0.0 10^3/uL 10^3/ uL (0.0-0.8) Baso # (Auto) 0.0 10^3/uL 10^3/ uL (0.0-0.1) Nucleated RBC % (a uto) 0.9 % % Nucleated RBCs # 0.1 /100WBC /100W BC PT INR APTT Sodium Potassium Chloride Carbon Dioxide Anion Gap BUN Creatinine GFR Calculation Glucose Calculated Osmolal ity Lactate Calcium Phosphorus Magnesium Total Bilirubin AST ALT Alkaline Phosphata se Lactate Dehydrogen ase Troponin T Baselin e Troponin T 120 Min samish Delta Troponin T C-Reactive Protein NT-Pro-B Natriuret Pep Total Protein Albumin Globulin Amylase Lipase Urine Color Urine Appearance Urine pH Ur Specific Gravit y Urine Protein Urine Glucose (UA) Urine Ketones Urine Blood Urine Nitrate Urine Bilirubin Urine Urobilinogen Ur Leukocyte Roya ase Urine RBC Urine WBC Ur Squamous Epith Cells Amorphous Sediment Urine Bacteria Urine Mucus Pericard Color Pericard Appearanc e Pericard pH Pericard Spec Grav ity Pericard WBC Pericard RBC Pericar Polynuclea r WBC Pericar Polynuc WB Cs % Peric Mononuc WBCs % Peric Mononuc WBC #Auto Pericard Total Pro tein Pericardial LDH Pericardial Glucos e Pericardial Amylas e Blood Type Rho(D) Type Antibody Screen Crossmatch EKG Data ^: EKG 1: Attestation: I personally reviewed and interpreted this EKG as follows: EKG interpretation date: 01/18/21 EKG interpretation time: 19:52 Interpretation: Twelve-lead EKG shows a regular rhythm at a rate of 121. TX interval appears normal though not measured, QRS duration 85, QTc 410. Normal axis. Interpretation: Sinus rhythm. Tachycardia. I believe that the electronic interpretation of atrial flutter is incorrect given regular P waves clearly identified in lead V2. Critical Care Time Critical Care Time: Critical Care Time: Yes Total Critical Care Time: 80 Attestation: Due to a high probability of clinically significant, possibly life threatening deterioration, the patient required my highest level of attention and preparedness to intervene emergently and I personally spent this critical care time directly and personally managing the patient. This critical care time included obtaining a history; examining the patient; pulse oximetry; ordering and review of laboratory and imaging studies; arranging urgent treatment with development of a management plan; evaluation of patient's response to treatment; frequent reassessment; and, discussions with other providers as applicable. It was exclusive of separately billable procedures. Discharge Plan Discharge Patient Disposition: Admitted As Inpatient Admit Provider: Norah Champion Clinical Impression: Pericardial effusion with cardiac tamponade, History of ovarian cancer, Abdominal pain Condition: Stable Discharge Diet: Regular Discharge Activity: Resume usual activity Coding Level of Care Code ED Operations Research Engineer for Albino Mondragon
[2021-01-22] MEDS: magnesium citrate Btl 296 mL PO (11:08)
--- NOTE | 2021-01-22 13:42 | P.DS_ITS ---
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 Qualifiers: Laterality: bilateral Qualified Code(s): C79.63 - Secondary malignant neoplasm of bilateral ovaries (4) Hypotension: Status: Acute Qualifiers: Hypotension type: other hypotension type Qualified Code(s): I95.89 - Other hypotension Reason for Visit Reason for Visit: ABD PAIN, PTS SAYS LOW PULSE Hospital Course Hospital Course This is a 55-year-old female with a past medical history of metastatic tubo- ovarian cancer, on olaparib, history of palliative radiation, history of constipation, history of chronic opiates who presents [facility] due to abdominal pain, several episodes of nausea, vomiting, diarrhea Patient was admitted to [facility] for pericardial effusion with cardiac tamponade, she developed cardiopulmonary arrest with successful resuscitation periprocedure, had a xiphoid pericardial window, pathology positive for metastatic carcinoma consistent with tubo-ovarian primary, serous carcinoma high-grade. Had acute hypoxic respiratory failure intubated placed on mechanical ventilation, admitted to ICU, successfully extubated, onto 2 L, had chest tube removed, monitored 24 hours prior to discharge, discharged home with close follow-up with Dr. Grey and Dr. Hernandez as outpatient. Pericardial effusion with cardiac tamponade: With tachycardia and hypotension Status post xiphoid pericardial window by Dr. Chaidez Culture so far negative Currently on vancomycin and cefepime, discontinued on discharge Sputum culture showed Enterobacter on cefepime, had no respiratory complaints, chest x-ray no focal pneumonia received inpatient antibiotics, discharged on 3 remaining days of Levaquin, discharged on room air Patient's pathology from pericardium came back positive for malignancy Soft tissue, pericardium , excision: ?Metastatic carcinoma, consistent with tubo-ovarian primary. 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 -We will follow with Dr. Grey as outpatient Cardiopulmonary arrest with successful resuscitation: Periprocedure, PEA arrest before entry into the pericardium. Received atropine, epi, CPR with return of spontaneous circulation. Subsequent significant improvement in vital signs after removal of pericardial fluid. Alert and made eye contact post event prior to surgery. Currently alert oriented x4, following all commands, discharged home On discharge, patient had not had a bowel movement the last 24 hours, KUB showed ileus, patient refused blood draws to check her electrolytes, advised of my concerns for electrolyte abnormalities resulting in ileus, however she did not want to be stuck for more blood as she had lost enough blood this was according to patient. I had tried MiraLAX, mag citrate, Dulcolax without any bowel movement her abdomen was distended, decreased bowel sounds, no nausea, no vomiting, she is on chronic opiates. Likely ileus secondary to chronic opiates and possible underlying electrolyte abnormalities but again as above patient refused blood draws. I have strongly advised patient for continued inpatient admission for bowel regimen, checking electrolytes, replacement of electrolytes, however patient refuses she wants to be discharged home. Discussed risk of going home with ileus, risks including but not limited to bowel perforation, significant morbidity and mortality, she voiced understanding, all questions answered. Declined continued admission, wanted to be discharged home. Discharged home on MiraLAX, Dulcolax, lactulose, instructions to drink plenty of electrolyte balance fluids to replace electrolytes. She is to hold her narcotics until she has a adequate bowel movement. If she continues to have abdominal distention, decreased bowel movements and abdominal pain in the next 24 to 48 hours and advised her to come back to emergency room. Physical Exam Const: COMMON NORMALS: no acute distress and patient oriented x3 Resp: COMMON NORMALS: normal respiratory effort, No retractions, No use of accessory muscles and clear to auscultation bilaterally AUSCULTATION: clear to auscultation bilaterally Cardio: COMMON NORMALS: regular rate, regular rhythm, S1 normal heart sound present and S2 normal heart sound present RATE: regular rate RHYTHM: regular rhythm HEART SOUNDS: S1 normal heart sound present and S2 normal heart sound present GI: COMMON NORMALS: Soft to palpation and non-tender INSPECTION: Yes normal to inspection and Yes abdominal distension AUSCULTATION: Yes Hypoactive bowel sounds present PALPATION: Yes Soft to palpation and No Tenderness to palpation present (GI) Extremity: COMMON NORMALS: no pedal edema Neuro: COMMON NORMALS: patient oriented x3 Psych: COMMON NORMALS: mental status grossly normal Urinary Catheter Management^: Diane: Cath Placed During This Visit: no Reason for Continuing Indwelling Catheter: Accurate Measurement of Urinary Outpu t in Critically Ill Patients Discharge Data Data Completed and Pending: Completed Studies During Hospitalization Category Date Time Status CT abdomen pelvis w con* [id number] Stat Cat Scan 01/18/21 16:59 Completed XR KUB [id number] Stat Exams 01/18/21 16:42 Completed XR abdomen 1V* [id number] Routine Exams 01/22/21 01:35 Completed XR chest 1V michael ble [id number] AM LABS Exams 01/19/21 04:00 Completed XR chest 1V michael ble [id number] Stat Exams 01/18/21 16:42 Completed Pathology: Surgic al [PTH] Routine Pth 01/19/21 03:14 Completed CV unlisted vascu lar [id number] Stat Ultrasound 01/18/21 Completed CV. echo complete * [id number] Stat Ultrasound 01/18/21 19:07 Completed Pending at discharge Category Date Time Status [employer] request for service Stat Exams 01/18/21 22:22 Taken Blood Culture Sta t Lab 01/18/21 Results Complete Blood Co unt w/Auto AM LABS Lab 01/23/21 04:00 Ordered Comprehensive Met abolic Panel AM LA BS Lab 01/23/21 04:00 Ordered Magnesium AM LABS Lab 01/23/21 04:00 Ordered Phosphorus AM LAB S Lab 01/23/21 04:00 Ordered Vancomycin Trough Timed Lab 01/22/21 16:00 Ordered Cytology [PTH] Ro utine Pth 01/19/21 02:48 Received Labs from last 24 hours 01/21/21 01/21/21 01/18/21 17:38 04:15 17:20 ESR 10 POC Glucose 105 Crossmatch See Detail Vitals: Last Vital Signs Temp 98.6 F 01/22/21 09:30 Pulse 98 01/22/21 12:00 Resp 25 H 01/22/21 12:00 BP 90/50 01/22/21 11:00 Pulse Ox 97 01/22/21 12:00 Discharge Plan Discharge Patient Disposition: Home Condition: Stable Prescriptions: New polyethylene glycol 3350 [Miralax] 17 gram/dose powder 17 g PO Q12H 30 Days Qty: 1020 RF: 0 levofloxacin 750 mg tablet 750 mg PO DAILY 3 Days Qty: 3 RF: 0 Continued Zyrtec 10 mg capsule 10 mg PO DAILY PRN (Reason: Allergy Symptoms) RF: 0 vitamin B complex Tablet 1 tab PO DAILY@0900 RF: 0 montelukast 10 mg tablet 10 mg PO BEDTIME@2100 RF: 0 escitalopram oxalate 20 mg tablet 20 mg PO DAILY@0900 RF: 0 Vitamin C 1 tab PO DAILY@0900 RF: 0 Vitamin D3 1 tab PO DAILY@0900 RF: 0 vitamin A 1 tab PO DAILY@0900 RF: 0 vitamin E 1 tab PO DAILY@0900 RF: 0 lorazepam [Ativan] 2 mg tablet 2 mg PO Q6H PRN (Reason: anxiety) Qty: 30 RF: 0 lorazepam 0.5 mg tablet 0.5 mg PO Q4H PRN (Reason: NAUSEA/VOMITING) RF: 0 lactulose 20 gram/30 mL solution 10 g PO DAILY PRN (Reason: constipation) Qty: 1200 RF: 0 lidocaine-prilocaine 2.5-2.5 % cream 1 applic topical . DIRECTED RF: 0 famotidine 20 mg Tablet 20 mg PO BID RF: 0 Lynparza 150 mg Tablet 300 mg PO BID RF: 0 Held hydromorphone 8 mg tablet 8 mg PO Q6H PRN (Reason: Pain) RF: 0 Hold Instructions: Resume on 01/29/21. hold until you have a bowel movement Discontinued azithromycin 250 mg tablet See Rx Instructions .ROUTE .COMPLEX RF: 0 Discharge Orders: Discharge Order (Routine); Ordered 01/22/21 Ordered By: Zach Mackenzie Referrals: Sav Hernandez MD [Physician] - 1 week John Grey MD [Hospitalist] - 1-3 days Mason,JAYDE Mosqueda [Primary Care Provider] - Discharge Diet: Regular Discharge Activity: Resume usual activity Patient Instructions: Opioid Safety Activity Restrictions/Additional Instructions: -Please drink plenty of electrolyte balance fluids such as Gatorade or Powerade -Take lactulose, and MiraLAX -If you continue to not have a bowel movement in the next 24 hours, or you develop abdominal pain, abdominal distentionplease go back to the emergency room -Follow-up with Dr. 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
[2021-01-22] MEDS: Fleet Enema 133 mL Enema PR (14:01)
[2021-01-22 16:20] LABS: Alanine Aminotransferase 59 U/L (0-33); Albumin Level 3.3 g/dL (3.5-5.2); Alkaline Phosphatase 91 IU/L (35-105); Blood Urea Nitrogen 4 mg/dL (6-20); Calcium 8.2 mg/dL (8.5-10.5); Carbon Dioxide 17 mmol/L (22-29); Chloride 107 mmol/L (98-107); Globulin 2.3 g/dL (1.3-4.6); Glomerular Filtration Rate 164.5 mL/min (90-130); Glucose 92 mg/dL (65-115); Osmolality Calculated 291 mOsm/kg (285-295); Sodium 142 mmol/L (136-145); Total Bilirubin 0.4 mg/dL (0.15-1.2); Total Protein 5.6 g/dL (6.6-8.7)
[2021-01-22 16:24] LABS: Anion Gap 21.7 (5-19); Aspartate Amino Transferase 24 U/L (0-32); Potassium 3.7 mmol/L (3.5-5.1)
[2021-01-22 16:31] LABS: Basophils % 0.2 %; Eosinophils # 0.1 10^3/uL (0.0-0.8); Eosinophils % 1.1 %; Hematocrit 28.2 % (37.0-47.0); Hemoglobin 9.4 g/dL (11.5-15.3); Lymphocytes # 0.7 10^3/uL (0.8-4.8); Lymphocytes % 16.5 %; Mean Corpuscular HGB Conc 33.3 g/dL (30.0-36.0); Mean Platelet Volume 12.3 fL (7.4-10.4); Monocytes # 0.3 10^3/uL (0.2-0.9); Monocytes % 7.3 %; Neutrophils # 3.24 10^3/uL (1.8-7.7); Neutrophils % 74.2 %; Nucleated Red Blood Cells % 0 %; Platelet Count 150 10^3/cmm (130-400); Red Blood Count 2.54 10^6/uL (4.1-5.3); Red Cell Distribution Width 14.1 % (12.1-15.1); Slide Review Slide Review Perform; White Blood Count 4.4 10^3/uL (4.0-10.0)
--- NOTE | 2021-02-06 12:11 | PC.NURSE ---
Chart Correction 01/19/2021 0125 Nursing Diagnosis and Diane Catheter assessment was not documented by nurse who is now on mandatory quarantine. This nurse, witnessed by Gianna Carrion RN, documented the following details with the assigned Nurse Radha Sparrow RN on the phone to provide the correct information for documentation: OR Nursing Diagnosis: Pericardial effusion with cardiac tamponade (this diagnosis was directly pulled from Dr Hernandez's progress note dated 01/19/21) Urinary Catheter Assessment: Existing, patent and intact, as per Radha Sparrow's assessment.
== END 2021-01-22 16:17 | disposition home health service (06) | DRG 270 ==
LOC: ER 22:59 → ICU 01-19 01:54
PROVIDERS: Internal Medicine; Internal Medicine Cardiovascular Disease; Thoracic Surgery (Cardiothoracic Vascular Surgery); Admitting Provider Hospitalist; Emergency Provider Emergency Medicine; PCP Nurse Practitioner Family; Visit Provider Family Medicine
PROC: 0W9D00Z Drainage of Pericardial Cavity with Drainage Device, Open Approach (ICD-10-PCS; CPT 33025; principal; 2021-01-19 01:25)
DX: I31.3 Pericardial effusion (noninflammatory) (principal); I46.8 Cardiac arrest due to other underlying condition; J96.00 Acute respiratory failure, unspecified whether with hypoxia or hypercapnia; R57.0 Cardiogenic shock; I21.A1 Myocardial infarction type 2; C79.89 Secondary malignant neoplasm of other specified sites; C78.6 Secondary malignant neoplasm of retroperitoneum and peritoneum; I31.4 Cardiac tamponade; I95.89 Other hypotension; C57.8 Malignant neoplasm of overlapping sites of female genital organs; K21.9 Gastro-esophageal reflux disease without esophagitis; F32.A Depression, unspecified; D64.89 Other specified anemias; E86.0 Dehydration; E87.6 Hypokalemia; Z90.710 Acquired absence of both cervix and uterus; Z90.722 Acquired absence of ovaries, bilateral; Z90.49 Acquired absence of other specified parts of digestive tract; Z92.3 Personal history of irradiation; Z79.899 Other long term (current) drug therapy; Z92.21 Personal history of antineoplastic chemotherapy; Z80.6 Family history of leukemia; Z80.1 Family history of malignant neoplasm of trachea, bronchus and lung; Z82.49 Family history of ischemic heart disease and other diseases of the circulatory system; Z87.891 Personal history of nicotine dependence; Z79.891 Long term (current) use of opiate analgesic
CPT/HCPCS: 33010; 36415; 36416; 36591; 36600; 71045; 74018; 74177; 80053; 80202; 80500; 81001; 82150; 82803; 82945; 82962; 83605; 83615; 83690; 83735; 83880; 83986; 84100; 84157; 84315; 84484; 85025; 85610; 85651; 85730; 86140; 86304; 86850; 86900; 86920; 87040; 87070; 87075; 87077; 87186; 87205; 88112; 88305; 88307; 89050; 93005; 93306; 93308; 93998; 94002; 94003; 94799; 96365; 96366; 96367; 99291; A4570; C1729; C1769; C1894; C9113; J0153; J0171; J0330; J0461; J0692; J1644; J2250; J2270; J2310; J2370; J2405; J2704; J3010; J3370; J3475; J3490; J7030; J7040; J7050; Q9967

== ENCOUNTER 2021-02-06 06:15 | Outpatient (RCR) | payer MEDICARE, SELFPAY ==
--- NOTE | 2021-01-26 15:47 | ONC FU_ITS ---
Dr. Grey Patient Follow-Up Note Patient: Jagruti Jay Unit #: [id number]: [id number] Dicatated By: John Grey M.D.Date of Visit:Jan 24, 2021 Onc Med Follow-up/Prog Note Chief Complaint: Fallopian tube cancer. 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 She had a recurrence in the form of a right diaphragmatic peritoneal implant confirmed by biopsy at a cholecystectomy procedure in April 2018. She had presented in August 2015 with abdominal pain, and she was found to have a large pelvic mass. This was initially thought to be arising from the right ovary. On 09/17/2015 she underwent surgery which included total abdominal hysterectomy, bilateral salpingo-oophorectomy, and radical debulking along with pelvic lymphadenectomy and limited periaortic lymphadenectomy. I do not have those actual reports available, but she apparently was thought to have a complete or near-complete resection. She was then given postoperative adjuvant chemotherapy with 6 cycles of carboplatin/paclitaxel. On 09/28/2018 she underwent cholecystectomy, and at the time of that procedure she was noted to have a peritoneal implant on the right diaphragm. Biopsy of the implant showed high-grade carcinoma consistent with the previous high-grade serous primary. With that finding she was then given further chemotherapy with 6 cycles of carboplatin/gemcitabine, which she completed in September 2018. Restaging CT scans of the chest, abdomen, and pelvis on 10/07/2018 showed resolution of a previously noted small anterior hepatic capsular or subcapsular nodule. There are new postsurgical changes in that region. 2 very closely associated hypodense foci were again noted in the right lobe posteriorly, maximum aggregate diameter of 3 mm. That finding. Stable. There was no evidence of a new focal hepatic abnormality. There were small mesenteric, retroperitoneal, and bilateral inguinal lymph nodes. There was no pathologic lymphadenopathy. A 5 x 3 mm sclerotic focus at the right posterior aspect of the manubrium appeared stable compared to a prior study from October 2015. There were no suspicious osseous lesions noted. With those findings, she was recommended to continue further systemic therapy with 16 cycles of bevacizumab administered at 3-week intervals. She received cycle 1 of bevacizumab on 11/10/2018. She tolerated it without acute toxicity, and she then continued treatment at a 3-week dosing interval. As of 07/04/2019 she completed her 12th cycle. Restaging CT scans on 07/21/2019 showed no evidence of metastatic disease in the chest, abdomen, or pelvis. There was evidence of diffuse fatty infiltration of the liver with an enlarged hepatic lobe measuring 19 cm. A left renal cyst measured 12 mm. There were no other abnormal findings. She continued her maintenance bevacizumab. She completed her 16th and last planned cycle on 10/09/2019. INTERIM HISTORY: As of her follow-up visit on October 24, 2019 her CA-125 level had increased to 33.4 U/mL. Overall, it appeared to have been increasing very gradually since January 2019 when it was 12.4 U/mL. However, at that point she appeared stable clinically and she continued observation/expectant management. As of 01/24/2020 there was further increase in the CA-125 to 48.3 U/mL. Her restaging CT scans of the chest, abdomen, and pelvis showed no evidence for metastatic disease. There were no other acute findings noted. Despite the negative CT findings, with the continued increase in the CA-125 level she was scheduled to have follow-up with Dr. Landon. She had repeat CT scans on 04/02/2020. It showed new small circumferential pericardial effusion and new findings within the peritoneal cavity which were concerning for metastatic involvement. This included increased soft tissue surrounding the mid SMA and increased soft tissue in the periaortic distribution. There were new small mesenteric, periaortic, and iliac chain lymph nodes. There was no ascites. Her further evaluation included genetic screening which showed 2 heterozygous variants of uncertain significance. She was negative for BRCA mutation. During this time her CA-125 level continued to increase. As of 04/30/2020 it was up to 177.0 U/mL. 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 It also showed genomic ZANE, and it was positive for PD-L1 expression with a CPS of 5. It was noted to be MSI stable. On 06/20/2020 she began salvage chemotherapy with cycle 1 of Doxil. Her baseline CA-125 level was 407.8 U/mL. The treatment was complicated by nausea/vomiting, severe constipation, and abdominal pain. She required IV hydration and IV antiemetics on multiple occasions. She did not have any evidence of bowel obstruction. In the meantime, she also had progressive enlargement of the right supraclavicular lymph node. As it had become increasingly symptomatic, she was referred to Dr. Littlejohn, and she underwent palliative radiation to the right supraclavicular area. Treatment was completed on 07/11/2020 to a total dose of 2000 cGy administered in 5 fractions. As of her follow-up visit on 07/18/2020 she was beginning to feel better generally. Her CA-125 level had declined to 175.4 U/mL. At that point I recommended restarting chemotherapy with carboplatin/gemcitabine with ultimate goal to transition her to maintenance therapy with a PARP inhibitor. On 07/25/2020 she began cycle 1 of carboplatin/gemcitabine, administered on a day 1/day 8 schedule. She tolerated both treatments without acute toxicity. She continued with cycle 2 on 08/21/2020. At that point she was feeling much better, and there was a significant decline in her CA-125 level. Her treatment was delayed due to neutropenia and thrombocytopenia, and it was administered at a reduced dosage of gemcitabine and on a day 1/day 15 schedule. She tolerated that treatment much better. As of 09/18/1020 her CA-125 level was down to 27.4 U/mL. She continued with cycle 3 on 10/02/2020. As she did appear to have had a good clinical response to the chemotherapy, she was then transitioned to maintenance olaparib at 300 mg twice daily beginning 11/01/2020. As of 11/13/2000 there was further decline in the CA-125 level to 20.4 U/mL. Restaging CT scans of the chest, abdomen, and pelvis showed significant improvement in the retroperitoneal lymphadenopathy compared to the May 2020 study. There was minimal residual disease in the form of a left periaortic region node measuring 8 mm. There were a few tiny pulmonary micronodules measuring the range of 2 mm. There were no enlarging or new pulmonary nodules noted. As of her office visit on 11/26/2020 she appeared to be doing well clinically. Her CA-125 level was down to 20.4 U/mL. She continued olaparib 300 mg twice daily. Her repeat CA-125 level on 01/10/2021 was stable at 19.2 U/mL. In the meantime, on 11/26/2020 she had been seen in the emergency room after she had sustained significant injuries at home, having been accosted by an angry cow while she was bottlefeeding the baby calf. As she described it, the cow butted her and then actually rolled over her. Her CT scans showed no evidence for fracture or solid organ trauma. There was also no evidence of progression of the cancer. On 01/18/2021 she was admitted to the hospital after presenting to the emergency room with shortness of breath and tachycardia. She was found on CT to have a large pericardial effusion measuring up to 2.6 cm. There was also moderate right and trace left pleural effusion, and there was moderate ascites in the abdomen. She underwent pericardiocentesis and she subsequently underwent placement of a pericardial window. The pericardial fluid was reported to be bloody. The cytology on the pericardial fluid was negative. However, pathology on the pericardium did show metastatic carcinoma consistent with tubo-ovarian primary. She is seen now for a follow-up visit. She still feels weak following the recent hospitalization/surgery. She has very limited activity. Her ECOG score is 3. Her appetite is okay. She has not had fever. She has been having some night sweating since the hospitalization. She says her lips have been swollen for couple of months, and she thinks that was related to the olaparib. She is also had sore mouth and throat. She still has some cough and shortness of breath. She is currently not having chest pain. She has no GI/ complaints other than constipation. She is having some pain in her arms, and she has some numbness/tingling in her feet. Medications: Acid Control Maximum Strength (20 mg) Tablet Oral daily, Allergy Relief Loratadine (10 mg) Tablet Oral daily, Ativan 1 Tablet (of 2 mg) Oral q 4 to 6 hours PRN, Cholecalciferol 2 Capsule (of 5000 Units) Oral daily, Levaquin 1 Tablet Oral daily, Lexapro 1 Tablet (of 10 mg) Oral daily, Promethazine HCl (25 mg) Suppository Rectal t.i.d. PRN, Singulair 1 Tablet (of 10 mg) Oral at bedtime, Vitamin E 1 Capsule (of 500 mg) Oral daily Allergies: Sulfa Antibiotics Vital Signs: Performed on Jan 24, 2021 11:33 Height - 64.00 in Weight - 132.2 lbs (HIGH) BSA - 1.64 sq.m BMI - 22.69 Temperature - 97.2 F (LOW) Pulse - 105 /min (HIGH) Respiration - 16 /min BP - 100/66 mm(hg) O2 Sat - 96 % Pain - 3 Fatigue - 7 Physical Examination: Constitutional - She appears generally weak, Eyes - Sclerae nonicteric. Conjunctivae clear, ENMT - No lesions noted in the oral cavity, Hematologic/Lymphatic - There is no cervical, clavicular, or axillary adenopathy noted, Respiratory - Lungs sound clear, Cardiovascular - Heart rhythm is regular. There is no murmur or gallop noted and there is no pericardial rub noted, Abdomen - Mildly distended but soft. Liver and spleen are not enlarged. There is no abdominal mass noted and there is no obvious ascites. There is no inguinal adenopathy, Extremities - No edema, Neurologic - No focal neurologic deficits noted. Problem List: 1. 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 The tumor has been found on next generation sequencing to harbor a BRCA1 mutation, presumed to be somatic. 2. GERD. 3. Allergic rhinitis. 4. Anxiety/depression. 5. She developed COVID-19 virus infection in October 2019. She had an uneventful recovery. 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 She had complete or near-complete debulking with her initial surgery in September 2015. She was given postoperative adjuvant chemotherapy with 6 cycles of carboplatin/paclitaxel. She had biopsy proven recurrence in the form of a right diaphragmatic peritoneal implant, discovered at the cholecystectomy procedure in April 2018. She then had further chemotherapy with 6 cycles of carboplatin/gemcitabine, completed in September 2018. She had no evidence of residual disease on restaging CT scans on 10/07/2018. She then continued maintenance therapy with single agent bevacizumab at a 3-week interval dosing schedule for 16 cycles. She began cycle 1 of bevacizumab on 11/10/2018. She tolerated it well, and she was able to continue her treatment every 3 weeks with no apparent adverse effects. As of 10/09/2019 she completed her 16th and last planned cycle of bevacizumab. As of January 2020 there was a significant increase in her CA-125 level, up to 48 U/mL. In reviewing her records, it actually has been showing a very gradual increase over the preceding year, from 12.4 U/mL in January 2019. However, she was not overtly symptomatic with it and her restaging CT scans on 01/24/2020 showed no evidence of metastatic disease. Her repeat CT scans on 04/02/2020 showed findings within the peritoneal cavity which were concerning for metastatic involvement, including increased soft tissue surrounding the mid SMA and increased soft tissue in the periaortic distribution. There were new small mesenteric, periaortic, and iliac chain lymph nodes. Also noted was a new small circumferential pericardial effusion. At this point she was having significant pain in her abdomen and back, and she also was having ongoing problems with constipation. She has had follow-up with Dr. Landon, and she was recommended to restart chemotherapy with either carboplatin in combination with Doxil or with Doxil monotherapy. In the meantime, she was found to be BRCA negative on genetic screening. At her follow-up visit on 04/30/2020 she was noted to have enlarging right supraclavicular lymphadenopathy. 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 It also showed genomic ZANE, and it was positive for PD-L1 expression with a CPS of 5. It was noted to be MSI stable. She began cycle 1 of Doxil monotherapy on 06/20/2020. The treatment was complicated by severe nausea/vomiting, requiring IV hydration on multiple occasions. She also had ongoing, severe constipation but with no evidence of bowel obstruction by abdominal x-ray or CT. As of her follow-up visit on 07/18/2020 she was beginning to feel better. There had been a significant decline in her CA-125 level, suggesting some response to the Doxil. However, given the severe toxicity that she experienced with it, I opted to change her chemotherapy back to the carboplatin/gemcitabine regimen. She began cycle 1 on 07/25/2020, administered on a day 1/day 8 schedule. She tolerated the treatment well other than her cycle 2 had to be delayed due to neutropenia and thrombocytopenia. However, there was a significant further decline in her CA-125 level, to 39.1 U/mL and at that point she also was feeling much better. She continued with cycle 2 of carboplatin/gemcitabine on 08/21/2020, administered with a 25% reduction in the gemcitabine dosage and on a day 1/day 15 schedule. She tolerated that treatment much better, and she continued with her 3rd cycle of carboplatin/gemcitabine on 10/02/2020. She had a very good clinical response to the chemotherapy. Given the severity of her side effects, I opted to stop her treatment after 3 cycles. As of 10/31/2020 her blood counts had recovered adequately. With the known BRCA1 mutation, she was then transitioned to maintenance olaparib at a standard dosage of 300 mg twice daily. Initially she had been tolerating the olaparib with no significant adverse effects. As of 01/10/2021 her CA-125 level was stable at 19.2 U/mL. On 01/18/2021 she was admitted to the hospital with symptomatic pericardial effusion, requiring pericardiocentesis and subsequently placement of a pericardial window. Her CT scans also showed moderate right and small left pleural effusion and some ascites. 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 The clinical picture is somewhat perplexing given her recent history of significant chest trauma and her tumor marker having been stable just prior to the episode. However, her repeat CA-125 level on 01/19/2021 did go up to 45.0 U/mL, and I would have to assume from the pathology report that her disease is progressing. In any case, she had developed side effects with the olaparib, and at least for now she does want to stop taking it. She will be scheduled to return for a follow-up visit in 2 weeks. Signed By: John Grey M.D. <<Signature on File>>
[2021-02-06 11:49] LABS: Basophils % 0.5 %; Eosinophils # 0.2 10^3/uL (0.0-0.8); Hematocrit 28.6 % (37.0-47.0); Hemoglobin 9.2 g/dL (11.5-15.3); Lymphocytes # 0.9 10^3/uL (0.8-4.8); Lymphocytes % 22.4 %; Mean Corpuscular HGB Conc 32.2 g/dL (30.0-36.0); Mean Corpuscular Hemoglobin 34.8 pg (28.0-34.0); Mean Corpuscular Volume 108.3 fl (81-99); Mean Platelet Volume 10.4 fL (7.4-10.4); Monocytes # 0.3 10^3/uL (0.2-0.9); Neutrophils % 64.9 %; Nucleated Red Blood Cells % 0 %; Platelet Count 220 10^3/cmm (130-400); Red Blood Count 2.64 10^6/uL (4.1-5.3); Red Cell Distribution Width 14.3 % (12.1-15.1)
[2021-02-06 12:34] LABS: Alanine Aminotransferase 8 U/L (0-33); Albumin Level 3.5 g/dL (3.5-5.2); Alkaline Phosphatase 100 IU/L (35-105); Anion Gap 16.9 (5-19); Aspartate Amino Transferase 12 U/L (0-32); Blood Urea Nitrogen 8 mg/dL (6-20); CA 125 395.7 U/mL (0-35); Calcium 8.2 mg/dL (8.5-10.5); Carbon Dioxide 23 mmol/L (22-29); Chloride 106 mmol/L (98-107); Globulin 2.5 g/dL (1.3-4.6); Glomerular Filtration Rate 127.2 mL/min (90-130); Glucose 86 mg/dL (65-115); Osmolality Calculated 292 mOsm/kg (285-295); Potassium 3.9 mmol/L (3.5-5.1); Sodium 142 mmol/L (136-145); Total Bilirubin 0.2 mg/dL (0.15-1.2)
--- NOTE | 2021-02-08 11:53 | ONC FU_ITS ---
Dr. Grey Patient Follow-Up Note Patient: Jagruti Jay Unit #: [id number]: [id number] Dicatated By: John Grey M.D.Date of Visit:Feb 06, 2021 Onc Med Follow-up/Prog Note Chief Complaint: Fallopian tube cancer. 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 She had a recurrence in the form of a right diaphragmatic peritoneal implant confirmed by biopsy at a cholecystectomy procedure in April 2018. She had presented in August 2015 with abdominal pain, and she was found to have a large pelvic mass. This was initially thought to be arising from the right ovary. On 09/17/2015 she underwent surgery which included total abdominal hysterectomy, bilateral salpingo-oophorectomy, and radical debulking along with pelvic lymphadenectomy and limited periaortic lymphadenectomy. I do not have those actual reports available, but she apparently was thought to have a complete or near-complete resection. She was then given postoperative adjuvant chemotherapy with 6 cycles of carboplatin/paclitaxel. On 09/28/2018 she underwent cholecystectomy, and at the time of that procedure she was noted to have a peritoneal implant on the right diaphragm. Biopsy of the implant showed high-grade carcinoma consistent with the previous high-grade serous primary. With that finding she was then given further chemotherapy with 6 cycles of carboplatin/gemcitabine, which she completed in September 2018. Restaging CT scans of the chest, abdomen, and pelvis on 10/07/2018 showed resolution of a previously noted small anterior hepatic capsular or subcapsular nodule. There are new postsurgical changes in that region. 2 very closely associated hypodense foci were again noted in the right lobe posteriorly, maximum aggregate diameter of 3 mm. That finding. Stable. There was no evidence of a new focal hepatic abnormality. There were small mesenteric, retroperitoneal, and bilateral inguinal lymph nodes. There was no pathologic lymphadenopathy. A 5 x 3 mm sclerotic focus at the right posterior aspect of the manubrium appeared stable compared to a prior study from October 2015. There were no suspicious osseous lesions noted. With those findings, she was recommended to continue further systemic therapy with 16 cycles of bevacizumab administered at 3-week intervals. She received cycle 1 of bevacizumab on 11/10/2018. She tolerated it without acute toxicity, and she then continued treatment at a 3-week dosing interval. As of 07/04/2019 she completed her 12th cycle. Restaging CT scans on 07/21/2019 showed no evidence of metastatic disease in the chest, abdomen, or pelvis. There was evidence of diffuse fatty infiltration of the liver with an enlarged hepatic lobe measuring 19 cm. A left renal cyst measured 12 mm. There were no other abnormal findings. She continued her maintenance bevacizumab. She completed her 16th and last planned cycle on 10/09/2019. INTERIM HISTORY: As of her follow-up visit on October 24, 2019 her CA-125 level had increased to 33.4 U/mL. Overall, it appeared to have been increasing very gradually since January 2019 when it was 12.4 U/mL. However, at that point she appeared stable clinically and she continued observation/expectant management. As of 01/24/2020 there was further increase in the CA-125 to 48.3 U/mL. Her restaging CT scans of the chest, abdomen, and pelvis showed no evidence for metastatic disease. There were no other acute findings noted. Despite the negative CT findings, with the continued increase in the CA-125 level she was scheduled to have follow-up with Dr. Landon. She had repeat CT scans on 04/02/2020. It showed new small circumferential pericardial effusion and new findings within the peritoneal cavity which were concerning for metastatic involvement. This included increased soft tissue surrounding the mid SMA and increased soft tissue in the periaortic distribution. There were new small mesenteric, periaortic, and iliac chain lymph nodes. There was no ascites. Her further evaluation included genetic screening which showed 2 heterozygous variants of uncertain significance. She was negative for BRCA mutation. During this time her CA-125 level continued to increase. As of 04/30/2020 it was up to 177.0 U/mL. 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 It also showed genomic ZANE, and it was positive for PD-L1 expression with a CPS of 5. It was noted to be MSI stable. On 06/20/2020 she began salvage chemotherapy with cycle 1 of Doxil. Her baseline CA-125 level was 407.8 U/mL. The treatment was complicated by nausea/vomiting, severe constipation, and abdominal pain. She required IV hydration and IV antiemetics on multiple occasions. She did not have any evidence of bowel obstruction. In the meantime, she also had progressive enlargement of the right supraclavicular lymph node. As it had become increasingly symptomatic, she was referred to Dr. Littlejohn, and she underwent palliative radiation to the right supraclavicular area. Treatment was completed on 07/11/2020 to a total dose of 2000 cGy administered in 5 fractions. As of her follow-up visit on 07/18/2020 she was beginning to feel better generally. Her CA-125 level had declined to 175.4 U/mL. At that point I recommended restarting chemotherapy with carboplatin/gemcitabine with ultimate goal to transition her to maintenance therapy with a PARP inhibitor. On 07/25/2020 she began cycle 1 of carboplatin/gemcitabine, administered on a day 1/day 8 schedule. She tolerated both treatments without acute toxicity. She continued with cycle 2 on 08/21/2020. At that point she was feeling much better, and there was a significant decline in her CA-125 level. Her treatment was delayed due to neutropenia and thrombocytopenia, and it was administered at a reduced dosage of gemcitabine and on a day 1/day 15 schedule. She tolerated that treatment much better. As of 09/18/1020 her CA-125 level was down to 27.4 U/mL. She continued with cycle 3 on 10/02/2020. As she did appear to have had a good clinical response to the chemotherapy, she was then transitioned to maintenance olaparib at 300 mg twice daily beginning 11/01/2020. As of 11/13/2000 there was further decline in the CA-125 level to 20.4 U/mL. Restaging CT scans of the chest, abdomen, and pelvis showed significant improvement in the retroperitoneal lymphadenopathy compared to the May 2020 study. There was minimal residual disease in the form of a left periaortic region node measuring 8 mm. There were a few tiny pulmonary micronodules measuring the range of 2 mm. There were no enlarging or new pulmonary nodules noted. As of her office visit on 11/26/2020 she appeared to be doing well clinically. Her CA-125 level was down to 20.4 U/mL. She continued olaparib 300 mg twice daily. Her repeat CA-125 level on 01/10/2021 was stable at 19.2 U/mL. In the meantime, on 11/26/2020 she had been seen in the emergency room after she had sustained significant injuries at home, having been accosted by an angry cow while she was bottlefeeding the baby calf. As she described it, the cow butted her and then actually rolled over her. Her CT scans showed no evidence for fracture or solid organ trauma. There was also no evidence of progression of the cancer. On 01/18/2021 she was admitted to the hospital after presenting to the emergency room with shortness of breath and tachycardia. She was found on CT to have a large pericardial effusion measuring up to 2.6 cm. There was also moderate right and trace left pleural effusion, and there was moderate ascites in the abdomen. She underwent pericardiocentesis and she subsequently underwent placement of a pericardial window. The pericardial fluid was reported to be bloody. The cytology on the pericardial fluid was negative. However, pathology on the pericardium did show metastatic carcinoma consistent with tubo-ovarian primary. She is seen for a follow-up visit. She still has limited activity following her recent surgery, though she is up and around now. ECOG score is 2. Her appetite has been okay. She has no fever, night sweats, or hot flashes. She still has some soreness in her throat. She has a little bit of cough. She says her breathing has been okay, and she is not having chest pain. She has no GI or complaints. She has a little bit of pain in her shoulders. She has no other joint or bone pain. She reports having a sinus headache. She complains of having some numbness/tingling in her tongue. She has no other focal neurologic symptoms. Medications: Acid Control Maximum Strength (20 mg) Tablet Oral daily, Allergy Relief Loratadine (10 mg) Tablet Oral daily, Ativan 1 Tablet (of 2 mg) Oral q 4 to 6 hours PRN, Cholecalciferol 2 Capsule (of 5000 Units) Oral daily, Levaquin 1 Tablet Oral daily, Lexapro 1 Tablet (of 10 mg) Oral daily, Promethazine HCl (25 mg) Suppository Rectal t.i.d. PRN, Singulair 1 Tablet (of 10 mg) Oral at bedtime, Vitamin E 1 Capsule (of 500 mg) Oral daily Allergies: Sulfa Antibiotics Vital Signs: Performed on Feb 06, 2021 11:45 Height - 64.00 in Weight - 124.4 lbs (LOW) BSA - 1.60 sq.m BMI - 21.35 Temperature - 97.2 F (LOW) Pulse - 94 /min Respiration - 18 /min BP - 95/60 mm(hg) O2 Sat - 96 % Pain - 0 Fatigue - 7 Physical Examination: Constitutional - She appears somewhat weak generally, Eyes - Sclerae nonicteric. Conjunctivae clear, ENMT - No lesions noted in the oral cavity, Hematologic/Lymphatic - There is no cervical, clavicular, or axillary adenopathy noted, Respiratory - Lungs sound clear, Cardiovascular - Heart rhythm is regular. There is no murmur or gallop noted and there is no pericardial rub noted, Abdomen - Soft. Liver and spleen are not enlarged. There is no abdominal mass noted and there is no obvious ascites. There is no inguinal adenopathy, Extremities - No edema, Neurologic - No focal neurologic deficits noted. Lab/Imaging: Test performed on Feb 06, 2021 11:31 Sodium 142 mmol/L Potassium 3.9 mmol/L Chloride 106 mmol/L CO2 23 mmol/L Anion Gap 16.9 BUN 8 mg/dL Creatinine 0.5 mg/dL Cr Clearance (Est) 110.5800 mL/min eGFR 127.2 mL/min Glucose 86 mg/dL Osmolality - Calculated 292 mOsm/kg Calcium 8.2 mg/dL Protein, Total 6.0 g/dL Albumin 3.5 g/dL Globulin 2.5 g/dL Bilirubin, Total 0.2 mg/dL ALT (SGPT) 8 U/L AST (SGOT) 12 U/L Alkaline Phosphatase 100 IU/L WBC 4.0 10 3/uL RBC 2.64 10 6/uL HGB 9.2 g/dL HCT 28.6 % MCV 108.3 fl MCH 34.8 pg MCHC 32.2 g/dL RDW 14.3 % Platelet Count 220 10 3/cmm MPV 10.4 fL Neutrophils 2.60 10 3/uL Lymphocytes 0.9 10 3/uL Monocytes 0.3 10 3/uL Eosinophils 0.2 10 3/uL Basophils 0.0 10 3/uL Neutrophil % 64.9 % Lymphocyte % 22.4 % Monocyte % 8.0 % Eosinophil % 4.0 % Basophils % 0.5 % NRBC % 0 % CA-125 395.7 U/mL Problem List: 1. 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 The tumor has been found on next generation sequencing to harbor a BRCA1 mutation, presumed to be somatic. 2. GERD. 3. Allergic rhinitis. 4. Anxiety/depression. 5. She developed COVID-19 virus infection in October 2019. She had an uneventful recovery. 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 She had complete or near-complete debulking with her initial surgery in September 2015. She was given postoperative adjuvant chemotherapy with 6 cycles of carboplatin/paclitaxel. She had biopsy proven recurrence in the form of a right diaphragmatic peritoneal implant, discovered at the cholecystectomy procedure in April 2018. She then had further chemotherapy with 6 cycles of carboplatin/gemcitabine, completed in September 2018. She had no evidence of residual disease on restaging CT scans on 10/07/2018. She then continued maintenance therapy with single agent bevacizumab at a 3-week interval dosing schedule for 16 cycles. She began cycle 1 of bevacizumab on 11/10/2018. She tolerated it well, and she was able to continue her treatment every 3 weeks with no apparent adverse effects. As of 10/09/2019 she completed her 16th and last planned cycle of bevacizumab. As of January 2020 there was a significant increase in her CA-125 level, up to 48 U/mL. In reviewing her records, it actually has been showing a very gradual increase over the preceding year, from 12.4 U/mL in January 2019. However, she was not overtly symptomatic with it and her restaging CT scans on 01/24/2020 showed no evidence of metastatic disease. Her repeat CT scans on 04/02/2020 showed findings within the peritoneal cavity which were concerning for metastatic involvement, including increased soft tissue surrounding the mid SMA and increased soft tissue in the periaortic distribution. There were new small mesenteric, periaortic, and iliac chain lymph nodes. Also noted was a new small circumferential pericardial effusion. At this point she was having significant pain in her abdomen and back, and she also was having ongoing problems with constipation. She has had follow-up with Dr. Landon, and she was recommended to restart chemotherapy with either carboplatin in combination with Doxil or with Doxil monotherapy. In the meantime, she was found to be BRCA negative on genetic screening. At her follow-up visit on 04/30/2020 she was noted to have enlarging right supraclavicular lymphadenopathy. 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 It also showed genomic ZANE, and it was positive for PD-L1 expression with a CPS of 5. It was noted to be MSI stable. She began cycle 1 of Doxil monotherapy on 06/20/2020. The treatment was complicated by severe nausea/vomiting, requiring IV hydration on multiple occasions. She also had ongoing, severe constipation but with no evidence of bowel obstruction by abdominal x-ray or CT. As of her follow-up visit on 07/18/2020 she was beginning to feel better. There had been a significant decline in her CA-125 level, suggesting some response to the Doxil. However, given the severe toxicity that she experienced with it, I opted to change her chemotherapy back to the carboplatin/gemcitabine regimen. She began cycle 1 on 07/25/2020, administered on a day 1/day 8 schedule. She tolerated the treatment well other than her cycle 2 had to be delayed due to neutropenia and thrombocytopenia. However, there was a significant further decline in her CA-125 level, to 39.1 U/mL and at that point she also was feeling much better. She continued with cycle 2 of carboplatin/gemcitabine on 08/21/2020, administered with a 25% reduction in the gemcitabine dosage and on a day 1/day 15 schedule. She tolerated that treatment much better, and she continued with her 3rd cycle of carboplatin/gemcitabine on 10/02/2020. She had a very good clinical response to the chemotherapy. Given the severity of her side effects, I opted to stop her treatment after 3 cycles. As of 10/31/2020 her blood counts had recovered adequately. With the known BRCA1 mutation, she was then transitioned to maintenance olaparib at a standard dosage of 300 mg twice daily. Initially she had been tolerating the olaparib with no significant adverse effects. As of 01/10/2021 her CA-125 level was stable at 19.2 U/mL. On 01/18/2021 she was admitted to the hospital with symptomatic pericardial effusion, requiring pericardiocentesis and subsequently placement of a pericardial window. Her CT scans also showed moderate right and small left pleural effusion and some ascites. 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 During follow-up there has been a significant increase in the CA-125 level, also consistent with disease progression. She has indicated that she does not want to attempt any further chemotherapy, and realistically the likelihood of significant benefit with further chemotherapy would be very low. In the absence of any other affective treatment, she wants to try going back on the olaparib at a reduced dosage of 150 mg twice daily. Her management is otherwise symptomatic. Her overall prognosis unfortunately is very poor. I will see her again in 1 month, or sooner as needed. Signed By: John Grey M.D. <<Signature on File>>
== END 2021-02-07 23:59 | disposition home or self-care (01) ==
LOC: ONCMED 06:15
PROVIDERS: Internal Medicine Medical Oncology; PCP Nurse Practitioner Family; Visit Provider Nurse Practitioner Family
DX: C57.02 Malignant neoplasm of left fallopian tube (principal); K21.9 Gastro-esophageal reflux disease without esophagitis; J30.9 Allergic rhinitis, unspecified; F41.9 Anxiety disorder, unspecified; F32.9 Major depressive disorder, single episode, unspecified; Z86.16 Personal history of COVID-19; Z79.899 Other long term (current) drug therapy; Z92.21 Personal history of antineoplastic chemotherapy
CPT/HCPCS: 36591; 80053; 85025; 86304; 99214; 99215

== ENCOUNTER 2021-02-14 09:42 | Outpatient (CLI) | payer MEDICARE, SELFPAY ==
--- NOTE | 2021-02-14 09:48 | XR_ITS ---
WS: [id number] Chest 2 views, 02/14/2021 Clinical Data: I31.3 - Pericardial effusion (noninflammatory) Comparison: None. Findings: No nodules or masses are seen. The heart is normal. The pulmonary vascularity is not increa sed. No pneumonia or pneumothorax is seen. There is a small left pleural effusion and there may be ad ditional atelectasis of the left lower lobe. There is a minute right pleural effusion. There is a lef t Port-A-Cath which and triggers the left subclavian vein and ends in the superior vena cava. XR/XR chest 2V* [id number] Impression: 1. Small left pleural effusion with probable partial atelectasis of the left lo wer lobe. 2. Tiny right pleural effusion.
== END 2021-02-14 09:43 | disposition home or self-care (01) ==
LOC: RAD 09:45
PROVIDERS: PCP Nurse Practitioner Family; Visit Provider Nurse Practitioner Family
DX: I31.3 Pericardial effusion (noninflammatory) (principal); J90 Pleural effusion, not elsewhere classified
CPT/HCPCS: 71046

== ENCOUNTER 2021-03-06 10:17 | Outpatient (RCR) | payer MEDICARE, SELFPAY ==
[2021-03-06 10:52] LABS: Basophils % 0.3 %; Eosinophils # 0.1 10^3/uL (0.0-0.8); Eosinophils % 1.1 %; Hematocrit 31.8 % (37.0-47.0); Hemoglobin 9.9 g/dL (11.5-15.3); Lymphocytes % 10.7 %; Mean Corpuscular HGB Conc 31.1 g/dL (30.0-36.0); Mean Corpuscular Hemoglobin 32.4 pg (28.0-34.0); Mean Corpuscular Volume 103.9 fl (81-99); Mean Platelet Volume 9.8 fL (7.4-10.4); Monocytes # 0.6 10^3/uL (0.2-0.9); Neutrophils # 7.38 10^3/uL (1.8-7.7); Neutrophils % 80.7 %; Nucleated Red Blood Cells % 0 %; Platelet Count 276 10^3/cmm (130-400); Red Blood Count 3.06 10^6/uL (4.1-5.3); Red Cell Distribution Width 16.3 % (12.1-15.1); White Blood Count 9.2 10^3/uL (4.0-10.0)
[2021-03-06 11:56] LABS: Alanine Aminotransferase 8 U/L (0-33); Albumin Level 3.8 g/dL (3.5-5.2); Alkaline Phosphatase 103 IU/L (35-105); Aspartate Amino Transferase 16 U/L (0-32); Blood Urea Nitrogen 6 mg/dL (6-20); Calcium 8.7 mg/dL (8.5-10.5); Carbon Dioxide 26 mmol/L (22-29); Chloride 103 mmol/L (98-107); Globulin 2.5 g/dL (1.3-4.6); Glucose 88 mg/dL (65-115); Osmolality Calculated 285 mOsm/kg (285-295); Sodium 139 mmol/L (136-145); Total Bilirubin 0.2 mg/dL (0.15-1.2); Total Protein 6.3 g/dL (6.6-8.7)
[2021-03-06 13:06] LABS: CA 125 583.5 U/mL (0-35)
[2021-03-06 13:52] LABS: Iron 25 ug/dL (37-145); Percent Saturation 7.6 % (20-50); Total Iron Binding Capacity 326 mcg/dl; Unsaturated Iron Binding 301 ug/dL (112-347)
[2021-03-06 14:08] LABS: Vitamin B12 744 pg/mL (232-1245)
--- NOTE | 2021-03-06 20:27 | ONC FU_ITS ---
Dr. Grey Patient Follow-Up Note Patient: Jagruti Jay Unit #: [id number]: 1965 Dicatated By: John Grey M.D.Date of Visit:Mar 06, 2021 Onc Med Follow-up/Prog Note Chief Complaint: Fallopian tube cancer. 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 She had a recurrence in the form of a right diaphragmatic peritoneal implant confirmed by biopsy at a cholecystectomy procedure in April 2018. She had presented in August 2015 with abdominal pain, and she was found to have a large pelvic mass. This was initially thought to be arising from the right ovary. On 09/17/2015 she underwent surgery which included total abdominal hysterectomy, bilateral salpingo-oophorectomy, and radical debulking along with pelvic lymphadenectomy and limited periaortic lymphadenectomy. I do not have those actual reports available, but she apparently was thought to have a complete or near-complete resection. She was then given postoperative adjuvant chemotherapy with 6 cycles of carboplatin/paclitaxel. On 09/28/2018 she underwent cholecystectomy, and at the time of that procedure she was noted to have a peritoneal implant on the right diaphragm. Biopsy of the implant showed high-grade carcinoma consistent with the previous high-grade serous primary. With that finding she was then given further chemotherapy with 6 cycles of carboplatin/gemcitabine, which she completed in September 2018. Restaging CT scans of the chest, abdomen, and pelvis on 10/07/2018 showed resolution of a previously noted small anterior hepatic capsular or subcapsular nodule. There are new postsurgical changes in that region. 2 very closely associated hypodense foci were again noted in the right lobe posteriorly, maximum aggregate diameter of 3 mm. That finding. Stable. There was no evidence of a new focal hepatic abnormality. There were small mesenteric, retroperitoneal, and bilateral inguinal lymph nodes. There was no pathologic lymphadenopathy. A 5 x 3 mm sclerotic focus at the right posterior aspect of the manubrium appeared stable compared to a prior study from October 2015. There were no suspicious osseous lesions noted. With those findings, she was recommended to continue further systemic therapy with 16 cycles of bevacizumab administered at 3-week intervals. She received cycle 1 of bevacizumab on 11/10/2018. She tolerated it without acute toxicity, and she then continued treatment at a 3-week dosing interval. As of 07/04/2019 she completed her 12th cycle. Restaging CT scans on 07/21/2019 showed no evidence of metastatic disease in the chest, abdomen, or pelvis. There was evidence of diffuse fatty infiltration of the liver with an enlarged hepatic lobe measuring 19 cm. A left renal cyst measured 12 mm. There were no other abnormal findings. She continued her maintenance bevacizumab. She completed her 16th and last planned cycle on 10/09/2019. INTERIM HISTORY: As of her follow-up visit on October 24, 2019 her CA-125 level had increased to 33.4 U/mL. Overall, it appeared to have been increasing very gradually since January 2019 when it was 12.4 U/mL. However, at that point she appeared stable clinically and she continued observation/expectant management. As of 01/24/2020 there was further increase in the CA-125 to 48.3 U/mL. Her restaging CT scans of the chest, abdomen, and pelvis showed no evidence for metastatic disease. There were no other acute findings noted. Despite the negative CT findings, with the continued increase in the CA-125 level she was scheduled to have follow-up with Dr. Landon. She had repeat CT scans on 04/02/2020. It showed new small circumferential pericardial effusion and new findings within the peritoneal cavity which were concerning for metastatic involvement. This included increased soft tissue surrounding the mid SMA and increased soft tissue in the periaortic distribution. There were new small mesenteric, periaortic, and iliac chain lymph nodes. There was no ascites. Her further evaluation included genetic screening which showed 2 heterozygous variants of uncertain significance. She was negative for BRCA mutation. During this time her CA-125 level continued to increase. As of 04/30/2020 it was up to 177.0 U/mL. 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 It also showed genomic ZANE, and it was positive for PD-L1 expression with a CPS of 5. It was noted to be MSI stable. On 06/20/2020 she began salvage chemotherapy with cycle 1 of Doxil. Her baseline CA-125 level was 407.8 U/mL. The treatment was complicated by nausea/vomiting, severe constipation, and abdominal pain. She required IV hydration and IV antiemetics on multiple occasions. She did not have any evidence of bowel obstruction. In the meantime, she also had progressive enlargement of the right supraclavicular lymph node. As it had become increasingly symptomatic, she was referred to Dr. Littlejohn, and she underwent palliative radiation to the right supraclavicular area. Treatment was completed on 07/11/2020 to a total dose of 2000 cGy administered in 5 fractions. As of her follow-up visit on 07/18/2020 she was beginning to feel better generally. Her CA-125 level had declined to 175.4 U/mL. At that point I recommended restarting chemotherapy with carboplatin/gemcitabine with ultimate goal to transition her to maintenance therapy with a PARP inhibitor. On 07/25/2020 she began cycle 1 of carboplatin/gemcitabine, administered on a day 1/day 8 schedule. She tolerated both treatments without acute toxicity. She continued with cycle 2 on 08/21/2020. At that point she was feeling much better, and there was a significant decline in her CA-125 level. Her treatment was delayed due to neutropenia and thrombocytopenia, and it was administered at a reduced dosage of gemcitabine and on a day 1/day 15 schedule. She tolerated that treatment much better. As of 09/18/1020 her CA-125 level was down to 27.4 U/mL. She continued with cycle 3 on 10/02/2020. As she did appear to have had a good clinical response to the chemotherapy, she was then transitioned to maintenance olaparib at 300 mg twice daily beginning 11/01/2020. As of 11/13/2000 there was further decline in the CA-125 level to 20.4 U/mL. Restaging CT scans of the chest, abdomen, and pelvis showed significant improvement in the retroperitoneal lymphadenopathy compared to the May 2020 study. There was minimal residual disease in the form of a left periaortic region node measuring 8 mm. There were a few tiny pulmonary micronodules measuring the range of 2 mm. There were no enlarging or new pulmonary nodules noted. As of her office visit on 11/26/2020 she appeared to be doing well clinically. Her CA-125 level was down to 20.4 U/mL. She continued olaparib 300 mg twice daily. Her repeat CA-125 level on 01/10/2021 was stable at 19.2 U/mL. In the meantime, on 11/26/2020 she had been seen in the emergency room after she had sustained significant injuries at home, having been accosted by an angry cow while she was bottlefeeding the baby calf. As she described it, the cow butted her and then actually rolled over her. Her CT scans showed no evidence for fracture or solid organ trauma. There was also no evidence of progression of the cancer. On 01/18/2021 she was admitted to the hospital after presenting to the emergency room with shortness of breath and tachycardia. She was found on CT to have a large pericardial effusion measuring up to 2.6 cm. There was also moderate right and trace left pleural effusion, and there was moderate ascites in the abdomen. She underwent pericardiocentesis and she subsequently underwent placement of a pericardial window. The pericardial fluid was reported to be bloody. The cytology on the pericardial fluid was negative. However, pathology on the pericardium did show metastatic carcinoma consistent with tubo-ovarian primary. At her follow-up visit on 02/06/2021 she was feeling much better generally. However, at that point there was a significant increase in the CA-125 level to 395.7 U/mL. With that increase she opted to try restarting the olaparib with the dosage reduced to 150 mg twice daily. However, she subsequently stopped treatment, as she continued to have side effects even at the reduced dosage. She is seen for a follow-up visit. She has been feeling good generally. She says her energy is getting better. She is back to doing most of her normal activities. She has good appetite. Her weight is up a couple of pounds. She does not have fever, night sweats, or hot flashes. She has had some sinus drainage and she still has a little bit of sore throat. She has continued to have a little cough since her hospitalization and she continues to occasionally have a little pain under her left breast. She has not had shortness of breath, though. She has no GI/ complaints other than a little bit of heartburn. She says her shoulder hurts occasionally. She has no other joint or bone pain. She does not complain of headache. She occasionally gets lightheaded. She has residual numbness in her toes. Medications: Acid Control Maximum Strength (20 mg) Tablet Oral daily, Allergy Relief Loratadine (10 mg) Tablet Oral daily, Ativan 1 Tablet (of 2 mg) Oral q 4 to 6 hours PRN, Cholecalciferol 2 Capsule (of 5000 Units) Oral daily, Levaquin 1 Tablet Oral daily, Lexapro 1 Tablet (of 10 mg) Oral daily, Promethazine HCl (25 mg) Suppository Rectal t.i.d. PRN, Singulair 1 Tablet (of 10 mg) Oral at bedtime, Slow Fe 1 Tablet Tablet, controlled release Oral daily, Vitamin E 1 Capsule (of 500 mg) Oral daily Allergies: Sulfa Antibiotics Vital Signs: Performed on Mar 06, 2021 16:34 Height - 64.00 in Weight - 126.0 lbs (HIGH) BSA - 1.61 sq.m BMI - 21.63 Temperature - 98.0 F (LOW) Pulse - 98 /min Respiration - 16 /min BP - 108/63 mm(hg) O2 Sat - 98 % Pain - 0 Fatigue - 3 Physical Examination: Constitutional - She looks good generally, Eyes - Sclerae nonicteric. Conjunctivae clear, ENMT - No lesions noted in the oral cavity, Hematologic/Lymphatic - There is no cervical, clavicular, or axillary adenopathy noted, Respiratory - Lungs sound clear. She has good air movement bilaterally, Cardiovascular - Heart rhythm is regular. There is no murmur or gallop noted and there is no pericardial rub noted, Abdomen - Soft. Liver and spleen are not enlarged. There is no abdominal mass noted and there is no obvious ascites. There is no inguinal adenopathy, Extremities - No edema, Neurologic - No focal neurologic deficits noted. Lab/Imaging: Test performed on Mar 06, 2021 10:41 Iron 25 mcg/dL Sodium 139 mmol/L Vitamin B12 744 pg/mL Iron Binding Capacity (TIBC) 326 mcg/dl Potassium 4.0 mmol/L % Iron Saturation 7.6 % Chloride 103 mmol/L CO2 26 mmol/L UIBC 301 mcg/dL Anion Gap 14.0 BUN 6 mg/dL Creatinine 0.6 mg/dL Cr Clearance (Est) 93.34 mL/min eGFR 103.0 mL/min Glucose 88 mg/dL Osmolality - Calculated 285 mOsm/kg Calcium 8.7 mg/dL Protein, Total 6.3 g/dL Albumin 3.8 g/dL Globulin 2.5 g/dL Bilirubin, Total 0.2 mg/dL ALT (SGPT) 8 U/L AST (SGOT) 16 U/L Alkaline Phosphatase 103 IU/L WBC 9.2 10 3/uL RBC 3.06 10 6/uL HGB 9.9 g/dL HCT 31.8 % MCV 103.9 fl MCH 32.4 pg MCHC 31.1 g/dL RDW 16.3 % Platelet Count 276 10 3/cmm MPV 9.8 fL Neutrophils 7.38 10 3/uL Lymphocytes 1.0 10 3/uL Monocytes 0.6 10 3/uL Eosinophils 0.1 10 3/uL Basophils 0.0 10 3/uL Neutrophil % 80.7 % Lymphocyte % 10.7 % Monocyte % 7.0 % Eosinophil % 1.1 % Basophils % 0.3 % NRBC % 0 % CA-125 583.5 U/mL Problem List: 1. 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 The tumor has been found on next generation sequencing to harbor a BRCA1 mutation, presumed to be somatic. 2. GERD. 3. Allergic rhinitis. 4. Anxiety/depression. 5. She developed COVID-19 virus infection in October 2019. She had an uneventful recovery. Problems Addressed with this Encounter and Plan: 1. 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 She had complete or near-complete debulking with her initial surgery in September 2015. She was given postoperative adjuvant chemotherapy with 6 cycles of carboplatin/paclitaxel. She had biopsy proven recurrence in the form of a right diaphragmatic peritoneal implant, discovered at the cholecystectomy procedure in April 2018. She then had further chemotherapy with 6 cycles of carboplatin/gemcitabine, completed in September 2018. She had no evidence of residual disease on restaging CT scans on 10/07/2018. She then continued maintenance therapy with single agent bevacizumab at a 3-week interval dosing schedule for 16 cycles. She began cycle 1 of bevacizumab on 11/10/2018. She tolerated it well, and she was able to continue her treatment every 3 weeks with no apparent adverse effects. As of 10/09/2019 she completed her 16th and last planned cycle of bevacizumab. As of January 2020 there was a significant increase in her CA-125 level, up to 48 U/mL. In reviewing her records, it actually has been showing a very gradual increase over the preceding year, from 12.4 U/mL in January 2019. However, she was not overtly symptomatic with it and her restaging CT scans on 01/24/2020 showed no evidence of metastatic disease. Her repeat CT scans on 04/02/2020 showed findings within the peritoneal cavity which were concerning for metastatic involvement, including increased soft tissue surrounding the mid SMA and increased soft tissue in the periaortic distribution. There were new small mesenteric, periaortic, and iliac chain lymph nodes. Also noted was a new small circumferential pericardial effusion. At this point she was having significant pain in her abdomen and back, and she also was having ongoing problems with constipation. She has had follow-up with Dr. Landon, and she was recommended to restart chemotherapy with either carboplatin in combination with Doxil or with Doxil monotherapy. In the meantime, she was found to be BRCA negative on genetic screening. At her follow-up visit on 04/30/2020 she was noted to have enlarging right supraclavicular lymphadenopathy. 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 It also showed genomic ZANE, and it was positive for PD-L1 expression with a CPS of 5. It was noted to be MSI stable. She began cycle 1 of Doxil monotherapy on 06/20/2020. The treatment was complicated by severe nausea/vomiting, requiring IV hydration on multiple occasions. She also had ongoing, severe constipation but with no evidence of bowel obstruction by abdominal x-ray or CT. As of her follow-up visit on 07/18/2020 she was beginning to feel better. There had been a significant decline in her CA-125 level, suggesting some response to the Doxil. However, given the severe toxicity that she experienced with it, I opted to change her chemotherapy back to the carboplatin/gemcitabine regimen. From 07/25/2020 through 10/16/2020 she completed 3 cycles of treatment with carboplatin/gemcitabine. She experienced multiple side effects including fatigue, neutropenia, and thrombocytopenia, among others. However, she did have a very good response by CA-125 level, and I did opt to stop treatment after 3 cycles. With the known BRCA1 mutation, she was then transitioned to maintenance olaparib at a standard dosage of 300 mg twice daily. Initially she had been tolerating the olaparib with no significant adverse effects. As of 01/10/2021 her CA-125 level was stable at 19.2 U/mL. On 01/18/2021 she was admitted to the hospital with symptomatic pericardial effusion, requiring pericardiocentesis and subsequently placement of a pericardial window. Her CT scans also showed moderate right and small left pleural effusion and some ascites. 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 During follow-up her clinical status has improved significantly, but there has been a continued increase in the CA-125 level, consistent with disease progression. At this point she is interested in pursuing further treatment, she does have good performance status, but she does not want to any further chemotherapy. Her other options would be very limited. With her next generation sequencing showing positive progesterone receptor, a trial of endocrine therapy would be one possibility, though with a relatively low likelihood of benefit. With her tumor showing positive PD-L1 expression, I will see if I can get her approved for trial of therapy with pembrolizumab, which potentially could be given in combination with an endocrine therapy. 2. She has mildly anemic. Her serum iron studies show low transferrin saturation at 7.6%, consistent with iron deficiency. She will begin oral iron supplementation. If she is not responding adequately, she will be given the option to have parenteral iron replacement. Signed By: John Grey M.D. <<Signature on File>>
== END 2021-03-10 23:59 | disposition home or self-care (01) ==
LOC: ONCMED 10:17
PROVIDERS: Internal Medicine Medical Oncology; PCP Nurse Practitioner Family; Visit Provider Nurse Practitioner Family
DX: C57.02 Malignant neoplasm of left fallopian tube (principal); K21.9 Gastro-esophageal reflux disease without esophagitis; J30.9 Allergic rhinitis, unspecified; D50.9 Iron deficiency anemia, unspecified; F41.9 Anxiety disorder, unspecified; F32.9 Major depressive disorder, single episode, unspecified; Z86.16 Personal history of COVID-19; Z79.899 Other long term (current) drug therapy; Z92.21 Personal history of antineoplastic chemotherapy
CPT/HCPCS: 36591; 80053; 82607; 83540; 83550; 85025; 86304; 99215

== ENCOUNTER 2021-04-02 06:57 | Outpatient (RCR) | payer MEDICARE, SELFPAY ==
[2021-04-02 07:22] LABS: Basophils % 0.4 %; Eosinophils # 0.1 10^3/uL (0.0-0.8); Eosinophils % 1.3 %; Hematocrit 35.6 % (37.0-47.0); Hemoglobin 10.9 g/dL (11.5-15.3); Lymphocytes # 0.8 10^3/uL (0.8-4.8); Lymphocytes % 16.9 %; Mean Corpuscular HGB Conc 30.6 g/dL (30.0-36.0); Mean Corpuscular Hemoglobin 30.8 pg (28.0-34.0); Mean Corpuscular Volume 100.6 fl (81-99); Mean Platelet Volume 10.1 fL (7.4-10.4); Monocytes # 0.4 10^3/uL (0.2-0.9); Monocytes % 9.1 %; Neutrophils # 3.42 10^3/uL (1.8-7.7); Neutrophils % 72.1 %; Nucleated Red Blood Cells % 0 %; Platelet Count 217 10^3/cmm (130-400); Red Blood Count 3.54 10^6/uL (4.1-5.3); Red Cell Distribution Width 16.4 % (12.1-15.1); White Blood Count 4.7 10^3/uL (4.0-10.0)
[2021-04-02 07:57] LABS: Alanine Aminotransferase 11 U/L (0-33); Albumin Level 4.4 g/dL (3.5-5.2); Alkaline Phosphatase 92 IU/L (35-105); Anion Gap 16.2 (5-19); Aspartate Amino Transferase 15 U/L (0-32); Blood Urea Nitrogen 13 mg/dL (6-20); Calcium 9.5 mg/dL (8.5-10.5); Carbon Dioxide 25 mmol/L (22-29); Chloride 102 mmol/L (98-107); Free T4 Free Thyroxine 1.38 ng/dL (0.82-1.77); Globulin 2.4 g/dL (1.3-4.6); Glomerular Filtration Rate 86.2 mL/min (90-130); Glucose 86 mg/dL (65-115); Osmolality Calculated 287 mOsm/kg (285-295); Potassium 4.2 mmol/L (3.5-5.1); Sodium 139 mmol/L (136-145); Thyroid Stimulating Hormone 4.18 uIU/mL (0.27-4.20); Total Bilirubin 0.4 mg/dL (0.15-1.2); Total Protein 6.8 g/dL (6.6-8.7)
[2021-04-02 08:14] LABS: Hepatitis A Antibody IgM Non-Reactive (Nonreactive); Hepatitis B Core AB, Total Non-Reactive (Nonreactive); Hepatitis B Surface AB 137.7 (11.5-1000); Hepatitis B Surface Antigen Non-Reactive (Nonreactive); Hepatitis C Virus Antibody Non-Reactive (Nonreactive)
[2021-04-02 08:37] LABS: CA 125 199.3 U/mL (0-35)
--- NOTE | 2021-04-02 10:30 | ONC FU_ITS ---
[facility] Progress Note Patient: Jagruti Jay Unit #: [id number]: [id number] Dicatated By: Dorothea Diane N.P.Date of Visit:Apr 02, 2021 Onc MED Follow-up/Prog Note Chief Complaint: Fallopian tube cancer. 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 She had a recurrence in the form of a right diaphragmatic peritoneal implant confirmed by biopsy at a cholecystectomy procedure in April 2018. She had presented in August 2015 with abdominal pain, and she was found to have a large pelvic mass. This was initially thought to be arising from the right ovary. On 09/17/2015 she underwent surgery which included total abdominal hysterectomy, bilateral salpingo-oophorectomy, and radical debulking along with pelvic lymphadenectomy and limited periaortic lymphadenectomy. I do not have those actual reports available, but she apparently was thought to have a complete or near-complete resection. She was then given postoperative adjuvant chemotherapy with 6 cycles of carboplatin/paclitaxel. On 09/28/2018 she underwent cholecystectomy, and at the time of that procedure she was noted to have a peritoneal implant on the right diaphragm. Biopsy of the implant showed high-grade carcinoma consistent with the previous high-grade serous primary. With that finding she was then given further chemotherapy with 6 cycles of carboplatin/gemcitabine, which she completed in September 2018. Restaging CT scans of the chest, abdomen, and pelvis on 10/07/2018 showed resolution of a previously noted small anterior hepatic capsular or subcapsular nodule. There are new postsurgical changes in that region. 2 very closely associated hypodense foci were again noted in the right lobe posteriorly, maximum aggregate diameter of 3 mm. That finding. Stable. There was no evidence of a new focal hepatic abnormality. There were small mesenteric, retroperitoneal, and bilateral inguinal lymph nodes. There was no pathologic lymphadenopathy. A 5 x 3 mm sclerotic focus at the right posterior aspect of the manubrium appeared stable compared to a prior study from October 2015. There were no suspicious osseous lesions noted. With those findings, she was recommended to continue further systemic therapy with 16 cycles of bevacizumab administered at 3-week intervals. She received cycle 1 of bevacizumab on 11/10/2018. She tolerated it without acute toxicity, and she then continued treatment at a 3-week dosing interval. As of 07/04/2019 she completed her 12th cycle. Restaging CT scans on 07/21/2019 showed no evidence of metastatic disease in the chest, abdomen, or pelvis. There was evidence of diffuse fatty infiltration of the liver with an enlarged hepatic lobe measuring 19 cm. A left renal cyst measured 12 mm. There were no other abnormal findings. She continued her maintenance bevacizumab. She completed her 16th and last planned cycle on 10/09/2019. INTERIM HISTORY: As of her follow-up visit on October 24, 2019 her CA-125 level had increased to 33.4 U/mL. Overall, it appeared to have been increasing very gradually since January 2019 when it was 12.4 U/mL. However, at that point she appeared stable clinically and she continued observation/expectant management. As of 01/24/2020 there was further increase in the CA-125 to 48.3 U/mL. Her restaging CT scans of the chest, abdomen, and pelvis showed no evidence for metastatic disease. There were no other acute findings noted. Despite the negative CT findings, with the continued increase in the CA-125 level she was scheduled to have follow-up with Dr. Landon. She had repeat CT scans on 04/02/2020. It showed new small circumferential pericardial effusion and new findings within the peritoneal cavity which were concerning for metastatic involvement. This included increased soft tissue surrounding the mid SMA and increased soft tissue in the periaortic distribution. There were new small mesenteric, periaortic, and iliac chain lymph nodes. There was no ascites. Her further evaluation included genetic screening which showed 2 heterozygous variants of uncertain significance. She was negative for BRCA mutation. During this time her CA-125 level continued to increase. As of 04/30/2020 it was up to 177.0 U/mL. 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 It also showed genomic ZANE, and it was positive for PD-L1 expression with a CPS of 5. It was noted to be MSI stable. On 06/20/2020 she began salvage chemotherapy with cycle 1 of Doxil. Her baseline CA-125 level was 407.8 U/mL. The treatment was complicated by nausea/vomiting, severe constipation, and abdominal pain. She required IV hydration and IV antiemetics on multiple occasions. She did not have any evidence of bowel obstruction. In the meantime, she also had progressive enlargement of the right supraclavicular lymph node. As it had become increasingly symptomatic, she was referred to Dr. Littlejohn, and she underwent palliative radiation to the right supraclavicular area. Treatment was completed on 07/11/2020 to a total dose of 2000 cGy administered in 5 fractions. As of her follow-up visit on 07/18/2020 she was beginning to feel better generally. Her CA-125 level had declined to 175.4 U/mL. At that point I recommended restarting chemotherapy with carboplatin/gemcitabine with ultimate goal to transition her to maintenance therapy with a PARP inhibitor. On 07/25/2020 she began cycle 1 of carboplatin/gemcitabine, administered on a day 1/day 8 schedule. She tolerated both treatments without acute toxicity. She continued with cycle 2 on 08/21/2020. At that point she was feeling much better, and there was a significant decline in her CA-125 level. Her treatment was delayed due to neutropenia and thrombocytopenia, and it was administered at a reduced dosage of gemcitabine and on a day 1/day 15 schedule. She tolerated that treatment much better. As of 09/18/1020 her CA-125 level was down to 27.4 U/mL. She continued with cycle 3 on 10/02/2020. As she did appear to have had a good clinical response to the chemotherapy, she was then transitioned to maintenance olaparib at 300 mg twice daily beginning 11/01/2020. As of 11/13/2000 there was further decline in the CA-125 level to 20.4 U/mL. Restaging CT scans of the chest, abdomen, and pelvis showed significant improvement in the retroperitoneal lymphadenopathy compared to the May 2020 study. There was minimal residual disease in the form of a left periaortic region node measuring 8 mm. There were a few tiny pulmonary micronodules measuring the range of 2 mm. There were no enlarging or new pulmonary nodules noted. As of her office visit on 11/26/2020 she appeared to be doing well clinically. Her CA-125 level was down to 20.4 U/mL. She continued olaparib 300 mg twice daily. Her repeat CA-125 level on 01/10/2021 was stable at 19.2 U/mL. In the meantime, on 11/26/2020 she had been seen in the emergency room after she had sustained significant injuries at home, having been accosted by an angry cow while she was bottlefeeding the baby calf. As she described it, the cow butted her and then actually rolled over her. Her CT scans showed no evidence for fracture or solid organ trauma. There was also no evidence of progression of the cancer. On 01/18/2021 she was admitted to the hospital after presenting to the emergency room with shortness of breath and tachycardia. She was found on CT to have a large pericardial effusion measuring up to 2.6 cm. There was also moderate right and trace left pleural effusion, and there was moderate ascites in the abdomen. She underwent pericardiocentesis and she subsequently underwent placement of a pericardial window. The pericardial fluid was reported to be bloody. The cytology on the pericardial fluid was negative. However, pathology on the pericardium did show metastatic carcinoma consistent with tubo-ovarian primary. At her follow-up visit on 02/06/2021 she was feeling much better generally. However, at that point there was a significant increase in the CA-125 level to 395.7 U/mL. With that increase she opted to try restarting the olaparib with the dosage reduced to 150 mg twice daily. However, she subsequently stopped treatment, as she continued to have side effects even at the reduced dosage. Patient presents today accompanied by her for education on Keytruda and exemestane. She states that she has been feeling really good. And seems to be improving every day. She denies fever, chills, night sweats. She continues to have mild shortness of breath with activity and occasional cough. She denies chest pain. She denies nausea or vomiting. But she does have occasional constipation which is controlled with [id number] medications. No symptoms. No joint pain pain. She was taking iron supplements for iron deficiency anemia but she discontinued those because she had heard that those can cause cancer progression. Review Of Symptoms: See above. Past Medical History: Allergic rhinitis Anxiety/depression Fallopian tube cancer Gastroesophageal reflux disease Past Surgical History: Cholecystectomy in 2019 Placement of PowerPort in 2016 MARIBELL/BSO, omentectomy, radical debulking with pelvic and periaortic lymphadenectomy in 2016 Allergies: Sulfa Antibiotics Medications: Acid Control Maximum Strength (20 mg) Tablet Oral daily Allergy Relief Loratadine (10 mg) Tablet Oral daily Ativan 1 Tablet (of 2 mg) Oral q 4 to 6 hours PRN Cholecalciferol 2 Capsule (of 5000 Units) Oral daily Rawlins Bergamot Powder Oral Lexapro 1 Tablet (of 10 mg) Oral daily Milk Thistle Capsule Oral Quercetin Tablet Oral Resveratrol Capsule Oral Singulair 1 Tablet (of 10 mg) Oral at bedtime Vitamin B Complex Tablet Oral Family History: Ms. Jay's mother at age 82: congestive heart failure, and coronary artery disease, and type II diabetes. Ms. Jay's father at age 82: lung cancer. Ms. Jay has 3 brothers: 3 alive. She has 2 sisters: 2 alive. Father of lung cancer at age 82. Mother of heart disease at age 82. She also had diabetes. A brother has leukemia, which I assume is chronic leukocytic leukemia. Four other siblings are in good health. A nephew of leukemia. 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 Ms. Jay quit smoking 22 years ago but had smoked 0.5 packs/day for 20 years. She has no history of drinking. Ms. Jay reports the following support systems: lives with spouse, significant other, family, or friends, lives in own house, supportive family/friends willing to assist with needs, and adequate transportation available for expected visits. Her diet consists of regular meals. She indicates her activity level as: regular exercise. She has a history of smoking 1/2 pack of cigarettes daily for 20 years, but she quit 20 years ago. She does not drink alcohol. Physical Examination: Performed on Apr 02, 2021 09:14: Height - 64.00 in, Weight - 124.8 lbs (LOW), BSA - 1.60 sq.m, BMI - 21.42, Temperature - 97.4 F (LOW), Pulse - 93 /min, Respiration - 16 /min, BP - 93/63 mm(hg), O2 Sat - 99 %, Pain - 0, and Fatigue - 5. Performance Status: 1 - No physically strenuous activity, but ambulatory and able to carry out light or sedentary work (e.g. office work, light house work). (ECOG) Constitutional Alert, cooperative, oriented. Mood and affect appropriate. Appears close to chronological age. Well nourished. Well developed. Head Normocephalic; no scars. Eyes Conjunctivae and sclerae are clear and without icterus. Pupils are reactive and equal. Respiratory Lungs are clear to auscultation without rhonchi or wheezing. Cardiovascular Regular rate and rhythm of heart without murmurs, gallops or rubs. Abdomen Non-tender, non-distended, no masses, ascites or hepatosplenomegaly. Good bowel sounds. No guarding or rebound tenderness. Musculoskeletal No tenderness or swelling, normal range of motion without obvious weakness. Integumentary No rashes, scars, or lesions suggestive of malignancy. Psychiatric Alert and oriented times three. Coherent speech. Verbalizes understanding of our discussions today. Laboratory: Test performed on Apr 02, 2021 07:13 Sodium 139 mmol/L T4, Free 1.38 ng/dL TSH 4.18 uIU/mL Potassium 4.2 mmol/L Chloride 102 mmol/L CO2 25 mmol/L Anion Gap 16.2 BUN 13 mg/dL Creatinine 0.7 mg/dL Cr Clearance (Est) 79.2400 mL/min eGFR 86.2 mL/min Glucose 86 mg/dL Osmolality - Calculated 287 mOsm/kg Calcium 9.5 mg/dL Protein, Total 6.8 g/dL Albumin 4.4 g/dL Globulin 2.4 g/dL Bilirubin, Total 0.4 mg/dL ALT (SGPT) 11 U/L AST (SGOT) 15 U/L Alkaline Phosphatase 92 IU/L WBC 4.7 10 3/uL RBC 3.54 10 6/uL HGB 10.9 g/dL HCT 35.6 % MCV 100.6 fl MCH 30.8 pg MCHC 30.6 g/dL RDW 16.4 % Platelet Count 217 10 3/cmm MPV 10.1 fL Neutrophils 3.42 10 3/uL Lymphocytes 0.8 10 3/uL Monocytes 0.4 10 3/uL Eosinophils 0.1 10 3/uL Basophils 0.0 10 3/uL Neutrophil % 72.1 % Lymphocyte % 16.9 % Monocyte % 9.1 % Eosinophil % 1.3 % Basophils % 0.4 % NRBC % 0 % Hepatitis A Ab, IgM Non-Reactive Hepatitis B Core Ab, Total Non-Reactive Hepatitis B Surf Antigen Non-Reactive Hepatitis B Surface Ab 137.7 STATUS of IMMUINITY Inconsistent with Immunity 0.0 - 8.4 mIU/mL Consistent with Indeterminate Immunity 8.5 - 11.4 mIU/mL Consistent with Immunity >= 11.5 mIU/mL Hepatitis C Ab Non-Reactive CA-125 199.3 U/mL Test performed on Mar 06, 2021 10:41 Iron 25 mcg/dL Vitamin B12 744 pg/mL Iron Binding Capacity (TIBC) 326 mcg/dl % Iron Saturation 7.6 % UIBC 301 mcg/dL Impression: 1. 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 The tumor has been found on next generation sequencing to harbor a BRCA1 mutation, presumed to be somatic. 2. GERD. 3. Allergic rhinitis. 4. Anxiety/depression. 5. She developed COVID-19 virus infection in October 2019. She had an uneventful recovery. Plan: 1. 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 She had complete or near-complete debulking with her initial surgery in September 2015. She was given postoperative adjuvant chemotherapy with 6 cycles of carboplatin/paclitaxel. She had biopsy proven recurrence in the form of a right diaphragmatic peritoneal implant, discovered at the cholecystectomy procedure in April 2018. She then had further chemotherapy with 6 cycles of carboplatin/gemcitabine, completed in September 2018. She had no evidence of residual disease on restaging CT scans on 10/07/2018. She then continued maintenance therapy with single agent bevacizumab at a 3-week interval dosing schedule for 16 cycles. She began cycle 1 of bevacizumab on 11/10/2018. She tolerated it well, and she was able to continue her treatment every 3 weeks with no apparent adverse effects. As of 10/09/2019 she completed her 16th and last planned cycle of bevacizumab. As of January 2020 there was a significant increase in her CA-125 level, up to 48 U/mL. In reviewing her records, it actually has been showing a very gradual increase over the preceding year, from 12.4 U/mL in January 2019. However, she was not overtly symptomatic with it and her restaging CT scans on 01/24/2020 showed no evidence of metastatic disease. Her repeat CT scans on 04/02/2020 showed findings within the peritoneal cavity which were concerning for metastatic involvement, including increased soft tissue surrounding the mid SMA and increased soft tissue in the periaortic distribution. There were new small mesenteric, periaortic, and iliac chain lymph nodes. Also noted was a new small circumferential pericardial effusion. At this point she was having significant pain in her abdomen and back, and she also was having ongoing problems with constipation. She has had follow-up with Dr. Landon, and she was recommended to restart chemotherapy with either carboplatin in combination with Doxil or with Doxil monotherapy. In the meantime, she was found to be BRCA negative on genetic screening. At her follow-up visit on 04/30/2020 she was noted to have enlarging right supraclavicular lymphadenopathy. 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 It also showed genomic ZANE, and it was positive for PD-L1 expression with a CPS of 5. It was noted to be MSI stable. She began cycle 1 of Doxil monotherapy on 06/20/2020. The treatment was complicated by severe nausea/vomiting, requiring IV hydration on multiple occasions. She also had ongoing, severe constipation but with no evidence of bowel obstruction by abdominal x-ray or CT. As of her follow-up visit on 07/18/2020 she was beginning to feel better. There had been a significant decline in her CA-125 level, suggesting some response to the Doxil. However, given the severe toxicity that she experienced with it, I opted to change her chemotherapy back to the carboplatin/gemcitabine regimen. From 07/25/2020 through 10/16/2020 she completed 3 cycles of treatment with carboplatin/gemcitabine. She experienced multiple side effects including fatigue, neutropenia, and thrombocytopenia, among others. However, she did have a very good response by CA-125 level, and I did opt to stop treatment after 3 cycles. With the known BRCA1 mutation, she was then transitioned to maintenance olaparib at a standard dosage of 300 mg twice daily. Initially she had been tolerating the olaparib with no significant adverse effects. As of 01/10/2021 her CA-125 level was stable at 19.2 U/mL. On 01/18/2021 she was admitted to the hospital with symptomatic pericardial effusion, requiring pericardiocentesis and subsequently placement of a pericardial window. Her CT scans also showed moderate right and small left pleural effusion and some ascites. 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 During follow-up her clinical status has improved significantly, but there has been a continued increase in the CA-125 level, consistent with disease progression. At this point she is interested in pursuing further treatment, she does have good performance status, but she does not want to any further chemotherapy. Her other options would be very limited. With her next generation sequencing showing positive progesterone receptor, a trial of endocrine therapy would be one possibility, though with a relatively low likelihood of benefit. With her tumor showing positive PD-L1 expression, I will see if I can get her approved for trial of therapy with pembrolizumab, which potentially could be given in combination with an endocrine therapy. Patient presents today for education for Keytruda and exemestane. She was provided handouts and indications for use and side effects were also detailed. She denies any questions at this time. She will receive her first cycle of Keytruda 200 mg IV today and every 3 weeks. The exemestane is been called to her pharmacy she will take 25 mg daily p.o. She will return to the clinic in 3 weeks with CBC CMP and if all looks well she will have her second dose of Keytruda at that time. 2. She has mildly anemic. Her serum iron studies show low transferrin saturation at 7.6%, consistent with iron deficiency. She took iron supplementation orally but because she had read a study that showed that iron can cause progression of cancer she discontinue the medication. She has been eating well and her labs have actually improved this week. Signed By: Dorothea Diane N.P. <<Signature on File>>
== END 2021-04-07 23:59 | disposition home or self-care (01) ==
LOC: ONCMED 06:57
PROVIDERS: PCP Nurse Practitioner Family; Visit Provider Nurse Practitioner Family
DX: Z51.12 Encounter for antineoplastic immunotherapy (principal); C57.02 Malignant neoplasm of left fallopian tube; K21.9 Gastro-esophageal reflux disease without esophagitis; J30.9 Allergic rhinitis, unspecified; F41.9 Anxiety disorder, unspecified; F32.9 Major depressive disorder, single episode, unspecified; Z86.16 Personal history of COVID-19; Z79.899 Other long term (current) drug therapy; Z01.89 Encounter for other specified special examinations; Z20.5 Contact with and (suspected) exposure to viral hepatitis
CPT/HCPCS: 80053; 84439; 84443; 85025; 86304; 86705; 86706; 86709; 86803; 87340; 96413; 99215; J7050; J9271

== ENCOUNTER 2021-05-05 10:58 | Outpatient (RCR) | payer MEDICARE, SELFPAY ==
[2021-04-23 08:59] LABS: Basophils % 0.5 %; Eosinophils # 0.1 10^3/uL (0.0-0.8); Eosinophils % 1.2 %; Hematocrit 35.4 % (37.0-47.0); Hemoglobin 10.8 g/dL (11.5-15.3); Lymphocytes # 0.6 10^3/uL (0.8-4.8); Lymphocytes % 15.8 %; Mean Corpuscular HGB Conc 30.5 g/dL (30.0-36.0); Mean Corpuscular Hemoglobin 30.2 pg (28.0-34.0); Mean Corpuscular Volume 98.9 fl (81-99); Mean Platelet Volume 10.4 fL (7.4-10.4); Monocytes # 0.4 10^3/uL (0.2-0.9); Monocytes % 10.4 %; Neutrophils % 71.9 %; Nucleated Red Blood Cells % 0 %; Platelet Count 170 10^3/cmm (130-400); Red Blood Count 3.58 10^6/uL (4.1-5.3)
[2021-04-23 09:34] LABS: Alanine Aminotransferase 13 U/L (0-33); Albumin Level 3.8 g/dL (3.5-5.2); Alkaline Phosphatase 95 IU/L (35-105); Anion Gap 13.8 (5-19); Aspartate Amino Transferase 16 U/L (0-32); Blood Urea Nitrogen 11 mg/dL (6-20); CA 125 272.5 U/mL (0-35); Calcium 9.2 mg/dL (8.5-10.5); Carbon Dioxide 24 mmol/L (22-29); Chloride 106 mmol/L (98-107); Globulin 2.7 g/dL (1.3-4.6); Glomerular Filtration Rate 127.2 mL/min (90-130); Glucose 92 mg/dL (65-115); Osmolality Calculated 289 mOsm/kg (285-295); Potassium 3.8 mmol/L (3.5-5.1); Sodium 140 mmol/L (136-145); Thyroid Stimulating Hormone 3.53 uIU/mL (0.27-4.20); Total Bilirubin 0.3 mg/dL (0.15-1.2); Total Protein 6.5 g/dL (6.6-8.7)
[2021-04-23] MEDS: sodium chloride 0.9% 250 ML 125 ML IV (10:34)
--- NOTE | 2021-04-23 15:30 | ONC FU_ITS ---
Dr. Grey Patient Follow-Up Note Patient: Jagruti Jay Unit #: [id number]: 1965 Dicatated By: John Grey M.D.Date of Visit:Apr 23, 2021 Onc Med Follow-up/Prog Note Chief Complaint: Fallopian tube cancer. 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 She had a recurrence in the form of a right diaphragmatic peritoneal implant confirmed by biopsy at a cholecystectomy procedure in April 2018. She had presented in August 2015 with abdominal pain, and she was found to have a large pelvic mass. This was initially thought to be arising from the right ovary. On 09/17/2015 she underwent surgery which included total abdominal hysterectomy, bilateral salpingo-oophorectomy, and radical debulking along with pelvic lymphadenectomy and limited periaortic lymphadenectomy. I do not have those actual reports available, but she apparently was thought to have a complete or near-complete resection. She was then given postoperative adjuvant chemotherapy with 6 cycles of carboplatin/paclitaxel. On 09/28/2018 she underwent cholecystectomy, and at the time of that procedure she was noted to have a peritoneal implant on the right diaphragm. Biopsy of the implant showed high-grade carcinoma consistent with the previous high-grade serous primary. With that finding she was then given further chemotherapy with 6 cycles of carboplatin/gemcitabine, which she completed in September 2018. Restaging CT scans of the chest, abdomen, and pelvis on 10/07/2018 showed resolution of a previously noted small anterior hepatic capsular or subcapsular nodule. There are new postsurgical changes in that region. 2 very closely associated hypodense foci were again noted in the right lobe posteriorly, maximum aggregate diameter of 3 mm. That finding. Stable. There was no evidence of a new focal hepatic abnormality. There were small mesenteric, retroperitoneal, and bilateral inguinal lymph nodes. There was no pathologic lymphadenopathy. A 5 x 3 mm sclerotic focus at the right posterior aspect of the manubrium appeared stable compared to a prior study from October 2015. There were no suspicious osseous lesions noted. With those findings, she was recommended to continue further systemic therapy with 16 cycles of bevacizumab administered at 3-week intervals. She received cycle 1 of bevacizumab on 11/10/2018. She tolerated it without acute toxicity, and she then continued treatment at a 3-week dosing interval. As of 07/04/2019 she completed her 12th cycle. Restaging CT scans on 07/21/2019 showed no evidence of metastatic disease in the chest, abdomen, or pelvis. There was evidence of diffuse fatty infiltration of the liver with an enlarged hepatic lobe measuring 19 cm. A left renal cyst measured 12 mm. There were no other abnormal findings. She continued her maintenance bevacizumab. She completed her 16th and last planned cycle on 10/09/2019. INTERIM HISTORY: As of her follow-up visit on October 24, 2019 her CA-125 level had increased to 33.4 U/mL. Overall, it appeared to have been increasing very gradually since January 2019 when it was 12.4 U/mL. However, at that point she appeared stable clinically and she continued observation/expectant management. As of 01/24/2020 there was further increase in the CA-125 to 48.3 U/mL. Her restaging CT scans of the chest, abdomen, and pelvis showed no evidence for metastatic disease. There were no other acute findings noted. Despite the negative CT findings, with the continued increase in the CA-125 level she was scheduled to have follow-up with Dr. Landon. She had repeat CT scans on 04/02/2020. It showed new small circumferential pericardial effusion and new findings within the peritoneal cavity which were concerning for metastatic involvement. This included increased soft tissue surrounding the mid SMA and increased soft tissue in the periaortic distribution. There were new small mesenteric, periaortic, and iliac chain lymph nodes. There was no ascites. Her further evaluation included genetic screening which showed 2 heterozygous variants of uncertain significance. She was negative for BRCA mutation. During this time her CA-125 level continued to increase. As of 04/30/2020 it was up to 177.0 U/mL. 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 It also showed genomic ZANE, and it was positive for PD-L1 expression with a CPS of 5. It was noted to be MSI stable. On 06/20/2020 she began salvage chemotherapy with cycle 1 of Doxil. Her baseline CA-125 level was 407.8 U/mL. The treatment was complicated by nausea/vomiting, severe constipation, and abdominal pain. She required IV hydration and IV antiemetics on multiple occasions. She did not have any evidence of bowel obstruction. In the meantime, she also had progressive enlargement of the right supraclavicular lymph node. As it had become increasingly symptomatic, she was referred to Dr. Littlejohn, and she underwent palliative radiation to the right supraclavicular area. Treatment was completed on 07/11/2020 to a total dose of 2000 cGy administered in 5 fractions. As of her follow-up visit on 07/18/2020 she was beginning to feel better generally. Her CA-125 level had declined to 175.4 U/mL. At that point I recommended restarting chemotherapy with carboplatin/gemcitabine with ultimate goal to transition her to maintenance therapy with a PARP inhibitor. On 07/25/2020 she began cycle 1 of carboplatin/gemcitabine, administered on a day 1/day 8 schedule. She tolerated both treatments without acute toxicity. She continued with cycle 2 on 08/21/2020. At that point she was feeling much better, and there was a significant decline in her CA-125 level. Her treatment was delayed due to neutropenia and thrombocytopenia, and it was administered at a reduced dosage of gemcitabine and on a day 1/day 15 schedule. She tolerated that treatment much better. As of 09/18/1020 her CA-125 level was down to 27.4 U/mL. She continued with cycle 3 on 10/02/2020. As she did appear to have had a good clinical response to the chemotherapy, she was then transitioned to maintenance olaparib at 300 mg twice daily beginning 11/01/2020. As of 11/13/2000 there was further decline in the CA-125 level to 20.4 U/mL. Restaging CT scans of the chest, abdomen, and pelvis showed significant improvement in the retroperitoneal lymphadenopathy compared to the May 2020 study. There was minimal residual disease in the form of a left periaortic region node measuring 8 mm. There were a few tiny pulmonary micronodules measuring the range of 2 mm. There were no enlarging or new pulmonary nodules noted. As of her office visit on 11/26/2020 she appeared to be doing well clinically. Her CA-125 level was down to 20.4 U/mL. She continued olaparib 300 mg twice daily. Her repeat CA-125 level on 01/10/2021 was stable at 19.2 U/mL. In the meantime, on 11/26/2020 she had been seen in the emergency room after she had sustained significant injuries at home, having been accosted by an angry cow while she was bottlefeeding the baby calf. As she described it, the cow butted her and then actually rolled over her. Her CT scans showed no evidence for fracture or solid organ trauma. There was also no evidence of progression of the cancer. On 01/18/2021 she was admitted to the hospital after presenting to the emergency room with shortness of breath and tachycardia. She was found on CT to have a large pericardial effusion measuring up to 2.6 cm. There was also moderate right and trace left pleural effusion, and there was moderate ascites in the abdomen. She underwent pericardiocentesis and she subsequently underwent placement of a pericardial window. The pericardial fluid was reported to be bloody. The cytology on the pericardial fluid was negative. However, pathology on the pericardium did show metastatic carcinoma consistent with tubo-ovarian primary. At her follow-up visit on 02/06/2021 she was feeling much better generally. However, at that point there was a significant increase in the CA-125 level to 395.7 U/mL. With that increase she opted to try restarting the olaparib with the dosage reduced to 150 mg twice daily. However, she subsequently stopped treatment, as she continued to have side effects even at the reduced dosage. With her tumor being PD-L1 positive and MT positive and with limited options available for further treatment, she was then given the option to have a trial of therapy with pembrolizumab in combination with exemestane. She began cycle 1 of pembrolizumab on 04/02/2021. The following day she did have chest pain in the left precordial area, just below the left breast. Since then her heart has intermittently been racing and/or pounding. She has been getting tired with activity and she says if she does enough her heart is really pounding. She is still doing all of her housework. Her ECOG score is 1. She has good appetite. She has not had fever or night sweats. She has had just occasional hot flashes. She has sinus drainage and she has cough. At times it is bad. She occasionally notices wheezing, but she does not have difficulty breathing. She also has pain in the area of her surgery in the lower mid chest/upper abdomen. She has not been having nausea. Bowel function has been adequate with her current regimen. She has no complaints. She has no other joint or bone pain, but she has developed a sore lump in the left groin area. She has not been having headache. She does get kind of lightheaded. She has no numbness/paresthesia or other focal neurologic symptoms. Medications: Acid Control Maximum Strength (20 mg) Tablet Oral daily, Allergy Relief Loratadine (10 mg) Tablet Oral daily, Ativan 1 Tablet (of 2 mg) Oral q 4 to 6 hours PRN, Cholecalciferol 2 Capsule (of 5000 Units) Oral daily, Mayo Bergamot Powder Oral, Lexapro 1 Tablet (of 10 mg) Oral daily, Milk Thistle Capsule Oral, Quercetin Tablet Oral, Resveratrol Capsule Oral, Singulair 1 Tablet (of 10 mg) Oral at bedtime, Support Liquid Oral Take as Directed, Turmeric Capsule Oral, Vitamin B Complex Tablet Oral Allergies: Sulfa Antibiotics Vital Signs: Performed on Apr 23, 2021 11:07 Height - 64.00 in Weight - 127.0 lbs (HIGH) BSA - 1.61 sq.m BMI - 21.80 Temperature - 97.4 F (LOW) Pulse - 98 /min Respiration - 16 /min BP - 116/75 mm(hg) O2 Sat - 98 % Pain - 0 Fatigue - 7 Physical Examination: Constitutional - She looks pretty good generally, Eyes - Sclerae nonicteric. Conjunctivae clear, ENMT - No lesions noted in the oral cavity, Hematologic/Lymphatic - There is no cervical, clavicular, or axillary adenopathy noted, Respiratory - Lungs sound clear. She has good air movement bilaterally, Cardiovascular - Heart rhythm is regular. There is no murmur or gallop noted and there is no pericardial rub noted, Abdomen - Soft. Liver and spleen are not enlarged. There is no abdominal mass noted and there is no obvious ascites, Extremities - No edema. She has developed a palpable lower, medial left inguinal lymph node which measures 2 to 3 cm, Neurologic - No focal neurologic deficits noted. Lab/Imaging: Test performed on Apr 23, 2021 08:45 Sodium 140 mmol/L TSH 3.53 uIU/mL Potassium 3.8 mmol/L Chloride 106 mmol/L CO2 24 mmol/L Anion Gap 13.8 BUN 11 mg/dL Creatinine 0.5 mg/dL Cr Clearance (Est) 112.8900 mL/min eGFR 127.2 mL/min Glucose 92 mg/dL Osmolality - Calculated 289 mOsm/kg Calcium 9.2 mg/dL Protein, Total 6.5 g/dL Albumin 3.8 g/dL Globulin 2.7 g/dL Bilirubin, Total 0.3 mg/dL ALT (SGPT) 13 U/L AST (SGOT) 16 U/L Alkaline Phosphatase 95 IU/L WBC 4.0 10 3/uL RBC 3.58 10 6/uL HGB 10.8 g/dL HCT 35.4 % MCV 98.9 fl MCH 30.2 pg MCHC 30.5 g/dL RDW 17.0 % Platelet Count 170 10 3/cmm MPV 10.4 fL Neutrophils 2.90 10 3/uL Lymphocytes 0.6 10 3/uL Monocytes 0.4 10 3/uL Eosinophils 0.1 10 3/uL Basophils 0.0 10 3/uL Neutrophil % 71.9 % Lymphocyte % 15.8 % Monocyte % 10.4 % Eosinophil % 1.2 % Basophils % 0.5 % NRBC % 0 % CA-125 272.5 U/mL Problem List: 1. 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 The tumor has been found on next generation sequencing to harbor a BRCA1 mutation, presumed to be somatic. 2. GERD. 3. Allergic rhinitis. 4. Anxiety/depression. 5. She developed COVID-19 virus infection in October 2019. She had an uneventful recovery. Problems Addressed with this Encounter and Plan: 1. 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 She had complete or near-complete debulking with her initial surgery in September 2015. She was given postoperative adjuvant chemotherapy with 6 cycles of carboplatin/paclitaxel. She had biopsy proven recurrence in the form of a right diaphragmatic peritoneal implant, discovered at the cholecystectomy procedure in April 2018. She then had further chemotherapy with 6 cycles of carboplatin/gemcitabine, completed in September 2018. She had no evidence of residual disease on restaging CT scans on 10/07/2018. She then continued maintenance therapy with single agent bevacizumab at a 3-week interval dosing schedule for 16 cycles. She began cycle 1 of bevacizumab on 11/10/2018. She tolerated it well, and she was able to continue her treatment every 3 weeks with no apparent adverse effects. As of 10/09/2019 she completed her 16th and last planned cycle of bevacizumab. As of January 2020 there was a significant increase in her CA-125 level, up to 48 U/mL. In reviewing her records, it actually has been showing a very gradual increase over the preceding year, from 12.4 U/mL in January 2019. However, she was not overtly symptomatic with it and her restaging CT scans on 01/24/2020 showed no evidence of metastatic disease. Her repeat CT scans on 04/02/2020 showed findings within the peritoneal cavity which were concerning for metastatic involvement, including increased soft tissue surrounding the mid SMA and increased soft tissue in the periaortic distribution. There were new small mesenteric, periaortic, and iliac chain lymph nodes. Also noted was a new small circumferential pericardial effusion. At this point she was having significant pain in her abdomen and back, and she also was having ongoing problems with constipation. She has had follow-up with Dr. Landon, and she was recommended to restart chemotherapy with either carboplatin in combination with Doxil or with Doxil monotherapy. In the meantime, she was found to be BRCA negative on genetic screening. At her follow-up visit on 04/30/2020 she was noted to have enlarging right supraclavicular lymphadenopathy. 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 It also showed genomic ZANE, and it was positive for PD-L1 expression with a CPS of 5. It was noted to be MSI stable. She began cycle 1 of Doxil monotherapy on 06/20/2020. The treatment was complicated by severe nausea/vomiting, requiring IV hydration on multiple occasions. She also had ongoing, severe constipation but with no evidence of bowel obstruction by abdominal x-ray or CT. As of her follow-up visit on 07/18/2020 she was beginning to feel better. There had been a significant decline in her CA-125 level, suggesting some response to the Doxil. However, given the severe toxicity that she experienced with it, I opted to change her chemotherapy back to the carboplatin/gemcitabine regimen. From 07/25/2020 through 10/16/2020 she completed 3 cycles of treatment with carboplatin/gemcitabine. She experienced multiple side effects including fatigue, neutropenia, and thrombocytopenia, among others. However, she did have a very good response by CA-125 level, and I did opt to stop treatment after 3 cycles. With the known BRCA1 mutation, she was then transitioned to maintenance olaparib at a standard dosage of 300 mg twice daily. Initially she had been tolerating the olaparib with no significant adverse effects. As of 01/10/2021 her CA-125 level was stable at 19.2 U/mL. On 01/18/2021 she was admitted to the hospital with symptomatic pericardial effusion, requiring pericardiocentesis and subsequently placement of a pericardial window. Her CT scans also showed moderate right and small left pleural effusion and some ascites. 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 During follow-up her clinical status improved significantly, but there was a continued increase in the CA-125 level, consistent with disease progression. She initially opted to retry the olaparib at a reduced dosage, but she still did not tolerate it, and there was no evidence of benefit. With her tumor being PD-L1 positive and MT positive and with limited options available for further treatment, she then began a trial of therapy with pembrolizumab in combination with exemestane. She received cycle 1 of pembrolizumab on 04/02/2021. She reported increased chest pain the following day and she has since then continued to have some pain intermittently in the left precordial area. She also has pain in the area of her surgery in the lower mid chest/upper abdomen, and she has been having episodes of heart racing/pounding. She has developed an enlarged left inguinal lymph node, which is almost certainly metastatic. Her overall prognosis appears poor, but at this point she appears to be tolerating treatment with acceptable toxicity, and she will proceed now with cycle 2 of pembrolizumab at 200 mg by IV infusion. She continues exemestane 25 mg daily. She will be scheduled for a follow-up visit in 3 weeks. 2. She has mildly anemic. Her serum iron studies show low transferrin saturation at 7.6%, consistent with iron deficiency. She took iron supplementation orally but because she had read a study that showed that iron can cause progression of cancer she discontinued the medication. At this point she remains mildly anemic. Signed By: John Grey M.D. <<Signature on File>>
--- NOTE | 2021-05-05 | XR_ITS ---
WS: [id number] Exam: XR chest 2V* [id number] Date/Time of Exam: 05/05/2021 12:00 AM Reason For Exam: COUGH AND SOB Comparison 02/14/2021. Increasing left pleural effusion which now occupies the lower half of the left pleural cavity. There is compressive atelectasis of the lingula and left lower lobe. There is also right basal pleural effu danny with compressive atelectasis of the right lower lobe. A left-sided subclavian port ends near the cavoatrial junction. The heart is probably enlarged. There is increased pulmonary vascularity. The m ediastinum is normal in contour. Regional bony structures are intact. XR/XR chest 2V* [id number] IMPRESSION: 1. Increasing left pleural effusion with compressive atelectasis of the lingula and left lower lobe. 2. Right basal pleural effusion with compressive atelectasis of the right lower lobe. 3. Suspect interval cardiac enlargement with increased pulmonary vascularity.
--- NOTE | 2021-05-05 15:50 | ONC FU_ITS ---
Dr. Grey Patient Follow-Up Note Patient: Jagruti Jay Unit #: [id number]: [id number] Dicatated By: John Grey M.D.Date of Visit:May 05, 2021 Onc Med Follow-up/Prog Note Chief Complaint: Fallopian tube cancer. 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 She had a recurrence in the form of a right diaphragmatic peritoneal implant confirmed by biopsy at a cholecystectomy procedure in April 2018. She had presented in August 2015 with abdominal pain, and she was found to have a large pelvic mass. This was initially thought to be arising from the right ovary. On 09/17/2015 she underwent surgery which included total abdominal hysterectomy, bilateral salpingo-oophorectomy, and radical debulking along with pelvic lymphadenectomy and limited periaortic lymphadenectomy. I do not have those actual reports available, but she apparently was thought to have a complete or near-complete resection. She was then given postoperative adjuvant chemotherapy with 6 cycles of carboplatin/paclitaxel. On 09/28/2018 she underwent cholecystectomy, and at the time of that procedure she was noted to have a peritoneal implant on the right diaphragm. Biopsy of the implant showed high-grade carcinoma consistent with the previous high-grade serous primary. With that finding she was then given further chemotherapy with 6 cycles of carboplatin/gemcitabine, which she completed in September 2018. Restaging CT scans of the chest, abdomen, and pelvis on 10/07/2018 showed resolution of a previously noted small anterior hepatic capsular or subcapsular nodule. There are new postsurgical changes in that region. 2 very closely associated hypodense foci were again noted in the right lobe posteriorly, maximum aggregate diameter of 3 mm. That finding. Stable. There was no evidence of a new focal hepatic abnormality. There were small mesenteric, retroperitoneal, and bilateral inguinal lymph nodes. There was no pathologic lymphadenopathy. A 5 x 3 mm sclerotic focus at the right posterior aspect of the manubrium appeared stable compared to a prior study from October 2015. There were no suspicious osseous lesions noted. With those findings, she was recommended to continue further systemic therapy with 16 cycles of bevacizumab administered at 3-week intervals. She received cycle 1 of bevacizumab on 11/10/2018. She tolerated it without acute toxicity, and she then continued treatment at a 3-week dosing interval. As of 07/04/2019 she completed her 12th cycle. Restaging CT scans on 07/21/2019 showed no evidence of metastatic disease in the chest, abdomen, or pelvis. There was evidence of diffuse fatty infiltration of the liver with an enlarged hepatic lobe measuring 19 cm. A left renal cyst measured 12 mm. There were no other abnormal findings. She continued her maintenance bevacizumab. She completed her 16th and last planned cycle on 10/09/2019. INTERIM HISTORY: As of her follow-up visit on October 24, 2019 her CA-125 level had increased to 33.4 U/mL. Overall, it appeared to have been increasing very gradually since January 2019 when it was 12.4 U/mL. However, at that point she appeared stable clinically and she continued observation/expectant management. As of 01/24/2020 there was further increase in the CA-125 to 48.3 U/mL. Her restaging CT scans of the chest, abdomen, and pelvis showed no evidence for metastatic disease. There were no other acute findings noted. Despite the negative CT findings, with the continued increase in the CA-125 level she was scheduled to have follow-up with Dr. Landon. She had repeat CT scans on 04/02/2020. It showed new small circumferential pericardial effusion and new findings within the peritoneal cavity which were concerning for metastatic involvement. This included increased soft tissue surrounding the mid SMA and increased soft tissue in the periaortic distribution. There were new small mesenteric, periaortic, and iliac chain lymph nodes. There was no ascites. Her further evaluation included genetic screening which showed 2 heterozygous variants of uncertain significance. She was negative for BRCA mutation. During this time her CA-125 level continued to increase. As of 04/30/2020 it was up to 177.0 U/mL. 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 It also showed genomic ZANE, and it was positive for PD-L1 expression with a CPS of 5. It was noted to be MSI stable. On 06/20/2020 she began salvage chemotherapy with cycle 1 of Doxil. Her baseline CA-125 level was 407.8 U/mL. The treatment was complicated by nausea/vomiting, severe constipation, and abdominal pain. She required IV hydration and IV antiemetics on multiple occasions. She did not have any evidence of bowel obstruction. In the meantime, she also had progressive enlargement of the right supraclavicular lymph node. As it had become increasingly symptomatic, she was referred to Dr. Littlejohn, and she underwent palliative radiation to the right supraclavicular area. Treatment was completed on 07/11/2020 to a total dose of 2000 cGy administered in 5 fractions. As of her follow-up visit on 07/18/2020 she was beginning to feel better generally. Her CA-125 level had declined to 175.4 U/mL. At that point I recommended restarting chemotherapy with carboplatin/gemcitabine with ultimate goal to transition her to maintenance therapy with a PARP inhibitor. On 07/25/2020 she began cycle 1 of carboplatin/gemcitabine, administered on a day 1/day 8 schedule. She tolerated both treatments without acute toxicity. She continued with cycle 2 on 08/21/2020. At that point she was feeling much better, and there was a significant decline in her CA-125 level. Her treatment was delayed due to neutropenia and thrombocytopenia, and it was administered at a reduced dosage of gemcitabine and on a day 1/day 15 schedule. She tolerated that treatment much better. As of 09/18/1020 her CA-125 level was down to 27.4 U/mL. She continued with cycle 3 on 10/02/2020. As she did appear to have had a good clinical response to the chemotherapy, she was then transitioned to maintenance olaparib at 300 mg twice daily beginning 11/01/2020. As of 11/13/2000 there was further decline in the CA-125 level to 20.4 U/mL. Restaging CT scans of the chest, abdomen, and pelvis showed significant improvement in the retroperitoneal lymphadenopathy compared to the May 2020 study. There was minimal residual disease in the form of a left periaortic region node measuring 8 mm. There were a few tiny pulmonary micronodules measuring the range of 2 mm. There were no enlarging or new pulmonary nodules noted. As of her office visit on 11/26/2020 she appeared to be doing well clinically. Her CA-125 level was down to 20.4 U/mL. She continued olaparib 300 mg twice daily. Her repeat CA-125 level on 01/10/2021 was stable at 19.2 U/mL. In the meantime, on 11/26/2020 she had been seen in the emergency room after she had sustained significant injuries at home, having been accosted by an angry cow while she was bottlefeeding the baby calf. As she described it, the cow butted her and then actually rolled over her. Her CT scans showed no evidence for fracture or solid organ trauma. There was also no evidence of progression of the cancer. On 01/18/2021 she was admitted to the hospital after presenting to the emergency room with shortness of breath and tachycardia. She was found on CT to have a large pericardial effusion measuring up to 2.6 cm. There was also moderate right and trace left pleural effusion, and there was moderate ascites in the abdomen. She underwent pericardiocentesis and she subsequently underwent placement of a pericardial window. The pericardial fluid was reported to be bloody. The cytology on the pericardial fluid was negative. However, pathology on the pericardium did show metastatic carcinoma consistent with tubo-ovarian primary. At her follow-up visit on 02/06/2021 she was feeling much better generally. However, at that point there was a significant increase in the CA-125 level to 395.7 U/mL. With that increase she opted to try restarting the olaparib with the dosage reduced to 150 mg twice daily. However, she subsequently stopped treatment, as she continued to have side effects even at the reduced dosage. With her tumor being PD-L1 positive and CT positive and with limited options available for further treatment, she was then given the option to have a trial of therapy with pembrolizumab in combination with exemestane. She began cycle 1 of pembrolizumab on 04/02/2021. The following day she did have chest pain in the left precordial area, just below the left breast. During subsequent follow-up she reported intermittent heart racing and/or pounding. It was unclear to what extent of the symptoms may have been treatment related. She was able to proceed with cycle 2 of pembrolizumab on 04/23/2021. She comes in now for an unplanned visit. Since her last treatment she has been having persistent cough, sometimes with wheezing. Over the weekend she noticed a little improvement taking Sudafed, but she has had no significant benefit with elbp-bfp-cuzrgmi cough medication or with benzonatate. She has not been having chest pain and thus far she has not had any fever with it. Medications: Acid Control Maximum Strength (20 mg) Tablet Oral daily, Allergy Relief Loratadine (10 mg) Tablet Oral daily, Ativan 1 Tablet (of 2 mg) Oral q 4 to 6 hours PRN, Cholecalciferol 2 Capsule (of 5000 Units) Oral daily, [place] Bergamot Powder Oral, Lexapro 1 Tablet (of 10 mg) Oral daily, Milk Thistle Capsule Oral, Quercetin Tablet Oral, Resveratrol Capsule Oral, Singulair 1 Tablet (of 10 mg) Oral at bedtime, Turmeric Capsule Oral, Vitamin B Complex Tablet Oral Allergies: Sulfa Antibiotics Vital Signs: Performed on May 05, 2021 12:55 Height - 64.00 in Weight - 128.6 lbs (HIGH) BSA - 1.62 sq.m BMI - 22.07 Temperature - 97.4 F (LOW) Pulse - 110 /min (HIGH) Respiration - 16 /min BP - 118/78 mm(hg) O2 Sat - 93 % (LOW) Pain - 0 Fatigue - 8 Physical Examination: Constitutional - She appears somewhat weak generally, Eyes - Sclerae nonicteric. Conjunctivae clear, ENMT - No lesions noted in the oral cavity, Hematologic/Lymphatic - There is no cervical, clavicular, or axillary adenopathy noted, Respiratory - Lungs show diminished breath sounds at the bases, worse on the left, Cardiovascular - Heart rhythm is regular. There is no murmur or gallop noted and there is no pericardial rub noted, Abdomen - Soft. Liver and spleen are not enlarged. There is no abdominal mass noted and there is no obvious ascites, Extremities - No edema, Neurologic - No focal neurologic deficits noted. Lab/Imaging: Test performed on Apr 23, 2021 08:45 Sodium 140 mmol/L TSH 3.53 uIU/mL Potassium 3.8 mmol/L Chloride 106 mmol/L CO2 24 mmol/L Anion Gap 13.8 BUN 11 mg/dL Creatinine 0.5 mg/dL Cr Clearance (Est) 112.8900 mL/min eGFR 127.2 mL/min Glucose 92 mg/dL Osmolality - Calculated 289 mOsm/kg Calcium 9.2 mg/dL Protein, Total 6.5 g/dL Albumin 3.8 g/dL Globulin 2.7 g/dL Bilirubin, Total 0.3 mg/dL ALT (SGPT) 13 U/L AST (SGOT) 16 U/L Alkaline Phosphatase 95 IU/L WBC 4.0 10 3/uL RBC 3.58 10 6/uL HGB 10.8 g/dL HCT 35.4 % MCV 98.9 fl MCH 30.2 pg MCHC 30.5 g/dL RDW 17.0 % Platelet Count 170 10 3/cmm MPV 10.4 fL Neutrophils 2.90 10 3/uL Lymphocytes 0.6 10 3/uL Monocytes 0.4 10 3/uL Eosinophils 0.1 10 3/uL Basophils 0.0 10 3/uL Neutrophil % 71.9 % Lymphocyte % 15.8 % Monocyte % 10.4 % Eosinophil % 1.2 % Basophils % 0.5 % NRBC % 0 % CA-125 272.5 U/mL Problem List: 1. 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 The tumor has been found on next generation sequencing to harbor a BRCA1 mutation, presumed to be somatic. 2. GERD. 3. Allergic rhinitis. 4. Anxiety/depression. 5. She developed COVID-19 virus infection in October 2019. She had an uneventful recovery. 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 She had complete or near-complete debulking with her initial surgery in September 2015. She was given postoperative adjuvant chemotherapy with 6 cycles of carboplatin/paclitaxel. She had biopsy proven recurrence in the form of a right diaphragmatic peritoneal implant, discovered at the cholecystectomy procedure in April 2018. She then had further chemotherapy with 6 cycles of carboplatin/gemcitabine, completed in September 2018. She had no evidence of residual disease on restaging CT scans on 10/07/2018. She then continued maintenance therapy with single agent bevacizumab at a 3-week interval dosing schedule for 16 cycles. She began cycle 1 of bevacizumab on 11/10/2018. She tolerated it well, and she was able to continue her treatment every 3 weeks with no apparent adverse effects. As of 10/09/2019 she completed her 16th and last planned cycle of bevacizumab. As of January 2020 there was a significant increase in her CA-125 level, up to 48 U/mL. In reviewing her records, it actually has been showing a very gradual increase over the preceding year, from 12.4 U/mL in January 2019. However, she was not overtly symptomatic with it and her restaging CT scans on 01/24/2020 showed no evidence of metastatic disease. Her repeat CT scans on 04/02/2020 showed findings within the peritoneal cavity which were concerning for metastatic involvement, including increased soft tissue surrounding the mid SMA and increased soft tissue in the periaortic distribution. There were new small mesenteric, periaortic, and iliac chain lymph nodes. Also noted was a new small circumferential pericardial effusion. At this point she was having significant pain in her abdomen and back, and she also was having ongoing problems with constipation. She has had follow-up with Dr. Landon, and she was recommended to restart chemotherapy with either carboplatin in combination with Doxil or with Doxil monotherapy. In the meantime, she was found to be BRCA negative on genetic screening. At her follow-up visit on 04/30/2020 she was noted to have enlarging right supraclavicular lymphadenopathy. 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 It also showed genomic ZANE, and it was positive for PD-L1 expression with a CPS of 5. It was noted to be MSI stable. She began cycle 1 of Doxil monotherapy on 06/20/2020. The treatment was complicated by severe nausea/vomiting, requiring IV hydration on multiple occasions. She also had ongoing, severe constipation but with no evidence of bowel obstruction by abdominal x-ray or CT. As of her follow-up visit on 07/18/2020 she was beginning to feel better. There had been a significant decline in her CA-125 level, suggesting some response to the Doxil. However, given the severe toxicity that she experienced with it, I opted to change her chemotherapy back to the carboplatin/gemcitabine regimen. From 07/25/2020 through 10/16/2020 she completed 3 cycles of treatment with carboplatin/gemcitabine. She experienced multiple side effects including fatigue, neutropenia, and thrombocytopenia, among others. However, she did have a very good response by CA-125 level, and I did opt to stop treatment after 3 cycles. With the known BRCA1 mutation, she was then transitioned to maintenance olaparib at a standard dosage of 300 mg twice daily. Initially she had been tolerating the olaparib with no significant adverse effects. As of 01/10/2021 her CA-125 level was stable at 19.2 U/mL. On 01/18/2021 she was admitted to the hospital with symptomatic pericardial effusion, requiring pericardiocentesis and subsequently placement of a pericardial window. Her CT scans also showed moderate right and small left pleural effusion and some ascites. 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 During follow-up her clinical status improved significantly, but there was a continued increase in the CA-125 level, consistent with disease progression. She initially opted to retry the olaparib at a reduced dosage, but she still did not tolerate it, and there was no evidence of benefit. With her tumor being PD-L1 positive and CT positive and with limited options available for further treatment, she then began a trial of therapy with pembrolizumab in combination with exemestane. She received cycle 1 of pembrolizumab on 04/02/2021. She reported increased chest pain the following day and she then continued to have some pain intermittently in the left precordial area and episodes of heart racing/pounding. It was uncertain to what extent those symptoms may have been treatment related. I opted to proceed with a 2nd cycle of pembrolizumab on 04/23/2021. She comes in now with worsening cough. She has had some wheezing associated with it, but she has not had chest pain or fever. Her chest x-ray shows the significant increase in left pleural effusion, which I suspect is malignant. At this point she will start furosemide 40 mg daily and I also will have her start a Symbicort inhaler. She will be scheduled for ultrasound-guided thoracentesis. Signed By: John Grey M.D. <<Signature on File>>
== END 2021-05-08 23:59 | disposition home or self-care (01) ==
LOC: ONCMED 10:58
PROVIDERS: PCP Nurse Practitioner Family; Visit Provider Internal Medicine Medical Oncology
DX: Z51.12 Encounter for antineoplastic immunotherapy (principal); C57.02 Malignant neoplasm of left fallopian tube; K21.9 Gastro-esophageal reflux disease without esophagitis; J30.9 Allergic rhinitis, unspecified; F41.9 Anxiety disorder, unspecified; F32.A Depression, unspecified; Z86.16 Personal history of COVID-19; Z79.899 Other long term (current) drug therapy
CPT/HCPCS: 71046; 80053; 84443; 85025; 86304; 96413; 99214; 99215; J7050; J9271

== ENCOUNTER 2021-05-09 12:54 | Day surgery (SDC) | payer MEDICARE, SELFPAY ==
[2021-05-07 13:24] VITALS: BMI 21.2
[2021-05-09 13:09] VITALS: BP 119/87; PULSE 110; RESP 18; TEMP 36.5; O2SAT 94
--- NOTE | 2021-05-09 13:18 | US_ITS ---
WS: [id number] ULTRASOUND-GUIDED THORACENTESIS, LEFT HISTORY: malignant left pleural effusion Procedure, risks, and complications were explained to the patient. With the patient in an upright pos ition, the skin over the LEFT posterior thorax was cleansed with ChloraPrep and anesthetized with 1% buffered lidocaine. A 5 [place] Yueh needle is inserted into the pleural fluid without complication. A pproximately 900 cc of clear yellow pleural fluid is removed without difficulty. Study was terminated at 900 cc of pleural fluid is the patient had persistent, uncontrollable coughin g. / thoracentesis [id number] IMPRESSION: 1. LEFT thoracentesis yielding 900 cc of fluid. 2. Chest radiograph to follow to evaluate for pneumothorax.
[2021-05-09 13:51] LABS: INR 0.95 (0.8-1.2)
--- NOTE | 2021-05-09 14:24 | XR_ITS ---
WS: [id number] PORTABLE CHEST HISTORY: POST THORACENTESIS, LEFT. COMPARISON: 05/05/2021 No pneumothorax status post LEFT thoracentesis. There are still small bilateral pleural effusions. Sl ightly improved since the prior examination. Compressive atelectasis at the lung bases. There is a LEFT subclavian Port-A-Cath. No osseous abnormality seen. XR/XR chest 1V portable [id number] IMPRESSION: 1. No pneumothorax status post LEFT thoracentesis. 2. Continued small bilateral pleural effusions. LEFT greater than RIGHT.
[2021-05-09 14:27] VITALS: BP 102/73; PULSE 115; RESP 16; O2SAT 95
== END 2021-05-09 15:10 | disposition home or self-care (01) ==
LOC: GILAB 12:56
PROVIDERS: Radiology Diagnostic Radiology; PCP Nurse Practitioner Family; Visit Provider Internal Medicine Medical Oncology
PROC: (CPT 32554; principal; 2021-05-09 14:15)
DX: C80.1 Malignant (primary) neoplasm, unspecified (principal); J91.0 Malignant pleural effusion
CPT/HCPCS: 32555; 36415; 71045; 85610

== ENCOUNTER 2021-05-21 06:49 | Outpatient (RCR) | payer MEDICARE, SELFPAY ==
[2021-05-14 09:27] LABS: Basophils % 0.6 %; Eosinophils # 0.1 10^3/uL (0.0-0.8); Eosinophils % 2.8 %; Hematocrit 38.2 % (37.0-47.0); Hemoglobin 11.9 g/dL (11.5-15.3); Lymphocytes # 0.7 10^3/uL (0.8-4.8); Lymphocytes % 13.6 %; Mean Corpuscular HGB Conc 31.2 g/dL (30.0-36.0); Mean Corpuscular Hemoglobin 30.2 pg (28.0-34.0); Mean Platelet Volume 10.6 fL (7.4-10.4); Monocytes # 0.5 10^3/uL (0.2-0.9); Monocytes % 9.3 %; Neutrophils # 3.72 10^3/uL (1.8-7.7); Neutrophils % 73.3 %; Nucleated Red Blood Cells % 0 %; Platelet Count 217 10^3/cmm (130-400); Red Blood Count 3.94 10^6/uL (4.1-5.3); Red Cell Distribution Width 16.5 % (12.1-15.1); White Blood Count 5.1 10^3/uL (4.0-10.0)
[2021-05-14 10:00] LABS: Alanine Aminotransferase 11 U/L (0-33); Albumin Level 3.8 g/dL (3.5-5.2); Alkaline Phosphatase 102 IU/L (35-105); Aspartate Amino Transferase 19 U/L (0-32); Blood Urea Nitrogen 11 mg/dL (6-20); CA 125 488.4 U/mL (0-35); Carbon Dioxide 27 mmol/L (22-29); Chloride 101 mmol/L (98-107); Globulin 2.8 g/dL (1.3-4.6); Glomerular Filtration Rate 127.2 mL/min (90-130); Glucose 102 mg/dL (65-115); Osmolality Calculated 288 mOsm/kg (285-295); Sodium 139 mmol/L (136-145); Thyroid Stimulating Hormone 3.17 uIU/mL (0.27-4.20); Total Bilirubin 0.5 mg/dL (0.15-1.2); Total Protein 6.6 g/dL (6.6-8.7)
--- NOTE | 2021-05-19 20:55 | ONC FU_ITS ---
[facility]othe[facility] Progress Note Patient: Jagruti Jay Unit #: [id number]: [id number] Dicatated By: Dorothea Diane N.P.Date of Visit:May 14, 2021 Onc MED Follow-up/Prog Note Chief Complaint: Fallopian tube cancer. 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 She had a recurrence in the form of a right diaphragmatic peritoneal implant confirmed by biopsy at a cholecystectomy procedure in April 2018. She had presented in August 2015 with abdominal pain, and she was found to have a large pelvic mass. This was initially thought to be arising from the right ovary. On 09/17/2015 she underwent surgery which included total abdominal hysterectomy, bilateral salpingo-oophorectomy, and radical debulking along with pelvic lymphadenectomy and limited periaortic lymphadenectomy. I do not have those actual reports available, but she apparently was thought to have a complete or near-complete resection. She was then given postoperative adjuvant chemotherapy with 6 cycles of carboplatin/paclitaxel. On 09/28/2018 she underwent cholecystectomy, and at the time of that procedure she was noted to have a peritoneal implant on the right diaphragm. Biopsy of the implant showed high-grade carcinoma consistent with the previous high-grade serous primary. With that finding she was then given further chemotherapy with 6 cycles of carboplatin/gemcitabine, which she completed in September 2018. Restaging CT scans of the chest, abdomen, and pelvis on 10/07/2018 showed resolution of a previously noted small anterior hepatic capsular or subcapsular nodule. There are new postsurgical changes in that region. 2 very closely associated hypodense foci were again noted in the right lobe posteriorly, maximum aggregate diameter of 3 mm. That finding. Stable. There was no evidence of a new focal hepatic abnormality. There were small mesenteric, retroperitoneal, and bilateral inguinal lymph nodes. There was no pathologic lymphadenopathy. A 5 x 3 mm sclerotic focus at the right posterior aspect of the manubrium appeared stable compared to a prior study from October 2015. There were no suspicious osseous lesions noted. With those findings, she was recommended to continue further systemic therapy with 16 cycles of bevacizumab administered at 3-week intervals. She received cycle 1 of bevacizumab on 11/10/2018. She tolerated it without acute toxicity, and she then continued treatment at a 3-week dosing interval. As of 07/04/2019 she completed her 12th cycle. Restaging CT scans on 07/21/2019 showed no evidence of metastatic disease in the chest, abdomen, or pelvis. There was evidence of diffuse fatty infiltration of the liver with an enlarged hepatic lobe measuring 19 cm. A left renal cyst measured 12 mm. There were no other abnormal findings. She continued her maintenance bevacizumab. She completed her 16th and last planned cycle on 10/09/2019. INTERIM HISTORY: As of her follow-up visit on October 24, 2019 her CA-125 level had increased to 33.4 U/mL. Overall, it appeared to have been increasing very gradually since January 2019 when it was 12.4 U/mL. However, at that point she appeared stable clinically and she continued observation/expectant management. As of 01/24/2020 there was further increase in the CA-125 to 48.3 U/mL. Her restaging CT scans of the chest, abdomen, and pelvis showed no evidence for metastatic disease. There were no other acute findings noted. Despite the negative CT findings, with the continued increase in the CA-125 level she was scheduled to have follow-up with Dr. Landon. She had repeat CT scans on 04/02/2020. It showed new small circumferential pericardial effusion and new findings within the peritoneal cavity which were concerning for metastatic involvement. This included increased soft tissue surrounding the mid SMA and increased soft tissue in the periaortic distribution. There were new small mesenteric, periaortic, and iliac chain lymph nodes. There was no ascites. Her further evaluation included genetic screening which showed 2 heterozygous variants of uncertain significance. She was negative for BRCA mutation. During this time her CA-125 level continued to increase. As of 04/30/2020 it was up to 177.0 U/mL. 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 It also showed genomic ZANE, and it was positive for PD-L1 expression with a CPS of 5. It was noted to be MSI stable. On 06/20/2020 she began salvage chemotherapy with cycle 1 of Doxil. Her baseline CA-125 level was 407.8 U/mL. The treatment was complicated by nausea/vomiting, severe constipation, and abdominal pain. She required IV hydration and IV antiemetics on multiple occasions. She did not have any evidence of bowel obstruction. In the meantime, she also had progressive enlargement of the right supraclavicular lymph node. As it had become increasingly symptomatic, she was referred to Dr. Littlejohn, and she underwent palliative radiation to the right supraclavicular area. Treatment was completed on 07/11/2020 to a total dose of 2000 cGy administered in 5 fractions. As of her follow-up visit on 07/18/2020 she was beginning to feel better generally. Her CA-125 level had declined to 175.4 U/mL. At that point I recommended restarting chemotherapy with carboplatin/gemcitabine with ultimate goal to transition her to maintenance therapy with a PARP inhibitor. On 07/25/2020 she began cycle 1 of carboplatin/gemcitabine, administered on a day 1/day 8 schedule. She tolerated both treatments without acute toxicity. She continued with cycle 2 on 08/21/2020. At that point she was feeling much better, and there was a significant decline in her CA-125 level. Her treatment was delayed due to neutropenia and thrombocytopenia, and it was administered at a reduced dosage of gemcitabine and on a day 1/day 15 schedule. She tolerated that treatment much better. As of 09/18/1020 her CA-125 level was down to 27.4 U/mL. She continued with cycle 3 on 10/02/2020. As she did appear to have had a good clinical response to the chemotherapy, she was then transitioned to maintenance olaparib at 300 mg twice daily beginning 11/01/2020. As of 11/13/2000 there was further decline in the CA-125 level to 20.4 U/mL. Restaging CT scans of the chest, abdomen, and pelvis showed significant improvement in the retroperitoneal lymphadenopathy compared to the May 2020 study. There was minimal residual disease in the form of a left periaortic region node measuring 8 mm. There were a few tiny pulmonary micronodules measuring the range of 2 mm. There were no enlarging or new pulmonary nodules noted. As of her office visit on 11/26/2020 she appeared to be doing well clinically. Her CA-125 level was down to 20.4 U/mL. She continued olaparib 300 mg twice daily. Her repeat CA-125 level on 01/10/2021 was stable at 19.2 U/mL. In the meantime, on 11/26/2020 she had been seen in the emergency room after she had sustained significant injuries at home, having been accosted by an angry cow while she was bottlefeeding the baby calf. As she described it, the cow butted her and then actually rolled over her. Her CT scans showed no evidence for fracture or solid organ trauma. There was also no evidence of progression of the cancer. On 01/18/2021 she was admitted to the hospital after presenting to the emergency room with shortness of breath and tachycardia. She was found on CT to have a large pericardial effusion measuring up to 2.6 cm. There was also moderate right and trace left pleural effusion, and there was moderate ascites in the abdomen. She underwent pericardiocentesis and she subsequently underwent placement of a pericardial window. The pericardial fluid was reported to be bloody. The cytology on the pericardial fluid was negative. However, pathology on the pericardium did show metastatic carcinoma consistent with tubo-ovarian primary. At her follow-up visit on 02/06/2021 she was feeling much better generally. However, at that point there was a significant increase in the CA-125 level to 395.7 U/mL. With that increase she opted to try restarting the olaparib with the dosage reduced to 150 mg twice daily. However, she subsequently stopped treatment, as she continued to have side effects even at the reduced dosage. With her tumor being PD-L1 positive and SD positive and with limited options available for further treatment, she was then given the option to have a trial of therapy with pembrolizumab in combination with exemestane. She began cycle 1 of pembrolizumab on 04/02/2021. The following day she did have chest pain in the left precordial area, just below the left breast. During subsequent follow-up she reported intermittent heart racing and/or pounding. It was unclear to what extent of the symptoms may have been treatment related. She was able to proceed with cycle 2 of pembrolizumab on 04/23/2021. Patient presents today for follow-up. She has a moderate amount of fatigue. Her appetite is fair. She denies fever, chills, night sweats. She denies sinus drainage or sore throat. She became short of breath with exertion. And she has a cough that she contributes to pembrolizumab although she also has pleural effusions which is required a thoracentesis. She denies any pain at present. No headaches or dizziness. Review Of Symptoms: See above. Past Medical History: Allergic rhinitis Anxiety/depression Fallopian tube cancer Gastroesophageal reflux disease Past Surgical History: Cholecystectomy in 2019 Placement of PowerPort in 2016 MARIBELL/BSO, omentectomy, radical debulking with pelvic and periaortic lymphadenectomy in 2016 Allergies: Sulfa Antibiotics Medications: Acid Control Maximum Strength (20 mg) Tablet Oral daily Allergy Relief Loratadine (10 mg) Tablet Oral daily Ativan 1 Tablet (of 2 mg) Oral q 4 to 6 hours PRN Cholecalciferol 2 Capsule (of 5000 Units) Oral daily Myra Bergamot Powder Oral Lexapro 1 Tablet (of 10 mg) Oral daily Milk Thistle Capsule Oral Quercetin Tablet Oral Resveratrol Capsule Oral Singulair 1 Tablet (of 10 mg) Oral at bedtime Turmeric Capsule Oral Vitamin B Complex Tablet Oral Family History: Ms. Jay's mother at age 82: congestive heart failure, and coronary artery disease, and type II diabetes. Ms. Jay's father at age 82: lung cancer. Ms. Jay has 3 brothers: 3 alive. She has 2 sisters: 2 alive. Father of lung cancer at age 82. Mother of heart disease at age 82. She also had diabetes. A brother has leukemia, which I assume is chronic leukocytic leukemia. Four other siblings are in good health. A nephew of leukemia. 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 Ms. Jay quit smoking 22 years ago but had smoked 0.5 packs/day for 20 years. She has no history of drinking. Ms. Jay reports the following support systems: lives with spouse, significant other, family, or friends, lives in own house, supportive family/friends willing to assist with needs, and adequate transportation available for expected visits. Her diet consists of regular meals. She indicates her activity level as: regular exercise. She has a history of smoking 1/2 pack of cigarettes daily for 20 years, but she quit 20 years ago. She does not drink alcohol. Physical Examination: Performed on May 14, 2021 11:58: Height - 64.00 in, Weight - 127.4 lbs (LOW), BSA - 1.61 sq.m, BMI - 21.87, Temperature - 98.4 F, Pulse - 84 /min, Respiration - 19 /min, BP - 110/73 mm(hg), O2 Sat - 90 % (LOW), Pain - 0, and Fatigue - 7. Performance Status: 1 - No physically strenuous activity, but ambulatory and able to carry out light or sedentary work (e.g. office work, light house work). (ECOG) Constitutional Alert, cooperative, oriented. Mood and affect appropriate. Appears close to chronological age. Well nourished. Well developed. Respiratory Lungs are clear to auscultation without rhonchi or wheezing. Cardiovascular Regular rate and rhythm of heart without murmurs, gallops or rubs. Abdomen Non-tender, non-distended, no masses, ascites or hepatosplenomegaly. Good bowel sounds. No guarding or rebound tenderness. Psychiatric Alert and oriented times three. Coherent speech. Verbalizes understanding of our discussions today. Laboratory: Test performed on May 14, 2021 09:02 Sodium 139 mmol/L TSH 3.17 uIU/mL Potassium 3.0 mmol/L Chloride 101 mmol/L CO2 27 mmol/L Anion Gap 14.0 BUN 11 mg/dL Creatinine 0.5 mg/dL Cr Clearance (Est) 113.2500 mL/min eGFR 127.2 mL/min Glucose 102 mg/dL Osmolality - Calculated 288 mOsm/kg Calcium 9.0 mg/dL Protein, Total 6.6 g/dL Albumin 3.8 g/dL Globulin 2.8 g/dL Bilirubin, Total 0.5 mg/dL ALT (SGPT) 11 U/L AST (SGOT) 19 U/L Alkaline Phosphatase 102 IU/L WBC 5.1 10 3/uL RBC 3.94 10 6/uL HGB 11.9 g/dL HCT 38.2 % MCV 97.0 fl MCH 30.2 pg MCHC 31.2 g/dL RDW 16.5 % Platelet Count 217 10 3/cmm MPV 10.6 fL Neutrophils 3.72 10 3/uL Lymphocytes 0.7 10 3/uL Monocytes 0.5 10 3/uL Eosinophils 0.1 10 3/uL Basophils 0.0 10 3/uL Neutrophil % 73.3 % Lymphocyte % 13.6 % Monocyte % 9.3 % Eosinophil % 2.8 % Basophils % 0.6 % NRBC % 0 % CA-125 488.4 U/mL Test performed on Apr 02, 2021 07:13 T4, Free 1.38 ng/dL Hepatitis A Ab, IgM Non-Reactive Hepatitis B Core Ab, Total Non-Reactive Hepatitis B Surf Antigen Non-Reactive Hepatitis B Surface Ab 137.7 STATUS of IMMUINITY Inconsistent with Immunity 0.0 - 8.4 mIU/mL Consistent with Indeterminate Immunity 8.5 - 11.4 mIU/mL Consistent with Immunity >= 11.5 mIU/mL Hepatitis C Ab Non-Reactive Test performed on Mar 06, 2021 10:41 Iron 25 mcg/dL Vitamin B12 744 pg/mL Iron Binding Capacity (TIBC) 326 mcg/dl % Iron Saturation 7.6 % UIBC 301 mcg/dL Impression: 1. 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 The tumor has been found on next generation sequencing to harbor a BRCA1 mutation, presumed to be somatic. 2. GERD. 3. Allergic rhinitis. 4. Anxiety/depression. 5. She developed COVID-19 virus infection in October 2019. She had an uneventful recovery. 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 She had complete or near-complete debulking with her initial surgery in September 2015. She was given postoperative adjuvant chemotherapy with 6 cycles of carboplatin/paclitaxel. She had biopsy proven recurrence in the form of a right diaphragmatic peritoneal implant, discovered at the cholecystectomy procedure in April 2018. She then had further chemotherapy with 6 cycles of carboplatin/gemcitabine, completed in September 2018. She had no evidence of residual disease on restaging CT scans on 10/07/2018. She then continued maintenance therapy with single agent bevacizumab at a 3-week interval dosing schedule for 16 cycles. She began cycle 1 of bevacizumab on 11/10/2018. She tolerated it well, and she was able to continue her treatment every 3 weeks with no apparent adverse effects. As of 10/09/2019 she completed her 16th and last planned cycle of bevacizumab. As of January 2020 there was a significant increase in her CA-125 level, up to 48 U/mL. In reviewing her records, it actually has been showing a very gradual increase over the preceding year, from 12.4 U/mL in January 2019. However, she was not overtly symptomatic with it and her restaging CT scans on 01/24/2020 showed no evidence of metastatic disease. Her repeat CT scans on 04/02/2020 showed findings within the peritoneal cavity which were concerning for metastatic involvement, including increased soft tissue surrounding the mid SMA and increased soft tissue in the periaortic distribution. There were new small mesenteric, periaortic, and iliac chain lymph nodes. Also noted was a new small circumferential pericardial effusion. At this point she was having significant pain in her abdomen and back, and she also was having ongoing problems with constipation. She has had follow-up with Dr. Landon, and she was recommended to restart chemotherapy with either carboplatin in combination with Doxil or with Doxil monotherapy. In the meantime, she was found to be BRCA negative on genetic screening. At her follow-up visit on 04/30/2020 she was noted to have enlarging right supraclavicular lymphadenopathy. 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 It also showed genomic ZANE, and it was positive for PD-L1 expression with a CPS of 5. It was noted to be MSI stable. She began cycle 1 of Doxil monotherapy on 06/20/2020. The treatment was complicated by severe nausea/vomiting, requiring IV hydration on multiple occasions. She also had ongoing, severe constipation but with no evidence of bowel obstruction by abdominal x-ray or CT. As of her follow-up visit on 07/18/2020 she was beginning to feel better. There had been a significant decline in her CA-125 level, suggesting some response to the Doxil. However, given the severe toxicity that she experienced with it, I opted to change her chemotherapy back to the carboplatin/gemcitabine regimen. From 07/25/2020 through 10/16/2020 she completed 3 cycles of treatment with carboplatin/gemcitabine. She experienced multiple side effects including fatigue, neutropenia, and thrombocytopenia, among others. However, she did have a very good response by CA-125 level, and I did opt to stop treatment after 3 cycles. With the known BRCA1 mutation, she was then transitioned to maintenance olaparib at a standard dosage of 300 mg twice daily. Initially she had been tolerating the olaparib with no significant adverse effects. As of 01/10/2021 her CA-125 level was stable at 19.2 U/mL. On 01/18/2021 she was admitted to the hospital with symptomatic pericardial effusion, requiring pericardiocentesis and subsequently placement of a pericardial window. Her CT scans also showed moderate right and small left pleural effusion and some ascites. 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 During follow-up her clinical status improved significantly, but there was a continued increase in the CA-125 level, consistent with disease progression. She initially opted to retry the olaparib at a reduced dosage, but she still did not tolerate it, and there was no evidence of benefit. With her tumor being PD-L1 positive and SD positive and with limited options available for further treatment, she then began a trial of therapy with pembrolizumab in combination with exemestane. She received cycle 1 of pembrolizumab on 04/02/2021. She reported increased chest pain the following day and she then continued to have some pain intermittently in the left precordial area and episodes of heart racing/pounding. It was uncertain to what extent those symptoms may have been treatment related. I opted to proceed with a 2nd cycle of pembrolizumab on 04/23/2021. She presents today for follow-up. She has received 2 cycles of pembrolizumab thus far. Her CA 125 is increased from 272.5 on April 23, 2021 to 488.4 today. It has been recommended that she discontinue treatment and we will refer her to hospice. It is also recommended that she obtain a [place] drain for the pleural effusions. Patient and her would like to discuss other potential options with Dr. Grey. They have questioned the use of ivermectin for cancer treatment. I am unaware of this medication being an option. She will be scheduled a follow-up appointment with Dr. Grey. In the meantime she does not want to continue pembrolizumab. Prednisone 10 mg p.o. twice daily has been prescribed for the cough. Signed By: Dorothea Diane N.P. <<Signature on File>>
[2021-05-20 15:35] LABS: Basophils % 0.1 %; Eosinophils % 0.2 %; Hematocrit 38.1 % (37.0-47.0); Hemoglobin 11.9 g/dL (11.5-15.3); Lymphocytes # 0.9 10^3/uL (0.8-4.8); Lymphocytes % 9.6 %; Mean Corpuscular HGB Conc 31.2 g/dL (30.0-36.0); Mean Corpuscular Hemoglobin 29.8 pg (28.0-34.0); Mean Corpuscular Volume 95.5 fl (81-99); Mean Platelet Volume 10.3 fL (7.4-10.4); Monocytes # 0.5 10^3/uL (0.2-0.9); Monocytes % 5.4 %; Neutrophils % 84.4 %; Nucleated Red Blood Cells % 0 %; Platelet Count 249 10^3/cmm (130-400); Red Blood Count 3.99 10^6/uL (4.1-5.3); Red Cell Distribution Width 15.9 % (12.1-15.1); White Blood Count 9.7 10^3/uL (4.0-10.0)
[2021-05-20 16:09] LABS: Alanine Aminotransferase 13 U/L (0-33); Albumin Level 4.1 g/dL (3.5-5.2); Alkaline Phosphatase 85 IU/L (35-105); Anion Gap 14.5 (5-19); Aspartate Amino Transferase 15 U/L (0-32); Blood Urea Nitrogen 17 mg/dL (6-20); CA 125 671.6 U/mL (0-35); Calcium 9.2 mg/dL (8.5-10.5); Carbon Dioxide 27 mmol/L (22-29); Chloride 97 mmol/L (98-107); Globulin 2.7 g/dL (1.3-4.6); Glomerular Filtration Rate 86.2 mL/min (90-130); Glucose 99 mg/dL (65-115); Osmolality Calculated 282 mOsm/kg (285-295); Potassium 3.5 mmol/L (3.5-5.1); Sodium 135 mmol/L (136-145); Total Bilirubin 0.3 mg/dL (0.15-1.2); Total Protein 6.8 g/dL (6.6-8.7)
--- NOTE | 2021-05-25 12:10 | ONC FU_ITS ---
Dr. Grey Patient Follow-Up Note Patient: Jagruti Jay Unit #: [id number]: 1965 Dicatated By: John Grey M.D.Date of Visit:May 21, 2021 Onc Med Follow-up/Prog Note Chief Complaint: Fallopian tube cancer. 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 She had a recurrence in the form of a right diaphragmatic peritoneal implant confirmed by biopsy at a cholecystectomy procedure in April 2018. She had presented in August 2015 with abdominal pain, and she was found to have a large pelvic mass. This was initially thought to be arising from the right ovary. On 09/17/2015 she underwent surgery which included total abdominal hysterectomy, bilateral salpingo-oophorectomy, and radical debulking along with pelvic lymphadenectomy and limited periaortic lymphadenectomy. I do not have those actual reports available, but she apparently was thought to have a complete or near-complete resection. She was then given postoperative adjuvant chemotherapy with 6 cycles of carboplatin/paclitaxel. On 09/28/2018 she underwent cholecystectomy, and at the time of that procedure she was noted to have a peritoneal implant on the right diaphragm. Biopsy of the implant showed high-grade carcinoma consistent with the previous high-grade serous primary. With that finding she was then given further chemotherapy with 6 cycles of carboplatin/gemcitabine, which she completed in September 2018. Restaging CT scans of the chest, abdomen, and pelvis on 10/07/2018 showed resolution of a previously noted small anterior hepatic capsular or subcapsular nodule. There are new postsurgical changes in that region. 2 very closely associated hypodense foci were again noted in the right lobe posteriorly, maximum aggregate diameter of 3 mm. That finding. Stable. There was no evidence of a new focal hepatic abnormality. There were small mesenteric, retroperitoneal, and bilateral inguinal lymph nodes. There was no pathologic lymphadenopathy. A 5 x 3 mm sclerotic focus at the right posterior aspect of the manubrium appeared stable compared to a prior study from October 2015. There were no suspicious osseous lesions noted. With those findings, she was recommended to continue further systemic therapy with 16 cycles of bevacizumab administered at 3-week intervals. She received cycle 1 of bevacizumab on 11/10/2018. She tolerated it without acute toxicity, and she then continued treatment at a 3-week dosing interval. As of 07/04/2019 she completed her 12th cycle. Restaging CT scans on 07/21/2019 showed no evidence of metastatic disease in the chest, abdomen, or pelvis. There was evidence of diffuse fatty infiltration of the liver with an enlarged hepatic lobe measuring 19 cm. A left renal cyst measured 12 mm. There were no other abnormal findings. She continued her maintenance bevacizumab. She completed her 16th and last planned cycle on 10/09/2019. INTERIM HISTORY: As of her follow-up visit on October 24, 2019 her CA-125 level had increased to 33.4 U/mL. Overall, it appeared to have been increasing very gradually since January 2019 when it was 12.4 U/mL. However, at that point she appeared stable clinically and she continued observation/expectant management. As of 01/24/2020 there was further increase in the CA-125 to 48.3 U/mL. Her restaging CT scans of the chest, abdomen, and pelvis showed no evidence for metastatic disease. There were no other acute findings noted. Despite the negative CT findings, with the continued increase in the CA-125 level she was scheduled to have follow-up with Dr. Landon. She had repeat CT scans on 04/02/2020. It showed new small circumferential pericardial effusion and new findings within the peritoneal cavity which were concerning for metastatic involvement. This included increased soft tissue surrounding the mid SMA and increased soft tissue in the periaortic distribution. There were new small mesenteric, periaortic, and iliac chain lymph nodes. There was no ascites. Her further evaluation included genetic screening which showed 2 heterozygous variants of uncertain significance. She was negative for BRCA mutation. During this time her CA-125 level continued to increase. As of 04/30/2020 it was up to 177.0 U/mL. 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 It also showed genomic ZANE, and it was positive for PD-L1 expression with a CPS of 5. It was noted to be MSI stable. On 06/20/2020 she began salvage chemotherapy with cycle 1 of Doxil. Her baseline CA-125 level was 407.8 U/mL. The treatment was complicated by nausea/vomiting, severe constipation, and abdominal pain. She required IV hydration and IV antiemetics on multiple occasions. She did not have any evidence of bowel obstruction. In the meantime, she also had progressive enlargement of the right supraclavicular lymph node. As it had become increasingly symptomatic, she was referred to Dr. Littlejohn, and she underwent palliative radiation to the right supraclavicular area. Treatment was completed on 07/11/2020 to a total dose of 2000 cGy administered in 5 fractions. As of her follow-up visit on 07/18/2020 she was beginning to feel better generally. Her CA-125 level had declined to 175.4 U/mL. At that point I recommended restarting chemotherapy with carboplatin/gemcitabine with ultimate goal to transition her to maintenance therapy with a PARP inhibitor. On 07/25/2020 she began cycle 1 of carboplatin/gemcitabine, administered on a day 1/day 8 schedule. She tolerated both treatments without acute toxicity. She continued with cycle 2 on 08/21/2020. At that point she was feeling much better, and there was a significant decline in her CA-125 level. Her treatment was delayed due to neutropenia and thrombocytopenia, and it was administered at a reduced dosage of gemcitabine and on a day 1/day 15 schedule. She tolerated that treatment much better. As of 09/18/1020 her CA-125 level was down to 27.4 U/mL. She continued with cycle 3 on 10/02/2020. As she did appear to have had a good clinical response to the chemotherapy, she was then transitioned to maintenance olaparib at 300 mg twice daily beginning 11/01/2020. As of 11/13/2000 there was further decline in the CA-125 level to 20.4 U/mL. Restaging CT scans of the chest, abdomen, and pelvis showed significant improvement in the retroperitoneal lymphadenopathy compared to the May 2020 study. There was minimal residual disease in the form of a left periaortic region node measuring 8 mm. There were a few tiny pulmonary micronodules measuring the range of 2 mm. There were no enlarging or new pulmonary nodules noted. As of her office visit on 11/26/2020 she appeared to be doing well clinically. Her CA-125 level was down to 20.4 U/mL. She continued olaparib 300 mg twice daily. Her repeat CA-125 level on 01/10/2021 was stable at 19.2 U/mL. In the meantime, on 11/26/2020 she had been seen in the emergency room after she had sustained significant injuries at home, having been accosted by an angry cow while she was bottlefeeding the baby calf. As she described it, the cow butted her and then actually rolled over her. Her CT scans showed no evidence for fracture or solid organ trauma. There was also no evidence of progression of the cancer. On 01/18/2021 she was admitted to the hospital after presenting to the emergency room with shortness of breath and tachycardia. She was found on CT to have a large pericardial effusion measuring up to 2.6 cm. There was also moderate right and trace left pleural effusion, and there was moderate ascites in the abdomen. She underwent pericardiocentesis and she subsequently underwent placement of a pericardial window. The pericardial fluid was reported to be bloody. The cytology on the pericardial fluid was negative. However, pathology on the pericardium did show metastatic carcinoma consistent with tubo-ovarian primary. At her follow-up visit on 02/06/2021 she was feeling much better generally. However, at that point there was a significant increase in the CA-125 level to 395.7 U/mL. With that increase she opted to try restarting the olaparib with the dosage reduced to 150 mg twice daily. However, she subsequently stopped treatment, as she continued to have side effects even at the reduced dosage. With her tumor being PD-L1 positive and MA positive and with limited options available for further treatment, she was then given the option to have a trial of therapy with pembrolizumab in combination with exemestane. She began cycle 1 of pembrolizumab on 04/02/2021. The following day she did have chest pain in the left precordial area, just below the left breast. During subsequent follow-up she reported intermittent heart racing and/or pounding. It was unclear to what extent of the symptoms may have been treatment related. She was able to proceed with cycle 2 of pembrolizumab on 04/23/2021. On 05/05/2021 she presented with worsening cough and shortness of breath. Her chest x-ray showed a significant increase in the left pleural effusion. She underwent ultrasound-guided thoracentesis on 05/09/2021 with removal of 900 mL of pleural fluid. As of her follow-up visit on 05/14/2021 there was a further increase in the CA-125 level to 488.4 U/mL. With that finding and with the worsening pleural effusion, she was recommended to stop treatment. She has seen now to discuss options for further management. She says she is feeling okay, but she continues to have significant fatigue, though she is able to do light work. Her ECOG score is 1. Appetite is still okay. She has not had fever. She does report having a little bit of sweating. She has episodes with her heart pounding and she also says it feels like her ear is her plugging. She has had some sore throat. Her cough has improved following the thoracentesis. She is short of breath walking uphill. She has had a little bit of chest pain. She has no GI or complaints. She has having a little back pain at times, but no other joint or bone pain. She has no focal neurologic symptoms. Medications: Acid Control Maximum Strength (20 mg) Tablet Oral daily, Allergy Relief Loratadine (10 mg) Tablet Oral daily, Ativan 1 Tablet (of 2 mg) Oral q 4 to 6 hours PRN, Benzonatate 1 Capsule (of 200 mg) Oral t.i.d., Budesonide-Formoterol Fumarate 2 Inhalation Aerosol Inhalation b.i.d., Cholecalciferol 2 Capsule (of 5000 Units) Oral daily, Escitalopram Oxalate 1 Tablet (of 20 mg) Oral daily, Exemestane 1 Tablet (of 25 mg) Oral daily, Lasix 1 Tablet (of 40 mg) Oral daily, Lexapro 1 Tablet (of 10 mg) Oral daily, LORazepam 1 Tablet (of 2 mg) Oral daily, Milk Thistle Capsule Oral, predniSONE 1 Tablet (of 10 mg) Oral b.i.d., Quercetin Tablet Oral, Singulair 1 Tablet (of 10 mg) Oral at bedtime, Turmeric Capsule Oral, Vitamin B Complex Tablet Oral Allergies: Sulfa Antibiotics Vital Signs: Performed on May 21, 2021 14:19 Height - 64.00 in Weight - 124.6 lbs (LOW) BSA - 1.60 sq.m BMI - 21.39 Temperature - 97.6 F (LOW) Pulse - 106 /min (HIGH) Respiration - 16 /min BP - 104/67 mm(hg) O2 Sat - 93 % (LOW) Pain - 0 Fatigue - 7 Physical Examination: Constitutional - She appears somewhat weak generally, Eyes - Sclerae nonicteric. Conjunctivae clear, ENMT - No lesions noted in the oral cavity, Hematologic/Lymphatic - No cervical, clavicular, or axillary adenopathy noted, Respiratory - Lungs sound clear with some decrease in air movement at the bases, Cardiovascular - Heart rhythm is regular. There is no murmur or gallop noted and there is no pericardial rub noted, Abdomen - Soft. Liver and spleen are not enlarged. There is no abdominal mass noted and there is no obvious ascites, Extremities - No edema, Neurologic - No focal neurologic deficits noted. Lab/Imaging: CBC shows hemoglobin 11.9 g, white blood cell count 9700, and platelet count 249,000. Comprehensive metabolic profile shows stable renal function with BUN 17 and creatinine 0.7 mg/dL. Bilirubin and liver enzymes are normal. The CA-125 level has further increased to 671.6 U/mL. Problem List: 1. 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 The tumor has been found on next generation sequencing to harbor a BRCA1 mutation, presumed to be somatic. 2. GERD. 3. Allergic rhinitis. 4. Anxiety/depression. 5. She developed COVID-19 virus infection in October 2019. She had an uneventful recovery. 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 She had complete or near-complete debulking with her initial surgery in September 2015. She was given postoperative adjuvant chemotherapy with 6 cycles of carboplatin/paclitaxel. She had biopsy proven recurrence in the form of a right diaphragmatic peritoneal implant, discovered at the cholecystectomy procedure in April 2018. She then had further chemotherapy with 6 cycles of carboplatin/gemcitabine, completed in September 2018. She had no evidence of residual disease on restaging CT scans on 10/07/2018. She then continued maintenance therapy with single agent bevacizumab at a 3-week interval dosing schedule for 16 cycles. She began cycle 1 of bevacizumab on 11/10/2018. She tolerated it well, and she was able to continue her treatment every 3 weeks with no apparent adverse effects. As of 10/09/2019 she completed her 16th and last planned cycle of bevacizumab. As of January 2020 there was a significant increase in her CA-125 level, up to 48 U/mL. In reviewing her records, it actually has been showing a very gradual increase over the preceding year, from 12.4 U/mL in January 2019. However, she was not overtly symptomatic with it and her restaging CT scans on 01/24/2020 showed no evidence of metastatic disease. Her repeat CT scans on 04/02/2020 showed findings within the peritoneal cavity which were concerning for metastatic involvement, including increased soft tissue surrounding the mid SMA and increased soft tissue in the periaortic distribution. There were new small mesenteric, periaortic, and iliac chain lymph nodes. Also noted was a new small circumferential pericardial effusion. At this point she was having significant pain in her abdomen and back, and she also was having ongoing problems with constipation. She has had follow-up with Dr. Landon, and she was recommended to restart chemotherapy with either carboplatin in combination with Doxil or with Doxil monotherapy. In the meantime, she was found to be BRCA negative on genetic screening. At her follow-up visit on 04/30/2020 she was noted to have enlarging right supraclavicular lymphadenopathy. 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 It also showed genomic ZANE, and it was positive for PD-L1 expression with a CPS of 5. It was noted to be MSI stable. She began cycle 1 of Doxil monotherapy on 06/20/2020. The treatment was complicated by severe nausea/vomiting, requiring IV hydration on multiple occasions. She also had ongoing, severe constipation but with no evidence of bowel obstruction by abdominal x-ray or CT. As of her follow-up visit on 07/18/2020 she was beginning to feel better. There had been a significant decline in her CA-125 level, suggesting some response to the Doxil. However, given the severe toxicity that she experienced with it, I opted to change her chemotherapy back to the carboplatin/gemcitabine regimen. From 07/25/2020 through 10/16/2020 she completed 3 cycles of treatment with carboplatin/gemcitabine. She experienced multiple side effects including fatigue, neutropenia, and thrombocytopenia, among others. However, she did have a very good response by CA-125 level, and I did opt to stop treatment after 3 cycles. With the known BRCA1 mutation, she was then transitioned to maintenance olaparib at a standard dosage of 300 mg twice daily. Initially she had been tolerating the olaparib with no significant adverse effects. As of 01/10/2021 her CA-125 level was stable at 19.2 U/mL. On 01/18/2021 she was admitted to the hospital with symptomatic pericardial effusion, requiring pericardiocentesis and subsequently placement of a pericardial window. Her CT scans also showed moderate right and small left pleural effusion and some ascites. 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 During follow-up her clinical status improved significantly, but there was a continued increase in the CA-125 level, consistent with disease progression. She initially opted to retry the olaparib at a reduced dosage, but she still did not tolerate it, and there was no evidence of benefit. With her tumor being PD-L1 positive and MA positive and with limited options available for further treatment, she then began a trial of therapy with pembrolizumab in combination with exemestane. She received cycle 1 of pembrolizumab on 04/02/2021. She reported increased chest pain the following day and she then continued to have some pain intermittently in the left precordial area and episodes of heart racing/pounding. It was uncertain to what extent those symptoms may have been treatment related. I opted to proceed with a 2nd cycle of pembrolizumab on 04/23/2021. She had then presented with increased left pleural effusion, significant enough to require thoracentesis. During this time there has also been a progressive increase in her CA-125 level, consistent with disease progression. As such, she is recommended to stop the pembrolizumab and exemestane. I reviewed options for further management, which are very limited. One possibility would be to restart chemotherapy with carboplatin/gemcitabine, as she was showing response to it and it was stopped because of toxicity as opposed to disease progression. I would otherwise just recommend continuing symptomatic/supportive care, in which case hospice referral would be appropriate. At least for now she is feeling okay, and at this point she does not want to subject herself to side effects of chemotherapy. She is going to reduce the prednisone to once a day and she will stop furosemide and she will take it again only as needed. She will be scheduled for a follow-up visit in 1 month. Signed By: John Grey M.D. <<Signature on File>>
== END 2021-06-07 23:59 | disposition home or self-care (01) ==
LOC: ONCMED 06:49
PROVIDERS: Nurse Practitioner Family; PCP Nurse Practitioner Family; Visit Provider Internal Medicine Medical Oncology
DX: C57.02 Malignant neoplasm of left fallopian tube (principal); C77.8 Secondary and unspecified malignant neoplasm of lymph nodes of multiple regions; K21.9 Gastro-esophageal reflux disease without esophagitis; J30.9 Allergic rhinitis, unspecified; F41.9 Anxiety disorder, unspecified; F32.A Depression, unspecified; I31.3 Pericardial effusion (noninflammatory); J90 Pleural effusion, not elsewhere classified; Z86.16 Personal history of COVID-19; Z79.52 Long term (current) use of systemic steroids; Z79.818 Long term (current) use of other agents affecting estrogen receptors and estrogen levels; Z79.899 Other long term (current) drug therapy; Z92.21 Personal history of antineoplastic chemotherapy; Z92.25 Personal history of immunosuppression therapy
CPT/HCPCS: 36591; 80053; 84443; 85025; 86304; 99214; 99215

== ENCOUNTER 2021-06-03 06:58 | Outpatient (CLI) | payer MEDICARE, SELFPAY ==
--- NOTE | 2021-06-03 07:10 | USCV_ITS ---
Jagruti Jay Age: 55 Gender: F : 1965 Exam Date: 06/03/2021 07:26 Ordering Phys: John Grey MD Technologist: Elio Kendall [place] [facility] [place]: left leg swelling PROCEDURES: Venous duplex imaging was performed in only the left lower extremity. The following venous structures were evaluated: common femoral vein, profunda vein, proximal portion of the greater saphenous vein, superficial femoral vein, and the popliteal vein. In addition, the posterior tibial and peroneal trunk were evaluated. Serial compression, augmentation maneuvers, and spectral Doppler flow evaluation were performed. FINDINGS: Normal 2-D Doppler and augmentation and compressibility throughout the lower extremity venous structures. Additional imaging through the proximal calf veins also reveals no thrombus. Limited evaluation of the greater saphenous vein is patent with no thrombus.. There appears to be lymph nodes in her left groin. The largest one is measured. CONCLUSIONS No evidence of left lower extremity DVT. Enlarged left inguinal lymph node measuring 2.7 x 1.4cm with loss of the normal fatty hilum has a suspicious appearance. Recommend clinical correlation for history of malignancy. This could be further evaluated with inguinal US/biopsy Ryan Mays MD (Electronically Signed) Final Date: 03 June 2021 15:17 S
--- NOTE | 2021-06-03 07:10 | XR_ITS ---
WS: [id number] PA and lateral chest, 06/03/2021 Clinical Data: COUGH/SHORTNESS OF BREATH/WHEEZING Comparison: Portable chest, 05/09/2021. Findings: There are bilateral pleural effusions with more effusion on the right than the left. No nod ules or masses are seen. No pneumonia or pneumothorax is present. There is a left Port-A-Cath which e nds in the superior vena cava. There are clips in the right upper quadrant from a cholecystectomy. XR/XR chest 2V* [id number] Impression: Bilateral moderate pleural effusions with more on the right.
== END 2021-06-03 06:59 | disposition home or self-care (01) ==
LOC: RAD 06:59
PROVIDERS: PCP Nurse Practitioner Family; Visit Provider Internal Medicine Medical Oncology
DX: M79.89 Other specified soft tissue disorders (principal); J90 Pleural effusion, not elsewhere classified; R59.0 Localized enlarged lymph nodes
CPT/HCPCS: 71046; 93971

== ENCOUNTER 2021-06-09 12:06 | Day surgery (SDC) | payer MEDICARE, SELFPAY ==
[2021-06-05 13:12] VITALS: BMI 21.6
[2021-06-09 12:20] VITALS: BP 115/78; PULSE 100; RESP 18; TEMP 36.4; O2SAT 96
--- NOTE | 2021-06-09 12:22 | US_ITS ---
WS: [id number] ULTRASOUND-GUIDED THORACENTESIS, RIGHT. HISTORY: malignant pleural effusion Procedure, risks, and complications were explained to the patient. With the patient in an upright pos ition, the skin over the RIGHT posterior thorax was cleansed with ChloraPrep and anesthetized with 1% buffered lidocaine. A 5 Romanian Yueh needle is inserted into the pleural fluid without complication. Approximately 1000 cc of dark yellow pleural fluid is removed without difficulty. / thoracentesis [id number] IMPRESSION: 1. RIGHT thoracentesis yielding 1000 cc of fluid. 2. Chest radiograph to follow to evaluate for pneumothorax.
[2021-06-09] MEDS: lidocaine 1% INJ 20 mL 5 ML INJECTION (12:52)
--- NOTE | 2021-06-09 12:59 | XR_ITS ---
WS: [id number] PORTABLE CHEST HISTORY: post thoracentesis COMPARISON: 06/03/2021 No pneumothorax status post RIGHT thoracentesis. Very minimal residual thickening and obscuration of the RIGHT costophrenic angle. Mild haziness at the medial RIGHT lung base is probably residual atelec tasis. Small LEFT pleural effusion. LEFT subclavian Mediport good position. Cardiac size: Normal. Mediastinum/Aorta: Normal mediastinum. No osseous abnormality seen. Numerous postsurgical clips are noted within the RIGHT upper quadrant. XR/XR chest 1V portable [id number] IMPRESSION: 1. Status post RIGHT thoracentesis. No pneumothorax. 2. Very small residual RIGHT pleural fluid remains.
== END 2021-06-09 13:26 | disposition home or self-care (01) ==
LOC: GILAB 12:08
PROVIDERS: Radiology Diagnostic Radiology; PCP Nurse Practitioner Family; Visit Provider Internal Medicine Medical Oncology
PROC: (CPT 32554; principal; 2021-06-09 13:00)
DX: J91.0 Malignant pleural effusion (principal); C80.1 Malignant (primary) neoplasm, unspecified
CPT/HCPCS: 32555; 71045

== ENCOUNTER 2021-06-17 12:43 | Outpatient (CLI) | payer MEDICARE, SELFPAY ==
--- NOTE | 2021-06-17 12:56 | XR_ITS ---
WS: [id number] XR abdomen min 2V [id number] REASON FOR EXAM: abdominal pain, nausea FINDINGS: There is gas in multiple loops of small bowel. There are multiple air-fluid levels on the upright vie w. The small bowel is not significantly distended at this point. There is gas in the hepatic and splenic flexures. There is gas in the rectum. No free air or retroperitoneal air is identified. No urinary tract calculi are identified. XR/XR abdomen min 2V [id number] IMPRESSION: Abnormal bowel gas pattern which is suggestive of partial distal small bowel ob struction. Less likely this is a pattern of ileus.
== END 2021-06-17 12:44 | disposition home or self-care (01) ==
LOC: RAD 12:47
PROVIDERS: PCP Nurse Practitioner Family; Visit Provider Internal Medicine Medical Oncology
DX: R10.9 Unspecified abdominal pain (principal); R11.0 Nausea; R93.5 Abnormal findings on diagnostic imaging of other abdominal regions, including retroperitoneum
CPT/HCPCS: 74019

== ENCOUNTER 2021-06-23 13:11 | Outpatient (CLI) | payer MEDICARE, SELFPAY ==
--- NOTE | 2021-06-23 13:26 | XRR_ITS ---
PROCEDURE INFORMATION: Exam: XR Chest Exam date and time: 06/23/2021 1:40 PM Age: 55 years old Clinical indication: Cough and shortness of breath; Prior surgery; Surgery type: Port; Patient HX: Cancer (type)--fallopian tube, metastatic TECHNIQUE: Imaging protocol: XR of the chest. Views: 2 views. COMPARISON: CR XR chest 1V portable [id number] 06/09/2021 1:14 PM FINDINGS: Tubes, catheters and devices: Left chest port terminates within the proximal right atrium. Lungs: No consolidation. Pleural spaces: Bilateral moderate volume pleural effusions, left greater than right. No pneumothorax. Heart/Mediastinum: Cardiac silhouette obscured by the effusion. Bones/joints: Visualized osseous structures are intact. XR/XR chest 2V* [id number] IMPRESSION: Bilateral moderate volume pleural effusions, left greater than right.
== END 2021-06-23 13:12 | disposition home or self-care (01) ==
LOC: RAD 13:14
PROVIDERS: PCP Nurse Practitioner Family; Visit Provider Internal Medicine Medical Oncology
DX: J90 Pleural effusion, not elsewhere classified (principal)
CPT/HCPCS: 71046

== ENCOUNTER 2021-06-25 11:23 | Day surgery (SDC) | payer MEDICARE, SELFPAY ==
--- NOTE | 2021-06-25 11:37 | US_ITS ---
WS: [id number] ULTRASOUND-GUIDED THORACENTESIS, LEFT. HISTORY: pericardial effusion with cardiac tamponade Procedure, risks, and complications were explained to the patient. With the patient in an upright pos ition, the skin over the LEFT posterior thorax was cleansed with ChloraPrep and anesthetized with 1% buffered lidocaine. A 5 Libyan Yueh needle is inserted into the pleural fluid without complication. A pproximately 1300 cc of clear yellow pleural fluid is removed without difficulty. / thoracentesis [id number] IMPRESSION: 1. LEFT thoracentesis yielding 1300 cc of fluid. 2. Chest radiograph to follow to evaluate for pneumothorax.
[2021-06-25 11:48] VITALS: BP 100/53; PULSE 105; RESP 18; TEMP 36.1; O2SAT 96
[2021-06-25] MEDS: lidocaine 1% INJ 20 mL 10 ML INJECTION (12:06)
--- NOTE | 2021-06-25 12:17 | XR_ITS ---
WS: [id number] PORTABLE CHEST HISTORY: Status post LEFT thoracentesis COMPARISON: 06/23/2021 Status post LEFT thoracentesis. Small residual LEFT pleural effusion. No pneumothorax. Moderate size RIGHT pleural effusion with atelectasis at the lung bases. Cardiac size: Mildly enlarged cardiac silhouette. Mediastinum/Aorta: Normal mediastinum. Sclerotic focus in the proximal LEFT humerus suspicious for a metastatic osseous lesion. LEFT subclavian Mediport with tip in the distal SVC. XR/XR chest 1V portable [id number] IMPRESSION: 1. Small residual LEFT pleural effusion. No pneumothorax. 2. Moderate RIGHT pleural effusion with compressive atelectasis at the lung ba ses.
[2021-06-25 12:20] VITALS: BP 100/60; PULSE 112; RESP 20; O2SAT 98
== END 2021-06-25 14:38 | disposition home or self-care (01) ==
PROVIDERS: Radiology Diagnostic Radiology; PCP Nurse Practitioner Family
PROC: (CPT 32554; principal; 2021-06-25 13:00)
DX: I31.3 Pericardial effusion (noninflammatory) (principal)
CPT/HCPCS: 32555; 71045

== ENCOUNTER 2021-06-27 09:02 | Day surgery (SDC) | payer MEDICARE, SELFPAY ==
--- NOTE | 2021-06-27 | US_ITS ---
Ordering Provider/Ordering MD: Date of Service: Procedure(s): Accession Number(s): Report Number: [id number] WS: [email or web address] ULTRASOUND-GUIDED THORACENTESIS, RIGHT HISTORY: right pleural effusion Procedure, risks, and complications were explained to the patient. With the patient in an upright position, the skin over the RIGHT posterior thorax was cleansed with ChloraPrep and anesthetized with 1% buffered lidocaine. A 5 Setswana Yueh needle is inserted into the pleural fluid without complication. Approximately 1100 cc of clear yellow pleural fluid is removed without difficulty. Dictated By: Lizeth Zamora DO Signed By: Signed Date/Time: DD/ 1237 MTDD
--- NOTE | 2021-06-27 09:24 | US_ITS ---
WS: [id number] ULTRASOUND-GUIDED THORACENTESIS, RIGHT HISTORY: right pleural effusion Procedure, risks, and complications were explained to the patient. With the patient in an upright pos ition, the skin over the RIGHT posterior thorax was cleansed with ChloraPrep and anesthetized with 1% buffered lidocaine. A 5 Nigerian Yueh needle is inserted into the pleural fluid without complication. Approximately 1100 cc of clear yellow pleural fluid is removed without difficulty.
[2021-06-27 09:26] VITALS: BP 105/79; PULSE 110; RESP 22; TEMP 37; O2SAT 92; BMI 18.3
--- NOTE | 2021-06-27 10:06 | XR_ITS ---
WS: [id number] C-arm fluoroscopy of the left wrist, 06/27/2021 Clinical Data: post thora Comparison: Left wrist, 06/23/2021. Findings: Dr. Aguirre placed a ventral plate with multiple orthopedic screws on of the distal left radius repair of comminuted distal left radial fracture. XR/XR chest 1V portable [id number] Impression: Internal fixation of distal left radial fracture.
[2021-06-27 10:18] VITALS: BP 101/78; PULSE 107; RESP 20; O2SAT 97
== END 2021-06-27 10:43 | disposition home or self-care (01) ==
PROVIDERS: Radiology Diagnostic Radiology; PCP Nurse Practitioner Family; Visit Provider Internal Medicine Medical Oncology
PROC: (CPT 32554; principal; 2021-06-27 10:00)
DX: J90 Pleural effusion, not elsewhere classified (principal)
CPT/HCPCS: 32555; 71045

== ENCOUNTER 2021-07-04 17:33 | Emergency (ER) | payer MEDICARE, SELFPAY ==
[2021-07-04] VITALS (10 sets, daily range): BP systolic 75–107; BP diastolic 45–80; PULSE 68–109; RESP 16–24; TEMP 37.1; O2SAT 91–100; BMI 19.6
--- NOTE | 2021-07-04 17:35 | XRR_ITS ---
PROCEDURE INFORMATION: Exam: XR Chest Exam date and time: 07/04/2021 5:50 PM Age: 55 years old Clinical indication: Dyspnea; Prior surgery; Surgery date: 6+ months; Surgery type: Port TECHNIQUE: Imaging protocol: XR of the chest. Views: 1 view. COMPARISON: CR XR chest 1V portable [id number] 06/27/2021 10:13 AM FINDINGS: Tubes, catheters and devices: Stable left Mediport catheter. Lungs: Mild to moderate left basilar atelectasis and/or infiltrate and/or effusion. Pleural spaces: Increased moderate to large right pleural fluid collection. Heart/Mediastinum: Unremarkable. No cardiomegaly. Bones/joints: Unremarkable. XR/XR chest 1V portable [id number] IMPRESSION: 1. Stable left Mediport catheter. 2. Increased moderate to large right pleural fluid collection. 3. Mild to moderate left basilar atelectasis and/or infiltrate and/or effusion.
--- NOTE | 2021-07-04 17:35 | ECG_ITS ---
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 Measurements Intervals [place] Rate: 100 P: 46 NV: 133 QRS: 69 QRSD: 81 T: 261 QT: 353 QTc: 457 Interpretive Statements SINUS TACHYCARDIA POSSIBLE LEFT ATRIAL ENLARGEMENT [-0.1mV P-WAVE IN V1/V2] NONSPECIFIC T-WAVE ABNORMALITY Compared to ECG 01/18/2021 19:45:28 Atrial flutter no longer present Possible ischemia no longer present T-wave abnormality still present Electronically Signed On 07-04-2021 22:07:40 CDT by Sai Quinones M.D. [id number]
[2021-07-04 18:54] LABS: Basophils % 0.5 %; Eosinophils # 0.1 10^3/uL (0.0-0.8); Eosinophils % 1.2 %; Hematocrit 38.3 % (37.0-47.0); Hemoglobin 12.1 g/dL (11.5-15.3); Lymphocytes # 1.1 10^3/uL (0.8-4.8); Lymphocytes % 17.1 %; Mean Corpuscular HGB Conc 31.6 g/dL (30.0-36.0); Mean Corpuscular Hemoglobin 29.1 pg (28.0-34.0); Mean Corpuscular Volume 92.1 fl (81-99); Mean Platelet Volume 10.1 fL (7.4-10.4); Monocytes # 0.7 10^3/uL (0.2-0.9); Monocytes % 10.2 %; Neutrophils # 4.55 10^3/uL (1.8-7.7); Neutrophils % 70.5 %; Nucleated Red Blood Cells % 0 %; Platelet Count 306 10^3/cmm (130-400); Red Blood Count 4.16 10^6/uL (4.1-5.3); Red Cell Distribution Width 16.1 % (12.1-15.1); White Blood Count 6.5 10^3/uL (4.0-10.0)
--- NOTE | 2021-07-04 19:04 | US_ITS ---
WS: [email or web address] Chest ultrasound, 07/04/2021. Clinical Data: r pleural effusion Comparison: Chest ultrasound, 06/27/2021. Findings: The patient underwent a right thoracentesis. The thoracentesis was performed in the emergency room. T he patient had a large amount of pleural fluid and 1000 mL of pleural fluid were withdrawn. US/US chest [id number] Impression: Right thoracentesis, 1000 mL of pleural fluid withdrawn.
--- NOTE | 2021-07-04 19:06 | ED_ITS ---
HPI - SOB/Dyspnea General: Chief Complaint: Shortness of Breath/Dyspnea Stated Complaint: needs lung drainded sent by heart care Time Seen by Provider: 07/04/21 18:24 Source: patient and family History of Present Illness: HPI Narrative: 55-year-old female with a history of metastatic lung disease. She has metastatic pleural effusions, particularly on the right. She develops these effusions, and has had them drained 4 times in the past. She presents with shortness of breath, pleuritic chest discomfort, and some tachycardia. She states that her oncologist sent me to the ER to get my lung drained . She denies any fever. She does have a chronic cough which has not changed significantly. MD elicited complaint: shortness of breath and cough Pertinent past history: other Onset (ago): day(s) Exacerbating factors: lying flat and exertion Relieving factors: oxygen Known history of: other Associated symptoms: Reports chest congestion, chest pain and cough; Deny diaphoresis, dizziness, fever(s) or vomiting Treatment prior to arrival: none Review of Systems Const: Denies: fever(s) or diaphoresis Card: Reports: chest pain Resp: Reports: chest congestion GI: Denies: vomiting : Reports: flank pain (Right-sided) Musc: Reports: back pain (Right-sided) Skin/Breast: Reports: rash Neuro: Denies: dizziness Psych: Reports: anxiety PFSH ED PFSH: Medical History 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, follows with Dr Grey -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, debulked and treated with carboplatin/paclitaxel -2018 peritoneal/diaphragm seeding, treated with carboplatin/gemcitabine -2018 to 2019 treated with Bevacizumab -03/2020 peritoneal mets, treated with Doxil (stopped due to intolerance ), treated with carboplatin/gemcitabine (stopped 09/28 due to intolerance), started Olaparib 10/29 -Palliative radiation summer 2020 -BRCA1 mutation Chronic anxiety Depression GERD (gastroesophageal reflux disease) Pericardial effusion with cardiac tamponade Surgical History History of appendectomy History of cholecystectomy (~2018) History of laparoscopic cholecystectomy History of pelvic surgery (~09/2015) total abdominal hysterectomy with bilateral salpingo-oophorectomy and with radical debulking, including pelvic & periaortic lymphadenectomy and omentectomy Status post creation of pericardial window Family History Father Cancer lung Lung disease Mother CHF (congestive heart failure) CAD (coronary artery disease) [place] at 60 Diabetes Brother Leukemia Family/Other Leukemia Sister Diabetes Other Hyperlipidemia Hypertension Denies family history of Clotting disorder Dementia Psychiatric illness Chronic kidney disease (CKD) Suicide Anesthesia complication Bleeding disorder Stroke Social History Smoking and tobacco status: former smoker Quit status (tobacco): has quit using tobacco Year quit tobacco: 1998 Former quit date comment: 0.5 PPD X 20 years Alcohol intake: never Household members: spouse Physical Exam Const: GENERAL APPEARANCE: cooperative, in distress (Mild) and diaphoretic HENMT: COMMON NORMALS: normocephalic, atraumatic and Normal external nose present HEAD & SCALP: normocephalic and atraumatic NOSE: Normal external nose present and Normal nares present Eye: COMMON NORMALS: Equal, round and reactive pupils present and EOMs intact bilaterally PUPIL: Yes Equal, round and reactive pupils present Chest: COMMONS NORMALS: normal inspection of the chest Resp: EFFORT & INSPECTION: Yes tachypneic and Yes uses accessory muscles AUSCULTATION: rhonchi (Bilaterally) and diminished lung sounds (Bilaterally) Cardio: COMMON NORMALS: regular rate RATE: regular rate and tachycardic GI: COMMON NORMALS: Normal to inspection, nondistended, normoactive bowel sounds present, Soft to palpation and non-tender PALPATION: Yes Soft to palpation Extremity: COMMON NORMALS: no pedal edema Neuro: CHELSI COMA SCALE: document GCS findings Buchanan coma scale eye opening: Spontaneous Chelsi coma scale verbal response: Orientated Chelsi coma scale motor response: Obey commands Chelsi coma scale total score: 15 Skin: COMMON NORMALS: no rashes or lesions noted GENERAL SKIN EXAM: no rashes or lesions noted Course Vital Signs: Vital signs: Vital Signs Temperature 98.8 F 07/04/21 18:53 Pulse Rate 68 07/04/21 22:00 Respiratory Rate 20 H 07/04/21 22:00 Blood Pressure 91/67 07/04/21 22:00 Pulse Oximetry 98 07/04/21 22:00 MDM - SOB/Dyspnea Medical Decision Making It was explained to the patient that we do not have interventional radiology here currently. No pulmonary or chest surgery either. Patient has agreed, due to her discomfort, and mild respiratory distress to have this done in the ER. Ultrasound has been ordered for localization, and we are gathering supplies currently. She is afebrile. Her white blood cell count is 6.5. Her platelet count is 306 she is not anticoagulated. Thoracentesis was performed on this patient. Ultrasound was used to locate the pleural effusion on the right, seen on chest x-ray. Skin was marked. He was prepped in a sterile fashion with chlorhexidine. Using sterile technique, 1% lidocaine was infused into the skin and subcutaneous tissues, and down to the level of the pleura. The pleural space was anesthetized as well. A total of 10 mL of lidocaine was used. Following this, a Yeuweh needle was inserted, with constant aspiration pressure, until the pleural space was entered, and clear pleural fluid was aspirated. The catheter was slid over the needle, and the needle withdrawn. Pleural fluid was again aspirated using a sterile syringe. Following this, tubing was hooked up, and in sterile fashion inserted into the Vacutainer bottle. A total of 1 L of pleural fluid was aspirated. There was no bleeding or complication. Repeat chest x-ray reveals clearing of the pleural effusion on the right The patient's potassium is 3.0. This is replaced. The patient had a transient low blood pressure following the procedure, which self resolved, although 500 mL of fluid was given as a precaution. Saturations are 97 to 100%. Current blood pressure is 107/77. She will be allowed home Lab Data : 07/04/21 18:49 07/04/21 18:49 Labs/Radiology: Radiology Impressions Chest X-Ray 07/04/21 20:11 IMPRESSION: 1. Markedly decreased right pleural fluid collection with increased aeration of the right lower lobe. 2. No pneumothorax. Laboratory Results WBC 6.5 10^3/uL (4.0-10.0) 07/04/21 18:49 RBC 4.16 10^6/uL (4.1-5.3) 07/04/21 18:49 Hgb 12.1 g/dL (11.5-15.3) 07/04/21 18:49 Hct 38.3 % (37.0-47.0) 07/04/21 18:49 MCV 92.1 fl (81-99) 07/04/21 18:49 MCH 29.1 pg (28.0-34.0) 07/04/21 18:49 MCHC 31.6 g/dL (30.0-36.0) 07/04/21 18:49 RDW 16.1 % (12.1-15.1) H 07/04/21 18:49 Plt Count 306 10^3/cmm (130-400) 07/04/21 18:49 MPV 10.1 fL (7.4-10.4) 07/04/21 18:49 Neut % (Auto) 70.5 % 07/04/21 18:49 Lymph % (Auto) 17.1 % 07/04/21 18:49 Collin % (Auto) 10.2 % 07/04/21 18:49 Eos % (Auto) 1.2 % 07/04/21 18:49 Baso % (Auto) 0.5 % 07/04/21 18:49 Neut # (Auto) 4.55 10^3/uL (1.8-7.7) 07/04/21 18:49 Lymph # (Auto) 1.1 10^3/uL (0.8-4.8) 07/04/21 18:49 Collin # (Auto) 0.7 10^3/uL (0.2-0.9) 07/04/21 18:49 Eos # (Auto) 0.1 10^3/uL (0.0-0.8) 07/04/21 18:49 Baso # (Auto) 0.0 10^3/uL (0.0-0.1) 07/04/21 18:49 Nucleated RBC % (auto) 0 % 07/04/21 18:49 Nucleated RBCs # 0.0 /100WBC 07/04/21 18:49 Sodium 133 mmol/L (136-145) L 07/04/21 18:49 Potassium 3.0 mmol/L (3.5-5.1) L 07/04/21 18:49 Chloride 94 mmol/L (98-107) L 07/04/21 18:49 Carbon Dioxide 27 mmol/L (22-29) 07/04/21 18:49 Anion Gap 15.0 (5-19) 07/04/21 18:49 BUN 15 mg/dL (6-20) 07/04/21 18:49 Creatinine 0.6 mg/dL (0.5-0.9) 07/04/21 18:49 GFR Calculation 103.0 mL/min (90-130) 07/04/21 18:49 Glucose 99 mg/dL (65-115) 07/04/21 18:49 Calculated Osmolality 277 mOsm/kg (285-295) L 07/04/21 18:49 Calcium 8.8 mg/dL (8.5-10.5) 07/04/21 18:49 Troponin T Baseline 8 ng/L (0-10) 07/04/21 18:49 NT-Pro-B Natriuret Pep 1193 pg/mL (0-125) H 07/04/21 18:49 Discharge Plan Discharge Patient Disposition: Home Clinical Impression: Malignant pleural effusion, Acute hypokalemia Condition: Stable Prescriptions: New ondansetron 4 mg film 4 mg PO DAILY PRN (Reason: nausea and vomiting) Qty: 15 0RF No Action loratadine [Claritin] 10 mg tablet 10 mg PO DAILY 0RF montelukast 10 mg tablet 10 mg PO BEDTIME@2100 Qty: 30 3RF famotidine 20 mg tablet 20 mg PO BID Qty: 60 3RF escitalopram oxalate [Lexapro] 20 mg tablet 20 mg PO DAILY@0900 0RF lorazepam [Ativan] 2 mg tablet 2 mg PO Q6H PRN (Reason: anxiety) Qty: 30 0RF lidocaine-prilocaine 2.5-2.5 % cream 1 applic topical . DIRECTED 0RF budesonide-formoterol [Symbicort] 160-4.5 mcg/actuation HFA aerosol inhaler 2 puff INHALATION TID PRN (Reason: Shortness Of Breath) 0RF Discharge Orders: Discharge ED (Routine); Ordered 07/04/21 Ordered By: Gen Burns Referrals: Ching Moctezuma MD [Staff Physician] - 4-7 days Mason,JAYDE Mosqueda [Primary Care Provider] - Patient Instructions: Hypokalemia (ED), Pleural Effusion Activity Restrictions/Additional Instructions: You should have your potassium rechecked in a couple of days. Return for worsening shortness of breath, fever, chest discomfort, any other concerning symptoms. Coding Level of Care Code ED [employer] Worker for Chg Fwd 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
[2021-07-04 19:14] LABS: Troponin(5th) Baseline 8 ng/L (0-10)
[2021-07-04 19:22] LABS: Blood Urea Nitrogen 15 mg/dL (6-20); Calcium 8.8 mg/dL (8.5-10.5); Carbon Dioxide 27 mmol/L (22-29); Chloride 94 mmol/L (98-107); Glucose 99 mg/dL (65-115); NT Pro B Type Natriuretic Pept 1193 pg/mL (0-125); Osmolality Calculated 277 mOsm/kg (285-295); Sodium 133 mmol/L (136-145)
[2021-07-04] MEDS: ondansetron 2 mg/ML SDV 2 mL 4 MG IVP (19:43)
[2021-07-04] MEDS: fentaNYL 50 mcg/mL INJ 2mL 25 MCG IVP (19:46)
--- NOTE | 2021-07-04 20:11 | XRR_ITS ---
PROCEDURE INFORMATION: Exam: XR Chest Exam date and time: 07/04/2021 8:19 PM Age: 55 years old Clinical indication: Shortness of breath; Prior surgery; Surgery type: Chest port; Patient HX: Check S/P thoracentesis. One liter of fluid drained from RT lung. History of metastatic tubo ovarian cancer. ; Additional info: Post thoracent TECHNIQUE: Imaging protocol: XR of the chest. Views: 1 view. COMPARISON: CR (CHEST, ) 07/04/2021 5:50 PM FINDINGS: Tubes, catheters and devices: Stable left Mediport catheter. Lungs: Markedly decreased right pleural fluid collection with increased aeration of the right lower lobe. Pleural spaces: No pneumothorax. Heart/Mediastinum: Unremarkable. No cardiomegaly. Bones/joints: Unremarkable. XR/XR chest 1V portable [id number] IMPRESSION: 1. Markedly decreased right pleural fluid collection with increased aeration of the right lower lobe. 2. No pneumothorax.
[2021-07-04] MEDS: potassium chloride ER 20 mEq Tablet 40 MEQ PO (20:36)
[2021-07-04] MEDS: sodium chloride 0.9% 500 ML 999 ML IV (20:36)
== END 2021-07-04 22:48 | disposition home or self-care (01) ==
PROVIDERS: Emergency Medicine; Emergency Provider Emergency Medicine; PCP Nurse Practitioner Family
DX: C57.8 Malignant neoplasm of overlapping sites of female genital organs (principal); J91.0 Malignant pleural effusion; E87.6 Hypokalemia; Z87.891 Personal history of nicotine dependence
CPT/HCPCS: 32555; 71045; 76604; 80048; 83880; 84484; 85025; 93005; 96374; 96375; 99285; J1642; J2405; J3010; J7040

== ENCOUNTER 2021-07-08 08:45 | Day surgery (SDC) | payer MEDICARE, SELFPAY ==
[2021-07-04 15:29] VITALS: BMI 19.6
[2021-07-08] VITALS (9 sets, daily range): BP systolic 90–116; BP diastolic 55–75; PULSE 96–111; RESP 18–27; TEMP 37.1–37.2; O2SAT 92–100
--- NOTE | 2021-07-08 | SCC_ITS ---
Implants: Right and left pleural drains 51.4 seconds of fluoroscopic guidance, for a cumulative dose of 6.15 mGy, was provided to Dr. Hernandez by the radiology department. C-arm images of the chest were saved for the patient's permanent record. [facility]
--- NOTE | 2021-07-08 09:27 | XR_ITS ---
WS: [id number] Portable AP upright chest, 07/08/2021 Clinical Data: Recurrent bilateral pleural effusions (history of thoracente Comparison: Portable chest, 07/04/2021. Findings: The right pleural effusion has increased in the past 4 days. The left pleural effusion monica ins the same. There is a Port-A-Cath entering the left subclavian vein and ending in the superior denzel a cava. The heart size has probably not changed. There are clips in the right upper quadrant from a c holecystectomy. XR/XR chest 1V portable [id number] Impression: 1. Increasing right pleural effusion. 2. No change in left pleural effusion.
--- NOTE | 2021-07-08 09:27 | SC_ITS ---
WS: [email or web address] Bilateral pleural drainage tubes insertion, 07/08/2021 Clinical Data: Bilateral pleural drains placement Comparison: None. Findings: Dr. Bennett inserted pleural drainage tubes into both pleural spaces. SC/C-arm FL for Drainage [id number] Impression: Insertion of pleural drainage tubes bilaterally.
[2021-07-08 09:49] LABS: Add Urine Microscopic? NO
[2021-07-08 09:50] LABS: Charge for UA Resulting for Rev
[2021-07-08] MEDS: sodium chloride 0.9% 1,000 ML 30 ML IV (09:50)
[2021-07-08 09:55] LABS: Basophils % 0.3 %; Eosinophils % 0.6 %; Hematocrit 43.1 % (37.0-47.0); Hemoglobin 13.3 g/dL (11.5-15.3); Lymphocytes # 0.7 10^3/uL (0.8-4.8); Lymphocytes % 11.3 %; Mean Corpuscular HGB Conc 30.9 g/dL (30.0-36.0); Mean Corpuscular Hemoglobin 29.1 pg (28.0-34.0); Mean Corpuscular Volume 94.3 fl (81-99); Mean Platelet Volume 10.2 fL (7.4-10.4); Monocytes # 0.6 10^3/uL (0.2-0.9); Monocytes % 8.4 %; Neutrophils # 5.17 10^3/uL (1.8-7.7); Neutrophils % 78.9 %; Nucleated Red Blood Cells % 0 %; Platelet Count 357 10^3/cmm (130-400); Red Blood Count 4.57 10^6/uL (4.1-5.3); White Blood Count 6.6 10^3/uL (4.0-10.0)
[2021-07-08 10:35] LABS: Anion Gap 13.9 (5-19); Blood Urea Nitrogen 17 mg/dL (6-20); Calcium 8.5 mg/dL (8.5-10.5); Carbon Dioxide 27 mmol/L (22-29); Chloride 98 mmol/L (98-107); Glucose 101 mg/dL (65-115); Osmolality Calculated 284 mOsm/kg (285-295); Sodium 136 mmol/L (136-145)
[2021-07-08 10:41] LABS: Potassium 2.9 mmol/L (3.5-5.1)
[2021-07-08] MEDS: ondansetron 2 mg/ML SDV 2 mL 4 MG IVP (10:42)
[2021-07-08] MEDS: fentaNYL 50 mcg/mL INJ 2mL IVP (10:42)
[2021-07-08 11:15] LABS: Urine Color Dark Yellow (Yellow)
[2021-07-08 11:16] LABS: Bilirubin Urine 1+ (Negative); Blood Urine Neg (Negative); Glucose Urine UA Norm (Normal); Ketones Urine 1+ (Negative); Leukocyte Esterase Urine Negative (Negative); Nitrate Urine Negative (Negative); Protein Urine Neg (Negative); Specific Gravity, Urine 1.025 (1.005-1.030); Urine Appearance Clear (CLEAR); Urobilinogen Urine 1 mg/dL (Negative); pH Urine 5 (5-7)
--- NOTE | 2021-07-08 13:07 | W.PM.OPSUD ---
Surgery/Procedure H&P Update DATE OF PROCEDURE: July 08, 2021 DATE H&P PERFORMED: 06/18/21 H&P UPDATE INFORMATION: I have reviewed H&P completed within last 30 days, I have examined patient prior to procedure and No changes to prior documentation PREOP DIAGNOSIS: Recurrent bilateral malignant pleural effusions PLANNED PROCEDURE: Operation Date: 07/08/21 10:15 Proposed Procedures p Antonio Pleural Catheter Insertion(Bilateral) - Sav Hernandez MD
--- NOTE | 2021-07-08 13:45 | ANES.PREANE2 ---
Pre-Anesthetic Assessment Height/Weight: Height 1.65 m Weight 53.524 kg Temp Pulse Resp BP Pulse Ox 98.8 F 111 H 18 116/75 92 07/08/21 09:20 07/08/21 09:20 07/08/21 10:42 07/08/21 09:20 07/08/21 10:42 Preop Diagnosis: Recurrent bilateral malignant pleural effusions Operation Date: 07/08/21 10:15 Proposed Procedures p Mckenzie Pleural Catheter Insertion(Bilateral) - Sav Hernandez MD Familial anesthetic complications: None Was Beta [place] taken within 24 hours: N/A Was Clonidine taken within 24 hours: N/A Last intake: Intake Last Liquid Date 07/07/21 Last Liquid Time 21:00 Last Solid Date 07/07/21 Last Solid Time 19:00 Social No alcohol and No tobacco Exam alert, oriented x 3 and regular rate & rhythm Airway Submandibular: within normal limits Cervical ROM: within normal limits Mallampati: Class II Dentition: full Pulmonary pleural effusion (metastatic ovarian CA) CV/HEM Arrythmia (ST) H/o cardiac arrest GI Gastroesophageal Reflux Disease Metabolic hypokalemia [facility] chronic pain Neuropsych Anxiety Anesthetic Plan ASA status: 3 Anesthesia: MAC Medications/Allergies Home Medications Medication Instructions Recorded Confirmed Last Taken Type escitalopram oxalate 20 mg tablet 20 mg PO DAILY@0900 06/03/20 07/08/21 06/27/21 History (Lexapro) lorazepam 2 mg tablet (Ativan) 2 mg PO Q6H PRN #30 tab 06/03/20 07/08/21 06/26/21 Rx lidocaine-prilocaine 2.5 %-2.5 % 1 applic TOPICAL . DIRECTED 01/19/21 07/08/21 06/26/21 History topical cream loratadine 10 mg tablet (Claritin) 10 mg PO DAILY 01/29/21 07/08/21 06/27/21 History budesonide-formoterol HFA 160 2 puff INHALATION TID PRN 06/18/21 07/08/21 06/27/21 History mcg-4.5 mcg/actuation aerosol inhaler (Symbicort) famotidine 20 mg tablet 20 mg PO BID #60 tab 06/20/21 07/08/21 06/27/21 Rx montelukast 10 mg tablet 10 mg PO BEDTIME@2100 #30 tab 05/13/22 05/31/22 05/19/22 Rx ondansetron 4 mg oral soluble film 4 mg PO DAILY PRN #15 each 07/04/21 07/08/21 Unknown Rx Allergies Allergy/AdvReac Type Severity Reaction Status Date / Time Sulfa (Sulfonamide Allergy Unknown RASH Verified 07/08/21 09:18 Antibiotics) Current Medications Generic Name Dose Route Start Last Admin Trade Name Freq PRN Reason Stop Dose Admin Sodium Chloride 1,000 mls @ 30 mls/hr 07/08/21 09:30 07/08/21 09:50 Sodium Chloride 0.9% IV 07/09/21 09:29 30 mls/hr .Q24H BLANCA Administration Ondansetron HCl 4 mg 07/08/21 08:58 07/08/21 10:42 Ondansetron 2 Mg/Ml Sdv 2 Ml IVP 4 mg Q5M PRN Administration NAUSEA AND VOMITING PFSH Anesthesia Medical History 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, follows with Dr Grey -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, debulked and treated with carboplatin/paclitaxel -2018 peritoneal/diaphragm seeding, treated with carboplatin/gemcitabine -2018 to 2019 treated with Bevacizumab -03/2020 peritoneal mets, treated with Doxil (stopped due to intolerance 07/29), treated with carboplatin/gemcitabine (stopped 09/28 due to intolerance), started Olaparib 10/29 -Palliative radiation summer 2020 -BRCA1 mutation Chronic anxiety Depression GERD (gastroesophageal reflux disease) Pericardial effusion with cardiac tamponade Surgical History History of appendectomy History of cholecystectomy (~2018) History of laparoscopic cholecystectomy History of pelvic surgery (~09/2015) total abdominal hysterectomy with bilateral salpingo-oophorectomy and with radical debulking, including pelvic & periaortic lymphadenectomy and omentectomy Status post creation of pericardial window Family History Father Cancer lung Lung disease Mother CHF (congestive heart failure) CAD (coronary artery disease) [place] at 60 Diabetes Brother Leukemia Family/Other Leukemia Sister Diabetes Other Hyperlipidemia Hypertension Denies family history of Clotting disorder Dementia Psychiatric illness Chronic kidney disease (CKD) Suicide Anesthesia complication Bleeding disorder Stroke Social History Smoking and tobacco status: former smoker Quit status (tobacco): has quit using tobacco Year quit tobacco: 1998 Former quit date comment: 0.5 PPD X 20 years Alcohol intake: never Household members: spouse Data Anesthesia : 07/08/21 09:37 07/08/21 09:37 Short CBC 07/08/21 Range/Units 09:37 WBC 6.6 (4.0-10.0) 10^3/uL Hgb 13.3 (11.5-15.3) g/dL Hct 43.1 (37.0-47.0) % MCV 94.3 (81-99) fl Plt Count 357 (130-400) 10^3/cmm Neut % (Auto) 78.9 % Neut # (Auto) 5.17 (1.8-7.7) 10^3/uL BMP 07/08/21 09:37 Sodium 136 Potassium 2.9 L Chloride 98 Carbon Dioxide 27 BUN 17 Creatinine 0.6 Glucose 101 Calcium 8.5 Urine 07/08/21 Range/Units 09:37 Urine Color Dark yellow (Yellow) Urine Appearance Clear (CLEAR) Urine pH 5 (5-7) Ur Specific [place] 1.025 (1.005-1.030) Urine Protein Neg (Negative) Urine Glucose (UA) Norm (Normal) Urine Ketones 1+ H (Negative) Urine Nitrate Negative (Negative) Urine Bilirubin 1+ H (Negative) Ur Leukocyte Esterase Negative (Negative) Cardiac Studies: Echocardiogram 01/18/21 Echocardiogram Ultrasound 06/12/20
[2021-07-08] MEDS: lidocaine 2% INJ 20 mL INJECTION (14:16)
--- NOTE | 2021-07-08 14:54 | P.OP_ITS ---
Operative Report Date of procedure: July 08, 2021 Pre-op diagnosis: Preop Diagnosis Recurrent bilateral malignant pleural effusions Post-op diagnosis: same Procedure done: Bilateral tunneled pleural drains placement Implants: Right and left pleural drains Pathology: none sent Surgeon: Sav Hernandez Anesthesia: MAC and Local Complications: None Condition: stable Brief History: Ms. Jay is a pleasant 55-year-old female whom I performed a pericardial window back in February for a large pericardial effusion with early tamponade physiology. 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 She is been under the care of our oncology service has had bilateral pleural effusions requiring multiple thoracenteses. She presents today for planned bilateral pleural drains Procedure: Ms. Jay was taken to the operating room theater and carefully positioned in the supine position with her arms abducted. Her entire chest from table to table was sterilely prepped and draped. Next utilizing C arm fortification of the lower aspects of the pleural space, initial beginning on the right side, 1% lidocaine was infiltrated in the mid axillary line and introducer needle was placed into the pleural space with quick return of brandon-colored fluid. Guidewire was placed under fluoroscopic guidance. Next, a counterincision was made more anteriorly again after infiltration with lidocaine. Tunneled catheter was then placed from anterior to lateral and the subcutaneous layer. Velcro cuff was placed in the anterior aspect of this tunnel to allow for subsequent easier retrieval at a later date. Next, utilizing a series of dilators over the guidewire under fluoroscopic guidance the tract was dilated. Next, dilator and sheath were placed and the dilator and guidewire were removed. The 15.5 Ugandan pleural catheter was placed into the right pleural space under fluoroscopic guidance. Tear-away sheath was removed. Slow aspiration of the catheter returned approximate 900 cc of brandon-colored fluid. Wounds were irrigated. The catheter was secured to the skin with 2-0 silk suture. The more lateral incision was closed with 3-0 Vicryl suture in the subtendinous layer and Monocryl suture in the subcuticular layer. In a similar fashion, the left side was carefully marked utilizing fluoroscopic guidance where after infiltration with lidocaine lateral incision was made in the mid axillary line. Counterincision was made more anteriorly and the subtendinous tunnel was infiltrated with lidocaine. Next, introducer needle was placed into the lateral point the mid axillary line and continued into the pleural space with easy return of pleural fluid with placement of a guidewire under fluoroscopic guidance. Next, tunneler with associated catheter was placed from anterior to lateral and subtends tunnel for appropriate positioning of the pleural cathete beneath the skin. A series of dilators were then utilized over the guidewire to dilate the tract at which time the dilator and sheath were pl aced with the dilator and guidewire being removed. 15.5 Ugandan pleural catheter was placed through the sheath into position under fluoroscopic guidance with removal of the sheath. Again, over 600 cc was easily aspirated from the left pleural space after catheter placement. Catheter was secured to the skin at the anterior exit point utilizing 2-0 silk suture. The more lateral incision was closed with 3-0 Vicryl suture and then in a subcuticular manner with Monocryl suture. Sterile dressings were applied. Catheters were placed beneath sterile dressings and further secured. This Covid tolerated procedure well. She is awakened from IV conscious sedation and taken to the outpatient surgery department. We did counselor nurses' association with family at the completion of the procedure. She may continue her routine follow-up visits. We will confirm home health is available for education as to drain management as she continues her care under the oncology service.
--- NOTE | 2021-07-08 15:17 | SUR.PHASEI ---
1503 PT AWAKE ALERT ASKING QUESTIONS ABOUT HER DRAINS AND WHEN SHE CAN SHOWER, PT WITH GOOD RESP NOED PT ON 3LNC PER PT , SHE STATES SHE USES AT HOME PRN., PT HAS LT SUBCLAVIAN PORT ACCESSED AND IV AT KVO PER GRAVITY NS 700ML UP. DRESSING TO BILAT CHEST D/I .
--- NOTE | 2021-07-08 15:26 | ANE.PACU2 ---
Inpatient post-anesthesia follow up: Airway intact: Yes Vital signs: Temperature 98.7 F Pulse Rate 96 Respiratory Rate 23 Blood Pressure 91/60 Pulse Oximetry 99 Oxygen Delivery Me thod Nasal Cannula Oxygen Flow Rate 3 Fraction of Inspir ed Oxygen Hydration adequate: Yes Nausea and vomiting: No Pain level: 2 Mental status: Baseline
== END 2021-07-08 16:44 | disposition home health service (06) ==
PROVIDERS: PCP Nurse Practitioner Family; Visit Provider Thoracic Surgery (Cardiothoracic Vascular Surgery)
PROC: (CPT 32550; principal; 2021-07-08 10:05)
DX: C79.60 Secondary malignant neoplasm of unspecified ovary (principal); J91.0 Malignant pleural effusion; K21.9 Gastro-esophageal reflux disease without esophagitis; F41.9 Anxiety disorder, unspecified; F32.9 Major depressive disorder, single episode, unspecified; Z82.49 Family history of ischemic heart disease and other diseases of the circulatory system; Z83.3 Family history of diabetes mellitus; Z87.891 Personal history of nicotine dependence
CPT/HCPCS: 32550; 36415; 71045; 75989; 80048; 81003; 85025; C1729; J2250; J2370; J2405; J2704; J3010; J7030

== ENCOUNTER 2021-07-08 11:30 | Oncology outpatient (recurring) (ONCR) | payer MEDICARE, SELFPAY ==
[2021-06-18] MEDS: sodium chloride 0.9% 500 ML 999 ML IV (10:07)
[2021-06-18] MEDS: ondansetron 2 mg/ML SDV 2 mL 8 MG IVP (10:09)
[2021-06-18 10:59] VITALS: BP 94/55; PULSE 89; RESP 18; TEMP 36; O2SAT 96
== END 2021-07-08 23:59 | disposition home or self-care (01) ==
PROVIDERS: PCP Nurse Practitioner Family; Visit Provider Internal Medicine Medical Oncology
DX: Z53.9 Procedure and treatment not carried out, unspecified reason (principal)
CPT/HCPCS: 96365; 96375; 99215; J2405; J7040

== ENCOUNTER 2021-07-09 12:09 | Emergency (ER) | payer MEDICARE, SELFPAY ==
--- NOTE | 2021-07-09 12:12 | XRR_ITS ---
PROCEDURE INFORMATION: Exam: XR Chest Exam date and time: 07/09/2021 12:37 PM Age: 55 years old Clinical indication: Pain; Angina pectoris; Additional info: Chest pain TECHNIQUE: Imaging protocol: XR of the chest. Views: 1 view. COMPARISON: CR XR chest 1V portable [id number] 07/08/2021 9:45 AM FINDINGS: Tubes, catheters and devices: There is a right chest tube positioned with the tip in the medial right apex. Left chest tube tip is positioned at the base. Left chest port line tip is appropriately positioned in the lower SVC near the cavoatrial junction. Lungs: Increased aeration of both lungs since yesterday. There is mild ill-defined opacity in the lung bases. Pleural spaces: Trace left apical pleural gas is suspected. Small bilateral pleural effusions are decreased significantly since yesterday. Heart/Mediastinum: Cardiomediastinal contours are unremarkable. Diaphragm: Obscured on the left, and newly visible on the right. Bones/joints: Bones are unremarkable. Soft tissues: There is trace gas in the lower right lateral chest wall. XR/XR chest 1V portable [id number] IMPRESSION: 1. Decreased bilateral pleural effusions since yesterday with interval placement of bilateral chest tubes. 2. Trace pleural gas at the left apex, likely related to chest tube insertion. No significant pneumothorax is present.
--- NOTE | 2021-07-09 12:12 | ECG_ITS ---
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 Measurements Intervals [place] Rate: 100 P: 57 [place]: 130 QRS: 58 QRSD: 89 T: -50 QT: 346 QTc: 447 Interpretive Statements SINUS TACHYCARDIA POSSIBLE LEFT ATRIAL ENLARGEMENT [-0.1mV P-WAVE IN V1/V2] MODERATE T-WAVE ABNORMALITY, CONSIDER INFERIOR ISCHEMIA [-0.1+ mV T-WAVE IN II/aVF] Compared to ECG 07/04/2021 18:37:51 Possible ischemia now present T-wave abnormality still present Electronically Signed On 07-09-2021 19:43:10 CDT by Sai Quinones M.D. [id number] f
[2021-07-09 12:14] VITALS: BP 92/67; PULSE 100; RESP 16; TEMP 36.4; O2SAT 96
--- NOTE | 2021-07-09 13:06 | ED_ITS ---
HPI - Chest Pain General: Chief Complaint: Chest Pain Stated Complaint: Chest Pains Time Seen by Provider: 07/09/21 13:05 Source: patient Mode of arrival: ambulatory Limitations: no limitations History of Present Illness: 55-year-old female presents emergency room complaining of chest pains in her back for the last couple of days. Symptoms worsened today she reports painin the center of her chest radiating to her back she had Kings drains placed yesterday. She describes having pain all over she took some ibuprofen with no relief. Patient has a known history of ovarian CIS developed some pleural effusions. States her breathing is actually better since she had the Kings drain placed yesterday she has no history of DVT no change in swelling in her legs. No fever sweats chills nausea vomiting diarrhea dysuria urgency or frequency no cough MD complaint: chest pain Onset (ago): minute(s) Timing of current episode: episodic Onset: during rest Pain location: substernal and right chest Pain radiation: none and back Quality: sharp Relieving factors: nothing Exacerbating factors: nothing Associated symptoms: Deny abdominal pain, diaphoresis, dyspnea, fever(s), leg edema, nausea, palpitations, sense of impending doom, syncope or vomiting Treatment prior to arrival: none Review of Systems Const: Denies: fever(s), chills or diaphoresis ENMT: Denies: throat pain, ear or mastoid pain, nasal discharge or nasal congestion Card: Reports: chest pain and edema (Chronic unchanged); Denies: palpitations, irregular heart rhythm or syncope Resp: Denies: dyspnea GI: Denies: abdominal pain, nausea or vomiting : Denies: flank pain, difficulty voiding, dysuria, urinary frequency or urinary urgency Skin/Breast: Denies: rash or pruritus PFSH ED PFSH: Medical History 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, follows with Dr Grey -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, debulked and treated with carboplatin/paclitaxel -2018 peritoneal/diaphragm seeding, treated with carboplatin/gemcitabine -2018 to 2019 treated with Bevacizumab -03/2020 peritoneal mets, treated with Doxil (stopped due to intolerance 07/29), treated with carboplatin/gemcitabine (stopped 09/28 due to intolerance), started Olaparib 10/29 -Palliative radiation summer 2020 -BRCA1 mutation Chronic anxiety Depression GERD (gastroesophageal reflux disease) Pericardial effusion with cardiac tamponade Surgical History History of appendectomy History of cholecystectomy (~2018) History of laparoscopic cholecystectomy History of pelvic surgery (~09/2015) total abdominal hysterectomy with bilateral salpingo-oophorectomy and with radical debulking, including pelvic & periaortic lymphadenectomy and omentectomy Status post creation of pericardial window Family History Father Cancer lung Lung disease Mother CHF (congestive heart failure) CAD (coronary artery disease) DC at 60 Diabetes Brother Leukemia Family/Other Leukemia Sister Diabetes Other Hyperlipidemia Hypertension Denies family history of Clotting disorder Dementia Psychiatric illness Chronic kidney disease (CKD) Suicide Anesthesia complication Bleeding disorder Stroke Social History Smoking and tobacco status: former smoker Quit status (tobacco): has quit using tobacco Year quit tobacco: 1998 Former quit date comment: 0.5 PPD X 20 years Alcohol intake: never Household members: spouse Physical Exam Const: GENERAL APPEARANCE: cooperative and comfortable ORIENTATION/CONSCIOUSNESS: Yes awake, Yes oriented to person, Yes oriented to place and Yes oriented to time HENMT: COMMON NORMALS: normocephalic, atraumatic and hearing grossly normal bilaterally HEAD & SCALP: normocephalic and atraumatic Neck/C-Spine: COMMON NORMALS: no JVD Resp: AUSCULTATION: rales on the right at the base Cardio: COMMON NORMALS: no JVD, regular rate, regular rhythm and No murmurs present (Cardio) RATE: regular rate RHYTHM: regular rhythm GI: COMMON NORMALS: Soft to palpation and No hepatosplenomegaly present AUSCULTATION: Yes normoactive bowel sounds PALPATION: Yes Soft to palpation, No Tenderness to palpation present (GI), No Guarding due to palpation present (GI) and Yes No hepatosplenomegaly present Extremity: COMMON NORMALS: normal to inspection, capillary refill normal, no clubbing, cyanosis or edema, no calf tenderness and no pedal edema Neuro: SENSORIUM/ORIENTATION: Yes oriented to person, Yes oriented to place and Yes oriented to time Skin: COMMON NORMALS: no rashes or lesions noted GENERAL SKIN EXAM: no rashes or lesions noted Course Vital Signs: Vital signs: Vital Signs Temperature 97.5 F L 07/09/21 12:14 Pulse Rate 88 07/09/21 15:47 Respiratory Rate 21 H 07/09/21 14:00 Blood Pressure 83/62 07/09/21 15:47 Pulse Oximetry 98 07/09/21 15:47 MDM - Chest Pain Medical Decision Making Labs imaging and EKG reviewed. Patient's pain is improved suspect this at that he was a placement of a pleural drain. Cardiac enzymes are negative. She would prefer at this time to go home she has not been using her pain medications at home encouraged her to use pain medications regularly use nausea medicines also have her take MiraLAX on a scheduled basis states when she is a pain medication to get she gets uncomfortably constipated. Return if she has further problems follow-up with Dr. Hernandez as previously scheduled. Medical Records I reviewed the patient's medical records. Lab Data I reviewed the patient's lab results. : 07/09/21 13:55 07/09/21 13:55 Radiology Impressions Chest X-Ray 07/09/21 12:12 IMPRESSION: 1. Decreased bilateral pleural effusions since yesterday with interval placement of bilateral chest tubes. 2. Trace pleural gas at the left apex, likely related to chest tube insertion. No significant pneumothorax is present. Laboratory Results WBC 7.4 10^3/uL (4.0-10.0) 07/09/21 13:55 RBC 4.30 10^6/uL (4.1-5.3) 07/09/21 13:55 Hgb 12.5 g/dL (11.5-15.3) 07/09/21 13:55 Hct 40.0 % (37.0-47.0) 07/09/21 13:55 MCV 93.0 fl (81-99) 07/09/21 13:55 MCH 29.1 pg (28.0-34.0) 07/09/21 13:55 MCHC 31.3 g/dL (30.0-36.0) 07/09/21 13:55 RDW 16.5 % (12.1-15.1) H 07/09/21 13:55 Plt Count 304 10^3/cmm (130-400) 07/09/21 13:55 MPV 10.6 fL (7.4-10.4) H 07/09/21 13:55 Neut % (Auto) 78.2 % 07/09/21 13:55 Lymph % (Auto) 11.8 % 07/09/21 13:55 [place] % (Auto) 8.8 % 07/09/21 13:55 Eos % (Auto) 0.8 % 07/09/21 13:55 Baso % (Auto) 0.3 % 07/09/21 13:55 Neut # (Auto) 5.79 10^3/uL (1.8-7.7) 07/09/21 13:55 Lymph # (Auto) 0.9 10^3/uL (0.8-4.8) 07/09/21 13:55 [place] # (Auto) 0.7 10^3/uL (0.2-0.9) 07/09/21 13:55 Eos # (Auto) 0.1 10^3/uL (0.0-0.8) 07/09/21 13:55 Baso # (Auto) 0.0 10^3/uL (0.0-0.1) 07/09/21 13:55 Nucleated RBC % (auto) 0 % 07/09/21 13:55 Nucleated RBCs # 0.0 /100WBC 07/09/21 13:55 Sodium 135 mmol/L (136-145) L 07/09/21 13:55 Potassium 3.3 mmol/L (3.5-5.1) L 07/09/21 13:55 Chloride 96 mmol/L (98-107) L 07/09/21 13:55 Carbon Dioxide 26 mmol/L (22-29) 07/09/21 13:55 Anion Gap 16.3 (5-19) 07/09/21 13:55 BUN 21 mg/dL (6-20) H 07/09/21 13:55 Creatinine 0.8 mg/dL (0.5-0.9) 07/09/21 13:55 GFR Calculation 73.9 mL/min (90-130) L 07/09/21 13:55 Glucose 109 mg/dL (65-115) 07/09/21 13:55 Calculated Osmolality 284 mOsm/kg (285-295) L 07/09/21 13:55 Calcium 8.4 mg/dL (8.5-10.5) L 07/09/21 13:55 Troponin T Baseline 9 ng/L (0-10) 07/09/21 13:55 Discharge Plan Discharge Patient Disposition: Home Clinical Impression: Malignant pleural effusion, Malignant neoplasm of left fallopian tube, Chest pain Condition: Stable Prescriptions: New hydrocodone-acetaminophen 5-325 mg tablet 1 tab PO Q6H PRN (Reason: pain) Qty: 30 0RF Miralax 17 gram/dose powder 17 g PO BID Qty: 510 0RF promethazine 25 mg tablet 25 mg PO Q6H PRN (Reason: nausea and vomiting) Qty: 20 0RF No Action loratadine [Claritin] 10 mg tablet 10 mg PO DAILY 0RF montelukast 10 mg tablet 10 mg PO BEDTIME@2100 Qty: 30 3RF famotidine 20 mg tablet 20 mg PO BID Qty: 60 3RF escitalopram oxalate [Lexapro] 20 mg tablet 20 mg PO DAILY@0900 0RF lorazepam [Ativan] 2 mg tablet 2 mg PO Q6H PRN (Reason: anxiety) Qty: 30 0RF lidocaine-prilocaine 2.5-2.5 % cream 1 applic topical . DIRECTED 0RF budesonide-formoterol [Symbicort] 160-4.5 mcg/actuation HFA aerosol inhaler 2 puff INHALATION TID PRN (Reason: Shortness Of Breath) 0RF cephalexin 500 mg capsule 500 mg PO BID Qty: 6 0RF hydrocodone-acetaminophen 5-325 mg tablet 1 tab PO Q8H PRN (Reason: pain) Qty: 12 0RF ondansetron 4 mg film 4 mg PO DAILY PRN (Reason: nausea and vomiting) Qty: 15 0RF furosemide 40 mg tablet 40 mg PO DAILY 0RF exemestane 25 mg tablet 25 mg PO DAILY 0RF Discharge Orders: Discharge ED (Routine); Ordered 07/09/21 Ordered By: Aneudy Choe Referrals: Mason,AMERICO MosquedaN [Primary Care Provider] - Patient Instructions: Opioid Safety Coding Level of Care Code ED [employer]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
[2021-07-09 13:50] VITALS: BP 97/58; PULSE 93; RESP 21; O2SAT 97
[2021-07-09] MEDS: sodium chloride 0.9% 1,000 ML 999 ML IV (13:51)
[2021-07-09 14:00] VITALS: BP 101/52; PULSE 92; RESP 21; O2SAT 98
--- NOTE | 2021-07-09 14:12 | ECG_ITS ---
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 Measurements Intervals [facility] Rate: 92 P: 53 [place]: 147 QRS: 61 QRSD: 84 T: -36 QT: 363 QTc: 449 Interpretive Statements SINUS RHYTHM POSSIBLE LEFT ATRIAL ENLARGEMENT [-0.1mV P-WAVE IN V1/V2] NONSPECIFIC T-WAVE ABNORMALITY Compared to ECG 07/09/2021 12:18:13 Sinus tachycardia no longer present Possible ischemia no longer present T-wave abnormality still present Electronically Signed On 07-09-2021 19:49:56 CDT by Sai Quinones M.D. [id number]
[2021-07-09 14:18] LABS: Troponin(5th) Baseline 9 ng/L (0-10)
[2021-07-09 14:19] LABS: Blood Urea Nitrogen 21 mg/dL (6-20); Calcium 8.4 mg/dL (8.5-10.5); Carbon Dioxide 26 mmol/L (22-29); Chloride 96 mmol/L (98-107); Glomerular Filtration Rate 73.9 mL/min (90-130); Glucose 109 mg/dL (65-115); Osmolality Calculated 284 mOsm/kg (285-295); Sodium 135 mmol/L (136-145)
[2021-07-09 14:23] LABS: Anion Gap 16.3 (5-19); Potassium 3.3 mmol/L (3.5-5.1)
[2021-07-09 14:25] LABS: Basophils % 0.3 %; Eosinophils # 0.1 10^3/uL (0.0-0.8); Eosinophils % 0.8 %; Hemoglobin 12.5 g/dL (11.5-15.3); Lymphocytes # 0.9 10^3/uL (0.8-4.8); Lymphocytes % 11.8 %; Mean Corpuscular HGB Conc 31.3 g/dL (30.0-36.0); Mean Corpuscular Hemoglobin 29.1 pg (28.0-34.0); Mean Platelet Volume 10.6 fL (7.4-10.4); Monocytes # 0.7 10^3/uL (0.2-0.9); Monocytes % 8.8 %; Neutrophils # 5.79 10^3/uL (1.8-7.7); Neutrophils % 78.2 %; Nucleated Red Blood Cells % 0 %; Platelet Count 304 10^3/cmm (130-400); Red Cell Distribution Width 16.5 % (12.1-15.1); White Blood Count 7.4 10^3/uL (4.0-10.0)
[2021-07-09] MEDS: ondansetron 2 mg/ML SDV 2 mL 4 MG IVP (14:39)
[2021-07-09 15:00] VITALS: BP 88/61; O2SAT 96
[2021-07-09] MEDS: morphine 4 mg/mL SDV 1 mL 2 MG IVP (15:31)
--- NOTE | 2021-07-09 15:43 | PC.NURSE ---
Cassie Rn wasted 2mg of Morphine. 2mg given to patient via verbal order from Dr. Choe, due to vitals.
--- NOTE | 2021-07-09 15:46 | PC.NURSE ---
Stacy MONCADA witnessed waste of 2mg morphine and administration of 2mg morphine. Verbal order for dose and medication from Dr. Choe due to vital signs
[2021-07-09 15:47] VITALS: BP 83/62; PULSE 88; O2SAT 98
== END 2021-07-09 15:49 | disposition home or self-care (01) ==
PROVIDERS: Emergency Medicine; Emergency Provider Family Medicine; PCP Nurse Practitioner Family
DX: C57.02 Malignant neoplasm of left fallopian tube (principal); J91.0 Malignant pleural effusion; C78.6 Secondary malignant neoplasm of retroperitoneum and peritoneum; R07.9 Chest pain, unspecified
CPT/HCPCS: 71045; 80048; 84484; 85025; 93005; 96361; 96374; 96375; 99285; J2270; J2405; J7030

== ENCOUNTER 2021-07-22 14:02 | Outpatient (CLI) | payer MEDICARE, SELFPAY ==
[2021-07-22 14:33] LABS: Basophils % 0.5 %; Eosinophils # 0.1 10^3/uL (0.0-0.8); Eosinophils % 1.1 %; Hematocrit 43.7 % (37.0-47.0); Hemoglobin 13.3 g/dL (11.5-15.3); Lymphocytes # 0.7 10^3/uL (0.8-4.8); Lymphocytes % 10.3 %; Mean Corpuscular HGB Conc 30.4 g/dL (30.0-36.0); Mean Corpuscular Hemoglobin 29.5 pg (28.0-34.0); Mean Corpuscular Volume 96.9 fl (81-99); Mean Platelet Volume 10.5 fL (7.4-10.4); Monocytes # 0.6 10^3/uL (0.2-0.9); Neutrophils # 5.06 10^3/uL (1.8-7.7); Neutrophils % 78.6 %; Nucleated Red Blood Cells % 0 %; Platelet Count 316 10^3/cmm (130-400); Red Blood Count 4.51 10^6/uL (4.1-5.3); Red Cell Distribution Width 17.7 % (12.1-15.1); White Blood Count 6.4 10^3/uL (4.0-10.0)
[2021-07-22 14:52] LABS: Alanine Aminotransferase 8 U/L (0-33); Albumin Level 2.5 g/dL (3.5-5.2); Alkaline Phosphatase 126 IU/L (35-105); Anion Gap 13.7 (5-19); Aspartate Amino Transferase 16 U/L (0-32); Blood Urea Nitrogen 21 mg/dL (6-20); CA 125 534.2 U/mL (0-35); Calcium 8.4 mg/dL (8.5-10.5); Carbon Dioxide 31 mmol/L (22-29); Chloride 89 mmol/L (98-107); Globulin 2.7 g/dL (1.3-4.6); Glomerular Filtration Rate 86.2 mL/min (90-130); Glucose 91 mg/dL (65-115); Osmolality Calculated 275 mOsm/kg (285-295); Sodium 131 mmol/L (136-145); Total Bilirubin 0.5 mg/dL (0.15-1.2); Total Protein 5.2 g/dL (6.6-8.7)
[2021-07-22 16:05] LABS: Potassium 2.7 mmol/L (3.5-5.1)
== END 2021-07-22 14:03 | disposition home or self-care (01) ==
PROVIDERS: PCP Nurse Practitioner Family; Visit Provider Internal Medicine Medical Oncology
DX: C57.02 Malignant neoplasm of left fallopian tube (principal)
CPT/HCPCS: 80053; 85025; 86304